=== PATIENT | female | born 1945 | race Caucasian/White ===

== ENCOUNTER 2024-02-23 14:01 | Outpatient (AMB) | payer MEDICARE, MEDICAID, SELFPAY ==
--- NOTE | 2024-02-23 14:15 | A.OFFVIS_ITS ---
Vital Signs 02/23/24 14:17 Height 5 ft 3 in Weight 150 lb BMI 26.6 BP 142/67 H Blood Pressure Location Lt brachial Position Sitting Respiration 16 Pulse 68 Pulse Source Pulse Oximeter Pulse Oximetry (%) 98 Oxygen Delivery Method Room Air Intake Visit Reasons: LBP with R radiculopathy Allergies Penicillins Adverse Reaction (Severe, Verified 02/23/24 14:19) Hives Medication List - Last Reconciled 02/23/24 by Melisa Kyle, SERG atorvastatin 80 mg PO BEDTIME cyclobenzaprine 5 mg PO TID PRN gabapentin 1,200 mg PO .PM gabapentin 600 mg PO DAILY lisinopril 20 mg PO DAILY lorazepam 0.5 mg PO DAILY PRN metoprolol tartrate 25 mg PO DAILY tramadol 50 mg PO BID PRN HPI Comments Details: Florencia is very pleasant 78 years old female who presents in my office with her daughter today. She is complaining on pain in right lower back right leg and right knee pain. She reports sometimes feeling that right leg is going to give up under her. She reports that this pain started in August of 2023. She had the fall that summer and developed some small spinal fracture however on recent x- ray it is not documented. She reports that standing hurts her pain the most sitting and laying make pain better walking increases the pain. Flexing forward aggravates pain little bit and flexing backwards makes her pain more severe. The pain onset was gradual patient reports that she can not sleep normally, she can not do activities of daily living, she plus-minus can take care of herself, she can not function normally. She is retired individual on permanent disability. She needs walker or cane for ambulation. Her most severe pain is in the morning and after walking. Pain is less severe at rest. In terms of tissue damage he describes her pain as pulsing, throbbing, pounding, tingling, stinging, dull, hurting, heavy, tiring, exhausting, fearful, fried full, terrifying. She had x-ray of the lumbar spine results of which dictated as below. She had extensive course of physical therapy and tries to continue home exercise program however this takes her toll when she performs exercises while standing. She was given occupational therapy to help with the cane and walker. She reports that she received cortisone injection in her knee in the past which did not help her pain. Her past medical history significant for hypertension history of myocardial infarction for which she received cardiac stent history of arthritis and arrhythmia. She does not have pacemaker implanted no defibrillator. Her past surgical history significant for cardiac standing in 2011 lumpectomy for breast CA gallbladder surgery partial thyroidectomy and hernia repair. Social history she is retired individual she denies smoking she stopped it in 2010. She does not drink alcohol. She drinks coffee 1-2 glasses daily with large amount of sugar, she sometimes drinks soda. She denies recreational drugs. Review of Systems Const Reports no additional complaints Eyes Reports blurry vision and Reports change in vision ENT Reports Normal hearing present Card Reports as per HPI Resp Reports no additional complaints GI Reports no additional complaints Reports no additional complaints Musc Reports as per HPI Neuro Reports no additional complaints, Reports Normal hearing present, Denies Abnormal speech present, Denies confusion and Denies Sensory deficit (Neuro) Psych Reports no additional complaints and Denies confusion Physical Exam Vital Signs: Last Vital Signs Pulse 68 02/23/24 14:17 Resp 16 02/23/24 14:17 BP 142/67 H 02/23/24 14:17 Pulse Ox 98 02/23/24 14:17 Oxygen Delivery Method Room Air 02/23/24 14:17 BMI result Body Mass Index 26.6 Const General: no acute distress; No confusion Nutritional Appearance: obese morbidly obese Orientation/consciousness: patient oriented x3 and No confusion Eyes General: appearance normal, both eyes and all related structures Pupils: Equal, round and reactive pupils present EOM: EOMs intact bilaterally Neck Neck: Yes full ROM Chest Chest palpation & inspection: normal inspection of the chest Resp Effort & Inspection: normal respiratory effort, able to speak in complete sentences, normal respiratory pattern, no audible wheezes and no cough Cardio Jugular venous distension: no JVD GI Inspection: Yes normal to inspection Back/Spine/Pelvis Other: She is able to stand on bilateral tiptoes however she loses her balance attempting to stand on bilateral heels, therefore dorsiflexion of the foot function S1 nerve root is difficult to assess on physical exam. Flexing forward aggravates her pain as well as flexing backwards. Loading test is positive on the right. Negative on the left. SLR is negative bilaterally. Reagan test is negative bilaterally. There is tenderness on palpation in paraspinal spinal region most lower portion of the lumbar spine. Tenderness on palpation in proj ection of the trochanter. Tenderness on palpation in projection of the right knee. Neuro General: patient oriented x3, gait normal and No confusion Cranial nerves: Yes CN's II-XII intact bilaterally, Yes Equal, round and reactive pupils present, Yes Normal hearing present and Yes Ability to bilaterally elevate shoulders present Speech: No Abnormal speech present Gait exam (Neuro): Normal gait present Motor exam (neuro): 5/5 motor strength present throughout Sensory Exam: No Sensory deficit (Neuro) Extrem General: No pedal edema Psych Speech and movement: Normal speech and movement present Affect: normal affect Attitude: cooperative Thought process: Normal thought process present Thought content: Normal thought content present Insight: Good insight present (Psych) Judgement: Good judgement present (Psych) Results Reviewed Results Reviewed: X-ray lumbar spine 11/25/2023. Degenerative disc and endplate changes, most pronounced with the lower lumbar spine. Degenerative facet joint changes in multiple levels. No substantial lumbar vertebral body compression deformity seen. There is multiple likely Schmorl's nodes. The bones appear mildly under mineralized , minimal grade 1 anterolisthesis at L3-L4 Appears similar to prior CT, likely minimal grade 1 anterolisthesis at L2-L3 new compared to prior CT. Prominent atherosclerotic calcifications of the abdominal aorta. Surgical clips in the right upper quadrant. Impression degenerative changes within the lumbar spine. X-ray of the right knee 10/14/2023. Findings: Mild tricompartmental arthritis with small joint effusion. No acute fracture identified. No acute dislocation subluxation identified. 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 Next appointment will be scheduled immediately after this injection. (2) Iliotibial band syndrome affecting right lower leg: Code(s): M76.31 - Iliotibial band syndrome, right leg Category: Medical Plan: I recommend I aerobic exercises preferably swimming for her to help with iliotibial band syndrome. Physical therapy exercises she learned at the office of physical therapy must be continued. (3) Osteoarthritis of right knee: Code(s): M17.11 - Unilateral primary osteoarthritis, right knee Category: Medical Plan: I offered the patient to perform Durolane or Synvisc injection into the right knee. I do not believe 78 years old with history of osteopenia is a good candidate for knee steroid injections. (4) Chronic pain syndrome: Code(s): G89.4 - Chronic pain syndrome Category: Medical Plan She was asking multiple questions about medications. She is being prescribed tramadol and she takes Advil with that. I also recommended her to take Tylenol in between the doses of the tramadol. She can not take up to 3 pills of 500 mg of Tylenol. I also recommended her to continue to stay active. The question was whether or not Celebrex is a good medication for her. 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 I also explained to her if Advil or Celebrex irritate her stomach she can not take this medication with food or milk. Multiple questions this patient was asking about pain control and medications. All this questions were answered to patient's satisfaction. Patient Instructions: I here by testify that I spent 45 minutes in conversation with this patient as well as planning her care and organizing this note. Coding Level of Care Code New Pt Level 4 (99113) Diagnoses Spondylosis of lumbar region without myelopathy or radiculopathy M47.816 Iliotibial band syndrome affecting right lower leg M76.31 Osteoarthritis of right knee M17.11 Chronic pain syndrome G89.4
[2024-02-23 14:17] VITALS: BP 142/67; PULSE 68; RESP 16; O2SAT 98; BMI 26.6
--- OUTSIDE RECORDS SUMMARY | 2024-02-23 18:30 | XMS_ITS | Clinical Summary ---
Author Organization [facility] Address [address] [place] [address] Phone Care Team Providers Care Commercial Real Estate Lender Name Role Phone Monica HERRERA Karin Nesbitt [phone] Conditions or Problems Problem Name Problem Code Onset Date Status Entry Date Provider Comment Standard Description Annotate CONTACT DERMATITIS 96018981 (SNOMED CT) Active Karin HERRERA Contact dermatitis Medications Medication Instructions Start Date Stop Date Generic Name NDC Provider TRIAMCINOLONE ACETONIDE 0.1 % OINT Apply BID to affected area on forearms daily TRIAMCINOLONE ACETONIDE [id number] Karin HERRERA ATIVAN TABS LORAZEPAM TABS [id number] Karin HERRERA ADULT ASPIRIN EC LOW STRENGTH 81 MG ORAL TABLET DELAYED RELEASE ASPIRIN [id number] Karin HERRERA CALCIUM-MAGNESIU M TABS CALCIUM-MAGNESIU M TABS [id number] Karin HERRERA LETROZOLE TABS LETROZOLE TABS [id number] Karin HERRERA GABAPENTIN TABS GABAPENTIN TABS [id number] Karin HERRERA METOPROLOL TARTRATE SOLN METOPROLOL TARTRATE SOLN [id number] Karin HERRERA LISINOPRIL TABLET LISINOPRIL TABS [id number] Karin HERRERA Medications Administered No information available. Allergies, Adverse Reactions, Alerts Allergy Name Reaction Description Start Date Severity Statu s Provider SHARAD Mild Karin HERRERA PCN Mild Karin HERRERA Results No information available. Plan of Care Type Date Detail Patient education nystatin%2ftriamcinolone%20(topical)%20(cream%2c%20ointm ent) Patient education Medications Patient education anal%20itching Patient education nystatin%2ftriamcinolone%20(topical)%20(cream%2c%20ointm ent) Patient education Medications Patient education anal%20itching Patient education nystatin%2ftriamcinolone%20(topical)%20(cream%2c%20ointm ent) Patient education Medications Patient education anal%20itching Procedures Code Procedure Name Date Entry Date [id number] Patient encounter procedure Vital Signs No information available. Immunizations No information available. Advance Directives No information available.
--- OUTSIDE RECORDS SUMMARY | 2024-02-23 18:30 | XMS_ITS | Clinical Summary ---
Author Organization Unknown Care Team Providers Care Electronic Gluer Name Role Phone ANGELA JEFFERSON, LEONOR Unavailable Unavailable CLAUDIA RN, JENNIE Unavailable Unavailable CULLEN PT, ROSI Unavailable Unavaila diomedes CAMEJO OT, SENDY Unavailable Unavailable BALDINShorty PHOTOLITHOGRAPHER, ANGELO Unavailable Unavailable JOCELYNN FOSTER PARENT, VAHID Unavailable Unavailable CAROL ANN PT, STEPHANY Unavailable Unavailable Payers Payer Name Policy Type Policy Number Effective Date Expira tion Date MEDICARE - [place] - [place] [id number] MEDICAID [place] [facility] [id number] Problems Condition Name Condition Details Condition Category Status Onset Date Resolution Date Last Treatment Date Treating Clinician Comments WEDGE COMPRSN FX FOURTH LUM VERT, SUBS FOR FX W ROUTN HEAL Active 02-07 00:00: 00 ESSENTIAL (PRIMARY) HYPERTENSION Active 02-07 00:00: 00 POLYNEUROPAT HY, UNSPECIFIED Active 02-07 00:00: 00 ANXIETY DISORDER, UNSPECIFIED Active 02-07 00:00: 00 HYPERLIPIDEM IA, UNSPECIFIED Active 02-07 00:00: 00 UNSPECIFIED URINARY INCONTINENCE Active 02-07 00:00: 00 RADICULOPATH Y, LUMBAR REGION Active 02-07 00:00: 00 PERSONAL HISTORY OF MALIGNANT NEOPLASM OF BREAST Active 02-07 00:00: 00 HISTORY OF FALLING Active 02-07 00:00: 00 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 Ordering Clinician Indication Dosage Frequency Signature (SIG) Comments Components cyclobenzap rine 10 mg tablet 09-06 00:00: 00 09-20 23:59 :00 No [id number] Per instruc tions EVERY 8 HOURS NEEDED Per instructio ns EVERY 8 HOURS NEEDED (route: oral) Med Classific ation: Locomotor System fluvoxamine 100 mg tablet 09-01 00:00: 00 09-20 23:59 :00 No [id number] Per instruc tions ONCE DAILY AT BEDTIME Per instructio ns ONCE DAILY AT BEDTIME (route: oral) Med Classific ation: Central Nervous System Agents metoprolol succinate ER 25 mg tablet,exte nded release 24 hr 09-01 00:00: 00 Yes [id number] 1 tablet ONCE DAILY 1 tablet ONCE DAILY (route: oral) Med Classific ation: Cardiovas cular Therapy Agents alendronate 70 mg tablet 08-30 00:00: 00 Yes [id number] Per instruc tions WEEKLY Per instructio ns WEEKLY (route: oral) Med Classific ation: Endocrine metoprolol succinate ER 50 mg tablet,exte nded release 24 hr 08-21 00:00: 00 09-20 23:59 :00 No [id number] Per instruc tions EVERY DAY Per instructio ns EVERY DAY (route: oral) Med Classific ation: Cardiovas cular Therapy Agents lisinopril 20 mg tablet 08-17 00:00: 00 12-07 23:59 :00 No [id number] 30 mg EVERY DAY 30 mg EVERY DAY (route: oral) Med Classific ation: Cardiovas cular Therapy Agents gabapentin 300 mg capsule 09-20 00:00: 00 12-12 23:59 :00 No [id number] 2 capsule 2 TIMES DAILY 2 capsule 2 TIMES DAILY (route: oral) Med Classific ation: Central Nervous System Agents lorazepam 0.5 mg tablet 09-20 00:00: 00 Yes [id number] 1 tablet BEDTIME 1 tablet BEDTIME (route: oral) Med Classific ation: Central Nervous System Agents PreserVisio n AREDS 2 Plus Multivit 200 mcg-15 mcg-5 mg-1 mg capsule 09-20 00:00: 00 Yes [id number] 1 capsule DAILY 1 capsule DAILY (route: oral) Med Classific ation: Electroly te Balance-N utritiona l Products tramadol 50 mg tablet 09-20 00:00: 00 12-07 23:59 :00 No [id number] 1 tablet NEEDED 1 tablet NEEDED (route: oral) Med Classific ation: Analgesic , Anti-infl ammatory or Antipyret ic trazodone 50 mg tablet 09-20 00:00: 00 12-12 23:59 :00 No [id number] .5 tablet DAILY .5 tablet DAILY (route: oral) Med Classific ation: Central Nervous System Agents furosemide 20 mg tablet 09-28 00:00: 00 Yes [id number] 20 mg DAILY 20 mg DAILY (route: oral) Med Classific ation: Cardiovas cular Therapy Agents celecoxib 200 mg capsule 2023-02 00:00: 00 Yes [id number] 1 capsule 2 TIMES DAILY 1 capsule 2 TIMES DAILY (route: oral) Med Classific ation: Analgesic , Anti-infl ammatory or Antipyret ic lisinopril 20 mg tablet 2023-02 00:00: 00 Yes [id number] 1 tablet EVERY AM 1 tablet EVERY AM (route: oral) Med Classific ation: Cardiovas cular Therapy Agents atorvastati n 80 mg tablet 2023-02 00:00: 00 Yes [id number] 80 mg DAILY 80 mg DAILY (route: oral) Med Classific ation: Cardiovas cular Therapy Agents fluvoxamine 100 mg tablet 2023-02 00:00: 00 Yes [id number] 100 mg BEDTIME 100 mg BEDTIME (route: oral) Med Classific ation: Central Nervous System Agents gabapentin 300 mg capsule 2023-02 00:00: 00 Yes [id number] Per instruc tions 2 TIMES DAILY Per instructio ns 2 TIMES DAILY (route: oral) Med Classific ation: Central Nervous System Agents oxybutynin chloride 5 mg tablet 2023-02 00:00: 00 Yes [id number] 5 mg 2 TIMES DAILY 5 mg 2 TIMES DAILY (route: oral) Med Classific ation: Genitouri nary Therapy Vital Signs Vital Name Observation Time Observation Value Commen ts Temperature 2024-01-17 16:07:00.000 98 [degF] Temperature 2023-12-08 15:39:00.000 98 [degF] Temperature 2023-11-29 13:37:00.000 98.5 [degF] Temperature 2023-11-28 09:09:00.000 97.9 [degF] Temperature 2023-11-24 09:31:00.000 98.3 [degF] Pulse 2024-01-17 16:07:00.000 82 /min Pulse 2023-12-08 15:39:00.000 88 /min Pulse 2023-11-29 13:37:00.000 71 /min Pulse 2023-11-28 09:09:00.000 76 /min Pulse 2023-11-24 09:31:00.000 89 /min O2 Saturation (%) 2024-01-17 16:07:00.000 98 % O2 Saturation (%) 2023-12-08 15:39:00.000 98 % O2 Saturation (%) 2023-11-29 13:37:00.000 96 % O2 Saturation (%) 2023-11-28 09:09:00.000 93 % O2 Saturation (%) 2023-11-24 09:31:00.000 93 % Respirations 2024-01-17 16:07:00.000 16 /min Respirations 2023-12-08 15:39:00.000 16 /min Respirations 2023-11-29 13:37:00.000 16 /min Respirations 2023-11-28 09:09:00.000 16 /min Respirations 2023-11-24 09:31:00.000 16 /min Systolic Blood Pressure 2024-01-17 16:07:00.000 112 mm [Hg] Systolic Blood Pressure 2023-12-08 15:39:00.000 104 mm [Hg] Systolic Blood Pressure 2023-11-29 13:37:00.000 106 mm [Hg] Systolic Blood Pressure 2023-11-28 09:09:00.000 132 mm [Hg] Systolic Blood Pressure 2023-11-24 09:31:00.000 128 mm [Hg] Diastolic Blood Pressure 2024-01-17 16:07:00.000 74 mm [Hg] Diastolic Blood Pressure 2023-12-08 15:39:00.000 58 mm [Hg] Diastolic Blood Pressure 2023-11-29 13:37:00.000 68 mm [Hg] Diastolic Blood Pressure 2023-11-28 09:09:00.000 78 mm [Hg] Diastolic Blood Pressure 2023-11-24 09:31:00.000 74 mm [Hg] Plan of Treatment Planned Activity Planned Date Details Comments Future Scheduled Test SKILLED NU RSE TO EVALUATE PATIENT, IDENTIFY PRIMARY AND CO-MORBID CONDITIONS CODED PER CODING GUIDELINES, AND DEVELOP PATIENT SPECIFIC PLAN OF CARE THAT INCLUDES PATIENT GOAL FOR HOME HEALTH. [code = SKILLED NURSE TO EVALUATE PATIENT, IDENTIFY PRIMARY AND CO-MORBID CONDITIONS CODED PER CODING GUIDELINES, AND DEVELOP PATIENT SPECIFIC PLAN OF CARE THAT INCLUDES PATIENT GOAL FOR HOME HEALTH.] Future Scheduled Test PATIENT MCLEOD S A RISK OF HOSPITALIZATION AND ED USE. SKILLED NURSE TO ESTABLISH SUPPORT MEASURES TO MINIMIZE RISK OF HOSPITALIZATION AND ED USE, AND INSTRUCT PATIENT/CAREGIVER ON METHODS TO REDUCE AVOIDABLE HOSPITALIZATION AND ED USE. [code = PATIENT HAS A RISK OF HOSPITALIZATION AND ED USE. SKILLED NURSE TO ESTABLISH SUPPORT MEASURES TO MINIMIZE RISK OF HOSPITALIZATION AND ED USE, AND INSTRUCT PATIENT/CAREGIVER ON METHODS TO REDUCE AVOIDABLE HOSPITALIZATION AND ED USE.] Future Scheduled Test SKILLED NU RSE TO PERFORM HOME SAFETY AND FALL ASSESSMENT AND PROVIDE INSTRUCTION TO IMPLEMENT HOME SAFETY AND FALL PREVENTION STRATEGIES. [code = SKILLED NURSE TO PERFORM HOME SAFETY AND FALL ASSESSMENT AND PROVIDE INSTRUCTION TO IMPLEMENT HOME SAFETY AND FALL PREVENTION STRATEGIES.] Future Scheduled Test SKILLED NU RSE FOR OBSERVATION AND ASSESSMENT OF PATIENTS PAIN LEVEL AND EFFECTIVENESS OF PAIN MANAGEMENT REGIMEN. SKILLED NURSE TO INSTRUCT PATIENT/CAREGIVER REGARDING PHARMACOLOGIC AND NON-PHARMACOLOGIC PAIN CONTROL MEASURES. SKILLED NURSE TO REPORT TO PHYSICIAN IF PAIN IS UNCONTROLLED WITH CURRENT PAIN MANAGEMENT REGIMEN. [code = SKILLED NURSE FOR OBSERVATION AND ASSESSMENT OF PATIENTS PAIN LEVEL AND EFFECTIVENESS OF PAIN MANAGEMENT REGIMEN. SKILLED NURSE TO INSTRUCT PATIENT/CAREGIVER REGARDING PHARMACOLOGIC AND NON-PHARMACOLOGIC PAIN CONTROL MEASURES. SKILLED NURSE TO REPORT TO PHYSICIAN IF PAIN IS UNCONTROLLED WITH CURRENT PAIN MANAGEMENT REGIMEN.] Future Scheduled Test SKILLED NU RSE FOR O/A OF SELF-CARE DEFICITS AND TO PROVIDE TEACHING RELATED TO SAFE PROVISION OF ADLS. [code = SKILLED NURSE FOR O/A OF SELF-CARE DEFICITS AND TO PROVIDE TEACHING RELATED TO SAFE PROVISION OF ADLS.] Future Scheduled Test SKILLED NU RSE TO REVIEW PATIENT MEDICATIONS. INSTRUCT PATIENT/CAREGIVER ON MONITORING OF EFFECTIVENESS, ADVERSE DRUG REACTIONS, SIDE EFFECTS OF ALL MEDICATIONS (PRESCRIPTION/-OTC), AND HOW AND WHEN TO REPORT PROBLEMS. [code = SKILLED NURSE TO REVIEW PATIENT MEDICATIONS. INSTRUCT PATIENT/CAREGIVER ON MONITORING OF EFFECTIVENESS, ADVERSE DRUG REACTIONS, SIDE EFFECTS OF ALL MEDICATIONS (PRESCRIPTION/-OTC), AND HOW AND WHEN TO REPORT PROBLEMS.] Future Scheduled Test PHYSICAL T HERAPIST TO EVALUATE PATIENT SECONDARY TO FUNCTIONAL DEFICITS/SAFETY CONCERNS. PHYSICAL THERAPY TO ESTABLISH /UPGRADE/DOWNGRADE THERAPEUTIC EXERCISE PROGRAM AND INSTRUCT PATIENT/CAREGIVER ON EXERCISE PRECAUTIONS WITH WRITTEN HOME PROGRAM. MAY INCLUDE AROM, RROM APPROPRIATE TO IMPROVE FUNCTIONAL STRENGTH AND RANGE OF MOTION. PHYSICAL THERAPY TO INSTRUCT PATIENT/CAREGIVER ON GAIT TRAINING TECHNIQUES USING APPROPRIATE ASSISTIVE DEVICE, PROPER BODY MECHANICS TO IMPROVE MOBILITY, AND PREVENT INJURY OF PATIENT AND/OR CAREGIVER. PHYSICAL THERAPY FOR OBSERVATION AND ASSESSMENT OF PAIN, EFFECTIVENESS OF PAIN MANAGEMENT REGIMEN AND SKILLED TEACHING RELATED TO PAIN MANAGEMENT. THERAPIST TO REPORT INCREASED PAIN LEVEL TO PHYSICIAN FOR PROMPT INTERVENTION. PHYSICAL THERAPY TO INSTRUCT PATIENT/CAREGIVER ON BALANCE AND BALANCE STRATEGIES TO IMPROVE SAFE MOBILITY AND REDUCE RISK FOR FALL AND INJURY INCLUDING PARTICIPATION IN [facility] BALANCE SPECIALTY PROGRAM SUMMARY OF THERAPY EVAL/ASSESSMENT FINDINGS AND REASON(S) SKILLS OF A THERAPIST ARE INDICATED: PT RECERTIFICATION- PATIENT IS A 78 YEAR OLD FEMALE WHO HAS BEEN RECEIVING SKILLED HOME PHYSICAL S/P TWO FALLS, RESULTING IN L4 ENDPLATE FRACTURE. PATIENT IS MAKING GAINS WITH SKILLED PT SERVICES THOUGH PROGRESS IS LIMITED DUE TO SIGNIFICANT MEMORY/RECALL DEFICITS AND IMPULSIVITY LIMITING SAFETY AWARENESS. PATIENT CURRENT STATUS FOLLOWS: ALERT AND ORIENTED X 3 THOUGH VERY FORGETFUL AND REQUIRES FREQUENT REDIRECTION. PT WITH DECREASING COMPLAINTS PAIN NOW 2-5/10 R ANTERIOR THIGH TO KNEE (WAS 5-8/10 R LATERAL THIGH TO KNEE) SENSATION - COMPLIANTS NUMBNESSS R ANTERIOR THIGH TO KNEE THOUGH SENSATION INTACT CONTINUED LIMITED LIGHT TOUCH SENSATION B LE PEDAL TO PROXIMAL BERG MMT NOW: 4+/5 L LE, R HIP FLEX/ABD/EXT 4-, R QUAD/HS/ANKLE 4/5 BED MOBILITY- INDEP THOUGH NONCOMPLIANT WITH LOGROLLING TECH. XFERS- PATIENT REQURIES CONTINUED SUPERVISION WITH VC FOR 4WW. GAIT- PATIENT ABLE TO DEMONSTRATE DISTANT SUPERVISIOON INDOOR AMBULATION WITH 4WW THOUGH L BOLT MISSING FROM 4WW RESULTING IN INABILITY TO KEEP L SUPPORT IN PROPER POSITION, TC TO DTR WHO IS AWARE AND STATES SHE HAS REPLACEMENT BOLT WHICH SHE WILL DELIVER TOMORROW. PATIENT ABLE TO DEMONSTRATE IMPROVED STEP LENGTH AND GAIT SPEED BUT DEMONSTRATES INCONSISTENT COMPLIANCE WITH 4WW LIMITING SAFETY. (IMPROVED FROM PATIENT REQUIRES INTERMITTENT CGA FOR INDOOR AMBULATION WITH MOD VC/TC FOR UPRIGHT POSTURE AND NOT TO WB ON FOREARMS ON 4WW) PT IS A REMAINS A HIGH FALL RISK THOUGH LESSENED EVIDENCED BY TINETTI OF (WAS .) PT TO BENEFIT CONTINUED SKILLED PT RX 1X WK X 5 WKS TO ADDRESS BALANCE, SAFETY, LE STRENGTH DEFICITS TO MAXIMIZE SAFETY IN HOME AND BALANCE REACTIONS PATIENT PERSISTS WITH VERY LIMITED INSIGHT INTO DEFICITS. CONTINUE EDUCATION IN NOT DRIVING, USE OF 4WW AT ALL TIMES, HEP UPDATED TO INCLUDE SLR AND BRIDGING TO ADDRESS CORE STRENGTH DEFICITS. CC WITH PHOTOLITHOGRAPHER MARTA AND DTR REGARDING PT POC. [code = PHYSICAL THERAPIST TO EVALUATE PATIENT SECONDARY TO FUNCTIONAL DEFICITS/SAFETY CONCERNS. PHYSICAL THERAPY TO ESTABLISH /UPGRADE/DOWNGRADE THERAPEUTIC EXERCISE PROGRAM AND INSTRUCT PATIENT/CAREGIVER ON EXERCISE PRECAUTIONS WITH WRITTEN HOME PROGRAM. MAY INCLUDE AROM, RROM APPROPRIATE TO IMPROVE FUNCTIONAL STRENGTH AND RANGE OF MOTION. PHYSICAL THERAPY TO INSTRUCT PATIENT/CAREGIVER ON GAIT TRAINING TECHNIQUES USING APPROPRIATE ASSISTIVE DEVICE, PROPER BODY MECHANICS TO IMPROVE MOBILITY, AND PREVENT INJURY OF PATIENT AND/OR CAREGIVER. PHYSICAL THERAPY FOR OBSERVATION AND ASSESSMENT OF PAIN, EFFECTIVENESS OF PAIN MANAGEMENT REGIMEN AND SKILLED TEACHING RELATED TO PAIN MANAGEMENT. THERAPIST TO REPORT INCREASED PAIN LEVEL TO PHYSICIAN FOR PROMPT INTERVENTION. PHYSICAL THERAPY TO INSTRUCT PATIENT/CAREGIVER ON BALANCE AND BALANCE STRATEGIES TO IMPROVE SAFE MOBILITY AND REDUCE RISK FOR FALL AND INJURY INCLUDING PARTICIPATION IN [facility] BALANCE SPECIALTY PROGRAM SUMMARY OF THERAPY EVAL/ASSESSMENT FINDINGS AND REASON(S) SKILLS OF A THERAPIST ARE INDICATED: PT RECERTIFICATION- PATIENT IS A 78 YEAR OLD FEMALE WHO HAS BEEN RECEIVING SKILLED HOME PHYSICAL S/P TWO FALLS, RESULTING IN L4 ENDPLATE FRACTURE. PATIENT IS MAKING GAINS WITH SKILLED PT SERVICES THOUGH PROGRESS IS LIMITED DUE TO SIGNIFICANT MEMORY/RECALL DEFICITS AND IMPULSIVITY LIMITING SAFETY AWARENESS. PATIENT CURRENT STATUS FOLLOWS: ALERT AND ORIENTED X 3 THOUGH VERY FORGETFUL AND REQUIRES FREQUENT REDIRECTION. PT WITH DECREASING COMPLAINTS PAIN NOW 2-5/10 R ANTERIOR THIGH TO KNEE (WAS 5-8/10 R LATERAL THIGH TO KNEE) SENSATION - COMPLIANTS NUMBNESSS R ANTERIOR THIGH TO KNEE THOUGH SENSATION INTACT CONTINUED LIMITED LIGHT TOUCH SENSATION B LE PEDAL TO PROXIMAL BERG MMT NOW: 4+/5 L LE, R HIP FLEX/ABD/EXT 4-, R QUAD/HS/ANKLE 4/5 BED MOBILITY- INDEP THOUGH NONCOMPLIANT WITH LOGROLLING TECH. XFERS- PATIENT REQURIES CONTINUED SUPERVISION WITH VC FOR 4WW. GAIT- PATIENT ABLE TO DEMONSTRATE DISTANT SUPERVISIOON INDOOR AMBULATION WITH 4WW THOUGH L BOLT MISSING FROM 4WW RESULTING IN INABILITY TO KEEP L SUPPORT IN PROPER POSITION, TC TO DTR WHO IS AWARE AND STATES SHE HAS REPLACEMENT BOLT WHICH SHE WILL DELIVER TOMORROW. PATIENT ABLE TO DEMONSTRATE IMPROVED STEP LENGTH AND GAIT SPEED BUT DEMONSTRATES INCONSISTENT COMPLIANCE WITH 4WW LIMITING SAFETY. (IMPROVED FROM PATIENT REQUIRES INTERMITTENT CGA FOR INDOOR AMBULATION WITH MOD VC/TC FOR UPRIGHT POSTURE AND NOT TO WB ON FOREARMS ON 4WW) PT IS A REMAINS A HIGH FALL RISK THOUGH LESSENED EVIDENCED BY TINETTI OF (WAS .) PT TO BENEFIT CONTINUED SKILLED PT RX 1X WK X 5 WKS TO ADDRESS BALANCE, SAFETY, LE STRENGTH DEFICITS TO MAXIMIZE SAFETY IN HOME AND BALANCE REACTIONS PATIENT PERSISTS WITH VERY LIMITED INSIGHT INTO DEFICITS. CONTINUE EDUCATION IN NOT DRIVING, USE OF 4WW AT ALL TIMES, HEP UPDATED TO INCLUDE SLR AND BRIDGING TO ADDRESS CORE STRENGTH DEFICITS. CC WITH PHOTOLITHOGRAPHER MARTA AND DTR REGARDING PT POC.] Goal 2024-01-18 Patient Goal - F EEL BETTER I WANT TO WALK INDEPENDENTLY Goal 2023-11-15 Patient Goal - FEEL BETTER Goal 2024-01-17 Patient Goal - F EEL BETTER I WANT TO WALK INDEPENDENTLY Goal Provider Goal - A PLAN OF CARE WILL BE ESTABLISHED THAT MEETS PATIENT'S NURSING HOME NEEDS AND INCLUDES PATIENT GOAL FOR HOME HEALTH. Goal Provider Goal - PATIENT WILL HAVE SUPPORT MEASURES ESTABLISHED TO PREVENT HOSPITALIZATION AND ED USE AND PATIENT/CAREGIVER WILL VERBALIZE/DEMONSTRATE METHODS TO REDUCE AVOIDABLE HOSPITALIZATION AND ED USE BY END OF EPISODE. Goal Provider Goal - PATIENT/CAREGIVER WILL VERBALIZE/DEMONSTRATE EFFECTIVE HOME SAFETY AND FALL PREVENTION STRATEGIES THROUGHOUT CERTIFICATION PERIOD. Goal Provider Goal - PATIENT/CAREGIVER WILL DEMONSTRATE UNDERSTANDING OF PHARMACOLOGIC AND NONPHARMACOLOGIC PAIN CONTROL MEASURES AND PATIENT WILL HAVE IMPROVEMENT IN PAIN INTERFERING WITH ACTIVITY EVIDENCED BY PAIN CONTROLLED AT LEVEL OF 4 OR LESS BY END OF CERTIFICATION PERIOD. Goal Provider Goal - PATIENT/CAREGIVER WILL VERBALIZE/DEMONSTRATE UNDERSTANDING OF SAFE PROVISION OF ADLS BY THE END OF THE CERTIFICATION PERIOD. Goal Provider Goal - PATIENT/CAREGIVER WILL VERBALIZE UNDERSTANDING OF EDUCATION PROVIDED ON MEDICATIONS BY THE END OF THE CERTIFICATION PERIOD. Goal Provider Goal - PHYSICAL THERAPY EVALUATION TO BE COMPLETED WITH RECOMMENDATIONS AND/OR WRITTEN TREATMENT PLAN OF CARE ESTABLISHED FOR THE PHYSICIANS SIGNATURE PATIENT/CAREGIVER WILL PERFORM THERAPEUTIC EXERCISE/S AND DEMONSTRATE PARTICIPATION IN A HOME PROGRAM. PATIENT/CAREGIVER WILL DEMONSTRATE IMPROVED GAIT TECHNIQUES TO MINIMIZE RISK OF INJURY. INCREASED PAIN OR INEFFECTIVE PAIN CONTROL MEASURES WILL BE IDENTIFIED AND PROMPTLY REPORTED TO THE PHYSICIAN. PATIENT/CAREGIVER WILL DEMONSTRATE EFFECTIVE PAIN MANAGEMENT. PATIENT/CAREGIVER WILL DEMONSTRATE IMPROVED BALANCE AND REDUCE THE RISK OF FALLS AND INJURY. Reason for Visit INDEPENDENT IN THE HOME Encounters Start Date/Time End Date/Time Encounter Type Admission Type [facility]ending [facility] Department Encounter ID Discharge Date Discharge Status Discharge Condition Discharge Reason Percent Goals Met 2023-09-21 00:00:00 2024-01-18 00:00:00 Outpatient RECERTIFIC JENNIE DEWITT [facility] [id number] 2024-01-18 00:00:00 DISCHARGE TO HOME OR SELF CARE INDEPENDEN T IN THE HOME PER CLIENT REQUEST 52.38
== END 2024-02-23 14:56 | disposition home or self-care (01) ==
PROVIDERS: Visit Provider Anesthesiology
DX: M47.816 Spondylosis without myelopathy or radiculopathy, lumbar region (principal); M76.31 Iliotibial band syndrome, right leg; M17.11 Unilateral primary osteoarthritis, right knee; G89.4 Chronic pain syndrome
CPT/HCPCS: 99204

== ENCOUNTER → 2024-02-23 14:01 | Outpatient (BNVA) | payer MEDICARE, MEDICAID, SELFPAY | PROVIDERS: Visit Provider Anesthesiology | DX: M47.816 Spondylosis without myelopathy or radiculopathy, lumbar region (principal); M76.31 Iliotibial band syndrome, right leg; M17.11 Unilateral primary osteoarthritis, right knee; G89.4 Chronic pain syndrome | CPT/HCPCS: 99202 ==

== ENCOUNTER 2024-05-04 10:24 | Day surgery (SDC) | payer MEDICARE, SELFPAY ==
--- NOTE | ~2024-05-04 | FL_ITS ---
EXAMINATION: FL GUIDANCE ONLY HISTORY: right l3, l4 dorsal ramus l5 medial branch block COMPARISON: None available. TECHNIQUE: Fluoroscopy time: 57.4 seconds. Cumulative Dose: 6.1304 mGy. DAP: 2.5411 mGym2 Images: 8. FINDINGS: Images demonstrate needles and contrast material in the regions of the right L2-3, L3-4, L4-5, and L5-S1 facet joints. FL/FL guidance in OR IMPRESSION: Fluoroscopy during procedure. Please see procedure report for additional information. Electronically signed by: Ian Cox MD 05/04/2024 02:39 PM EDT
[2024-05-04 11:14] VITALS: BMI 24.8
[2024-05-04 11:21] VITALS: BP 152/60; PULSE 62; RESP 16; TEMP 36.8; O2SAT 97
[2024-05-04] MEDS: Lactated Ringers 1,000 ML 100 ML IVCONT (11:39)
--- NOTE | 2024-05-04 12:56 | MHC.SHP ---
Pre-Procedural Eval Section A - 24 Hr Update-Section A only Date of Service: 05/04/24 The patient is an INPATIENT: No Changes since office visit: Yes Patient answered all questions The patient has been examined within 24 hours of the surgical procedure. The History & Physical has been completed within 30 days and I have reviewed it.: No Section B - Complete if H&P > 30 days Chief Complaint: Spondylosis without myelopathy or radiculopathy Details of Present Illness: As above Relevant Family History (Specify if Yes): No Relevant Social History: None Present Medications: see Short Stay Collaborative assessment Medical History: No relevant PMH History of Previous Operations: Relevant previous surgery/procedure and date(s) Allergies: Allergies Allergy/AdvReac Type Severity Reaction Status Date / Time Penicillins AdvReac Severe Hives Verified 02/23/24 14:19 Review of Systems Sugical H&P ROS: Negative: Constitution, Respiratory, Neurological, Psychiatric, Hem-Onc, Allergic/Immunologic, Gastrointestinal, Genitourinary, Integumentary, Endocrine and Eyes/Ears/Nose/Throat and Yes, Specify: Cardiovascular (Hypertension) and Musculoskeletal (As above) Exam Surgical H&P Exam: Normal: HEENT, Normal: Heart, Normal: Lungs, Normal: Extremities, Normal: Abdomen, Normal: Skin and Normal: Neurological Plan Diagnosis/Plan: Unchanged I have reviewed the history and physical and performed a pertinent physical examination on my patient. No changes have occurred unless specified. Time Spent With Patient Time: Total time managing care of this patient today _5___ minutes.
--- NOTE | 2024-05-04 13:21 | P.CONAN_ITS ---
Documented by User: Richa Goetz NP 05/03/24 10:31 HPI - Anesthesia Eval Consult details Narrative: 78yo F for Right Diagnostic L3 - L4 - Dorsal Ramus L5 Medial Branch Block Hx CT/Stent in 2010. Rare f/u with cardiology now. Denies CP/SOB. Activity limited by pain PMFSH Active Problems Active Problems: All Active Problems Chronic pain syndrome (Acute) Osteoarthritis of right knee (Acute) Iliotibial band syndrome affecting right lower leg (Acute) Spondylosis of lumbar region without myelopathy or radiculopathy (Acute) Past Medical History Medical History (Updated 05/04/24 @ 11:13 by Shayy Garvey RN) Neuropathy Macular degeneration of right eye Hernia Breast cancer, right Heart attack Anxiety High cholesterol HTN (hypertension) Surgical History Surgical History (Updated 05/04/24 @ 11:11 by Shayy Garvey RN) Hx of cholecystectomy Social History Social History Patient Tobacco Use Status: Never used Tobacco Use of substances other than those prescribed or required for medical reasons: No Are you DNR?: No Advance Directives: No Advance Directives Information Provided: Yes Nutrition Risks: No Nutritional Risk Meds Allergies Allergy/AdvReac Type Severity Reaction Status Date / Time Penicillins AdvReac Severe Hives Verified 02/23/24 14:19 Home Medications ?Medication ?Instructions ?Recorded ?Confirmed ?Last Taken ?Type atorvastatin 80 mg tablet 80 mg PO BEDTIME 02/23/24 02/23/24 Unknown History cyclobenzaprine 5 mg tablet 5 mg PO TID PRN 02/23/24 02/23/24 Unknown History gabapentin 300 mg capsule 1,200 mg PO .PM 02/23/24 02/23/24 Unknown History gabapentin 300 mg capsule 600 mg PO DAILY 02/23/24 02/23/24 Unknown History lisinopril 20 mg tablet 20 mg PO DAILY 02/23/24 02/23/24 Unknown History lorazepam 0.5 mg tablet 0.5 mg PO DAILY PRN 02/23/24 02/23/24 Unknown History metoprolol tartrate 25 mg tablet 25 mg PO DAILY 02/23/24 02/23/24 05/04/24 History tramadol 50 mg tablet 50 mg PO BID PRN 02/23/24 02/23/24 Unknown History Assessment and Plan Assessment Anesthesia Assessment: Chart Reviewed Documented by User: Chelle Marshall DO 05/04/24 13:22 [facility] Past Medical History Medical History (Updated 05/04/24 @ 11:13 by Shayy Garvey RN) Neuropathy Macular degeneration of right eye Hernia Breast cancer, right Heart attack Anxiety High cholesterol HTN (hypertension) Family History Family history of problems with anesthesia: No Surgical History Surgical History (Updated 05/04/24 @ 11:11 by Shayy Garvey RN) Hx of cholecystectomy History of Problems with Anesthesia: No Social History Social History Patient Tobacco Use Status: Never used Tobacco Use of substances other than those prescribed or required for medical reasons: No Are you DNR?: No Advance Directives: No Advance Directives Information Provided: Yes Nutrition Risks: No Nutritional Risk Meds Allergies Allergy/AdvReac Type Severity Reaction Status Date / Time Penicillins AdvReac Severe Hives Verified 02/23/24 14:19 Home Medications ?Medication ?Instructions ?Recorded ?Confirmed ?Last Taken ?Type atorvastatin 80 mg tablet 80 mg PO BEDTIME 02/23/24 02/23/24 Unknown History cyclobenzaprine 5 mg tablet 5 mg PO TID PRN 02/23/24 02/23/24 Unknown History gabapentin 300 mg capsule 1,200 mg PO .PM 02/23/24 02/23/24 Unknown History gabapentin 300 mg capsule 600 mg PO DAILY 02/23/24 02/23/24 Unknown History lisinopril 20 mg tablet 20 mg PO DAILY 02/23/24 02/23/24 Unknown History lorazepam 0.5 mg tablet 0.5 mg PO DAILY PRN 02/23/24 02/23/24 Unknown History metoprolol tartrate 25 mg tablet 25 mg PO DAILY 02/23/24 02/23/24 05/04/24 History tramadol 50 mg tablet 50 mg PO BID PRN 02/23/24 02/23/24 Unknown History Exam Exam Date and Time: 05/04/24 1320 Height,Weight and Vital Signs: Vital Signs Temperature 98.2 F 05/04/24 11:21 Pulse Rate 62 05/04/24 11:21 Respiratory Rate 16 05/04/24 11:21 Blood Pressure 152/60 H 05/04/24 11:21 Pulse Oximetry 97 05/04/24 11:21 Oxygen Delivery Method Room Air 05/04/24 11:21 Temperature 98.2 F 05/04/24 11:21 Pulse Rate 62 05/04/24 11:21 Respiratory Rate 16 05/04/24 11:21 Blood Pressure 152/60 H 05/04/24 11:21 Pulse Oximetry 97 05/04/24 11:21 Oxygen Delivery Method Room Air 05/04/24 11:21 Airway Mallampati Class: I TM Dist: >3cm Neck ROM: Limited Denture: Upper Heart: S1S2 Lungs: CTAB Assessment and Plan Assessment Anesthesia Assessment: Anesthesia Plan Discussed and Chart Reviewed Final Anesthetic Review Family History of Problems with Anesthesia: No History of Problems with Anesthesia: No NPO: Yes ASA Class: III Final Preanesthetic Review: No Changes in Pt Med Stat, Meds/Allgs Chart Reviewed, Consent Obtained/Reviewed and Anes Risks/Benef Reviewed Patient Risk: Intermediate Procedure Risk: Low Anesthetic Plan Anesthetic Plan: MAC: and Agree w/ Assess. and Plan Disposition: Standard PACU
[2024-05-04 14:04] VITALS: BP 127/58; PULSE 57; RESP 18; TEMP 36.6; O2SAT 98
[2024-05-04 14:09] VITALS: BP 139/63; PULSE 57; RESP 19; O2SAT 100
[2024-05-04 14:14] VITALS: BP 128/65; PULSE 58; RESP 19; O2SAT 100
[2024-05-04 14:19] VITALS: BP 143/58; PULSE 55; RESP 18; O2SAT 96
--- NOTE | 2024-05-04 14:28 | P.BOP_ITS ---
Brief Operative Note Date of Service: 05/04/24 Pre-op diagnosis: Spondylosis lumbar without myelopathy or radiculopathy Post-op diagnosis: same Procedure: Right diagnostic medial branch block L2, L3, L4, dorsal ramus L5. Surgeon: Aneudy Vernon MD Anesthesia: MAC Was an Director Of Outpatient Services used for this Procedure?: No Estimated blood loss (mL): 0 Condition: stable Disposition: PACU
--- NOTE | 2024-05-04 14:29 | P.OP_ITS ---
Operative Note Operative Note Date of Service: 05/04/24 Narrative: Right diagnostic medial branch block L2, L3, L4, dorsal ramus L5. Informed consent was carefully explained to the patient risks and benefits were explained. The patient was taken to the operating room where she was positioned prone on the operating table. [place] [employer] monitors were applied and patient was moderately sedated. Time-out was performed delineating name and date of of the patient side and site of the procedure in nature of the procedure. Patient's lower back was prepped with ChloraPrep and draped with sterile self adhesive utility towels. C-arm was brought over the operating field and picture of the lower lumbar vertebra were demonstrated on the screen. The point of interest were delineated as the projection to the skin of the confluence of the superior articular processes of L3, L4, L5 vertebras on the right with corresponding right transverse process, as well as confluence of superior articular process of S1 on the right with sacral allow on the right. The projection of the point of interest to the skin was injected with small amount of mixture of lidocaine 2% and ropivacaine 0.5% one-to-one. After that 22 gauge 3-1/2 inch needle was sequentially inserted through the skin wheals and advanced to were the point of interest in tunnel vision fashion. When tip of the needle gently contacted the bone injection of the contrast was performed demonstrating no intrathecal and no intravascular spread of the contrast. Upon completion of the injection the needle was removed sterile Band-Aid was applied. The patient tolerated the procedure well. She was taken outside of the operating room to recovery room where she recovered uneventfully. She was given pain diary to complete after the procedure.
[2024-05-04 14:34] VITALS: BP 130/55; PULSE 55; RESP 18; TEMP 36.8; O2SAT 98
== END 2024-05-04 14:59 | disposition home or self-care (01) ==
PROVIDERS: Visit Provider Anesthesiology
PROC: (CPT 64493; principal; 2024-05-04 14:10)
DX: M47.816 Spondylosis without myelopathy or radiculopathy, lumbar region (principal); G89.4 Chronic pain syndrome; M54.50 Low back pain, unspecified; M76.31 Iliotibial band syndrome, right leg; M17.11 Unilateral primary osteoarthritis, right knee; Z79.1 Long term (current) use of non-steroidal anti-inflammatories (NSAID); Z79.899 Other long term (current) drug therapy; Z88.0 Allergy status to penicillin; Z91.81 History of falling
CPT/HCPCS: 64493; 64494; J2003; J2250; J2704; J2795; J3010; Q9967

== ENCOUNTER → 2024-05-04 10:24 | Outpatient (BNV) | payer MEDICARE, SELFPAY | PROVIDERS: Visit Provider Anesthesiology | DX: M47.816 Spondylosis without myelopathy or radiculopathy, lumbar region (principal) | CPT/HCPCS: 64493; 64494 ==

== ENCOUNTER 2024-05-07 10:38 | Outpatient (AMB) | payer MEDICARE, SELFPAY ==
--- NOTE | 2024-05-07 10:42 | A.OFFVIS_ITS ---
Vital Signs 05/07/24 10:44 Height 5 ft 3 in Weight 140 lb BMI 24.8 BP 139/64 Blood Pressure Location Lt brachial Position Sitting Respiration 16 Pulse 67 Pulse Source Pulse Oximeter Pulse Oximetry (%) 94 Oxygen Delivery Method Room Air Intake Visit Reasons: S/p (R) Dx L3-L4-DR L5 MBB 05/04/24 Coal Dumping Equipment Operator Required: No Allergies Penicillins Adverse Reaction (Severe, Verified 05/07/24 10:45) Hives Medication List - Last Reconciled 05/07/24 by Melisa Kyle LPN alendronate 70 mg PO QWEEK atorvastatin 80 mg PO BEDTIME celecoxib 100 mg PO BID cyclobenzaprine 5 mg PO TID PRN gabapentin 1,200 mg PO .PM gabapentin 600 mg PO DAILY lisinopril 20 mg PO DAILY lorazepam 0.5 mg PO DAILY PRN metoprolol tartrate 25 mg PO DAILY oxybutynin chloride 5 mg PO BID HPI Comments Details: Florencia is back in my office after diagnostic medial branch block L2-L3 -L4 - dorsal ramus L5 on the right. She reports no pain improvement after the procedure. She reports only pain aggravation. Today she stated that most of her pain is in the right knee and right groin. She sometimes experiences discomfort in the back when she lies down. She states that pain in the knee in fact radiates to the back. I was about to offer her the intra-articular knee steroid injection however the patient is under observation with program director scouting Dr. Ramos for macular degeneration and therefore steroid injections could be dangerous for the eyesite of this patient. We will try to obtain clearance from this doctor and then we will schedule the appointment in 2 weeks to perform the injection on the right. Lateral rotation of the hip also results in pain increase in the groin. She might be suffering from arthritis of the knee as well as arthritis of the hip. In fact those could be her actual pain gen erators. Prior She is complaining on pain in right lower back right leg and right knee pain. She reports sometimes feeling that right leg is going to give up under her. She reports that this pain started in August of 2023. She had the fall that summer and developed some small spinal fracture however on recent x-ray it is not documented. She reports that standing hurts her pain the most sitting and laying make pain better walking increases the pain. Flexing forward aggravates pain little bit and flexing backwards makes her pain more severe. Her most severe pain is in the morning and after walking. Pain is less severe at rest. She had extensive course of physical therapy and tries to continue home exercise program however this takes her toll when she performs exercises while standing. She was given occupational therapy to help with the cane and walker. She reports that she received cortisone injection in her knee in the past which did not help her pain. [facility] Medical History (Updated 05/07/24 @ 11:15 by Aneudy Vernon MD) Neuropathy Macular degeneration of right eye Hernia Breast cancer, right Heart attack Anxiety High cholesterol HTN (hypertension) Surgical History (Updated 05/04/24 @ 11:11 by Shayy Garvey RN) Hx of cholecystectomy Social History Patient Tobacco Use Status: Never used Tobacco Review of Systems Const All systems reviewed & are unremarkable except as noted in HPI and below ENT Reports Normal hearing present Neuro Reports Normal hearing present, Denies Abnormal speech present, Denies confusion and Denies Sensory deficit (Neuro) Psych Denies confusion Physical Exam Vital Signs: Last Vital Signs Pulse 67 05/07/24 10:44 Resp 16 05/07/24 10:44 BP 139/64 05/07/24 10:44 Pulse Ox 94 05/07/24 10:44 Oxygen Delivery Method Room Air 05/07/24 10:44 BMI result Body Mass Index 24.8 Const General: no acute distress; No confusion Nutritional Appearance: obese morbidly obese Orientation/consciousness: patient oriented x3 and No confusion Eyes General: appearance normal, both eyes and all related structures Pupils: Equal, round and reactive pupils present EOM: EOMs intact bilaterally Neck Neck: Yes full ROM Chest Chest palpation & inspection: normal inspection of the chest Resp Effort & Inspection: normal respiratory effort, able to speak in complete sentences, normal respiratory pattern, no audible wheezes and no cough Cardio Jugular venous distension: no JVD GI Inspection: Yes normal to inspection Back/Spine/Pelvis Other: She is able to stand on bilateral tiptoes however she loses her balance atte mpting to stand on bilateral heels, therefore dorsiflexion of the foot function S1 nerve root is difficult to assess on physical exam. Flexing forward aggravates her pain as well as flexing backwards. Loading test is positive on the right. Negative on the left. SLR is negative bilaterally. Reagan test is negative bilaterally. There is tenderness on palpation in paraspinal spinal region most lower portion of the lumbar spine. Tenderness on palpation in projection of the trochanter. Tenderness on palpation in projection of the right knee. Neuro General: patient oriented x3, gait normal and No confusion Cranial nerves: Yes CN's II-XII intact bilaterally, Yes Equal, round and reactive pupils present, Yes Normal hearing present and Yes Ability to bilaterally elevate shoulders present Speech: No Abnormal speech present Gait exam (Neuro): Normal gait present Motor exam (neuro): 5/5 motor strength present throughout Sensory Exam: No Sensory deficit (Neuro) Extrem Other: tenderness on palpation in projection of the right knee on lateral as well as on medial surfaces. Crepitus in the right knee with range of motion exercises. Lateral and medial rotation of the thigh results in pain aggravation in the patient's groin lateral rotation aggravates pain More strongly than medial rotation. General: No pedal edema Psych Speech and movement: Normal speech and movement present Affect: normal affect Attitude: cooperative Thought process: Normal thought process present Thought content: Normal thought content present Insight: Good insight present (Psych) Judgement: Good judgement present (Psych) Assessment & Plan Assessment & Plan (1) Chronic pain syndrome: Code(s): G89.4 - Chronic pain syndrome Category: Medical (2) Osteoarthritis of right knee: Code(s): M17.11 - Unilateral primary osteoarthritis, right knee Category: Medical (3) Iliotibial band syndrome affecting right lower leg: Code(s): M76.31 - Iliotibial band syndrome, right leg Category: Medical (4) Arthritis of right hip: Code(s): M16.11 - Unilateral primary osteoarthritis, right hip Category: Medical (5) Right hip pain: Code(s): M25.551 - Pain in right hip Category: Medical Plan unfortunately there is aggravation of the pain after diagnostic medial branch block. Therefore I should consider spondylosis not a pain generators of this patient. Discussion of the knee pain and hip pain see as above. I could possibly inject her knee with small dose of steroid provided her program director scouting will give us a clearance. It would be diagnostic as well as therapeutic procedure. I would need to consider Synvisc or duralane injections as a continuation of her treatment in the future. At the same time she has problems in her righ thip joint in my opinion. That site might require injections with steroids as well. I will see her in 2 weeks and with appropriate clearance I will perform right knee injection was minimal amount of Triamcinolone. Patient Instructions: I here by testify that I spent 32 minutes in conversation with this patient as well as planning her care and organizing this note. Coding Level of Care Code Est Pt Level 4 (26127) Diagnoses Chronic pain syndrome G89.4 Osteoarthritis of right knee M17.11 Iliotibial band syndrome affecting right lower leg M76.31 Arthritis of right hip M16.11 Right hip pain M25.551
[2024-05-07 10:44] VITALS: BP 139/64; PULSE 67; RESP 16; O2SAT 94; BMI 24.8
--- OUTSIDE RECORDS SUMMARY | 2024-05-07 11:59 | XMS_ITS | Clinical Summary ---
Author Organization [facility] Address [address] [place] [address] Phone Care Team Providers Care Blueprint Duplicator Name Role Phone Monica HERRERA Karin Nesbitt [phone] Conditions or Problems Problem Name Problem Code Onset Date Status Entry Date Provider Comment Standard Description Annotate CONTACT DERMATITIS 22604225 (SNOMED CT) Active Karin HERRERA Contact dermatitis Medications Medication Instructions Start Date Stop Date Generic Name NDC Provider TRIAMCINOLONE ACETONIDE 0.1 % OINT Apply BID to affected area on forearms daily TRIAMCINOLONE ACETONIDE 63542358527 Karin HERRERA ATIVAN TABS LORAZEPAM TABS [id number] Karin HERRERA ADULT ASPIRIN EC LOW STRENGTH 81 MG ORAL TABLET DELAYED RELEASE ASPIRIN [id number] Karin HERRERA CALCIUM-MAGNESIU M TABS CALCIUM-MAGNESIU M TABS 34751303576 Karin HERRERA LETROZOLE TABS LETROZOLE TABS [id number] Karin HERRERA GABAPENTIN TABS GABAPENTIN TABS 79366613647 Karin HERRERA METOPROLOL TARTRATE SOLN METOPROLOL TARTRATE SOLN [id number] Karin HERRERA LISINOPRIL TABLET LISINOPRIL TABS [id number] Karin HERRERA Medications Administered No information available. [...] Procedures Code Procedure Name Date Entry Date [id number] Patient encounter procedure Vital Signs No information available. Immunizations No information available. Advance Directives No information available.
--- OUTSIDE RECORDS SUMMARY | 2024-05-07 11:59 | XMS_ITS | Clinical Summary ---
Author Organization [facility] Address [address] [place] [address] Care Team Providers Care Ell Teacher Name Role Phone Chandana Esquivel Lalito Primary Care Provider [phone] Anuja Yeh Unavailable Sarah Giles Unavailable [phone] Ambrose Pérez MD Unavailable [phone] Allergies Active Allergy Reactions Criticality Noted Date Comments Nickel Maculopapular Rash,P ruritus (itching) 12/24/2019 Penicillins 07/18/2017 Shellfish Allergy Urticarial Rash 12/24/2019 Medications Lisinopril 20 MG Tab 1 TABLET DAILY Active Metoprolol Succinate (TOPROL-XL) 50 MG 24 hr tablet Take 50 mg by mouth 1 (one) time each day Active Cholecalciferol (VITAMIN D-3) 1000 UNITS Cap Take 1,000 Units by mouth 1 (one) time each day Active Gabapentin 300 MG Cap Take by mouth Take 2 capsules in the morning (600 mg total) and 3 capsules in the evening (900 mg total) 07/30/2016 Active Atorvastatin Calcium 40 MG Tab 1 tab qd 06/07/2018 Active Ibuprofen (ADVIL,MOTRIN) 200 MG tablet Take 200 mg by mouth every 6 (six) hours if needed Active Acetaminophen (TYLENOL) 325 MG tablet Take 325 mg by mouth every 6 (six) hours if needed Active Naproxen Sodium 220 MG Cap Take by mouth Activ e LORazepam (ATIVAN) 0.5 MG tablet Take 0.5 mg by mouth every 6 (six) hours if needed 12/06/2019 Active Triamcinolone Acetonide (KENALOG) 0.1 % cream APPLY TO AFFECTED AREAS ON ARMS AND HANDS TWICE DAILY 11/27/2019 Active Zinc 100 MG Tab 1 tablet 1 (one) time each day Active Ascorbic Acid (Vitamin C) 100 MG tablet 100 mg in the morning and at bedtime Active Vitamin B-12 (VITAMIN B-12) 1000 MCG tablet 1,000 mcg 1 (one) time each day Active Magnesium 400 MG Tab 400 mg 1 (one) time each day Active Diclofenac Sodium 1 % Gel APPLY 2 GRAM TO THE AFFECTED AREA(S) BY TOPICAL ROUTE 4 TIMES PER DAY 01/28/2020 Active Active Problems No known active problems Social History Tobacco Use Types Packs/Day Years Used Date Smoking Tobacco: Former Smokeless Tobacco: Former Intimate Partner Violence Answer Date R ecorded Fear of Current or Ex-Partner Not on file Emotionally Abused Not on file 09/27/2022 Physically Abused Not on file 09/27/2022 Sexually Abused Not on file 09/27/2022 Feel Safe at Home Not on file 09/27/2022 Comments No Sex and Gender Information Value Date Recorded Sex Assigned at Not on file Legal Sex Female 5:38 AM EDT Gender Identity Not on file Sexual Orientation Not on file Last Filed Vital Signs Vital Sign Reading Time Taken Comments Blood Pressure 143/77 08/20/2021 2:01 PM EDT Pulse 59 08/20/2021 2:01 PM EDT Temperature 36.5 ??C (97.7 ??F) 08/09/2017 1:49 PM ED T Respiratory Rate 14 08/09/2017 1:49 PM EDT Oxygen Saturation - - Inhaled Oxygen Concentration - - Weight 93.4 kg (206 lb) 10/25/2018 1:25 PM EDT Height 160 cm (5' 3 ) 08/09/2017 1:49 PM EDT Body Mass Index 36.49 08/09/2017 1:49 PM EDT Plan of Treatment Health Maintenance Due Date Last Done Comments Hepatitis C Screening 1945 DTaP/Tdap/Td (1 - Tdap) 05/30/1963 Colon Cancer Screening 1990 Pneumococcal 50+ years (1 of 1 - PCV) 05/30/1995 Zoster (Shingrix) (1 of 2) 05/30/1995 Bone Density 2010 RSV (1 - 1-dose 75+ series) 2020 COVID-19 Vaccine ( season) 2023 Influenza (#1) 2023 11/08/2011 LDL Cholesterol Discontinued 11/16/2017, 03/22/2010 EKG Discontinued 10/30/2018, 08/07, 08/09/2017, Additional history exists HPV Vaccine Aged Out No longer eligi ble based on patient's age to complete this topic Hep A Aged Out No longer eligi ble based on patient's age to complete this topic Hep B Aged Out No longer eligi ble based on patient's age to complete this topic Hib Aged Out No longer eligi ble based on patient's age to complete this topic Mammogram/Breast Imaging Discontinued Meningococcal ACWY Aged Out No longer eligible based on patient's age to complete this topic Pap Smear Discontinued Zoster (Zostavax) Discontinued Procedures * Due to [place] [employer] law, this organization might not be sharing negative HIV tests. Procedure Name Priority Date/Time Associated Diagnosis Comments LIPID PANEL WITH REFLEX TO DIRECT LDL Routine 11/16/2017 EKG-TO BE READ & BILLED BY ADULT OR PEDIATRIC CARDIOLOGY Routine 08/09/2017 2:42 PM EDT Tear of right rotator cuff, unspecified tear extent Pre-operative examination Atherosclerosis of coronary artery, angina presence unspecified, unspecified vessel or lesion type, unspecified whether [place] or transplanted heart from Last 3 Months or Most Recently Relevant to Health Maintenance Results * Due to [place] [employer] law, this organization might not be sharing negative HIV tests. * LIPID PANEL WITH REFLEX TO DIRECT LDL (11/16/2017) Cholesterol 156 HDL Cholesterol 58.2 Triglyceride LDL Cholesterol 81.6 CHOL/HDL Ratio 11/16/2017 us Unknown Provider LABORATORY Final Result * EKG-TO BE READ AND BILLED BY CARDIOLOGY (08/09/2017 2:42 PM EDT) VENTRICULAR RATE 71 BPM MUS E EKG SYSTEM ATRIAL RATE 71 BPM MUSE EKG SYSTEM P-R INTERVAL 164 ms MUSE EK G SYSTEM QRS DURATION 88 ms MUSE EK G SYSTEM QT 386 ms MUSE EKG SYSTEM QTC 419 ms MUSE EKG SYSTEM P AXIS 57 degrees MUSE EKG SYSTEM R AXIS 11 degrees MUSE EKG SYSTEM T AXIS 40 degrees MUSE EKG SYSTEM EKG INTERPRETATION Normal sinus rhythm Q waves leads III and aVF, possible prior IMI or lead placement No previous ECGs available Confirmed by Lissy Rich ([id number]) on 08/09/2017 7:02:09 PM MUSE EKG SYSTEM 08/09/2017 2:42 PM EDT 08/09/2017 7:02 PM EDT us Angela Sykes ASSISTANT PROFESSOR OF BUSINESS CARDIOVASCULAR-WITH INBSKT R TG Final Result MUSE EKG SYSTEM from Last 3 Months or Most Recently Relevant to Health Maintenance Insurance MEDICARE PART B MEDICAID Care Teams Ell Teacher Relationship Specialty Start Date End Date Chandana Esquivel [facility] [address] [place] [address] PCP - General Family Medicine 06/16/17 Anuja Yeh [address] [address] Rheumatology 06/23/18 Sarah Giles [facility] DEPT OF ONCOLOGY [address] [place] [id number] Oncology 06/23/18 Ambrose Pérez MD [facility] [address] [place] [id number] Anesthesiology 06/23/18
--- OUTSIDE RECORDS SUMMARY | 2024-05-07 11:59 | XMS_ITS | Encounter Summary ---
Author Organization [facility] Address [address] [place] [address] Care Team Providers Care Guest Relations Receptionist Name Role Phone Chandana Esquivel Primary Care Provider [phone] Anuja Yeh Unavailable Sarah Giles Unavailable [phone] Ambrose Pérez MD Unavailable [phone] Encounter Details Date Type Department Care Team (Late st Contact Info) Description 08/25/2020 Orders Only [facility] [address] [place] [id number] Jasson Zhang MD [address] [id number] Social History Tobacco Use Types Packs/Day Years Used Date Smoking Tobacco: Former Smokeless Tobacco: Former Comments No Sex and Gender Information Value Date Recorded Sex Assigned at Not on file Legal Sex Female 5:38 AM EDT Gender Identity Not on file Sexual Orientation Not on file documented as of this encounter Plan of Treatment Not on file documented as of this encounter Results * Due to [place] state law, this organization might not be sharing negative HIV tests. * XRAY SHOULDER COMPLETE MIN 2 VWS- RIGHT (DX: SHOULDER PAIN *NO INJURY* M25.511/ 719.41) FC (07/27/2021 2:07 PM EDT) Anatomical Region Laterality Modality UPPER EXTREMITY Radiographic Joy ging 07/28/2021 11:3 6 AM EDT Narrative 07/28/2021 11:36 AM EDT CONTRAST: EXAM: X-ray right shoulder Comparison: [place] ??- XRAY SHOULDER COMPLETE MIN 2 VWS - RIGHT FC ??- 08/25/2020 12:59 PM EDT FINDINGS: 3 views of the right shoulder demonstrate mild to moderate medial joint space narrowing with subchondral sclerosis and cystic changes within the greater tuberosity. ??There are hypertrophic changes of the acromioclavicular joint. ?? Visualized right lung is clear. ??There is no fracture or dislocation. IMPRESSION: ? Degenerative changes of the glenohumeral and acromioclavicular joints without acute traumatic injury. Procedure Note Susan Marie MD - 07/28/2021 CONTRAST: EXAM: X-ray right shoulder Comparison: [facility] [place] - XRAY SHOULDER COMPLETE MIN 2 VWS - RIGHT FC - 08/25/2020 12:59PM EDT FINDINGS: 3 views of the right shoulder demonstrate mild to moderate medial jointspace narrowing with subchondral sclerosis and cystic changes within the greater tuberosity. There are hypertrophic changes of the acromioclavicularjoint. Visualized right lung is clear. There is no fracture or dislocation. IMPRESSION: Degenerative changes of the glenohumeral and acromioclavicular jointswithout acute traumatic injury. Jasson Zhang MD IMG XRAY NO CONTRAST ORDERAB LES Final Result documented in this encounter Visit Diagnoses Not on filedocumented in this encounter Care Teams Guest Relations Receptionist Relationship Specialty Start Date End Date Chandana Esquivel [facility] [address] [place] [address] [address] [place] [address] PCP - General Family Medicine 06/16/17 Anuja Yeh [address] [address] Rheumatology 06/23/18 Sarah Giles [facility] ONCOL[facility] [address] [place] [address] Oncology 06/23/18 Ambrose Pérez MD [facility] [address] [place] [address] Anesthesiology 06/23/18 documented as of this encounter
--- OUTSIDE RECORDS SUMMARY | 2024-05-07 12:00 | XMS_ITS | Encounter Summary ---
Author Organization [facility] Address [address] [place] [address] Care Team Providers Care Field Assessor Name Role Phone Chandana Esquivel Primary Care Provider [phone] Anuja Yeh Unavailable Sarah Giles Unavailable [phone] Ambrose Pérez MD Unavailable [phone] Encounter Details Date Type Department Care Team (Late st Contact Info) Description 07/15/2017 Orders Only [facility] [address] [place] [address] Jasson Zhang MD [address] [id number] Social History Tobacco Use Types Packs/Day Years Used Date Smoking Tobacco: Never Assessed Comments Unknown Sex and Gender Information Value Date Recorded Sex Assigned at Not on file Legal Sex Female 5:38 AM EDT Gender Identity Not on file Sexual Orientation Not on file documented as of this encounter Plan of Treatment Not on file documented as of this encounter Results * Due to [place] state law, this organization might not be sharing negative HIV tests. * XRAY SHOULDER COMPLETE MIN 2 VWS- RIGHT (DX: SHOULDER PAIN *NO INJURY* M25.511/ 719.41) (TODAY) FC (07/18/2017 12:31 PM EDT) Anatomical Region Laterality Modality UPPER EXTREMITY Radiographic Joy ging 07/19/2017 4:07 PM EDT Narrative 07/19/2017 4:07 PM EDT 3 view right shoulder Comparison: None Findings: Osteopenia. No acute fracture or dislocation. No significant degenerative change. Soft tissues are unremarkable. No radiopaque foreign bodies Impression: 1. Unremarkable osteopenic right shoulder Procedure Note Jamie Rice MD - 07/19/2017 3 view right shoulder Comparison: None Findings: Osteopenia. No acute fracture or dislocation. No significant degenerative change. Soft tissues are unremarkable. No radiopaque foreign bodies Impression: 1. Unremarkable osteopenic right shoulder 16:07:04 Jasson Zhang MD IMG XRAY NO CONTRAST ORDERAB LES Final Result documented in this encounter Visit Diagnoses Diagnosis Right shoulder pain, unspecified chronicity Right shoulder pain, unspecified chronicity documented in this encounter Care Teams Field Assessor Relationship Specialty Start Date End Date Chandana Esquivel [facility] [address] [place] [phone] PCP - General Family Medicine 06/16/17 Anuja Yeh [address] [address] Rheumatology 06/23/18 Sarah Giles [facility] DE[facility] OF ONCOL[facility]Y [address] [place] [address] Oncology 06/23/18 Ambrose Pérez MD [facility] [address] [place] [id number] Anesthesiology 06/23/18 documented as of this encounter
--- OUTSIDE RECORDS SUMMARY | 2024-05-07 12:00 | XMS_ITS | Data Portability ---
Author Organization [place] - [facility] Address [address] [place] [address] Care Team Providers Care System Architect Name Role Phone LEONOR ESQUIVEL Primary Care Provider [phone] LEONOR ESQUIVEL Referring Provider MATT PLUMMER Orthopedic Surgeon [phone] LEONOR ESQUIVEL Primary Care Provider [phone] SYLVESTER FUNEZ Security Rep DORITA RAHMAN Security Rep [phone] MARQUITA PÉREZ Pain Management Assessment Encounter Date Assessment Date Assessment LastModified by Organization Details LastModified Time 07/29/2022 07/29/2022 Florencia has a history of CAD, s/p IMI in 2010 with stent to her RCA, remaining nonobstructive LAD lesion, hypertension, hyperlipidemia, and breast CA in remission. She comes today to reestablish care. Overall she is doing well. Her blood pressure is under good control. We do not have any recent lipid levels so I did advise her to get them done after the visit today. She has no signs of ischemia. Her trace foot and ankle edema is not likely cardiac in nature. She is been on Lasix and reports she is going to the bathroom like crazy but it has not changed her foot edema. I explained her this is most likely secondary to some venous insufficiency and recommended that she use [id number] compression socks to help. -Continue current medications -Lipids -Follow-up in 1 year [email or web address] Not available 07/29/2022 12:21:08 Plan of Treatment Reminders Order Date Submit Date Provider Last Modified By Organization Details Last Modified Time Details Appointments None recorded. Lab rf (rheumatoid factor), serum 2023 024 [facility], [address] [place], [address], 4 17:08:37 ccp (cyclic citrullinat ed peptide) iga+igg, serum 2023 024 [facility], [address] [place], [address], 4 22:06:56 erythrocyte sedimentati on rate, QN, blood 2023 024 [facility], [address] [place], [address], 4 16:28:25 C-reactive protein, quantitativ e, serum or plasma 2023 024 [facility], [address] [place], [address], 4 17:09:39 uric acid, serum or plasma 2023 024 [facility], [address] , [place], [address], 4 17:09:38 lipid panel, serum 2022 023 [facility], [address] [place], [address], 3 14:16:31 rapid flu (A+B) 2021 022 HONDO In-Office Order, Internal Use Only DO Not Attach Compendium DO Not Attach Compendium, Do Not Delete/merge, [id number] 2 12:17:03 Referral physical therapist referral - Ms. Ahmadi reports being unstable on her feet due to lower extremity weakness. Please evaluate 2023 024 [facility](Phys ical Therapy Dept), [address] [facility] [place] [place], [address], 4 12:22:49 Procedures None recorded. Surgeries None recorded. Imaging electrocard iogram 2022 023 [facility], [address], [facility], [place], [address], 3 11:56:45 Medication Orders None recorded. Patient TargetsNo targets recorded. Patient Instructions Encounter Date Encounter Id Patient Instructions Last Modified By Organization Details Last Modified Time 07/29/2022 [id number] In addition to listed labs, xrays and documents, EKG personally reviewed [email or web address] Not available 07/29/2022 12:21:24 11/03/2023 [id number] 1. PHYSICAL THERAPY: pt encouraged to stay active. continue home exercises and PT 2. BEHAVIORAL THERAPY: stable depression/psych issues 3. MEDICATIONS: none 4. INTERVENTIONS: right L5S1 SHAVON 5. FUNCTION: pain moderately affects her function 6. PAIN ASSESSMENT: moderate to severe 7. COMPLIANCE: n/a -first visit 8. WEIGHT LOSS/DIET/SMOKING CESSATION: counseled 9. LABS/RADIOLOGY: 10/2023 CT of the L spine reviewed. 11. REFERRALS : none 10. FOLLOW UP: 1.5 month pt w 6 week h/o lower back pain radiating to right leg [email or web address] Not available 11/03/2023 12:56:39 Reason for Referral Physical Therapist Referral for Muscle weakness of limb Ms. Ahmadi reports being unstable on her feet due to lower extremity weakness. Please evaluate Referring Physician: Reagan Montgomery, Rheumatology, Encounter Date: 05/17/2023 Results Created Date Observation Date Name Description Value Unit Range Abnormal Flag Note LastModifiedBy Organization Detail LastModifiedTime 01/08/2001/07/2022 rapid flu (A+B) Flu Type A negati ve Not Available In-Office Order Internal Use Only DO Not Attach Compendium DO Not Attach Compendium, Do Not Delete/merge, [id number] 01/07/2022 11:18:03 01/08/20 22 01/07/2022 rapid flu (A+B) Flu Type B negati ve Not Available In-Office Order Internal Use Only DO Not Attach Compendium DO Not Attach Compendium, Do Not Delete/merge, [id number] 01/07/2022 11:18:03 01/08/20 22 01/07/2022 rapid flu (A+B) Internal Control Valid Not Available In-Off ice Order Internal Use Only DO Not Attach Compendium DO Not Attach Compendium, Do Not Delete/merge, [id number] 01/07/2022 11:18:03 01/08/20 22 01/07/2022 rapid flu (A+B) Lot #: [id number] Not Available In-Office Order Internal Use Only DO Not Attach Compendium DO Not Attach Compendium, Do Not Delete/merge, [id number] 01/07/2022 11:18:03 01/08/20 22 01/07/2022 rapid flu (A+B) Exp Date: Not Available In-Office Order Internal Use Only DO Not Attach Compendium DO Not Attach Compendium, Do Not Delete/merge, [id number] 01/07/2022 11:18:03 07/30/19 23 07/29/2022 LIPID PANEL WITH REFLE X triglyceride s w/ reflex LDL 81 mg/dL 30-150 normal Refer ence Range s: <150 mg/dl Janice l 150-1 99 mg/dl Borde rline High 200-4 99 mg/dl High >500 mg/dl Very High Not Available [facility] [address] [place] [address], [id number] 07/29/2022 14:16:31 07/30/19 23 07/29/2022 LIPID PANEL WITH REFLE X cholesterol 164 mg/dL 100-20 0 normal Not Available [facility] [address] [place] [address], [id number] 07/29/2022 14:16:31 07/30/19 23 07/29/2022 LIPID PANEL WITH REFLE X LDL cholesterol calculated 88.8 mg/dL 0-100 normal Natio nal Tracee stero l Educa tion Progr am sugge sts the follo wing refer ence range : Optim al <100 mg/dL Near optim al/ab ove optim al 100-1 29 mg/dL Borde rline high 130-1 59 mg/dL High 160-1 89 mg/dL Very high >190 mg/dL Not Available [facility] [address] [place], [address] 07/29/2022 14:16:31 07/30/19 23 07/29/2022 LIPID PANEL WITH REFLE X HDL cholesterol 59.0 mg/dL 40-60 normal Major risk facto r for CHD: <40 mg/dL Negat nancy risk facto r for CHD: >=60 mg/dL Not Available [facility] [address] [place], [address] 07/29/2022 14:16:31 07/30/19 23 07/29/2022 LIPID PANEL WITH REFLE X chol HDL ratio 2.78 Risk CHOL/ HDL CHOL/ HDL Ratio Male Femal e 1/2 AVERA GE 3.43 3.27 AVERA GE 4.97 4.44 2 X AVERA GE 9.55 7.05 3 X AVERA GE 23.39 11.04 Not Available [facility] [address] [place], [address] 07/29/2022 14:16:31 05/17/19 24 05/17/2023 ERYTH ROCYT E SEDIM ENTAT ION RATE erythrocyte sedimentatio n rate 45 mm/HR 0-29 high Not Available [facility] [address] [place], [address] 05/17/2023 16:28:25 05/17/19 24 05/17/2023 RHEUM ATOID FACTO R rheumatoid factor 11 IU/mL 0-14 normal Not Available [facility] [address] [place] [address], [address] 05/17/2023 17:08:37 05/17/19 24 05/17/2023 URIC ACID uric acid 4.5 mg/dL 2.4-5. 7 normal Not Available [facility] [address] [place], [address] 05/17/2023 17:09:38 05/17/19 24 05/17/2023 C REACT NANCY PROTE IN C reactive protein < 3.00 mg/L 0-5 normal Not Available [facility] [address] [place], [address] 05/17/2023 17:09:39 05/17/19 24 05/19/2023 CCP ANTIB ODIES IGG/I GA ccp antibodies IgG/IgA 11 units 0-19 Negat nancy <20 Weak posit nancy 20 - 39 Moder ate posit nancy 40 - 59 Stron g posit nancy >59 Perfo rmed at: 01 - [facility] [address] [place] [address] Lab Direc tor: Maria Luisa Georges MD, Phone : [phone] Not Available [facility] [address] [place], [address] 05/19/2023 22:06:56 07/31/19 23 07/29/2022 elect rocar diogr am No observ ation record ed. [email or web address] Not Available 2022 11:09:20 07/31/19 23 07/29/2022 elect rocar diogr am No observ ation record ed. [email or web address] Not Available 2022 11:09:21 07/31/19 23 07/29/2020 elect rocar diogr am No observ ation record ed. Not Available 08/02 06:44:40 07/31/19 23 07/29/2022 elect rocar diogr am No observ ation record ed. [email or web address] [facility] [address], [address], 07/30/2022 11:56:45 05/19/19 24 01/11/2019 elect romyo gram + nerve condu ction study No observ ation record ed. [email or web address] [facility] [address], [place], [address], 08/19/2023 10:09:09 11/04/19 24 11/04/2023 ir fluor oscop y <1HR [facility] [address] [facility] [place] [address] Interv ention al Radiol ogy Rpt Signed Patien t: Fani Anu mcneil MR#: [id number] : 1945 Acct:H [id number] Age/Se x: 78 / F ADM Date: Loc: HE.OR Attend ing Dr: Marquita Pérez MD Orderi ng Physic roseline: Marquita Pérez MD Date of Servic e: Proced ure(s) : IR fluoro scopy <1hr Access ion Number (s): [id number] H cc: Marquis Esquivel MD EXAM: IR fluoro scopy <1hr CLINIC AL INDICA TION: LOW BACK PAIN INJ FINDIN GS: C-arm fluoro scopy was provid ed. Cumula tive dose 1.31 mGy. 2 spot fluoro scopic images were submit ford. Inject ion was perfor med by Dr. Erika Pérez . Please see Dr. Pérez 's proced ure note. Electr onical ly Signed in Glass cribe By Sandy Pham MD, MD 004 IR/IR fluoro scopy <1hr IMPRES MELY: Fluoro scopic guidan ce was provid ed for Dr. Pérez for inject ion. Dictat ed By: Sandy Pham MD Signed By: 1712 DD/DT: 1111 TD/TT: 1111 Transc riptio nist: [email or web address] [address] [place] [address], [address], 11/07/2023 08:10:28 Result Notes None recorded. Problems Name Problem SNOMED Code Status Onset Date Resolution Date Notes Provider Name and Address Organization Details Recorded Time Benign essential hypertension 9227208 Active Not Available [facility] 3 03:05:38 Neuralgia 30524038 Active Not Available [facility] 3 03:05:38 Anxiety state 142185254 Active Not Available [facility] 3 03:05:38 Screening for osteoporosis Active Not Available [facility] 3 03:05:38 Vitamin D deficiency 14376639 Active Not Available [facility] 3 03:05:38 Depressive disorder 89005885 Active Not Available [facility] 3 03:05:38 Pure hypercholeste rolemia 813942346 Active Not Available [facility] 3 03:05:38 Meralgia paresthetica 81922521 Active Marquita Pérez MD [address] [place] [address], [phone] , [facility] 4 12:05:23 Myofascial pain 463099563 Active Marquita Pérez MD [address] [place] [address] [place], [address] , [facility] 4 12:05:23 Arthropathy of lumbar facet joint 317101820 Active Marquita Pérez MD [address] [place], [place] [address] [place], [address] , [facility] 4 12:05:23 Peripheral neuropathic pain 702750698 Active Marquita Pérez MD [address] [place], [place] [address] [place], [address] , [facility] 5 11:35:07 Coronary arteriosclero sis 18473575 Active 2021 Radha Dooley [facility] 2 20:18:23 Notes:palpations [place] Problem Notes None recorded. Procedures Surgical History Date Name Laterality Status Provider Name and Address Organization Details Recorded Time 01/26/20 24 Corticosteroid Injection - KNEE completed YUNI STAFFORD [address] [place] [address] [place], [address], [facility] 01/30/2024 10:37:48 11/04/19 24 lumbar epidural steroid injection completed Naz Brantley CNA [facility] 11/04/2023 13:30:17 11/05/19 20 Corticosteroid Injection - SHOULDER completed Liam Rucker [facility] 11/05/2019 10:23:20 Imaging Results Imaging Date Name Status LastModified by Organization Details LastModified Time 07/29/2022 electrocardiogram completed Informa tion not available 08/24/2022 11:09:20 07/29/2022 electrocardiogram completed Informa tion not available 08/24/2022 11:09:21 07/29/2020 electrocardiogram completed Informa tion not available 08/02/2022 06:44:40 07/29/2022 electrocardiogram completed [email or web address] [facility] [address] [place] [address] [place], [address], 07/30/2022 11:56:45 01/11/2019 electromyogram + nerve conduction study completed [address], [place], [address], 08/19/2023 10:09:09 11/04/2023 ir fluoroscopy <1HR completed [facility] [address], [place], [address], 11/07/2023 08:10:28 Procedure Notes None recorded. Medical Equipment None Reported. Allergies Allergen ID Allergen Name Allergen Category Reaction Reaction Severity Criticality Documentation Date Start Date Code Code System Note Provider Name and Address Organization Details Recorded Time 239621 nickel environme nt Not available Not available Not available 12/07/2019 05553 29 RxNorm Paigejose lamas [facility] 0 11:25:28 69584 Product containin g penicilli n (product) medicatio n hives Not available Not available 03/29/2012 41430 8001 SNOMED Radha Soumya lamas [facility] 3 10:57:18 Medications Name Sig Start Date Stop Date Status Note LastModified by Organization Details LastModified Time celecoxib 200 mg capsule TAKE 1 CAPSULE BY MOUTH DAILY NEEDED 07/29 completed Not Available Not Available Not Available cyclobenza jayme 10 mg tablet TAKE 1 TABLET BY MOUTH 3 TIMES A DAY NEEDED FOR SPASM active Not Available Not Available No t Available atorvastat in 40 mg tablet TAKE 1 TABLET BY MOUTH EVERYDAY AT BEDTIME 09/08 completed Not Available Not Available Not Available promethazi ne-DM 6.25 mg-15 mg/5 mL oral syrup TAKE 5 ML BY MOUTH THREE TIMES A DAY NEEDED FOR COUGH 05/16 completed Not Available Not Available Not Available atorvastat in 80 mg tablet TAKE 1 TABLET BY MOUTH EVERY DAY active Not Available Not Available No t Available prednisone 10 mg tablet TAKE 6 TABS ONCE DAILY FOR 3 DAYS, THEN 4,2,AND 1 TABS DAILY FOR 3 DAYS EACH 05/16 completed Not Available Not Available Not Available cyclophosp hamide 50 mg tablet active Not Available Not Available No t Available doxycyclin e hyclate 100 mg capsule 11/28 completed Not Available Not Available Not Available trazodone 50 mg tablet TAKE 1/2 TABLET BY MOUTH AT BEDTIME active Not Available Not Available No t Available azithromyc in 250 mg tablet TAKE 2 TABLETS ON DAY 1 THEN 4 TABLETS BY MOUTH DAILY 05/16 completed Not Available Not Available Not Available fluconazol e 150 mg tablet TAKE 1 TABLET BY MOUTH FOR 1 DOSE 07/29 completed Not Available Not Available Not Available metoprolol succinate ER 50 mg tablet,ext ended release 24 hr TAKE 1 TABLET BY MOUTH EVERY DAY active pt states no longer taking 4 CE Not Available Not Available Not Available cephalexin 250 mg capsule active Not Available Not Available Not Available hydrocodon e 5 mg-acetami nophen 325 mg tablet 09/03 completed Not Available Not Available Not Available Nystop 100,000 unit/gram topical powder active Not Available Not Available Not Available lisinopril 20 mg tablet TAKE 1 TABLET BY MOUTH EVERY DAY active Not Available Not Available No t Available prednisone 20 mg tablet PLEASE SEE ATTACHED FOR DETAILED DIRECTIO NS active pt states no longer taking 4 CE Not Available Not Available Not Available alendronat e 70 mg tablet TAKE 1 TABLET BY MOUTH WEEKLY active Not Available Not Available No t Available gabapentin 400 mg capsule TAKE 1 CAPSULE 3 TIMES A DAY DIRECTED 09/03 completed Not Available Not Available Not Available prednisone 5 mg tablet TAKE 6 TABLETS BY MOUTH ONCE EVERY DAY FOR 2 DAYS THEN 5,4,3,2, AND 1 TABS DAILY FOR 2 DAYS EACH active pt states no longer taking 4 CE Not Available Not Available Not Available promethazi ne 6.25 mg-codeine 10 mg/5 mL syrup 08/25 completed Not Available Not Available Not Available topiramate 25 mg tablet active Not Available Not Available Not Available metronidaz ole 500 mg tablet active Not Available Not Available Not Available prochlorpe razine maleate 10 mg tablet active Not Available Not Available No t Available ciprofloxa chong 500 mg tablet 09/13 completed Not Available Not Available Not Available Tamiflu 75 mg capsule 09/03 completed Not Available Not Available Not Available sulfametho xazole 800 mg-trimeth oprim 160 mg tablet 10/30 completed Not Available Not Available Not Available aspirin 81 mg tablet,del ayed release Take 1 tablet every day by oral route. 12/06 completed Not Available Not Available Not Available tramadol 50 mg tablet TAKE 1 TABLET BY MOUTH TWICE A DAY active Not Available Not Available No t Available triamcinol one acetonide 0.1 % topical cream APPLY A THIN LAYER TO THE AFFECTED AREA(S) BY TOPICAL ROUTE 2 TIMES PER DAY PRN 05/16 completed Not Available Not Available Not Available simvastati n 40 mg tablet Take 1 tablet every day by oral route for 30 days. 09/03 completed Not Available Not Available Not Available methylpred nisolone acetate 80 mg/mL suspension for injection active Not Available Not Available No t Available oxycodone- acetaminop hen 5 mg-325 mg tablet 09/13 completed Not Available Not Available Not Available citalopram 20 mg tablet TAKE 1 TABLET BY MOUTH EVERY DAY 07/29 completed Not Available Not Available Not Available lorazepam 0.5 mg tablet TAKE 1 TABLET BY MOUTH EVERY 6 HOURS NEEDED active Not Available Not Available No t Available benzonatat e 100 mg capsule TAKE 1 CAPSULE BY MOUTH TWICE A DAY TO 3 TIMES A DAY NEEDED FOR COUGH 09/30 completed Not Available Not Available Not Available fluvoxamin e 100 mg tablet TAKE 1 TABLET BY MOUTH AT BEDTIME active Not Available Not Available No t Available doxycyclin e monohydrat e 100 mg capsule TAKE 1 CAPSULE TWICE A DAY FOR 7 DAYS 09/30 completed Not Available Not Available Not Available pantoprazo le 40 mg tablet,del ayed release TAKE 1 TABLET BY MOUTH DAILY active Not Available Not Available No t Available triamcinol one acetonide 0.1 % topical ointment 06/07 completed Not Available Not Available Not Available lidocaine 5 % topical patch NEEDED 07/29 completed Not Available Not Available Not Available gabapentin 300 mg capsule TAKE 2 CAPSULES BY MOUTH TWICE A DAY active Not Available Not Available No t Available hydroxyzin e HCl 25 mg tablet 09/03 completed Not Available Not Available Not Available hydrochlor othiazide 25 mg tablet 09/03 completed Not Available Not Available Not Available Baby Aspirin 81 mg chewable tablet Chew 1 tablet every day by oral route. 06/07 completed Not Available Not Available Not Available furosemide 20 mg tablet TAKE 1 TABLET BY MOUTH EVERY MORNING 05/16 completed Not Available Not Available Not Available gabapentin 100 mg capsule Take 2 capsules every day by oral route at bedtime for 30 days. 09/03 completed Not Available Not Available Not Available metoprolol succinate ER 25 mg tablet,ext ended release 24 hr TAKE 1 TABLET BY MOUTH ONCE DAILY active Not Available Not Available No t Available clobetasol 0.05 % topical ointment 09/03 completed Not Available Not Available Not Available lorazepam 1 mg tablet TAKE 1 TABLET BY MOUTH EVERY 6 HOURS NEEDED active Not Available Not Available No t Available ibuprofen 600 mg tablet active Not Available Not Available Not Available levofloxac in 500 mg tablet active Not Available Not Available Not Available chlorproma zine 200 mg tablet 12/06 completed Not Available Not Available Not Available letrozole 2.5 mg tablet Take 1 tablet every day by oral route for 90 days. 10/11 completed Not Available Not Available Not Available albuterol sulfate HFA 90 mcg/actuat ion aerosol inhaler 07/29 completed Not Available Not Available Not Available celecoxib 100 mg capsule TAKE 1 CAPSULE BY MOUTH TWICE A DAY NEEDED FOR PAIN active Not Available Not Available No t Available oxybutynin chloride 5 mg tablet TAKE 1 TABLET BY MOUTH TWICE A DAY active Not Available Not Available No t Available naproxen 500 mg tablet TAKE 1 TABLET BY MOUTH TWICE A DAY PRN 07/29 completed Not Available Not Available Not Available mometasone 0.1 % topical cream 09/03 completed Not Available Not Available Not Available diazepam 5 mg tablet Take 1-2 tablet(s ) by oral route an hour before the MRI 09/13 completed Not Available Not Available Not Available oxycodone 5 mg tablet TAKE 1 TABLET BY MOUTH EVERY 6 HOURS NEEDED FOR SEVERE PAIN active Not Available Not Available No t Available escitalopr am 10 mg tablet TAKE 1 TABLET BY MOUTH ONCE DAILY 09/30 completed Not Available Not Available Not Available metoprolol tartrate 25 mg tablet Take 1 tablet twice a day by oral route for 30 days. 10/30 completed Not Available Not Available Not Available nitrofuran toin monohydrat e/macrocry stals 100 mg capsule TAKE 1 CAPSULE BY MOUTH TWICE A DAY FOR 7 DAYS 05/16 completed Not Available Not Available Not Available Flovent HFA 220 mcg/actuat ion aerosol inhaler INHALE 2 PUFFS BY MOUTH TWICE A DAY 05/16 completed Not Available Not Available Not Available Lyrica 50 mg capsule Take 1 capsule twice a day by oral route. 08/25 completed Not Available Not Available Not Available cranberry 1 daily 06/07 completed Not Available Not Available Not Available vitamin B complex 06/07 completed Not Available Not Available Not Available Fish Oil 08/25 completed Not Available Not Available Not Available Advil prn 06/07 completed Not Available Not Available Not Available Tylenol prn 09/30 completed Not Available Not Available Not Available Calcium 500 + D 1 daily 06/07 completed Not Available Not Available Not Available glucosamin e-chondroi tn sulf.Na 1 tab once daily active Not Available Not Available No t Available diclofenac 1 % topical gel APPLY 2 GRAM TO THE AFFECTED AREA(S) BY TOPICAL ROUTE 4 TIMES PER DAY 09/30 completed Not Available Not Available Not Available Vitamin D3 50 mcg (2,000 unit) tablet Take 1 tablet every day by oral route. active Not Available Not Available No t Available Metanx (algal oil) 3 mg-35 mg-2 mg-90.314 mg capsule 09/03 completed Not Available Not Available Not Available Fluzone Quad 6664-4090 (PF) 60 mcg (15 mcg x 4)/0.5 mL IM syringe 09/03 completed Not Available Not Available Not Available naloxone 4 mg/actuati on nasal spray ADMINIST ER A SINGLE SPRAY IN ONE NOSTRIL UPON SIGNS OF OPIOID OVERDOSE . CALL 911. REPEAT AFTER 3 MINUTES IF NO RESPONSE . 07/29 completed Not Available Not Available Not Available Vitals Date Recorded Body height Body mass index (BMI) Body weight Heart rate Systolic blood pressure Diastolic blood pressure Provider Name and Address Organization Details Last Updated DateTime 3 160.02 cm 36 kg/m2 37347.2 5 g 65 /min 130 mm[Hg] 78 mm[Hg] Danya Box [facility] 3 10:16:20 Date Recorded Body height Heart rate Body mass index (BMI) Body weight Systolic blood pressure Diastolic blood pressure Provider Name and Address Organization Details Last Updated DateTime 4 160.02 cm 61 /min 34 kg/m2 64609.7 4 g 142 mm[Hg] 83 mm[Hg] Gerardo Emerson [facility] 4 14:42:04 Date Recorded Body height Heart rate Systolic blood pressure Diastolic blood pressure Provider Name and Address Organization Details Last Updated DateTime 11/03/2023 160.02 cm 80 /min 151 mm[Hg] 79 mm[Hg] Naz Brantley CNA [facility] 11/03/2023 12:20:00 Date Recorded Body height Heart rate Oxygen saturation Oxygen saturation in Arterial blood by Pulse oximetry Body temperature Systolic blood pressure Diastolic blood pressure Provider Name and Address Organization Details Last Updated DateTime 2 160.02 cm 74 /min 97 % 97 % 97.2 [degF] 115 mm[Hg] 70 mm[Hg] Edith Isabel MA [facility] 2 11:07:21 Social History Question Answer Notes LastModified by Organizat ion Details LastModified Time Tobacco Smoking Status Former Smoker Radha lamas [facility] 03/29/2012 10:57:18 What Is Your Level Of Alcohol Consumption? None Information not available 03/29/2012 What Is Your Level Of Caffeine Consumption? Occasional Information not available 03/29/2012 How Much Tobacco Do You Chew? None Information not available 03/29/2012 What Type Of Diet Are You Following? REGULAR Information not available 03/29/2012 Which Illicit Or Recreational Drugs Have You Used? None Reported Information not available 03/29/2012 Education 12 Information no t available 09/26/2013 Work Status Retired Information n ot available 09/26/2013 Living Situation With Spouse Informa tion not available 09/26/2013 Disabled? If Yes, How Long? No Information not available 09/26/2013 An Argon Tester Involved? 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 No Information not available 09/26/2013 Alcohol Use No Information n ot available 09/26/2013 Do You Currently Or Have You Ever Used Recreational Drugs? If Yes, Specify No Information not available 09/26/2013 Any Addiction Or Substance/drug/a lcohol Abuse Issues? If Yes, Specify No Information not available 09/26/2013 [employer] Information no t available 03/29/2012 Pap Smear 12/24/2010 Negative Information no t available 07/05/2012 Cholesterol/HDL Screen 06/26/2011 Chol 204 Trig 57 Hdl 70.0 Ldl 123 Information not available 07/05/2012 Tetanus/Adacel Vaccine 10/04/2008 Tdap Information not available 07/05/2012 Mammography Screen 05/02/2012 Biopsy Needed HH Information not available 07/05/2012 Marital Status Informatio n not available 09/26/2013 What Was The Date Of Your Most Recent Tobacco Screening? 06/07/2018 Information not available 08/31/2018 How Many Children Do You Have? 2 Information not available 03/29/2012 What Is Your Relationship Status? celiscar Information not available 11/03/2023 How Much Tobacco Do You Smoke? No Information not available 03/29/2012 Sex: Unknown Functional Status Question Answer Note LastModified by Organization D etails LastModified Time What is your exercise level? None Information not available 03/29/2012 Mental Status None recorded. Family History Relationship Description Onset Age of this Age Resolved Age Notes LastModified by Organization Details LastModified Time Father Cerebrovascu lar accident previo usly record ed as stroke Not available 09/26/2013 10:27:43 Father Hypertensive disorder previo usly record ed as hypert ension Not available 09/26/2013 10:27:43 Mother Problem 59 passed from either MA or kidney diseas e Not available 09/26/2013 10:27:43 Paternal Grandmother Malignant tumor of breast previo usly record ed as cancer -breas t Not available 09/26/2013 10:27:43 Medical History Condition Response cancer Y HIV or AIDS N arthritis Y asthma N ulcers N taking blood thinners N high blood pressure Y kidney disease N other GI illness N GERD / reflux N liver disease N psychiatric illness N arrhythmia N diabetes N emphysema / COPD N heart attack Y seizures N skin condition N other N thyroid disease or other endocrine probl ems N headaches or migraines N bleeding disorders N stroke N Gynecological History Statement/Question Response 2 Age at Menarche 12 Para 2 Obstetrics History GPAL:G 0 P 0 0 0 0 Immunizations Vaccine Type Date Status Note Provider Nam e and Address Organization Details Recorded Time Tdap 10/04/2008 completed Radha lamas [place] - [facility] 07/05/2012 13:10:49 Past Encounters Encounter ID Performer Location Encounter Start Date Encounter Closed Date Diagnosis/Indication Diagnosis SNOMED-CT Code Diagnosis ICD10 Code Diagnosis Note [id number] Sonny Alvin [facility] [address] [place] [address] [place] [address] 09/26/2013 10:17:35 09/26/2013 12:03:03 Meralgia paresthetica 62346675 Myofascial pain 275457057 Arthropath y of lumbar facet joint 590592732 Peripheral neuropathic pain 871654916 [id number] Lesly Sears MD [facility] [address] [place], [place] [address] [address] 09/04/2015 10:49:22 09/04/2015 11:51:15 Abdominal pain 85865049 R10.9 [id number] Sylvester Funez MD [facility] [address] [place] [address] 05/03/2016 09:23:37 05/03/2016 10:09:35 Coronary arteriosclerosis in robinson artery 3951689341 107 I25.10 [id number] Evangelist Zamarripa MD [facility] [address] [place] [address], [address] [address] 04/22/2017 09:30:54 04/22/2017 10:03:57 Full thickness rotator cuff tear 622724854 M75.413 [id number] Caleb Jose MD [facility] [address] [place] [address], [address] [place] [address] 05/16/2017 09:35:18 05/16/2017 10:28:13 Partial thickness rotator cuff tear 518611296 M75.102 Patient has either full or partial-th ickness rotator cuff tear. She has fairly good preservati on of motion with some pain and weakness being her most notable exam features. This was debrided addressed in the future however like to try some physical therapy prior to surgical considerat ion. Patient are amenable to this. Signs and symptoms of concern reviewed also going to try low-grade anti-infla mmatory for symptomati maria isabel. Follow-up with me in 4-8 weeks or as symptoms dictate. [id number] [facility] [address] [place] [address] 08/25/2017 10:42:53 08/25/2017 12:07:25 Benign essential hypertension 7800958 I10 Her blood pressure is reasonably controlled . We will help to monitor her trends. Coronary arteriosclerosis in robinson artery 1630480996 107 I25.10 Given her symptoms of heartburn, similar symptoms prior to her 2011 IMI, I will have her undergo a Lexiscan SPECT prior to her upcoming shoulder surgery to further quantify her cardiac risk. I otherwise reinforced the importance of continued risk factor modificati on to help reduce risk of future cardiac events. She should continue on aspirin and beta-block er therapy and should be on statin therapy given her history of CAD and hyperlipid emia- recent HDL 58 with an LDL of 154. I will start her back on atorvastat in 40mg daily and will repeat a lipid panel in 3 months. If her SPECT is normal, she can proceed with her upcoming shoulder surgery as planned. Additional ly, we should continue to follow her on an annual basis. [id number] Marquita Pérez MD [facility] [address] [place] [address] [place] [address] 06/07/2018 13:29:16 06/07/2018 14:43:25 Spinal stenosis of lumbar region 83950873 M48.061 Lumbar radiculopathy 128 466012 M54.16 Lumbar spondylosis 81022 0009 M47.816 Anxiety disorder 1031274 06 F41.9 [id number] MD [facility] [address] [place] [address] 08/09/2018 12:51:54 08/09/2018 13:31:01 Lumbar radiculopathy 713195962 M54.16 left Lumbar spondylosis 21228 0009 M47.402 [id number] Marquita Pérez MD [facility] [address] [place] [address] [place] [address] 09/13/2018 13:46:03 09/13/2018 14:51:58 Lumbar spondylosis 722251319 M47.816 Pain in left foot 233812 3815 98615 M79.672 Neuralgia 27989011 M79.2 left posterior tibial [id number] Marquita Pérez MD [facility] [address] [place] [address] [place] [address] 10/11/2018 09:40:27 10/11/2018 10:59:08 Pain in left foot 7876912067 35940 M79.672 Neuralgia 66563747 M79.2 left posterior tibial Lumbar spondylosis 04411 0009 M47.723 [id number] Sylvester Funez MD [facility] [address] [place] [address] 10/30/2018 14:59:22 10/30/2018 16:05:39 Coronary arteriosclerosis in robinson artery 3036981905 107 I25.10 She has no anginal symptoms and continues to take her medication s as prescribed . I reinforced the importance of continued risk factor modificati on to help reduce risk of future cardiac events. She should restart aspirin and continue on atorvastat in 40mg daily. She is also on metoprolol and lisinopril . I will make no changes to her regimen at this time. We will see her back in 1 year or sooner as needed. Benign ess ential hypertension 2327144 I10 Her blood pressure is reasonably controlled . We will continue to monitor her trends. [id number] Marquita Pérez MD [facility] [address] [place] [address] [place] [address] 01/16/2019 13:48:03 01/16/2019 14:28:58 Pain in left foot 1636543689 91298 M79.672 Neuralgia 49283384 M79.2 left posterior tibial [id number] Cee Graf MD [facility] [address] [facility] [address] [place] [address] 08/26/2019 13:51:23 08/26/2019 13:52:16 Viral screening 807961581 Z11.59 [id number] Caleb Jose MD [facility] [address] [facility], [address] [place] [address] 09/13/2019 13:14:55 09/13/2019 14:02:31 Closed fracture scapula, glenoid 278897270 S42.141A 74yo pleasant retired female, previously evaluated for a right rotator cuff tear by Dr. Jose in 05/2017 which improved non-operat ively, presents today with R shoulder pain after falling on an outstretch ed R arm roughly 4 weeks ago. Date of injury was 08/10/19. Pt was evaluated in the ER. Pt continues to experience pain only with FF and abduction past 90 degrees. Pt denies numbness and tingling. XR demonstrat es a minimally displaced glenoid fracture. XR was reviewed with Dr. Jose today. On exam, pt is able to achieve roughly 90 degrees of FF and abduction secondary to pain. Pt's rotator cuff appears to be intact. I discussed case with Dr. Jose who recommende d a MRI which pt agreed to. Pt will f/u with Dr. Jose for a MRI review to discuss potential treatment options. Pt agreed with plan. [id number] Caleb Jose MD Orthoped[facility] [address] [place] [address] 11/05/2019 09:05:10 11/05/2019 10:31:48 Full thickness rotator cuff tear 773028654 M75.121 despite the MRI findings, her range of motion and strength are actually quite good. We had previously seen her after a fall about 2 years ago and conservati ve treatment gave her an acceptable return of function. Given the likely chronicity of the tear as well as her fairly impressive active range of motion despite the tears, we discussed trying to treat the pain component with corticoste roid injection. She has a modestly high level of anxiety, and we tried to review the details in terms of functional goals rather than the presence or absence of specific tear proofiles. I would however like the chance to personally review the MRI from the outside facility in order to make the best judgment if the injection is not successful . Closed fra cture scapula, glenoid 468396275 S42.141A 74yo pleasant retired female, previously evaluated for a right rotator cuff tear by Dr. Jose in 05/2017 which improved non-operat ively, presents today with R shoulder pain after falling on an outstretch ed R arm roughly 4 weeks ago. Date of injury was 08/10/19. Pt was evaluated in the ER. Pt continues to experience pain only with FF and abduction past 90 degrees. Pt denies numbness and tingling. XR demonstrat es a minimally displaced glenoid fracture. XR was reviewed with Dr. Jose today. On exam, pt is able to achieve roughly 90 degrees of FF and abduction secondary to pain. Pt's rotator cuff appears to be intact. I discussed case with Dr. Jose who recommende d a MRI which pt agreed to. Pt will f/u with Dr. Jose for a MRI review to discuss potential treatment options. Pt agreed with plan. Contusion of chest 70946 004 S20.211D patient aalso reports discomfort over her sternal manubrial junction. There is no sign of trauma, but she has pain to palpation and reports of bruising after the fall. Again she fell forward onto a plantar, may have some costochond ritis based on the images, but at the present time I see no evidence of fracture, no asymmetric motion with inhalation , and no evidence of instabilit y. Conservati ve management recommende d with signs and symptoms of concern were reviewed in detail. [id number] Marqiuta Pérez MD [facility] [address] [place] [address] [place] [address] 12/07/2019 11:13:22 12/07/2019 12:01:02 Pain in left foot 3125587812 94473 M79.672 Neuralgia 98089824 M79.2 left posterior tibial [id number] Cee Graf MD [facility] [address] [address] 03/01/2020 16:09:26 03/01/2020 16:09:52 Viral screening 205203043 Z11.59 [id number] Juaquin Talavera NP, [facility] [address] [address] 01/19/2021 09:31:09 01/19/2021 10:15:20 Exposure to SARS-CoV-2 904356116 Z20.822 Patient requests Covid testing only, declines evaluation at this time by provider. [id number] Melly Kyle MD [facility] [address] [place] [address] 06/24/2021 10:48:19 06/24/2021 11:36:14 Fatigue 38407720 R53.83 Pt presents with fatigue, dry cough, ear pain, scratchy throatDif Dx: covid vs viral uri vs allergies vs less likely PNAScreen for COVIDvital s stable, lungs CTA b/l, in nad, no focal findings on exam other than rash along chestAdvis ed rest, hydration, ibuprofen/ tylenol prn along with warm salt water gargles, cough medicaton prnto follow up with pcp should sx persistwar sahara signs of when to RTC discussed. Pruritic rash 78747681 L 28.2 -unclear etiology of rashcontac t dermatitis vs allergic reaction vs eczema vs nickel reactionad vised cool compresses , avoidance of itchng, benadryl cream or anthistami ne, will put in triamcinol one for itch relief. Advised to follow up with pcp should sx persist [id number] Reagan Montgomery MD [facility] [address] [place] [address] 09/30/2021 15:12:20 09/30/2021 16:27:38 Paresthesia 50649022 R20.2 - Ms. Ahmadi reports a long-stand ing history of bilateral upper and lower extremity numbness and tingling- She reports that her lower extremity numbness and tingling is becoming more severe and more extensive- I will obtain EMG studies at this time for further assessment regarding a bilateral upper and lower extremity neuropathi c process Muscle wea kness of limb 221999592 M62.81 - Ms. Ahmadi reports being unstable on her feet due to lower extremity weakness- I will place a referral to physical therapy for further evaluation and treatment of lower extremity weakness Multiple joint pain 5817 8005 M25.50 - There is no obvious joint synovitis on today's musculoske letal phsyical examinatio n- Ms. Ahmadi's history, review of systems and physical examinatio n findings are seemingly inconsiste nt with an underlying rheumatic autoimmune or inflammato ry arthritic condition at this time- Ms. Ahmadi reports a significan t, but temporary improvemen t in her joint symptoms with the use of an as-needed Prednisone taper- I have provided Ms. Ahmadi with a prescripti on refill for a Prednisone taper during today's visit Pes anseri nus bursitis 69807889 M70.51 M70.52 - Findings consistent with bilateral anserine bursitis noted on today's musculoske letal physical examinatio n- I have recommende d stretching , range of motion exercises, lower extremity strengthen ing and weight loss Bilateral trochanteric bursitis 9776732403 7747424 M70.61 M70.62 - Findings consistent with bilateral trochanter ic bursitis noted on today's musculoske letal physical examinatio n- I have recommende d stretching , range of motion exercises, lower extremity strengthen ing and weight loss Osteoarthritis 456975132 M19.90 - Findings consistent with osteoarthr itis noted on musculoske letal physical examinatio n as well as imaging studies- I have recommende d the use of Tylenol, heat and topical therapies for treatment of pain associated with osteoarthr itis [id number] Melly Kyle MD [facility] [address] [place] [address] 01/07/2022 09:46:12 01/07/2022 11:25:32 Fever 816108887 R50.9 Pt presents with two days of fever, body aches, fatiguedif Dx: infusion reaction vs covid vs viral uri vs influenzaV itals stable, afebrile on exam, lungs CTA b/l, in nad, no focal findings on exam. pt notes feeling better overall todayFlu: negativeco vid negative at homeAdvise d rest, hydration, ibuprofen/ tylenol prn along with warm salt water gargles, warm tea with honey,Warn ing signs of when to RTC discussed. pt in agreement with plan [id number] MD [facility] [address] [place] [address] 07/29/2022 09:51:51 07/29/2022 10:54:48 Coronary arteriosclerosis 53370852 I25.10 Benign ess ential hypertension 2150105 I10 Hyperlipidemia 47283124 E78.5 [id number] MD [facility] [address] [place] [address] 05/17/2023 14:32:32 05/17/2023 15:37:23 Paresthesia 32279515 R20.2 - Ms. Ahmadi continues to experience bilateral upper and lower extremity numbness and tingling- Bilateral upper and lower extremity EMG studies were ordered during her last visit- Lydia white, I do not have the results of her previous EMG studies at this time- I have recommende d continuing to take Gabapentin for treatment of neuropathy as she is doing- She will also continue to follow-up with [facility]. [facility] ([facility] [place] and his associates for further evaluation and management of neuropathy Muscle bibiana veronica of limb 876882186 M62.81 - Ms. Ahmadi reports being unstable on her feet due to lower extremity weakness- I will place a referral to physical therapy for further evaluation and treatment of lower extremity weakness Multiple joint pain 3567 8005 M25.50 - There is possible joint synovitis involving the left foot on today's musculoske letal physical examinatio n- I will obtain bloodwork at this time to assess for a possible underlying inflammato ry arthritic condition- Ms. Ahmadi continues to experience a significan t, but temporary improvemen t in her joint symptoms with the use of an as-needed Prednisone taper- I have recommende d continuing to use an as-needed Prednisone taper for treatment of joint flares Osteoarthritis 591275402 M19.90 - There are findings consistent with osteoarthr itis noted on musculoske letal physical examinatio n as well as imaging studies- I have recommende d the use of Tylenol, heat and topical therapies for treatment of pain associated with osteoarthr itis Pes anseri nus bursitis 61741989 M70.51 M70.52 - There are findings consistent with bilateral anserine bursitis noted on today's musculoske letal physical examinatio n- I have recommende d stretching , range of motion exercises, lower extremity strengthen ing and weight loss Bilateral trochanteric bursitis 4819523764 2801046 M70.61 M70.62 - There are findings consistent with bilateral trochanter ic bursitis noted on today's musculoske letal physical examinatio n- I have recommende d stretching , range of motion exercises, lower extremity strengthen ing and weight loss [id number] Marquita Pérez MD [facility] [address] [place] [address] 11/03/2023 12:00:52 11/03/2023 13:01:17 Lumbar spondylosis 671281511 M47.816 Lumbar radiculopathy 128 782933 M54.16 left 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 She denies trauma. X-rays were previously done back in October 2023. Which do show mild osteoarthr itis in all compartmen ts. On physical exam she has negative Raul's sign no ligament laxity noted. She demonstrat es good range of motion. Some tenderness over the medial joint space. Most likely patient being bothered by osteoarthr itis pain. We discussed a cortisone injection. Patient acknowledg ed consent for cortisone injection to the right knee. Patient tolerated injection well. Patient to follow-up on as-needed basis. Patient agrees with plan. Health Concerns Section Related Observation LastModified by Organization Detai ls LastModified Time None Recorded Concern Status LastModified by Organization Details LastModified Time None Recorded Advance Directives Directive None Recorded Payers Encounter Date Sequence Insurance Name Policy Number Policy Read Covered Member ID Read Member ID Guarantor Name 01/07/2022 1 [place] [employer] Florencia Ahmadi [id number] Florencia Ahmadi 01/07/2022 2 [place] [facility] Florencia Ahmadi [id number] Florencia Ahmadi 07/29/2022 1 [place] [employer] Florencia Ahmadi [id number] Florencia Ahmadi 07/29/2022 2 [place] [facility] Florencia Katzusky [id number] Florencia Hooks [place] 05/17/2023 1 [place] [employer] Florencia oMhry [id number] Florencia Katz[place]ky 05/17/2023 2 [place] [facility] Florencia Hooks [place] [id number] Florencia Hooks [place] 11/03/2023 1 MEDICARE B[place] [facility] Florencia Mohry [id number] Florencia A [place] 11/03/2023 2 [place] [facility] Florencia Hooks [place] [id number] Florencia Hooks [place] 01/26/2024 1 [place] [facility] Florencia Mohry [id number] Florencia Hooks [place] 01/26/2024 2 [place] [facility] Florencia Katzusky [id number] Florencia Ahmadi Notes Date Note Type Note Provider Name and Address Organization Details Recorded Time 2 text/html 76 year old female presents at [facility] for a fever that was going on for about two days. Pt had an infusion done for osteoporosis on Tuesday and was told that she could have flu like symptoms afterwards. Pt states feeling a bit achy but not sure if it's due to the infusion or her other medical conditions--AMP Pt presents with fever for the past two daysshe had an infusion for osteoporosis on tuesdayt woke up not feeling well, temp was 101.6-they told her she could have flu like sx-pcp advised she be evaluated in clinic for covid/flu-home covid was negativebody aches and sore not unusual for her at baseline-fatigue, no cough, mild congestion-sneezing in the last few days,-using tylenol and advil Melly Kyle MD [address] [place] [address], [phone], [facility] 01/08/2022 12:45:22 3 text/html Florencia has a history of CAD, s/p IMI in 2010 with stent to her RCA, remaining nonobstructive LAD lesion, hypertension, hyperlipidemia, and breast CA in remission. She comes today to reestablish care as has been several years since has been here. Her original reason for coming was a preoperative clearance for a colonoscopy which she reports has been canceled and being transition to a Cologuard instead. She would still like to reestablish care for general cardiology matters. Overall she reports that she feels well and has no complaints of chest pain or shortness of breath. She has some mild foot and ankle swelling. Her PCP put her on Lasix a few weeks ago and she reports it has not really helped much. She denies any orthopnea and otherwise reports her energy level is good. Sylvester Funez MD [address] [place] [address], [phone], [facility] 07/29/2022 12:21:40 4 text/html Ms. Ahmadi was last seen on 09/30/2021 and bilateral lower and upper extremity EMG studies were ordered during that visit. She was also referred to physical therapy during that visit for further evaluation and bilateral lower extremity strengthening exercises. She reports having the bilateral upper and lower extremity EMG performed but unfortunately, I do not have the results of her EMG studies at this time. She reports that she continues to follow-up with Dr. Kim and his associates for evaluation and treatment of neuropathy. She continues to experience bilateral lower extremity numbness and tingling from the knees down. She reports that lower extremity pain, swelling, numbness and tingling remain her most bothersome issue on a regular basis. She also continues to experience low back, bilateral knee, foot and ankle pain. She also reports bilateral hand numbness and tingling. She continues to deny red, hot, swollen joints. She continues to take Gabapentin 600 mg in the morning and 900 mg at night for treatment of neuropathy. She is unsure if the use of Gabapentin has led to an improvement in her neuropathy symptoms. She also continues to use as-needed Prednisone for treatment of joint/musculoskeletal pain flares. She also reports being unsteady on her feet due to lower extremity weakness. She reports mild bilateral lower extremity pain during today's visit. Her bilateral lower extremity pain is a 2-3 out of 10 during today's visit. She has no other complaints at this time. She currently denies fever, chills, nausea, vomiting, chest pain or shortness of breath. Reagan Montgomery MD [address] [place], [address], [facility] 05/17/2023 17:18:07 4 text/html Pain Management: New PatientReported bypatient.Location:Rt lower back radiates down into leg/knee How long have you had this pain?1-1.5 month How often does your pain occur?continuous How long does your pain last?hours Described your pain:throbbing; burning; cramping; twisting; aching Your HIGHEST pain intensity over the Past Week:10 worst pain Your LOWEST pain intensity over the Past Week:3 Your USUAL pain intensity over the Past Week:7 Your PAIN scale Today:9 Makes pain better?lying down Makes pain worse?standing; walking; bending Interferes with activities:general activity: (9-10); mood: (8-9); walking ability: 8; work: 9; relationships with other people: (6-7); sleep: 5; enjoyment of life: 10 Prior tests?x-rays ([facility] - within the past 2 months) Conditions associated with your pain?muscle weakness; difficulty walking; numbness / tingling / pins/ needles Prior treatments?physical therapy (home - current) Prior medications you've tried?Tramadol/Flexeril - at times Advil/Tylenol - minimal relief Marquita Pérez MD [address] [place], [address], [facility] 11/03/2023 12:57:25 4 text/html OrthopedicsReported bypatient.Location:Right ; Knee Quality:Intermittent;Ach ing;Throbbing Severity:Mild-Moderate Onset/Timing:Gradual Duration:months Context:No change ImagingX-ray (10/14/23) R knee pain YUNI STAFFORD [address] [facility] [place], [address], [facility] 01/30/2024 10:38:21 OBGyn Episode No OBEpisode recorded.
--- OUTSIDE RECORDS SUMMARY | 2024-05-07 12:00 | XMS_ITS | Encounter Summary ---
Author Organization [facility] Address [address] [place] [address] Care Team Providers Care Transport Operations Inspector Name Role Phone Chandana Esquivel Primary Care Provider [phone] Anuja Yeh Unavailable Sarah Giles Unavailable [phone] Ambrose Pérez MD Unavailable [phone] Encounter Details Date Type Department Care Team (Late st Contact Info) Description 08/09/2017 Orders Only [facility] Pre-Admission Testing [address] [facility] [address] [place] [address] Angela Sykes NP Social History Tobacco Use Types Packs/Day Years Used Date Smoking Tobacco: Former Smokeless Tobacco: Former Comments No Sex and Gender Information Value Date Recorded Sex Assigned at Not on file Legal Sex Female 5:38 AM EDT Gender Identity Not on file Sexual Orientation Not on file documented as of this encounter Plan of Treatment Not on file documented as of this encounter Procedures * Due to [place] state law, this organization might not be sharing negative HIV tests. Procedure Name Priority Date/Time Associated Diagnosis Comments EKG-TO BE READ & BILLED BY ADULT OR PEDIATRIC CARDIOLOGY Routine 08/09/2017 2:42 PM EDT Tear of right rotator cuff, unspecified tear extent Pre-operative examination Atherosclerosis of coronary artery, angina presence unspecified, unspecified vessel or lesion type, unspecified whether [place] or transplanted heart LATEX (K82) IGE Routine 08/09/2017 2:27 PM EDT Latex sensitivity BASIC METABOLIC PANEL WITH (GFR) Routine 08/09/2017 2:27 PM EDT Tear of right rotator cuff, unspecified tear extent Pre-operative examination Atherosclerosis of coronary artery, angina presence unspecified, unspecified vessel or lesion type, unspecified whether [place] or transplanted heart documented in this encounter Results * Due to [place] state law, this organization might not be sharing negative HIV tests. * EKG-TO BE READ AND BILLED BY [...] previous ECGs available Confirmed by Lissy Rich ([id number]) on 08/09/2017 7:02:09 PM MUSE EKG SYSTEM 08/09/2017 2:42 PM EDT 08/09/2017 7:02 PM EDT us Angela Sykes NP CARDIOVASCULAR-WITH INBSKT R TG Final Result Performing Organization Address City/[facility]/ZIP Co de Phone Number MUSE EKG SYSTEM * LATEX (K82) IGE (08/09/2017 2:27 PM EDT) Pathologist [facility] Latex (K82) IgE <0.10 kU/L [facility] Latex (K82) Class 0 [facility] Comment: Negative findings for latex specific IgE antibodies does not preclude latex allergy. Positive findings for latex specific IgE antibodies is highly suggestive of latex allergy and should be considered in context of clinical findings. 08/09/2017 2:27 PM EDT 08/09/2017 10:53 PM EDT Narrative Resulting Agency Comment [id number] us Angela Sykes NP LABORATORY Final Result [facility] [address] [place] [address] * (ABNORMAL) BASIC METABOLIC PANEL WITH (GFR) (08/09/2017 2:27 PM EDT) Glucose 124(H) 65 - 99 mg/dL [facility] Comment: ? Fasting reference interval For someone without known diabetes, a glucose value between 100 and 125 mg/dL is consistent with prediabetes and should be confirmed with a follow-up test. Urea Nitrogen Blood (BUN) 18 7 - 25 mg/dL [facility] Creatinine 0.73 0.60 - 0.93 mg/dL [facility] Comment: For patients >49 years of age, the reference limit for Creatinine is approximately 13% higher for people identified as -Thai. GFR 82 > OR = 60 mL/min/1 .73m2 [facility] GFR () 95 > OR = 60 mL/min/1 .73m2 [facility] BUN/Creatinine Ratio NOT APPLICABLE 6 - 22 (calc) [facility] Sodium 141 135 - 146 mmol/L [facility] Potassium 3.9 3.5 - 5.3 mmol/L [facility] Chloride 107 98 - 110 mmol/L [facility] Carbon dioxide 24 20 - 31 mmol/L [facility] Calcium 9.2 8.6 - 10.4 mg/dL [facility] 08/09/2017 2:27 PM EDT 08/09/2017 10:53 PM EDT Narrative [facility] - 08/10/2017 2:42 AM EDT Please note that this estimated GFR does not include an adjustment for the patient's height or weight, and can therefore, be viewed as reliable only for patients with heights between 60 and 72 . More precise quantification using a 24-hour urine sample or height-based algorithm is recommended for patients outside of this range of height and for those individuals with more precise needs for GFR calculation. Resulting Agency Comment [id number] Angela Sykes NP LABORATORY Final Result [facility] [address] [place] [address] documented in this encounter Visit Diagnoses Diagnosis Tear of right rotator cuff, unspecified tear extent Pre-operative examination Preoperative examination, unspecified Atherosclerosis of coronary artery, angina presence unspecified, unspecified vessel or lesion type, unspecified whether [place] or transplanted heart Latex sensitivity Allergy to latex documented in this encounter Care Teams Transport Operations Inspector Relationship Specialty Start Date End Date Chandana Esquivel [facility] [address] [address] PCP - General Family Medicine 06/16/17 Anuja Yeh [address] [address] Rheumatology 06/23/18 Sarah Giles [facility] DEPT OF ONCOLOGY [address] [place] [address] Oncology 06/23/18 Ambrose P[facility]rez MD [facility] [address] [place] [address] Anesthesiology 06/23/18 documented as of this encounter
--- OUTSIDE RECORDS SUMMARY | 2024-05-07 12:00 | XMS_ITS | Encounter Summary ---
Author Organization [facility] Address [address] [place] [address] Care Team Providers Care Tool/Die Maker Name Role Phone Chandana Esquivel Primary Care Provider [phone] Anuja Yeh Unavailable Sarah Giles Unavailable [phone] Ambrose Pérez MD Unavailable [phone] Reason for Referral * CONSULT AND TREATMENT (Routine) - Incomplete Specialty Diagnoses / Procedures Referred By Bartolo pulido Referred To Contact Physical Therapy Diagnoses Right shoulder pain, unspecified chronicity Jasson Zhang MD Phone: tel: fax: Referral ID Status Reason Start Date Expiration Date Visits Requested Visits Authorized [id number] Incomplete Specialty Services Required 07/27/2017 1 1 Encounter Details Date Type Department Care Team ([facility] st Contact Info) Description 07/27/2017 Orders Only [facility] [address] [place] [id number] Jasson Zhang MD [address] [address] Social History Tobacco Use Types Packs/Day Years Used Date Smoking Tobacco: Never Assessed Comments Unknown Sex and Gender Information Value Date Recorded Sex Assigned at Not on file Legal Sex Female 5:38 AM EDT Gender Identity Not on file Sexual Orientation Not on file documented as of this encounter Plan of Treatment Scheduled Referrals Name Type Priority Associated Diagnoses Orde r Schedule CONSULT PHY MED REHAB NON-FC Referral Routine Right shoulder pain, unspecified chronicity Ordered: 07/27/2017 documented as of this encounter Visit Diagnoses Diagnosis Right shoulder pain, unspecified chronicity documented in this encounter Care Teams Tool/Die Maker Relationship Specialty Start Date End Date Chandana Esquivel [facility] [address] [address] PCP - General Family Medicine 06/16/17 Anuja Yeh [address] [address] Rheumatology 06/23/18 Sarah Giles [facility] DEPT OF ONCOLOGY [address] [place] [address] Oncology 06/23/18 Ambrose P[facility]rez MD [facility] [address] [place] [address] Anesthesiology 06/23/18 documented as of this encounter
--- OUTSIDE RECORDS SUMMARY | 2024-05-07 12:00 | XMS_ITS | Encounter Summary ---
Author Organization [facility] Address [address] [place] [address] Care Team Providers Care Tile Grinder Name Role Phone Chandana Esquivel Primary Care Provider [phone] Anuja Yeh Unavailable Sarah Giles Unavailable [phone] Ambrose Pérez MD Unavailable [phone] Reason for Visit * Reason Comments Follow Up Encounter Details Date Type Department Care Team ([facility] st Contact Info) Description 06/21/2018 Telephone [facility] Neurology [address] [address] Wilder Kim MD [address] [id number] Follow Up Social History Tobacco Use Types Packs/Day Years Used Date Smoking Tobacco: Former Smokeless Tobacco: Former Comments No Sex and Gender Information Value Date Recorded Sex Assigned at Not on file Legal Sex Female 5:38 AM EDT Gender Identity Not on file Sexual Orientation Not on file documented as of this encounter Miscellaneous Notes * Telephone Encounter - Aftab Shook - 06/23/2018 8:04 AM EDT Application for disabled parking placard mailed to patient home address * Telephone Encounter - Wilder Kim MD - 06/22/2018 6:01 PM EDT Augustin Shook: Florencia would like the application for the placard to be sent to her home. Thank you, Wilder Kim I spoke with Florencia this evening. After further discussion and reflection I am inclined to hold off on a new agent for the pain and rather increase the already well tolerated gabapentin; we will increase by one (1) 300 mg cap so that Florencia will be taking AM 600, noon 300, bedtime 900 mg. She is comfortable with this plan. We have also completed the application for a handicapped placard and she would like it to be sent to her home. Wilder Kim M.D. * Telephone Encounter - Abbi Hoffman RN - 06/22/2018 4:08 PM EDT Patient calling back. She stated that Dr. Kim had discussed starting her on a medication yesterdaybut she is unsure what it was and has yet to hear from the pharmacy. Please advise. Florencia is looking for a call back with confirmation once we have sent the script. * Telephone Encounter - Abbi Hoffman RN - 06/22/2018 9:35 AM EDT [facility] in [place] is the preferred pharmacy. I do see that 2 historical meds were entered yesterday during her consult. Forwarding to Dr. Kim in case they discussed her needing to refill them. * Telephone Encounter - Ирина Adams - 06/21/2018 4:29 PM EDT Florencia called to let the nurse know that she will be using [facility]. This pharmacy is notin the system. Please put that in as the pharmacy she will be using. documented in this encounter Plan of Treatment Not on file documented as of this encounter Visit Diagnoses Not on filedocumented in this encounter Care Teams Tile Grinder Relationship Specialty Start Date End Date Chandana Esquivel [facility] [address] [address] PCP - General Family Medicine 06/16/17 Anuja Yeh [facility] [address] [place] [address] Rheumatology 06/23/18 Sarah Giles [facility] DEPT OF ONCOLOGY [address] [place] [address] Oncology 06/23/18 Ambrose Pérez MD [facility] [address] [place] [address] Anesthesiology 06/23/18 documented as of this encounter
--- OUTSIDE RECORDS SUMMARY | 2024-05-07 12:00 | XMS_ITS | Clinical Summary ---
Author Organization [facility] Address [address] [place] [address] Care Team Providers Care Body Worker Name Role Phone Chandana Esquivel Primary Care Provider [phone] Allergies Active Allergy Reactions Criticality Noted Date Comments Shellfish Containing Products Hives 2019 Nickel Dermatitis 03/14/2019 Penicillins Hives Medium 12/26/2013 Medications lisinopril (PRINIVIL,ZESTR IL) 20 mg tablet Take 20 mg by mouth daily. 3 7 Active metoprolol succinate XL (TOPROL XL) 25 mg tablet Take 50 mg by mouth once a day. 11 7 Active gabapentin (NEURONTIN) 100 mg capsule Take 1,500 mg by mouth daily. 1 Active LORazepam (ATIVAN) 0.5 mg tablet Take 0.5 tablets by mouth as needed. 4 Active atorvastatin (LIPITOR) 40 mg tablet Take 80 mg by mouth once a day. Active triamcinolone acetonide (KENALOG) 0.1% cream 9 Active acetaminophen (TYLENOL) 325 mg tablet Take 325 mg by mouth every 6 hours as needed for pain. Active naproxen sodium (ALEVE) 220 mg capsule Take by mouth. Activ e ibuprofen (MOTRIN) 200 mg tablet Take 200 mg by mouth every 6 hours as needed for pain. Active diclofenac (VOLTAREN) 1% gel Apply 2 g topically to the affected area 4 times a day. 100 g 3 0 Active cholecalciferol (VITAMIN D3) 1,000 unit tablet Active ascorbic acid, vitamin C, (VITAMIN C) 100 mg tablet Take 500 mg by mouth once a day. Active Active Problems Problem Noted Date Diagnosed Date Primary osteoarthritis of hand 02/16/2017 Chronic pain of both knees 02/16/2017 Foot pain, bilateral 02/16/2017 Coronary artery disease invo lving [place] coronary artery of [place] heart with angina pectoris 02/16/2017 Breast cancer 12/31/2013 Overview (02/16/2017): Overview: Malignant tumor of breast Polyneuropathy 12/26/2013 Overview (02/16/2017): Overview: Polyneuropathy; Possibly related to chemotherapy Limb Pain 04/02/2010 Backache 04/02/2010 Numbness (Hypesthesia) 04/02/2010 Peripheral Neuropathy 04/02/2010 Chest Pain 02/19/2010 Headache 02/19/2010 Thoracic Neuritis T11 - T12 02/19/2010 Asthma 02/19/2010 Voice Disturbance 02/19/2010 Family History Medical History Relation Name Comments Stroke Father Kidney failure Mother Relation Name Status Comments Father Mother Social History Tobacco Use Types Packs/Day Years Used Date Smoking Tobacco: Former Smokeless Tobacco: Never Alcohol Use Standard Drinks/Week Comments Not Currently 0 (1 standard drink = 0.6 oz pur e alcohol) Comments Unknown Sex and Gender Information Value Date Recorded Sex Assigned at Not on file Legal Sex Female 7:10 AM EDT Gender Identity Not on file Sexual Orientation Not on file Last Filed Vital Signs Vital Sign Reading Time Taken Comments Blood Pressure 117/72 09/21/2022 11:04 AM EDT Pulse 77 09/21/2022 11:04 AM EDT Temperature 36.7 ??C (98 ??F) 09/21/2022 11:04 AM EDT Respiratory Rate - - Oxygen Saturation - - Inhaled Oxygen Concentration - - Weight 89.8 kg (198 lb) 09/21/2022 11:04 AM EDT Height 160 cm (5' 3 ) 09/21/2022 11:04 AM EDT Body Mass Index 35.07 09/21/2022 11:04 AM EDT Plan of Treatment Health Maintenance Due Date Last Done Comments Medicare AWV 1946 Zoster Vaccines (1 of 2) 1964 CT Lung Cancer Screening (Baseline) 05/30/1995 Osteoporosis Screening 05/30/1995 RSV Vaccine (60+ years old and patients) (1 - 1-dose 75+ series) 2020 COVID-19 Vaccine (4 - 2023-2 5 season) 2023 03/05/2021, 04/16/2020, 03/26/2020 Influenza Vaccine (#1) 2023 0, 11/21/2018, 11/08/2011 Alcohol/Substance Use Screening 02/08/2024 Depression Screening and Follow-Up 02/08/2024 Fall Risk Screening 02/08/2024 Health Care Proxy Review 02/08/2024 Social Drivers of Health Annual Screening 02/08/2024 DTaP,Tdap,and Td Vaccines (3 - Td or Tdap) 11/12/2029 11/13/2019, 10/04/2008 Pneumococcal Vaccine: 50+ Years Completed 09/28/2016, 10/06/2012 Hepatitis C Screening Completed 02/16/2017 Statin Therapy Completed 05/03/2018 Cologuard Discontinued 09/09/2022, 09/09/2022 Colon Cancer Screening Discontinued Colonoscopy Discontinued FOBT / Fit Test Discontinued Hepatitis B Vaccines Aged Out No long er eligible based on patient's age to complete this topic Sigmoidoscopy Discontinued Procedures * Due to [place] law, this organization might not be sharing negative HIV tests. Procedure Name Priority Date/Time Associated Diagnosis Comments HEPATITIS C ANTIBODY W/REFLEX TO HCV RNA, QUANTITATIVE PCR Routine 02/16/2017 4:48 PM EST Primary osteoarthritis of both hands from Last 3 Months or Most Recently Relevant to Health Maintenance Results * Due to [place] law, this organization might not be sharing negative HIV tests. * Hepatitis C Antibody w/Reflex to HCV RNA, Quantitative PCR (02/16/2017 4:48 PM EST) Hepatitis C Antibody NON-REACT NANCY NON-REACT NANCY 02/17/2017 4:55 AM EST [facility] Signal To Cut-Off 0.04 <1.00 02/17/2017 4:55 AM EST [employer] Blood specimen (specimen) Structure of peripheral vein / Unknown Venipuncture / Unknown 02/16/2017 4:48 PM EST 02/16/2017 5:13 PM EST Narrative [facility] - 02/17/2017 4:55 AM EST [facility] Received Date: us Anuja Yeh MD LAB BLOOD ORDERABLES Final Resul t [facility] [address] [facility] 3rd Floor, [place] [address], [place] [phone] [facility] [address], [place] [address], [place] [phone] from Last 3 Months or Most Recently Relevant to Health Maintenance Insurance MEDICARE [facility] Care Teams Body Worker Relationship Specialty Start Date End Date Chandana Esquivel [address] [place] [address] [place] [address] PCP - General 08/26/16
--- OUTSIDE RECORDS SUMMARY | 2024-05-07 12:00 | XMS_ITS | Referral Summary ---
Author Organization [facility] Address [address] [place] [address] Care Team Providers Care Web Development Consultant Name Role Phone Chandana Esquivel Primary Care Provider [phone] Allergies Active Allergy Reactions Criticality Noted Date [...] bilateral 02/16/2017 Coronary artery disease invo lving [place] coronary artery of [place] heart with angina pectoris 02/16/2017 Breast cancer 12/31/2013 Overview (02/16/2017): Overview: Malignant tumor of breast Polyneuropathy 12/26/2013 Overview (02/16/2017): Overview: Polyneuropathy; Possibly related to chemotherapy Limb Pain 04/02/2010 Backache 04/02/2010 Numbness (Hypesthesia) 04/02/2010 Peripheral Neuropathy 04/02/2010 Chest Pain 02/19/2010 Headache 02/19/2010 Thoracic Neuritis T11 - T12 02/19/2010 Asthma 02/19/2010 Voice Disturbance 02/19/2010 Social History Tobacco Use Types Packs/Day Years [...] 09/21/2022 11:04 AM EDT Plan of Treatment Not on file Procedures * Due to [place] state law, this organization might not be sharing negative HIV tests. Procedure Name Priority Date/Time Associated Diagnosis Comments HEPATITIS C ANTIBODY W/REFLEX TO HCV RNA, QUANTITATIVE PCR Routine 02/16/2017 4:48 PM EST Primary osteoarthritis of both hands from Last 3 Months or Most Recently Relevant to Health Maintenance Results * Due to [place] state law, this organization might not be sharing negative HIV tests. * Hepatitis C Antibody w/Reflex to HCV RNA, Quantitative PCR (02/16/2017 4:48 PM EST) Hepatitis C Antibody NON-REACT NANCY NON-REACT NANCY 02/17/2017 4:55 AM EST [facility] Signal To Cut-Off 0.04 <1.00 02/17/2017 4:55 AM EST [employer] Blood specimen (specimen) Structure of peripheral vein / Unknown Venipuncture / Unknown 02/16/2017 4:48 PM EST 02/16/2017 5:13 PM EST Narrative [facility] - 02/17/2017 4:55 AM EST [facility] Received Date: us Anuja Yeh MD LAB BLOOD ORDERABLES Final Resul t [facility] [address] [facility] 3rd Floor, [place] [address], [employer] [facility] [address] [facility] 3rd Floor, [place] [address], from Last 3 Months or Most Recently Relevant to Health Maintenance Insurance MEDICARE [facility] Care Teams Web Development Consultant Relationship Specialty Start Date End Date Chandana Esquivel [address] [place] [address] PCP - General 08/26/16
== END 2024-05-07 11:06 | disposition home or self-care (01) ==
LOC: HO.PMC 10:38
PROVIDERS: Visit Provider Anesthesiology
DX: G89.4 Chronic pain syndrome (principal); M17.11 Unilateral primary osteoarthritis, right knee; M76.31 Iliotibial band syndrome, right leg; M16.11 Unilateral primary osteoarthritis, right hip; M25.551 Pain in right hip
CPT/HCPCS: 99214

== ENCOUNTER → 2024-05-07 10:38 | Outpatient (BNVA) | payer MEDICARE, SELFPAY | PROVIDERS: Visit Provider Anesthesiology | DX: G89.4 Chronic pain syndrome (principal); M17.11 Unilateral primary osteoarthritis, right knee; M76.31 Iliotibial band syndrome, right leg; M16.11 Unilateral primary osteoarthritis, right hip | CPT/HCPCS: 99212 ==

== ENCOUNTER 2024-05-24 12:54 | Outpatient (AMB) | payer MEDICARE, SELFPAY ==
--- NOTE | 2024-05-24 13:04 | MHC.OFFVIS ---
Vital Signs 05/24/24 13:09 Height 5 ft 3 in Weight 140 lb BMI 24.8 BP 155/64 H Blood Pressure Location Lt brachial Position Sitting Pulse 61 Pulse Source Pulse Oximeter Pulse Oximetry (%) 98 Oxygen Delivery Method Room Air Intake Visit Reasons: FU for injections in office/liam from 05/17 Intake Note: Pain today 10/17 Electrical Technician Required: No Accompanied by: Daughter Allergies Penicillins Adverse Reaction (Severe, Verified 05/24/24 13:10) Hives HPI Comments Details: Florencia is back in my office to receive intra-articular knee steroid injection. See description of the procedure as below. We received the information from her marine drafter who stated that there is no contraindications for the injections. Informed consent was obtained and thoroughly explained including risks and benefits of the procedure. The patient has signed a consent. The patient also asking questions whether her other pain on the right could be related to her joint pain I told her that it is only up to her to decide after the injection. Negative results for diagnostic medial branch block L2-L3 -L4 -dorsal ramus L5 on the right. Prior She is complaining on pain in right lower back right leg and right knee pain. She reports sometimes feeling that right leg is going to give up under her. She reports that this pain started in August of 2023. She had the fall that summer and developed some small spinal fracture however on recent x-ray it is not documented. She reports that standing hurts her pain the most sitting and laying make pain better walking increases the pain. Flexing forward aggravates pain little bit and flexing backwards makes her pain more severe. Her most severe pain is in the morning and after walking. Pain is less severe at rest. She had extensive course of physical therapy and tries to continue home exercise program however this takes her toll when she performs exercises while standing. She was given occupational therapy to help with the cane and walker. She reports that she received cortisone injection in her knee in the past which did not help her pain. [facility] Medical History (Updated 05/07/24 @ 11:15 by Aneudy Vernon MD) Neuropathy Macular degeneration of right eye Hernia Breast cancer, right Heart attack Anxiety High cholesterol HTN (hypertension) Surgical History (Updated 05/04/24 @ 11:11 by Shayy Garvey RN) Hx of cholecystectomy Social History Patient Tobacco Use Status: Never used Tobacco Review of Systems Const All systems reviewed & are unremarkable except as noted in HPI and below ENT Reports Normal hearing present Neuro Reports Normal hearing present, Denies Abnormal speech present, Denies confusion and Denies Sensory deficit (Neuro) Psych Denies confusion Physical Exam Vital Signs: Last Vital Signs Pulse 61 05/24/24 13:09 BP 155/64 H 05/24/24 13:09 Pulse Ox 98 05/24/24 13:09 Oxygen Delivery Method Room Air 05/24/24 13:09 BMI result Body Mass Index 24.8 Const General: no acute distress; No confusion Nutritional Appearance: obese morbidly obese Orientation/consciousness: patient oriented x3 and No confusion Eyes General: appearance normal, both eyes and all related structures Pupils: Equal, round and reactive pupils present EOM: EOMs intact bilaterally Neck Neck: Yes full ROM Chest Chest palpation & inspection: normal inspection of the chest Resp Effort & Inspection: normal respiratory effort, able to speak in complete sentences, normal respiratory pattern, no audible wheezes and no cough Cardio Jugular venous distension: no JVD GI Inspection: Yes normal to inspection Back/Spine/Pelvis Other: She is able to stand on bilateral tiptoes however she loses her balance attempting to stand on bilateral heels, therefore dorsiflexion of the foot function S1 nerve root is difficult to assess on physical exam. Flexing forward aggravates her pain as well as flexing backwards. Loading test is positive on the right. Negative on the left. SLR is negative bilaterally. Reagan test is negative bilaterally. There is tenderness on palpation in paraspinal spinal region most lower portion of the lumbar spine. Tenderness on palpation in projection of the trochanter. Tenderness on palpation in projection of the right knee. Neuro General: patient oriented x3, gait normal and No confusion Cranial nerves: Yes CN's II-XII intact bilaterally, Yes Equal, round and reactive pupils present, Yes Normal hearing present and Yes Ability to bilaterally elevate shoulders present Speech: No Abnormal speech present Gait exam (Neuro): Normal gait present Motor exam (neuro): 5/5 motor strength present throughout Sensory Exam: No Sensory deficit (Neuro) Extrem Other: tenderness on palpation in projection of the right knee on lateral as well as on medial surfaces. Crepitus in the right knee with range of motion exercises. Lateral and medial rotation of the thigh results in pain aggravation in the patient's groin lateral rotation aggravates pain More strongly than medial rotation. General: No pedal edema Psych Speech and movement: Normal speech and movement present Affect: normal affect Attitude: cooperative Thought process: Normal thought process present Thought content: Normal thought content present Insight: Good insight present (Psych) Judgement: Good judgement present (Psych) Office Procedures AMB Joint Injection/Aspiration Joint Injection/Aspiration Primary Site: right knee Injected: 40 mg of Approach Used: anterolateral Coding 89201 - Large joint Procedure code (CPT) selection complete Office Meds Kenalog 40 mg/mL suspension for injection Performing Provider: Aneudy Vernon MD Performing Location[place] [facility] Documented (not given) by: Aneudy Vernon MD on 05/24/24 13:51 Dose Route Admin Location Dispensed Lot Number Expiration Date NDC Java [id number] Software Engineer 40 mg intra-articular mL Assessment & Plan Assessment & Plan (1) Osteoarthritis of right knee: Code(s): M17.11 - Unilateral primary osteoarthritis, right knee Category: Medical (2) Chronic pain syndrome: Code(s): G89.4 - Chronic pain syndrome Category: Medical (3) Iliotibial band syndrome affecting right lower leg: Code(s): M76.31 - Iliotibial band syndrome, right leg Category: Medical (4) Arthritis of right hip: Code(s): M16.11 - Unilateral primary osteoarthritis, right hip Category: Medical Plan: Right knee steroid injection. After obtaining informed consent the patient was positioned sitting on the examination table. The right knee was prepped with ChloraPrep. Sterilely obtained Kenalog 40 mg mixed with bupivacaine 0.5% was injected into anterior lateral retropatellar space. The retropatellar space was very narrow. The patient tolerated the procedure well. The needle was withdrawn sterile Band-Aid was applied. (5) Right hip pain: Code(s): M25.551 - Pain in right hip Category: Medical Plan unfortunately there is aggravation of the pain after diagnostic medial branch block. Therefore I should consider spondylosis not a pain generators of this patient. Knee injection was performed today after we received clearance from Dr. Ramos the marine drafter for this patient. She will schedule appointment in 1 month to report the results of the injection. Orders: Orders AMB Joint Injection/Aspiration Today M17.11 - Unilateral primary osteoarthritis, right knee Medications: New Kenalog (triamcinolone acetonide) 40 mg intra-articular ONCE 1 mL 0RF NS M17.11 - Unilateral primary osteoarthritis, right knee Coding Level of Care Code Est Pt Level 3 (04589) Procedure Only Diagnoses Osteoarthritis of right knee M17.11 Chronic pain syndrome G89.4 Iliotibial band syndrome affecting right lower leg M76.31 Arthritis of right hip M16.11 Right hip pain M25.551 CPT Codes Coding - 61334 Large joint: 57467 - Large joint ([id number])
[2024-05-24 13:09] VITALS: BP 155/64; PULSE 61; O2SAT 98; BMI 24.8
--- OUTSIDE RECORDS SUMMARY | 2024-05-24 15:47 | XMS_ITS | Clinical Summary ---
Author Organization [facility] Address [address] [place] [address] Care Team Providers Care Way Inspector Name Role Phone Chandana Esquivel Lalito Primary Care Provider [phone] Anuja Yeh Unavailable Sarah Giles Unavailable [phone] Ambrose Pérez MD Unavailable [phone] Allergies Active Allergy Reactions Criticality Noted [...] Zoster (Zostavax) Discontinued Procedures * Due to [place] [employer] law, this organization might not be sharing [...] unspecified vessel or lesion type, unspecified whether council or transplanted heart from Last 3 Months or Most Recently Relevant to Health Maintenance Results * Due to [place] [employer] law, this organization might not be sharing [...] 08/09/2017 7:02 PM EDT us Angela Sykes EMBALMER APPRENTICE CARDIOVASCULAR-WITH INBSKT R TG Final Result MUSE EKG SYSTEM from Last 3 Months or Most Recently Relevant to Health Maintenance Insurance MEDICARE PART B MEDICAID Care Teams Way Inspector Relationship Specialty Start Date End Date Chandana Esquivel [facility] [address] [place] [address] PCP - General Family Medicine 06/16/17 Anuja Yeh [address] [address] Rheumatology 06/23/18 Sarah Giles [facility] DEPT OF ONCOLOGY [address] [place] [address] Oncology 06/23/18 Ambrose Pérez MD [facility] [address] [place] [address] Anesthesiology 06/23/18
--- OUTSIDE RECORDS SUMMARY | 2024-05-24 15:47 | XMS_ITS | Clinical Summary ---
Author Organization [facility] Address [address] [place] [address] Phone Care Team Providers Care Distribution Lineman Name Role Phone Monica HERRERA Karin Nesbitt [phone] Conditions or Problems Problem Name Problem Code Onset Date Status Entry Date Provider Comment Standard Description Annotate CONTACT DERMATITIS 67637874 (SNOMED CT) Active Karin HERRERA Contact dermatitis Medications Medication Instructions Start Date Stop Date Generic Name NDC Provider TRIAMCINOLONE ACETONIDE 0.1 % OINT Apply BID to affected area on forearms daily TRIAMCINOLONE ACETONIDE 51013847604 Karin HERRERA ATIVAN TABS LORAZEPAM TABS 20124162866 Karin HERRERA ADULT ASPIRIN EC LOW STRENGTH 81 MG ORAL TABLET DELAYED RELEASE ASPIRIN 44494098378 Karin HERRERA CALCIUM-MAGNESIU M TABS CALCIUM-MAGNESIU M TABS 63284989350 Karin HERRERA LETROZOLE TABS LETROZOLE TABS 49231753187 Karin HERRERA GABAPENTIN TABS GABAPENTIN TABS 04805686297 Karin HERRERA METOPROLOL TARTRATE SOLN METOPROLOL TARTRATE SOLN 02645270595 Karin HERRERA LISINOPRIL TABLET LISINOPRIL TABS 39129713334 Karin HERRERA Medications Administered No information available. [...] Procedures Code Procedure Name Date Entry Date [id number] Patient encounter procedure Vital Signs No information available. Immunizations No information available. Advance Directives No information available.
--- OUTSIDE RECORDS SUMMARY | 2024-05-24 15:47 | XMS_ITS | Encounter Summary ---
Author Organization [facility] Address [address] [place] [address] Care Team Providers Care Public Health Clinical Nurse Specialist Name Role Phone Chandana Esquivel Primary Care Provider [phone] Anuja Yeh Unavailable Sarah Giles Unavailable [phone] Ambrose Pérez MD Unavailable [phone] Encounter Details Date Type Department Care Team (Late st Contact Info) Description 08/25/2020 Orders Only [facility] [address] [place] [id number] Jasson Zhang MD [address] [id number] Social History Tobacco Use Types Packs/Day Years [...] CONTRAST: EXAM: X-ray right shoulder Comparison: CR PA ??- XRAY SHOULDER COMPLETE MIN 2 VWS [...] CONTRAST: EXAM: X-ray right shoulder Comparison: CR PA - XRAY SHOULDER COMPLETE MIN 2 VWS [...] on filedocumented in this encounter Care Teams Public Health Clinical Nurse Specialist Relationship Specialty Start Date End Date Chandana Esquivel [facility] [address] [place] [address] [address] [place] [address] PCP - General Family Medicine 06/16/17 Anuja Yeh [address] [address] Rheumatology 06/23/18 Sarah Giles [facility] DEPT OF ONCOLOGY [address] [place] [address] Oncology 06/23/18 Ambrose Pérez MD [facility] [address] [place] [address] Anesthesiology 06/23/18 documented as of this encounter
--- OUTSIDE RECORDS SUMMARY | 2024-05-24 15:47 | XMS_ITS | Encounter Summary ---
Author Organization [facility] Address [address] [place] [address] Phone Care Team Providers Care Terra Cotta Roofer Name Role Phone Chandana Esquivel MD Primary Care Provider Encounter Details Date Type Department Care Team (Late st Contact Info) Description 07/30/2016 Procedure [facility] [address] [place] [address] Social History Tobacco Use Types Packs/Day Years Used Date Smoking Tobacco: Former Comments:Smoking History Pac ks/day: <=0.5 Sex and Gender Information Value Date Recorded Sex Assigned at Not on file Gender Identity Not on file Sexual Orientation Not on file documented as of this encounter Plan of Treatment Not on file documented as of this encounter Visit Diagnoses Not on filedocumented in this encounter Care Teams Terra Cotta Roofer Relationship Specialty Start Date End Date Chandana Esquivel MD [address] [place] [address] [address] [place] [address] PCP - General Family Medicine 09/05/13 documented as of this encounter Additional Source Comments The information contained in this document represents components of the legal health record. It is not the complete legal health record.[facility]
--- OUTSIDE RECORDS SUMMARY | 2024-05-24 15:48 | XMS_ITS | Encounter Summary ---
Author Organization [facility] Address [address] [place] [address] Care Team Providers Care Alley Cleaner Name Role Phone Chandana Esquivel Primary Care Provider [phone] Anuja Yeh Unavailable Sarah Giles Unavailable [phone] Ambrose Pérez MD Unavailable [phone] Encounter Details Date Type Department Care Team (Late st Contact Info) Description 08/09/2017 Orders Only [facility] Pre-Admission Testing [address] [facility] [address] [place] [address] Angela Sykes NP Social History Tobacco Use [...] of this encounter Procedures * Due to [place] state law, this organization might not be sharing negative HIV tests. Procedure Name Priority Date/Time Associated Diagnosis Comments EKG-TO BE READ & BILLED BY ADULT OR PEDIATRIC CARDIOLOGY Routine 08/09/2017 2:42 PM EDT Tear of right rotator cuff, unspecified tear extent Pre-operative examination Atherosclerosis of coronary artery, angina presence unspecified, unspecified vessel or lesion type, unspecified whether [place] or transplanted heart LATEX (K82) IGE Routine 08/09/2017 2:27 PM EDT Latex sensitivity BASIC METABOLIC PANEL WITH (GFR) Routine 08/09/2017 2:27 PM EDT Tear of right rotator cuff, unspecified tear extent Pre-operative examination Atherosclerosis of coronary artery, angina presence unspecified, unspecified vessel or lesion type, unspecified whether [place] or transplanted heart documented in this encounter Results * Due to [place] state law, this organization might not be [...] previous ECGs available Confirmed by Lissy Rich ([id number]) on 08/09/2017 7:02:09 PM MUSE EKG SYSTEM 08/09/2017 2:42 PM EDT 08/09/2017 7:02 PM EDT us Angela Sykes NP CARDIOVASCULAR-WITH INBSKT R TG Final Result Performing Organization Address City/[facility]/ZIP Co de Phone Number MUSE EKG SYSTEM * LATEX (K82) IGE (08/09/2017 2:27 PM EDT) Pathologist [facility] Latex (K82) IgE <0.10 kU/L [facility] Latex (K82) Class 0 [facility] Comment: Negative findings for latex specific IgE antibodies does not preclude latex allergy. Positive findings for latex specific IgE antibodies is highly suggestive of latex allergy and should be considered in context of clinical findings. 08/09/2017 2:27 PM EDT 08/09/2017 10:53 PM EDT Narrative Resulting Agency Comment [id number] us Angela Sykes NP LABORATORY Final Result [facility] [address] [place] [address] * (ABNORMAL) BASIC METABOLIC PANEL WITH (GFR) [...] approximately 13% higher for people identified as -Belarusian. GFR 82 > OR = 60 mL/min/1 [...] needs for GFR calculation. Resulting Agency Comment [id number] Angela Sykes NP LABORATORY Final Result [facility] [address] [place] [address] documented in this encounter Visit Diagnoses Diagnosis Tear of right rotator cuff, unspecified tear extent Pre-operative examination Preoperative examination, unspecified Atherosclerosis of coronary artery, angina presence unspecified, unspecified vessel or lesion type, unspecified whether [place] or transplanted heart Latex sensitivity Allergy to latex documented in this encounter Care Teams Alley Cleaner Relationship Specialty Start Date End Date Chandana Esquivel [facility] [address] [address] PCP - General Family Medicine 06/16/17 Anuja Yeh [address] [address] Rheumatology 06/23/18 Sarah Giles [facility] DEPT OF ONCOLOGY [address] [place] [address] Oncology 06/23/18 Ambrose Pérez MD [facility] [address] [place] [address] Anesthesiology 06/23/18 documented as of this encounter
--- OUTSIDE RECORDS SUMMARY | 2024-05-24 15:48 | XMS_ITS | Referral Summary ---
Author Organization [facility] Address [address] [place] [address] Care Team Providers Care Motorcycle Subassembler Name Role Phone Chandana Esquivel Primary Care Provider [phone] Allergies Active Allergy Reactions Criticality Noted Date [...] bilateral 02/16/2017 Coronary artery disease invo lving [place] coronary artery of [place] heart with angina pectoris 02/16/2017 Breast cancer [...] Not on file Procedures * Due to [place] state law, this organization might not be sharing negative HIV tests. Procedure Name Priority Date/Time Associated Diagnosis Comments HEPATITIS C ANTIBODY W/REFLEX TO HCV RNA, QUANTITATIVE PCR Routine 02/16/2017 4:48 PM EST Primary osteoarthritis of both hands from Last 3 Months or Most Recently Relevant to Health Maintenance Results * Due to [place] state law, this organization might not be sharing negative HIV tests. * Hepatitis C Antibody w/Reflex to HCV RNA, Quantitative PCR (02/16/2017 4:48 PM EST) Hepatitis C Antibody NON-REACT NANCY NON-REACT NANCY 02/17/2017 4:55 AM EST [employer] [facility] Signal To Cut-Off 0.04 <1.00 02/17/2017 4:55 AM EST [employer] Blood specimen (specimen) Structure of peripheral vein / Unknown Venipuncture / Unknown 02/16/2017 4:48 PM EST 02/16/2017 5:13 PM EST Narrative [facility] - 02/17/2017 4:55 AM EST [facility] Received Date: us Anuja eYh MD LAB BLOOD ORDERABLES Final Resul t [facility] [address] [facility] [address], [place] [address], [employer] [facility] [address] [facility] [address], [place] [address], from Last 3 Months or Most Recently Relevant to Health Maintenance Insurance MEDICARE [facility] Care Teams Motorcycle Subassembler Relationship Specialty Start Date End Date Chandana Esquivel [address] [facility] [place] [place] [address] PCP - General 08/26/16
--- OUTSIDE RECORDS SUMMARY | 2024-05-24 15:48 | XMS_ITS | Clinical Summary ---
Author Organization [facility] Address [address] [place] [phone] Phone Care Team Providers Care Mottler Operator Name Role Phone Chandana Esquivel MD Primary Care Provider Allergies Active Allergy Reactions Criticality Noted Date Comments Penicillins Hives Medium 12/26/2013 Medications Medication Sig Dispensed Refills Start Date End Date Status aspirin 81 MG EC tablet Take 1 tablet by mouth daily. 12/26/2013 Active LORazepam (ATIVAN) 0.5 MG tablet Take 0.5 tablets by mouth daily. 12/26/2013 Active calcium carbonate-vitamin D3 1,250 mg (500 mg elemental)-200 units per tablet Take 1 tablet by mouth daily. 600mg once a day. 12/26/2013 Active ibuprofen (ADVIL,MOTRIN) 200 MG tablet Take 1 tablet by mouth every 8 (eight) hours. 12/26/2013 Active letrozole (FEMARA) 2.5 mg tablet Take 1 tablet by mouth daily. 12/26/2013 Active lisinopril (PRINIVIL,ZESTRIL) 20 MG tablet Dose: Variable: See CMLV for Details; Form: Take 1 TABLET; Route: PO; Frequency: Not available; Directions: Not available; Details: Dispense: Tablet(s); Date: 12/26/2013 12/26/2013 Active metoprolol succinate (TOPROL-XL) 25 MG 24 hr tablet Take 1 tablet by mouth 2 (two) times a day. 12/26/2013 Active simvastatin (ZOCOR) 40 MG tablet Dose: Not available; Form: Not available; Route: PO; Frequency: Not available; Directions: As directed; Details: Dispense: Tablet(s); Date: 12/26/2013 12/26/2013 Active acetaminophen (TYLENOL) 325 mg tablet Take 1 tablet by mouth as needed. 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 Start with 1/day x4 days, then 2/day x4 days, then 3/day 90 capsule 2 07/30/2016 Active Active Problems Problem Noted Date Diagnosed Date Breast cancer 12/31/2013 Overview (03/30/2014): Malignant tumor of breast Polyneuropathy 12/26/2013 Overview (03/30/2014): Polyneuropathy; Possibly related to chemotherapy Social History Tobacco Use Types Packs/Day Years Used Date Smoking Tobacco: Former Comments:Smoking History Pac ks/day: <=0.5 Education Answer Date Recorded Are you interested in more education? Not on kalen e 06/13/2022 Are you concerned about learning? Not on file 06/13/2022 No 06/13/2022 No 06/13/2022 Digital Access Answer Date Recorded No 07/04/2022 No 07/04/2022 No 07/04/2022 Reliable internet access at home? Not on file 07/04/2022 Device with a working camera? Not on file Sex and Gender Information Value Date Recorded Sex Assigned at Not on file Gender Identity Not on file Sexual Orientation Not on file Last Filed Vital Signs Vital Sign Reading Time Taken Comments Blood Pressure 123/74 04/10/2014 11:46 AM EST Pulse 73 04/10/2014 11:46 AM EST Temperature 36.4 ??C (97.6 ??F) 11/23/2016 3:41 PM ED T Respiratory Rate - - Oxygen Saturation - - Inhaled Oxygen Concentration - - Weight 88.9 kg (196 lb) 11/23/2016 3:41 PM EDT Height 160 cm (5' 3 ) 11/23/2016 3:41 PM EDT Body Mass Index 34.72 11/23/2016 3:41 PM EDT Plan of Treatment Health Maintenance Due Date Last Done Comments LIPID PANEL 1945 DEPRESSION SCREENING 1957 SMOKING Hx and SMOKELESS TOBACCO SCREENING 1958 HEPATITIS C SCREENING 05/30/1963 ZOSTER VACCINES (1 of 2) 1964 OSTEOPOROSIS SCREENING INITI AL (ONE-TIME) 2010 CREATININE LEVEL 04/11/2015 04/10/2014 POTASSIUM LEVEL 04/11/2015 04/10/2014 RSV VACCINE (1 - 1-dose 75+ series) 2020 COVID-19 VACCINE ( - 2023-2 5 season) 2023 04/16/2020, 03/26/2020 Adult Td,Tdap Booster 11/12/2029 11/13/2019 , 10/04/2008 PNEUMOCOCCAL VACCINES (50+ years) Completed 09/28/2016, 10/06/2012 HEPATITIS A VACCINES Aged Out No long er eligible based on patient's age to complete this topic HIB VACCINES Aged Out No longer eligi ble based on patient's age to complete this topic MENINGOCOCCAL VACCINES (ACWY) Aged Out No longer eligible based on patient's age to complete this topic Medical Devices Not on file Procedures Procedure Name Priority Date/Time Associated Diagnosis Comments BASIC METABOLIC PANEL Routine 04/10/2014 1:45 PM EST from Last 3 Months or Most Recently Relevant to Health Maintenance Results * (ABNORMAL) Basic metabolic panel (04/10/2014 1:45 PM EST) Plasma Sodium 146(Abnor therese H) 135 - 145 mmol/L [facility] Plasma Potassium 4.3 3.4 - 5.0 mmol/L [facility] Plasma Chloride 104 100 - 108 mmol/L [facility] Plasma Carbon Dioxide 24 23 - 32 mmol/L [facility] Plasma Urea Nitrogen 16 8 - 25 mg/dL [facility] Plasma Creatinine 0.90 0.60 - 1.50 mg/dL [facility] Plasma Glucose 79 70 - 110 mg/dL [facility] Calcium 9.7 8.5 - 10.5 mg/dL [facility] eGFR >60 mL/min/1. 73m2 [facility] Comment: Abnormal if <60 mL/min/1.73m2. If patient is -Malian, multiply the result by 1.21. Plasma Anion GAP 18(Abnorm ally H) 3 - 17 mmol/L [facility] 04/10/2014 1:45 PM EST 04/10/2014 6:10 PM EST Comment:BLOOD Wilder Kim MD LAB BLOOD ORDERABLES [facility] [address] [place] [address] from Last 3 Months or Most Recently Relevant to Health Maintenance Care Teams Mottler Operator Relationship Specialty Start Date End Date Chandana Esquivel MD [address] [place] [address] [address] [address] PCP - General Family Medicine 09/05/13 Additional Source Comments The information contained in this document represents components of the legal health record. It is not the complete legal health record.[facility]
--- OUTSIDE RECORDS SUMMARY | 2024-05-24 15:48 | XMS_ITS | Encounter Summary ---
Author Organization [facility] Address [address] [place] [address] Care Team Providers Care Slot Machine Department Floorperson Name Role Phone Chandana Esquivel Primary Care Provider [phone] Anuja Yeh Unavailable Sarah Giles Unavailable [phone] Ambrose Pérez MD Unavailable [phone] Encounter Details Date Type Department Care Team (Late st Contact Info) Description 07/15/2017 Orders Only [facility] [address] [place] [address] Jasson Zhang MD [address] [id number] Social History Tobacco Use Types Packs/Day Years [...] chronicity documented in this encounter Care Teams Slot Machine Department Floorperson Relationship Specialty Start Date End Date Chandana Esquivel [facility] [address] [place] [id number] PCP - General Family Medicine 06/16/17 Anuja Yeh [address] [address] Rheumatology 06/23/18 Sarah Giles [facility] DEPT OF ONCOLOGY [address] [place] [address] Oncology 06/23/18 Ambrose Pérez MD [facility] [address] [place] [address] Anesthesiology 06/23/18 documented as of this encounter
--- OUTSIDE RECORDS SUMMARY | 2024-05-24 15:48 | XMS_ITS | Clinical Summary ---
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 Procedure Name Priority Date/Time Associated Diagnosis Comments HEPATITIS C ANTIBODY W/REFLEX TO HCV RNA, QUANTITATIVE PCR Routine 02/16/2017 4:48 PM EST Primary osteoarthritis of both hands from Last 3 Months or Most Recently Relevant to Health Maintenance Results * Due to [place] [employer] law, this organization might not be sharing negative HIV tests. * Hepatitis C Antibody w/Reflex to HCV RNA, Quantitative PCR (02/16/2017 4:48 PM EST) Hepatitis C Antibody NON-REACT NANCY NON-REACT NANCY 02/17/2017 4:55 AM EST [facility] Signal To Cut-Off 0.04 <1.00 02/17/2017 4:55 AM EST [facility] Blood specimen (specimen) Structure of peripheral vein / Unknown Venipuncture / Unknown 02/16/2017 4:48 PM EST 02/16/2017 5:13 PM EST Narrative DUSTY QUINTEROS - 02/17/2017 4:55 AM EST [facility] Received Date: us Anuja Yeh MD LAB BLOOD ORDERABLES Final Resul t DUSTY QUINTEROS [address] [facility] [address]rd Floor, [place] [address], [place] [phone] [facility] [address], [place] [address], [place] [phone] from Last 3 Months or Most Recently Relevant to Health Maintenance Insurance MEDICARE [facility] Care Teams Tufter Relationship Specialty Start Date End Date Chandana Esquivel [address] [place] [address] [place] [address] PCP - General 08/26/16
--- OUTSIDE RECORDS SUMMARY | 2024-05-24 15:48 | XMS_ITS | Encounter Summary ---
Author Organization [facility] Address [address] [place] [address] Care Team Providers Care Tongue Stitcher Name Role Phone Chandana Esquivel Lalito Primary Care Provider [phone] Anuja Yeh Unavailable Sarah Giles Unavailable [phone] Ambrose Pérez MD Unavailable [phone] Reason for Referral * CONSULT AND TREATMENT (Routine) - Incomplete Specialty Diagnoses / Procedures Referred By Bartolo pulido Referred To Contact Physical Therapy Diagnoses Right shoulder pain, unspecified chronicity Jasson Zhang MD Phone: tel: fax: Referral ID Status Reason Start Date Expiration Date Visits Requested Visits Authorized [id number] Incomplete Specialty Services Required 07/27/2017 1 1 Question Answer What is the reason for this outside referral? EVALUATE AND TREAT Please provide pertinent patient history. right rotator cuff tear surg sched for 08/18/17 Patient is being referred outside of [facility] for the following reason, however final determination for [id number] requests are made by the Referral Management Department Patient Preference Track Order? No When do you want this visit to occur? PT CONVENIENCE - s/p 15 days 08/18/17 sched surgery Which provider/facility/agency would you like to refer to? Orthopedic Physical Therapy [facility] Encounter Details Date Type Department Care Team ([facility] st Contact Info) Description 07/27/2017 Orders Only [facility] [address] [place] [phone] Jasson Zhang MD [address] [address] Social History Tobacco Use Types Packs/Day Years [...] chronicity documented in this encounter Care Teams Tongue Stitcher Relationship Specialty Start Date End Date Chandana Esquivel [facility] [address] [place] [address] PCP - General Family Medicine 06/16/17 Anuja Yeh [address] [address] Rheumatology 06/23/18 Sarah Giles [facility] DEPT OF ONCOLOGY [address] [place] [address] Oncology 06/23/18 Ambrose Pérez MD [facility] [address] [place] [phone] Anesthesiology 06/23/18 documented as of this encounter
--- OUTSIDE RECORDS SUMMARY | 2024-05-24 15:49 | XMS_ITS | Encounter Summary ---
Author Organization [facility] Address [address] [place] [address] Care Team Providers Care Instrumentation Engineering Technician Name Role Phone Chandana Esquivel Primary Care Provider [phone] Anuja Yeh Unavailable Sarah Giles Unavailable [phone] Ambrose Pérez MD Unavailable [phone] Reason for Visit * Reason Comments Follow Up Encounter Details Date Type Department Care Team ([facility] st Contact Info) Description 06/21/2018 Telephone [facility] Neurology [address] [address] Wilder Kim MD [address] [address] Follow Up Social History Tobacco Use Types [...] Hoffman RN - 06/22/2018 9:35 AM EDT [facility] in [place] is the preferred pharmacy. I do see that 2 historical meds were entered yesterday during her consult. Forwarding to Dr. Kim in case they discussed her needing to refill them. * Telephone Encounter - Ирина Adams - 06/21/2018 4:29 PM EDT Florencia called to let the nurse know that she will be using [facility]. This pharmacy is notin the system. Please put that in as the pharmacy she will be using. documented in this encounter Plan of Treatment Not on file documented as of this encounter Visit Diagnoses Not on filedocumented in this encounter Care Teams Instrumentation Engineering Technician Relationship Specialty Start Date End Date Chandana Esquivel [facility] [address] [address] PCP - General Family Medicine 06/16/17 Anuja Yeh [facility] [address] [place] [address] Rheumatology 06/23/18 Sarah Giles [facility] DEPT OF ONCOLOGY [address] [place] [address] Oncology 06/23/18 Ambrose Pérez MD [facility] [address] [place] [address] Anesthesiology 06/23/18 documented as of this encounter
--- OUTSIDE RECORDS SUMMARY | 2024-05-24 15:49 | XMS_ITS | Data Portability ---
Author Organization [place] - [facility] Address [address] [place] [address] Care Team Providers Care Sap Payroll Consultant Name Role Phone LEONOR ESQUIVEL Primary Care Provider [phone] LEONOR ESQUIVEL Referring Provider MATT PLUMMER Orthopedic Surgeon LEONOR ESQUIVEL Primary Care Provider [phone] SYLVESTER FUNEZ Freight Manager DORITA RAHMAN Freight Manager MARQUITA PÉREZ Pain Management Assessment Encounter Date [...] venous insufficiency and recommended that she use slka-eyh-odwsbvx compression socks to help. -Continue current medications -Lipids -Follow-up in 1 year [email or web address] Not available 07/29/2022 12:21:08 Plan of Treatment Reminders Order Date Submit Date Provider Last Modified By Organization Details Last Modified Time Details Appointments None recorded. Lab rf (rheumatoid factor), serum 2023 024 [facility], [address] [place], [address], 4 17:08:37 ccp (cyclic citrullinat ed peptide) iga+igg, serum 2023 024 [facility], [address] [place], [address], 4 22:06:56 erythrocyte sedimentati on rate, QN, blood 2023 024 [facility], [address] [place], [address], 4 16:28:25 C-reactive protein, quantitativ e, serum or plasma 2023 024 [facility], [address] [place], [address], 4 17:09:39 uric acid, serum or plasma 2023 024 [facility], [address] , [place], [address], 4 17:09:38 lipid panel, serum 2022 023 [facility], [address] [place], [address], 3 14:16:31 rapid flu (A+B) 2021 022 [facility] In-Office Order, Internal Use Only DO Not Attach Compendium DO Not Attach Compendium, Do Not Delete/merge, [id number] 2 12:17:03 Referral physical therapist referral - Ms. Ahmadi reports being unstable on her feet due to lower extremity weakness. Please evaluate 2023 024 [facility](Phys ical Therapy Dept), [address] [place], [address], 4 12:22:49 Procedures None recorded. Surgeries None recorded. Imaging electrocard iogram 2022 023 [facility] [place], [address], [facility], [place], [address], 3 11:56:45 Medication Orders None recorded. Patient TargetsNo targets recorded. Patient Instructions Encounter Date Encounter Id Patient Instructions Last Modified By Organization Details Last Modified Time 07/29/2022 [id number] In addition to listed labs, xrays and documents, EKG personally reviewed [email or web address] Not available 07/29/2022 12:21:24 11/03/2023 [id number] 1. PHYSICAL THERAPY: pt encouraged to stay [...] DO Not Attach Compendium, Do Not Delete/merge, [id number] 01/07/2022 11:18:03 01/08/20 22 01/07/2022 rapid flu (A+B) Flu Type B negati ve Not Available In-Office Order Internal Use Only DO Not Attach Compendium DO Not Attach Compendium, Do Not Delete/merge, [id number] 01/07/2022 11:18:03 01/08/20 22 01/07/2022 rapid flu (A+B) Internal Control Valid Not Available In-Off ice Order Internal Use Only DO Not Attach Compendium DO Not Attach Compendium, Do Not Delete/merge, [id number] 01/07/2022 11:18:03 01/08/20 22 01/07/2022 rapid flu (A+B) Lot #: [id number] Not Available In-Office Order Internal Use Only DO Not Attach Compendium DO Not Attach Compendium, Do Not Delete/merge, [id number] 01/07/2022 11:18:03 01/08/20 22 01/07/2022 rapid flu (A+B) Exp Date: Not Available In-Office Order Internal Use Only DO Not Attach Compendium DO Not Attach Compendium, Do Not Delete/merge, [id number] 01/07/2022 11:18:03 07/30/19 23 07/29/2022 LIPID PANEL WITH REFLE X triglyceride s w/ reflex LDL 81 mg/dL 30-150 normal Refer ence Range s: <150 mg/dl Janice l 150-1 99 mg/dl Borde rline High 200-4 99 mg/dl High >500 mg/dl Very High Not Available [facility] Department [address] [place] [address], [id number] 07/29/2022 14:16:31 07/30/19 23 07/29/2022 LIPID PANEL WITH REFLE X cholesterol 164 mg/dL 100-20 0 normal Not Available [facility] [address] [place] [address], [address] 07/29/2022 14:16:31 07/30/19 23 07/29/2022 LIPID PANEL [...] mg/dL Very high >190 mg/dL Not Available [facility] Department [address] [place], [address] 07/29/2022 14:16:31 07/30/19 23 07/29/2022 LIPID PANEL WITH REFLE X HDL cholesterol 59.0 mg/dL 40-60 normal Major risk facto r for CHD: <40 mg/dL Negat nancy risk facto r for CHD: >=60 mg/dL Not Available [facility] Department [address] [place], [address] 07/29/2022 14:16:31 07/30/19 23 07/29/2022 LIPID PANEL WITH REFLE X chol HDL ratio 2.78 Risk CHOL/ HDL CHOL/ HDL Ratio Male Femal e 1/2 AVERA GE 3.43 3.27 AVERA GE 4.97 4.44 2 X AVERA GE 9.55 7.05 3 X AVERA GE 23.39 11.04 Not Available [facility] Department [address] [place], [address] 07/29/2022 14:16:31 05/17/19 24 05/17/2023 ERYTH ROCYT E SEDIM ENTAT ION RATE erythrocyte sedimentatio n rate 45 mm/HR 0-29 high Not Available [facility] Department [address] [place], [address] 05/17/2023 16:28:25 05/17/19 24 05/17/2023 RHEUM ATOID FACTO R rheumatoid factor 11 IU/mL 0-14 normal Not Available [facility] Department [address] [place] [address], [address] 05/17/2023 17:08:37 05/17/19 24 05/17/2023 URIC ACID uric acid 4.5 mg/dL 2.4-5. 7 normal Not Available [facility] Department [address] [place], [address] 05/17/2023 17:09:38 05/17/19 24 05/17/2023 C REACT NANCY PROTE IN C reactive protein < 3.00 mg/L 0-5 normal Not Available [facility] Department [address] [place], [address] 05/17/2023 17:09:39 05/17/19 24 05/19/2023 CCP ANTIB ODIES IGG/I GA ccp antibodies IgG/IgA 11 units 0-19 Negat nancy <20 Weak posit nancy 20 - 39 Moder ate posit nancy 40 - 59 Stron g posit nancy >59 Perfo rmed at: 01 - [facility] [address] [place] [address] Lab Direc tor: Maria Luisa Georges MD, Phone : [phone] Not Available [facility] Department [address] [place], [address] 05/19/2023 22:06:56 07/31/19 23 07/29/2022 elect rocar [...] diogr am No observ ation record ed. [email or web address] [facility] [address], [address], 07/30/2022 11:56:45 05/19/19 24 01/11/2019 elect romyo gram + nerve condu ction study No observ ation record ed. [email or web address] [facility] [address], [place], [address], 08/19/2023 10:09:09 11/04/19 24 11/04/2023 ir fluor oscop y <1HR [facility] [address] [facility] [place] [address] Interv ention al Radiol ogy Rpt Signed Patien t: Fani Anu mcneil MR#: [id number] : 1945 Acct:H [id number] Age/Se x: 78 / F ADM Date: Loc: HE.OR Attend ing Dr: Marquita Pérez MD Orderi ng Physic roseline: Marquita Pérez MD Date of Servic e: Proced ure(s) : IR fluoro scopy <1hr Access ion Number (s): [id number] H cc: Marquis Esquivel MD EXAM: IR [...] DD/DT: 1111 TD/TT: 1111 Transc riptio nist: [email or web address] [address] [place] [address], [address], 11/07/2023 08:10:28 Result Notes None recorded. Problems Name Problem SNOMED Code Status Onset Date Resolution Date Notes Provider Name and Address Organization Details Recorded Time Benign essential hypertension 5845058 Active Not Available [facility] 3 03:05:38 Neuralgia 79993318 Active Not Available [facility] 3 03:05:38 Anxiety state 082826170 Active Not Available [facility] 3 03:05:38 Screening for osteoporosis Active Not Available [facility] 3 03:05:38 Vitamin D deficiency 24245499 Active Not Available [facility] 3 03:05:38 Depressive disorder 67724183 Active Not Available [facility] 3 03:05:38 Pure hypercholeste rolemia 344177483 Active Not Available [facility] 3 03:05:38 Meralgia paresthetica 80662915 Active Marquita Pérez MD [address] [place] [address], [address] , [facility] 4 12:05:23 Myofascial pain 518676882 Active Marquita Pérez MD [address] [place] [address] [place], [address] , [facility] 4 12:05:23 Arthropathy of lumbar facet joint 770780713 Active Marquita Pérez MD [address] [place], [place] [address], [address] , [facility] 4 12:05:23 Peripheral neuropathic pain 617260714 Active Marquita Pérez MD [address] [place], [place] [address], [address] , [facility] 5 11:35:07 Coronary arteriosclero sis 80156953 Active 2021 [address]ha Do[address] [facility] 2 20:18:23 Notes:palpations [place] Problem Notes None recorded. Procedures Surgical History Date Name Laterality Status Provider Name and Address Organization Details Recorded Time 01/26/20 24 Corticosteroid Injection - KNEE completed YUNI STAFOFRD [address] [place] [address] [place], [address], [facility] 01/30/2024 10:37:48 11/04/19 24 lumbar epidural steroid injection completed Naz Brantley CNA [facility] 11/04/2023 13:30:17 11/05/19 20 Corticosteroid Injection - SHOULDER completed Liam Rucker [facility] 11/05/2019 10:23:20 Imaging Results Imaging Date Name Status LastModified by Organization Details LastModified Time 07/29/2022 electrocardiogram completed Informa tion not available 08/24/2022 11:09:20 07/29/2022 electrocardiogram completed Informa tion not available 08/24/2022 11:09:21 07/29/2020 electrocardiogram completed Informa tion not available 08/02/2022 06:44:40 07/29/2022 electrocardiogram completed [email or web address] [facility] [address] [place] [address] [place], [address], 07/30/2022 11:56:45 01/11/2019 electromyogram + nerve conduction study completed [address], [place], [address], 08/19/2023 10:09:09 11/04/2023 ir fluoroscopy <1HR completed [facility] [address], [place], [address], 11/07/2023 08:10:28 Procedure Notes None recorded. Medical Equipment None Reported. Allergies Allergen ID Allergen Name Allergen Category Reaction Reaction Severity Criticality Documentation Date Start Date Code Code System Note Provider Name and Address Organization Details Recorded Time 241876 nickel environme nt Not available Not available Not available 12/07/2019 84504 29 RxNorm Paigejose lamas [facility] 0 11:25:28 38967 Product containin g penicilli n (product) medicatio n hives Not available Not available 03/29/2012 53470 8001 SNOMED Radha Soumya lamas [facility] 3 10:57:18 Medications Name Sig Start Date [...] Available Not Available Not Available Fluzone Quad 8388-8502 (PF) 60 mcg (15 mcg x 4)/0.5 [...] Updated DateTime 3 160.02 cm 36 kg/m2 16926.2 5 g 65 /min 130 mm[Hg] 78 mm[Hg] Danya Box [facility] 3 10:16:20 Date Recorded Body height Heart rate Body mass index (BMI) Body weight Systolic blood pressure Diastolic blood pressure Provider Name and Address Organization Details Last Updated DateTime 4 160.02 cm 61 /min 34 kg/m2 10224.7 4 g 142 mm[Hg] 83 mm[Hg] Gerardo Emerson [facility] 4 14:42:04 Date Recorded Body height Heart rate Systolic blood pressure Diastolic blood pressure Provider Name and Address Organization Details Last Updated DateTime 11/03/2023 160.02 cm 80 /min 151 mm[Hg] 79 mm[Hg] Naz Brantley CNA [facility] 11/03/2023 12:20:00 Date Recorded Body height Heart rate Oxygen saturation Oxygen saturation in Arterial blood by Pulse oximetry Body temperature Systolic blood pressure Diastolic blood pressure Provider Name and Address Organization Details Last Updated DateTime 2 160.02 cm 74 /min 97 % 97 % 97.2 [degF] 115 mm[Hg] 70 mm[Hg] Edith Isabel MA [facility] 2 11:07:21 Social History Question Answer Notes LastModified by Organizat ion Details LastModified Time Tobacco Smoking Status Former Smoker Radha lamas [facility] 03/29/2012 10:57:18 What Is Your Level Of [...] Long? 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 No Information not available 09/26/2013 Alcohol Use No Information n ot available 09/26/2013 Do You Currently Or Have You Ever Used Recreational Drugs? If Yes, Specify No Information not available 09/26/2013 Any Addiction Or Substance/drug/a lcohol Abuse Issues? If Yes, Specify No Information not available 09/26/2013 Church [employer] Information no t available 03/29/2012 Pap Smear [...] 10:27:43 Mother Problem 59 passed from either [place] or kidney diseas e Not available 09/26/2013 [...] Tdap 10/04/2008 completed Radha lamas [place] - [facility] 07/05/2012 13:10:49 Past Encounters Encounter ID Performer Location Encounter Start Date Encounter Closed Date Diagnosis/Indication Diagnosis SNOMED-CT Code Diagnosis ICD10 Code Diagnosis Note [id number] Sonny Alvin [facility] [address] [place] [address] [place] [address] 09/26/2013 10:17:35 09/26/2013 12:03:03 Meralgia paresthetica 12243711 Myofascial pain 667419932 Arthropath y of lumbar facet joint 792983406 Peripheral neuropathic pain 783799758 [id number] Lesly Sears MD [facility] [address] [place], [place] [address] [address] 09/04/2015 10:49:22 09/04/2015 11:51:15 Abdominal pain 76516514 R10.9 [id number] Sylvester Funez MD [facility] [place] [facility] [address] [place] [address] 05/03/2016 09:23:37 05/03/2016 10:09:35 Coronary arteriosclerosis in [place] artery 1401803110 107 I25.10 [id number] Evangelist Zamarripa MD Orthopedi cs [address] [place] [address], [address] [address] 04/22/2017 09:30:54 04/22/2017 10:03:57 Full thickness rotator cuff tear 095231427 M75.483 [id number] Caleb Jose MD Orthopedi cs [address] [place] [address], [address] [place] [address] 05/16/2017 09:35:18 05/16/2017 10:28:13 Partial thickness rotator cuff tear 853609360 M75.102 Patient has either full or partial-th [...] in 4-8 weeks or as symptoms dictate. [id number] [facility] [address] [place] [address] 08/25/2017 10:42:53 08/25/2017 12:07:25 Benign essential hypertension 1636919 I10 Her blood pressure is reasonably controlled . We will help to monitor her trends. Coronary arteriosclerosis in [place] artery 6856719814 107 I25.10 Given her symptoms of heartburn, [...] to follow her on an annual basis. [id number] Marquita Pérez MD [facility] [address] [place] [address] [place] [address] 06/07/2018 13:29:16 06/07/2018 14:43:25 Spinal stenosis of lumbar region 43242110 M48.061 Lumbar radiculopathy 128 901875 M54.16 Lumbar spondylosis 38563 0009 M47.816 Anxiety disorder 1253792 06 F41.9 [id number] MD [facility] [address] [place] [address] 08/09/2018 12:51:54 08/09/2018 13:31:01 Lumbar radiculopathy 489418875 M54.16 left Lumbar spondylosis 31544 0009 M47.787 [id number] Marquita Pérez MD [facility] [address] [place] [address] [place] [address] 09/13/2018 13:46:03 09/13/2018 14:51:58 Lumbar spondylosis 865089477 M47.816 Pain in left foot 365779 3365 92720 M79.672 Neuralgia 14425528 M79.2 left posterior tibial [id number] Marquita Pérez MD [facility] [address] [place] [address] [place] [address] 10/11/2018 09:40:27 10/11/2018 10:59:08 Pain in left foot 3960491476 48945 M79.672 Neuralgia 99533011 M79.2 left posterior tibial Lumbar spondylosis 41937 0009 M47.176 [id number] Sylvester Funez MD [facility] [address] [place] [address] 10/30/2018 14:59:22 10/30/2018 16:05:39 Coronary arteriosclerosis in [place] artery 0729488664 107 I25.10 She has no anginal symptoms [...] sooner as needed. Benign ess ential hypertension 9861209 I10 Her blood pressure is reasonably controlled . We will continue to monitor her trends. [id number] Marquita Pérez MD [facility] [address] [place] [address] [place] [address] 01/16/2019 13:48:03 01/16/2019 14:28:58 Pain in left foot 9080212022 51919 M79.672 Neuralgia 55237663 M79.2 left posterior tibial [id number] Cee Graf MD [facility] [address] [facility] [address] [place] [address] 08/26/2019 13:51:23 08/26/2019 13:52:16 Viral screening 617038645 Z11.59 [id number] Caleb Jose MD Orthoped[facility] [address] [facility], [address] [place] [address] 09/13/2019 13:14:55 09/13/2019 14:02:31 Closed fracture scapula, glenoid 100926033 S42.141A 74yo pleasant retired female, previously evaluated [...] potential treatment options. Pt agreed with plan. [id number] Caleb Jose MD Orthopedi [address] [place] [address] 11/05/2019 09:05:10 11/05/2019 10:31:48 Full thickness rotator cuff tear 622074219 M75.121 despite the MRI findings, her range [...] successful . Closed fra cture scapula, glenoid 009410081 S42.141A 74yo pleasant retired female, previously evaluated [...] Pt agreed with plan. Contusion of chest 17291 004 S20.211D patient aalso reports discomfort over [...] symptoms of concern were reviewed in detail. [id number] Marquita Pérez MD [facility] [address] [place] [address] [place] [address] 12/07/2019 11:13:22 12/07/2019 12:01:02 Pain in left foot 4531201907 63855 M79.672 Neuralgia 78295869 M79.2 left posterior tibial [id number] Cee Graf MD [facility] [address] [address] 03/01/2020 16:09:26 03/01/2020 16:09:52 Viral screening 282302940 Z11.59 [id number] Juaquin Talavera NP, S [facility] [address] [address] 01/19/2021 09:31:09 01/19/2021 10:15:20 Exposure to SARS-CoV-2 281780007 Z20.822 Patient requests Covid testing only, declines evaluation at this time by provider. [id number] Melly Kyle MD [facility] [address] [place] [address] 06/24/2021 10:48:19 06/24/2021 11:36:14 Fatigue 63298773 R53.83 Pt presents with fatigue, dry cough, [...] of when to RTC discussed. Pruritic rash 38806732 L 28.2 -unclear etiology of rashcontac t dermatitis vs allergic reaction vs eczema vs nickel reactionad vised cool compresses , avoidance of itchng, benadryl cream or anthistami ne, will put in triamcinol one for itch relief. Advised to follow up with pcp should sx persist [id number] Reagan Montgomery MD [facility] [place] [facility] [address] [place] [address] 09/30/2021 15:12:20 09/30/2021 16:27:38 Paresthesia 33151222 R20.2 - Ms. Ahmadi reports a long-stand ing history of bilateral upper and lower extremity numbness and tingling- She reports that her lower extremity numbness and tingling is becoming more severe and more extensive- I will obtain EMG studies at this time for further assessment regarding a bilateral upper and lower extremity neuropathi c process Muscle wea kness of limb 993803778 M62.81 - Ms. Ahmadi reports being unstable on her feet due to lower extremity weakness- I will place a referral to physical therapy for further evaluation and treatment of lower extremity weakness Multiple joint pain 7727 8005 M25.50 - There is no obvious [...] during today's visit Pes anseri nus bursitis 75160074 M70.51 M70.52 - Findings consistent with bilateral anserine bursitis noted on today's musculoske letal physical examinatio n- I have recommende d stretching , range of motion exercises, lower extremity strengthen ing and weight loss Bilateral trochanteric bursitis 6204018001 2197695 M70.61 M70.62 - Findings consistent with bilateral trochanter ic bursitis noted on today's musculoske letal physical examinatio n- I have recommende d stretching , range of motion exercises, lower extremity strengthen ing and weight loss Osteoarthritis 180068753 M19.90 - Findings consistent with osteoarthr itis noted on musculoske letal physical examinatio n as well as imaging studies- I have recommende d the use of Tylenol, heat and topical therapies for treatment of pain associated with osteoarthr itis [id number] Melly Kyle MD [facility] [address] [place] [address] 01/07/2022 09:46:12 01/07/2022 11:25:32 Fever 100685520 R50.9 Pt presents with two days of [...] RTC discussed. pt in agreement with plan [id number] MD [facility] [place] [facility] [address] [place] [address] 07/29/2022 09:51:51 07/29/2022 10:54:48 Coronary arteriosclerosis 94827569 I25.10 Benign ess ential hypertension 2425035 I10 Hyperlipidemia 09860354 E78.5 [id number] MD [facility] [address] [place] [address] 05/17/2023 14:32:32 05/17/2023 15:37:23 Paresthesia 31962852 R20.2 - Ms. Ahmadi continues to experience [...] also continue to follow-[facility]. [facility] [place] and his [facility] for further evaluation and management of neuropathy Muscle bibiana veronica of limb 115670650 M62.81 - Ms. Ahmadi reports being unstable [...] taper for treatment of joint flares Osteoarthritis 716449986 M19.90 - There are findings consistent with osteoarthr itis noted on musculoske letal physical examinatio n as well as imaging studies- I have recommende d the use of Tylenol, heat and topical therapies for treatment of pain associated with osteoarthr itis Pes anseri nus bursitis 57181853 M70.51 M70.52 - There are findings consistent with bilateral anserine bursitis noted on today's musculoske letal physical examinatio n- I have recommende d stretching , range of motion exercises, lower extremity strengthen ing and weight loss Bilateral trochanteric bursitis 0737932648 4894282 M70.61 M70.62 - There are findings consistent with bilateral trochanter ic bursitis noted on today's musculoske letal physical examinatio n- I have recommende d stretching , range of motion exercises, lower extremity strengthen ing and weight loss [id number] Marquita Pérez MD [facility] [address] [place] [address] 11/03/2023 12:00:52 11/03/2023 13:01:17 Lumbar spondylosis 804239924 M47.816 Lumbar radiculopathy 128 988794 M54.16 left 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 5419330423 62591 M99.63 mod to severe b/l L5S1 [id number] YUNI STAFFORD [facility] [place] [facility] [address] [place] [address] 01/26/2024 14:33:49 01/26/2024 15:12:14 Osteoarthritis of right knee joint 1107120298 22819 M17.11 This a very pleasant 78-year-ol d [...] [place] [employer] Florencia Ahmadi [id number] Florencia Ahmadi 01/07/2022 2 [place] [facility] Florencia Ahmadi [id number] Florencia Ahmadi 07/29/2022 1 [place] [employer] Florencia Ahmadi [id number] [id number] Florencia Ahmadi 07/29/2022 2 [place] [facility] Florencia [place] [id number] Florencia Hooks [place] 05/17/2023 1 [place] [employer] Florencia Mohry [id number] [id number] Florencia [place] 05/17/2023 2 [place] [facility] Florencia Hooks [place] [id number] Florencia Hooks [place] 11/03/2023 1 [place] [facility] Florencia Mohry [id number] [id number] Florencia A [place] 11/03/2023 2 [place] [facility] Florencia Hooks [place] [id number] Florencia Hooks [place] 01/26/2024 1 [place] [facility] Florencia Mohry [id number] G79 Florencia Hooks [place] 01/26/2024 2 [place] [facility] Florencia [place] [id number] Florencia Ahmadi Notes Date Note Type Note Provider Name and Address Organization Details Recorded Time 2 text/html 76 year old female presents at [facility] for a fever that was going on [...] days,-using tylenol and advil Melly Kyle MD [address] [place] [address], [id number], [facility] - [facility] 01/08/2022 12:45:22 3 text/html Florencia has [...] energy level is good. Sylvester Funez MD [address] [place] [address], [address], [facility] 07/29/2022 12:21:40 4 text/html Ms. Ahmadi was [...] shortness of breath. Reagan Montgomery MD [address] [place], [address], [facility] 05/17/2023 17:18:07 4 text/html Pain Management: New [...] enjoyment of life: 10 Prior tests?x-rays ([facility] - within the past 2 months) Conditions associated with your pain?muscle weakness; difficulty walking; numbness / tingling / pins/ needles Prior treatments?physical therapy (home - current) Prior medications you've tried?Tramadol/Flexeril - at times Advil/Tylenol - minimal relief Marquita Pérez MD [address] [place], [address], [facility] 11/03/2023 12:57:25 4 text/html OrthopedicsReported bypatient.Location:Right ; Knee Quality:Intermittent;Ach ing;Throbbing Severity:Mild-Moderate Onset/Timing:Gradual Duration:months Context:No change ImagingX-ray (10/14/23) R knee pain YUNI STAFFORD [address] [facility] [place], [address], [facility] 01/30/2024 10:38:21 OBGyn Episode No OBEpisode recorded.
== END 2024-05-24 13:41 | disposition home or self-care (01) ==
LOC: HO.PMC 12:55
PROVIDERS: Visit Provider Anesthesiology
DX: M17.11 Unilateral primary osteoarthritis, right knee (principal); G89.4 Chronic pain syndrome; M76.31 Iliotibial band syndrome, right leg; M16.11 Unilateral primary osteoarthritis, right hip; M25.551 Pain in right hip
CPT/HCPCS: 20610

== ENCOUNTER → 2024-05-24 12:54 | Outpatient (BNVA) | payer MEDICARE, SELFPAY | PROVIDERS: Visit Provider Anesthesiology | DX: M17.11 Unilateral primary osteoarthritis, right knee (principal); M76.31 Iliotibial band syndrome, right leg; M16.11 Unilateral primary osteoarthritis, right hip; G89.4 Chronic pain syndrome | CPT/HCPCS: 20610 ==

== ENCOUNTER 2024-06-18 14:44 | Outpatient (AMB) | payer MEDICARE, SELFPAY ==
--- OUTSIDE RECORDS SUMMARY | 2024-06-18 14:47 | XMS_ITS | Clinical Summary ---
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 Procedure Name Priority Date/Time Associated Diagnosis Comments HEPATITIS C ANTIBODY W/REFLEX TO HCV RNA, QUANTITATIVE PCR Routine 02/16/2017 4:48 PM EST Primary osteoarthritis of both hands from Last 3 Months or Most Recently Relevant to Health Maintenance Results * Due to [place] [employer] law, this organization might not be sharing negative HIV tests. * Hepatitis C Antibody w/Reflex to HCV RNA, Quantitative PCR (02/16/2017 4:48 PM EST) Hepatitis C Antibody NON-REACT NANCY NON-REACT NANCY 02/17/2017 4:55 AM EST [facility] Signal To Cut-Off 0.04 <1.00 02/17/2017 4:55 AM EST [facility] Blood specimen (specimen) Structure of peripheral vein / Unknown Venipuncture / Unknown 02/16/2017 4:48 PM EST 02/16/2017 5:13 PM EST Narrative DUSTY QUINTEROS - 02/17/2017 4:55 AM EST [facility] Received Date: us Anuja Yeh MD LAB BLOOD ORDERABLES Final Resul t DUSTY QUINTEROS [address] [facility] 3rd Floor, [place] [address], [place] [phone] [facility] [address] 3rd Floor, [place] [address], [place] [phone] from Last 3 Months or Most Recently Relevant to Health Maintenance Insurance MEDICARE [facility] Care Teams Keno Dealer Relationship Specialty Start Date End Date Chandana Esquivel [address] [place] [address] [place] [address] PCP - General 08/26/16
--- OUTSIDE RECORDS SUMMARY | 2024-06-18 14:47 | XMS_ITS | Encounter Summary ---
Author Organization [facility] Address [address] [place] [address] Care Team Providers Care Corporate Staff Accountant Name Role Phone Chandana Esquivel Lalito Primary Care Provider [phone] Anuja Yeh Unavailable Sarah Giles Unavailable [phone] Ambrose Pérez MD Unavailable [phone] Reason for Referral * CONSULT AND TREATMENT (Routine) - Incomplete Specialty Diagnoses / Procedures Referred By Bartolo pulido Referred To Contact Physical Therapy Diagnoses Right shoulder pain, unspecified chronicity Jasson Zhang MD Phone: tel: fax: Referral ID Status Reason Start Date Expiration Date Visits Requested Visits Authorized [id number] Incomplete Specialty Services Required 07/27/2017 1 1 Question Answer What is the reason for this outside referral? EVALUATE AND TREAT Please provide pertinent patient history. right rotator cuff tear surg sched for 08/18/17 Patient is being referred outside of [facility] for the following reason, however final determination for [id number] requests are made by the Referral Management Department Patient Preference Track Order? No When do you want this visit to occur? PT CONVENIENCE - s/p 15 days 08/18/17 sched surgery Which provider/facility/agency would you like to refer to? Orthopedic Physical Therapy [facility] Encounter Details Date Type Department Care Team ([facility] st Contact Info) Description 07/27/2017 Orders Only [facility] [address] [place] [id number] Jasson Zhang MD [address] [address] Social History Tobacco Use Types Packs/Day Years [...] chronicity documented in this encounter Care Teams Corporate Staff Accountant Relationship Specialty Start Date End Date Chandana Esquivel [facility] [address] [place] [address] PCP - General Family Medicine 06/16/17 Anuja Yeh [address] [address] Rheumatology 06/23/18 Sarah Giles [facility] DEPT OF ONCOLOGY [address] [place] [address] Oncology 06/23/18 Ambrose Pérez MD [facility] [address] [place] [address] Anesthesiology 06/23/18 documented as of this encounter
--- OUTSIDE RECORDS SUMMARY | 2024-06-18 14:47 | XMS_ITS | Encounter Summary ---
Author Organization [facility] Address [address] [place] [address] Care Team Providers Care Field Service Consultant Name Role Phone Chandana Esquivel Primary Care Provider [phone] Anuja Yeh Unavailable Sarah Giles Unavailable [phone] Ambrose Pérez MD Unavailable [phone] Encounter Details Date Type Department Care Team (Late st Contact Info) Description 08/25/2020 Orders Only [facility] [address] [place] [phone] Jasson Zhang MD [address] [id number] Social History Tobacco Use Types Packs/Day Years [...] of this encounter Results * Due to [place] state law, this organization might not be sharing negative HIV tests. * XRAY SHOULDER COMPLETE MIN 2 VWS- RIGHT (DX: SHOULDER PAIN *NO INJURY* M25.511/ 719.41) FC (07/27/2021 2:07 PM EDT) Anatomical Region Laterality Modality UPPER EXTREMITY Radiographic Joy ging 07/28/2021 11:3 6 AM EDT Narrative 07/28/2021 11:36 AM EDT CONTRAST: EXAM: X-ray right shoulder Comparison: CR [place] ??- XRAY SHOULDER COMPLETE MIN 2 VWS [...] CONTRAST: EXAM: X-ray right shoulder Comparison: CR [place] - XRAY SHOULDER COMPLETE MIN 2 VWS [...] on filedocumented in this encounter Care Teams Field Service Consultant Relationship Specialty Start Date End Date Chandana Esquivel [facility] [address] [place] [address] [address] [place] [address] PCP - General Family Medicine 06/16/17 Anuja Yeh [address] [address] Rheumatology 06/23/18 Sarah Giles [facility] DEPT OF ONCOLOGY [address] [place] [address] Oncology 06/23/18 Ambrose Pérez MD [facility] [address] [place] [address] Anesthesiology 06/23/18 documented as of this encounter
--- OUTSIDE RECORDS SUMMARY | 2024-06-18 14:47 | XMS_ITS | Encounter Summary ---
Author Organization [facility] Address [address] [place] [address] Care Team Providers Care Nurse Special Name Role Phone Chandana Esquivel Primary Care Provider [phone] Anuja Yeh Unavailable Sarah Giles Unavailable [phone] Ambrose Pérez MD Unavailable [phone] Encounter Details Date Type Department Care Team (Late st Contact Info) Description 07/15/[address] [facility] [address] [facility] [address] [place] [address] Jasson Zhang MD [address] [id number] Social History Tobacco Use Types Packs/Day Years [...] of this encounter Results * Due to [place] state law, this organization might not be [...] chronicity documented in this encounter Care Teams Nurse Special Relationship Specialty Start Date End Date Chandana Esquivel [facility] [address] [place] [address] PCP - General Family Medicine 06/16/17 Anuja Yeh [address] [address] Rheumatology 06/23/18 Sarah Giles [facility] DEPT OF ONCOLOGY [address] [place] [address] Oncology 06/23/18 Ambrose Pérez MD [facility] [address] [place] [address] Anesthesiology 06/23/18 documented as of this encounter
--- OUTSIDE RECORDS SUMMARY | 2024-06-18 14:47 | XMS_ITS | Clinical Summary ---
Author Organization [facility] Address [address] [place] [address] Care Team Providers Care International First Officer Name Role Phone Chandana Esquivel Lalito Primary Care Provider [phone] Anuja Yeh Unavailable Sarah Giles Unavailable [phone] Ambrose Pérez MD Unavailable [phone] Allergies Active Allergy Reactions Criticality Noted [...] Zoster (Zostavax) Discontinued Procedures * Due to [place] [employer] law, this organization might not be sharing [...] unspecified vessel or lesion type, unspecified whether [place] or transplanted heart from Last 3 Months or Most Recently Relevant to Health Maintenance Results * Due to [place] [employer] law, this organization might not be sharing [...] 08/09/2017 7:02 PM EDT us Angela Sykes DREDGE PIPEMAN CARDIOVASCULAR-WITH INBSKT R TG Final Result MUSE EKG SYSTEM from Last 3 Months or Most Recently Relevant to Health Maintenance Insurance MEDICARE PART B MEDICAID Care Teams International First Officer Relationship Specialty Start Date End Date Chandana Esquivel [facility] [address] [place] [address] PCP - General Family Medicine 06/16/17 Anuja Yeh [address] [address] Rheumatology 06/23/18 Sarah Giles [facility] DEPT OF ONCOLOGY [address] [place] [address] Oncology 06/23/18 Ambrose Pérez MD [facility] [address] [place] [address] Anesthesiology 06/23/18
--- OUTSIDE RECORDS SUMMARY | 2024-06-18 14:47 | XMS_ITS | Referral Summary ---
Author Organization [facility] Address [address] [place] [address] Care Team Providers Care Dance Instructor Name Role Phone Chandana Esquivel Primary Care Provider [phone] Allergies Active Allergy Reactions Criticality Noted Date [...] bilateral 02/16/2017 Coronary artery disease invo lving [place] coronary artery of [place] heart with angina pectoris 02/16/2017 Breast cancer [...] Not on file Procedures * Due to [place] state law, this organization might not be sharing negative HIV tests. Procedure Name Priority Date/Time Associated Diagnosis Comments HEPATITIS C ANTIBODY W/REFLEX TO HCV RNA, QUANTITATIVE PCR Routine 02/16/2017 4:48 PM EST Primary osteoarthritis of both hands from Last 3 Months or Most Recently Relevant to Health Maintenance Results * Due to [place] state law, this organization might not be sharing negative HIV tests. * Hepatitis C Antibody w/Reflex to HCV RNA, Quantitative PCR (02/16/2017 4:48 PM EST) Hepatitis C Antibody NON-REACT NANCY NON-REACT NANCY 02/17/2017 4:55 AM EST [facility] Signal To Cut-Off 0.04 <1.00 02/17/2017 4:55 AM EST [facility] Blood specimen (specimen) Structure of peripheral vein / Unknown Venipuncture / Unknown 02/16/2017 4:48 PM EST 02/16/2017 5:13 PM EST Narrative [facility] - 02/17/2017 4:55 AM EST [facility] Received Date: us Anuja Yeh MD LAB BLOOD ORDERABLES Final Resul t [facility] [address] [facility] 3rd Floor, [place] [address], [facility] [address] [facility] 3rd Floor, [place] [address], from Last 3 Months or Most Recently Relevant to Health Maintenance Insurance MEDICARE [facility] Care Teams Dance Instructor Relationship Specialty Start Date End Date Chandana Esquivel [address] [place] [address] PCP - General 08/26/16
--- OUTSIDE RECORDS SUMMARY | 2024-06-18 14:47 | XMS_ITS | Encounter Summary ---
Author Organization [facility] Address [address] [place] [address] Care Team Providers Care Casing Cleaner Name Role Phone Chandana Esquivel Primary Care Provider [phone] Anuja Yeh Unavailable Sarah Giles Unavailable [phone] Ambrose Pérez MD Unavailable [phone] Reason for Visit * Reason Comments Follow Up Encounter Details Date Type Department Care Team ([facility] st Contact Info) Description 06/21/[address] [facility] Neurology [address] [address] Wilder Kim MD [address] [id number] Follow Up Social History Tobacco Use Types [...] Hoffman RN - 06/22/2018 9:[address] [facility] in [place] is the preferred pharmacy. I do see that 2 historical meds were entered yesterday during her consult. Forwarding to Dr. Kim in case they discussed her needing to refill them. * Telephone Encounter - Ирина Adams - 06/21/2018 4:29 PM EDT Florencia called to let the nurse know that she will [facility] using [facility]. This pharmacy is notin the system. Please put that in as the pharmacy she will be using. documented in this encounter Plan of Treatment Not on file documented as of this encounter Visit Diagnoses Not on filedocumented in this encounter Care Teams Casing Cleaner Relationship Specialty Start Date End Date Chnadana Esquivel [facility] [address] [address] PCP - General Family Medicine 06/16/17 Anuja Yeh [facility] [address] [place] [address] Rheumatology 06/23/18 Sarah Giles [facility] DEPT OF ONCOLOGY [address] [place] [address] Oncology 06/23/18 Ambrose Pérez MD [facility] [address] [place] [address] Anesthesiology 06/23/18 documented as of this encounter
--- OUTSIDE RECORDS SUMMARY | 2024-06-18 14:47 | XMS_ITS | Encounter Summary ---
Author Organization [facility] Address [address] [place] [address] Care Team Providers Care Grocery Carrier Name Role Phone Chandana Esquivel Primary Care Provider [phone] Anuja Yeh Unavailable Sarah Giles Unavailable [phone] Ambrose Pérez MD Unavailable [phone] Encounter Details Date Type Department Care Team (Late st Contact Info) Description 08/09/2017 Orders Only [facility] Pre-Admission Testing [address] [place] [address] Angela Sykes NP Social History Tobacco Use [...] of this encounter Procedures * Due to [place] state law, this organization might not be sharing negative HIV tests. Procedure Name Priority Date/Time Associated Diagnosis Comments EKG-TO BE READ & BILLED BY ADULT OR PEDIATRIC CARDIOLOGY Routine 08/09/2017 2:42 PM EDT Tear of right rotator cuff, unspecified tear extent Pre-operative examination Atherosclerosis of coronary artery, angina presence unspecified, unspecified vessel or lesion type, unspecified whether [place] or transplanted heart LATEX (K82) IGE Routine 08/09/2017 2:27 PM EDT Latex sensitivity BASIC METABOLIC PANEL WITH (GFR) Routine 08/09/2017 2:27 PM EDT Tear of right rotator cuff, unspecified tear extent Pre-operative examination Atherosclerosis of coronary artery, angina presence unspecified, unspecified vessel or lesion type, unspecified whether [place] or transplanted heart documented in this encounter Results * Due to [place] state law, this organization might not be [...] previous ECGs available Confirmed by Lissy Rich ([id number]) on 08/09/2017 7:02:09 PM MUSE EKG SYSTEM 08/09/2017 2:42 PM EDT 08/09/2017 7:02 PM EDT Angela Sykes NP CARDIOVASCULAR-WITH INBSKT R TG Final Result Performing Organization Address [facility] de Phone Number MUSE EKG SYSTEM * LATEX (K82) IGE (08/09/2017 2:27 PM EDT) Pathologist [facility] Latex (K82) IgE <0.10 kU/L [facility] Latex (K82) Class 0 [facility] Comment: Negative findings for latex specific IgE antibodies does not preclude latex allergy. Positive findings for latex specific IgE antibodies is highly suggestive of latex allergy and should be considered in context of clinical findings. 08/09/2017 2:27 PM EDT 08/09/2017 10:53 PM EDT Narrative Resulting Agency Comment [id number] us Angela Sykes NP LABORATORY Final Result [facility] [address] [place] [address] * (ABNORMAL) BASIC METABOLIC PANEL WITH (GFR) [...] approximately 13% higher for people identified as -Mosotho. GFR 82 > OR = 60 mL/min/1 [...] needs for GFR calculation. Resulting Agency Comment [id number] Angela Sykes NP LABORATORY Final Result [facility] [address] [place] [address] documented in this encounter Visit Diagnoses Diagnosis Tear of right rotator cuff, unspecified tear extent Pre-operative examination Preoperative examination, unspecified Atherosclerosis of coronary artery, angina presence unspecified, unspecified vessel or lesion type, unspecified whether [place] or transplanted heart Latex sensitivity Allergy to latex documented in this encounter Care Teams Grocery Carrier Relationship Specialty Start Date End Date Chandana Esquivel [facility] [address] [address] PCP - General Family Medicine 06/16/17 Anuja Yeh [address] [address] Rheumatology 06/23/18 Sarah Giles [facility] DEPT OF ONCOLOGY [address] [place] [address] Oncology 06/23/18 Ambrose Pérez MD [facility] [address] [place] [address] Anesthesiology 06/23/18 documented as of this encounter
--- OUTSIDE RECORDS SUMMARY | 2024-06-18 14:47 | XMS_ITS | Clinical Summary ---
Author Organization [facility] Address [address] [address] Phone Care Team Providers Care Steel Rule Inspector Name Role Phone Chandana Esquivel MD Primary Care Provider Allergies Active Allergy Reactions Criticality Noted Date Comments Penicillins Hives Medium 12/26/2013 Medications aspirin 81 MG EC tablet Take 1 tablet by mouth daily. 4 Active LORazepam (ATIVAN) 0.5 MG tablet Take 0.5 tablets by mouth daily. 4 Active calcium carbonate-vitamin D3 1,250 mg (500 mg elemental)-200 units per tablet Take 1 tablet by mouth daily. 600mg once a day. 4 Active ibuprofen (ADVIL,MOTRIN) 200 MG tablet Take 1 tablet by mouth every 8 (eight) hours. 4 Active letrozole (FEMARA) 2.5 mg tablet Take 1 tablet by mouth daily. 4 Active lisinopril (PRINIVIL,ZESTRIL) 20 MG tablet Dose: Variable: See CMLV for Details; Form: Take 1 TABLET; Route: PO; Frequency: Not available; Directions: Not available; Details: Dispense: Tablet(s); Date: 12/26/2013 4 Active metoprolol succinate (TOPROL-XL) 25 MG 24 hr tablet Take 1 tablet by mouth 2 (two) times a day. 4 Active simvastatin (ZOCOR) 40 MG tablet Dose: Not available; Form: Not available; Route: PO; Frequency: Not available; Directions: As directed; Details: Dispense: Tablet(s); Date: 12/26/2013 4 Active acetaminophen (TYLENOL) 325 mg tablet Take 1 tablet by mouth as needed. 4 Active b complex vitamins capsule Dose: 1 TAB; Form: Not available; Route: PO; Frequency: QD; Directions: 500mg once a day ; Details: Not available; Date: 12/26/2013 4 Active gabapentin (NEURONTIN) 300 MG capsuleIndications: Degeneration of lumbar or lumbosacral intervertebral disc,Acquired spondylolisthesis,S precious stenosis, lumbar region, with neurogenic claudication Take 1 capsule (300 mg total) by mouth 3 (three) times a day. Start with 1/day x4 days, then 2/day x4 days, then 3/day 90 capsule 2 7 Active Active Problems Problem Noted Date Diagnosed [...] with a working camera? Not on file Comments Unknown Sex and Gender Information Value Date Recorded Sex Assigned at Not on file Legal Sex Female 6:30 PM EST Gender Identity Not on file Sexual Orientation [...] - 1-dose 75+ series) 2020 COVID-19 VACCINE (3 - 2023-2 5 season) 2023 04/16/2020, 03/26/2020 [...] 146(Abnor therese H) 135 - 145 mmol/L [facility] Plasma Potassium 4.3 3.4 - 5.0 mmol/L [facility] Plasma Chloride 104 100 - 108 mmol/L [facility] Plasma Carbon Dioxide 24 23 - 32 mmol/L [facility] Plasma Urea Nitrogen 16 8 - 25 mg/dL [facility] Plasma Creatinine 0.90 0.60 - 1.50 mg/dL [facility] Plasma Glucose 79 70 - 110 mg/dL [facility] Calcium 9.7 8.5 - 10.5 mg/dL [facility] eGFR >60 mL/min/1. 73m2 [facility] Comment: Abnormal if <60 mL/min/1.73m2. If patient is -Slovenian, multiply the result by 1.21. Plasma Anion GAP 18(Abnorm ally H) 3 - 17 mmol/L [facility] 04/10/2014 1:45 PM EST 04/10/2014 6:10 PM EST Comment:BLOOD us Wildre Kim MD LAB BLOOD ORDERABLES Edited Resu lt - Final [address] [address] from Last 3 Months or Most Recently Relevant to Health Maintenance Insurance [address] [place] [address] MEDICARE PART A & [place] & [place] [id number] MEDICARE PART A & [place] PART A & B Care Teams Steel Rule Inspector Relationship Specialty Start Date End Date Chandana Esquivel MD [address] [place] [address] [address] [place] [address] PCP - General Family Medicine 09/05/13 Additional Source Comments The information contained in this document represents components of the legal health record. It is not the complete legal health record.[facility]
--- OUTSIDE RECORDS SUMMARY | 2024-06-18 14:47 | XMS_ITS | Clinical Summary ---
Author Organization [facility] Address [address] [place] [address] Phone Care Team Providers Care Technical Sales Manager Name Role Phone Monica HERRERA Karin Nesbitt [phone] Conditions or Problems Problem Name Problem Code Onset Date Status Entry Date Provider Comment Standard Description Annotate CONTACT DERMATITIS [id number] (SNOMED CT) Active Karin HERRERA Contact dermatitis Medications Medication Instructions Start Date Stop Date Generic Name NDC Provider TRIAMCINOLONE ACETONIDE 0.1 % OINT Apply BID to affected area on forearms daily TRIAMCINOLONE ACETONIDE [id number] Karin HERRERA ATIVAN TABS LORAZEPAM TABS 79187583867 Karin HERRERA ADULT ASPIRIN EC LOW STRENGTH 81 MG ORAL TABLET DELAYED RELEASE ASPIRIN [id number] Karin HERRERA CALCIUM-MAGNESIU M TABS CALCIUM-MAGNESIU M TABS 11663220529 Karin HERRERA LETROZOLE TABS LETROZOLE TABS 25835082103 Karin HERRERA GABAPENTIN TABS GABAPENTIN TABS 99617416655 Karin HERRERA METOPROLOL TARTRATE SOLN METOPROLOL TARTRATE SOLN 03507481534 Karin HERRERA LISINOPRIL TABLET LISINOPRIL TABS 67913931256 Karin HERRERA Medications Administered No information available. [...] Procedures Code Procedure Name Date Entry Date [id number] Patient encounter procedure Vital Signs No information available. Immunizations No information available. Advance Directives No information available.
--- OUTSIDE RECORDS SUMMARY | 2024-06-18 14:47 | XMS_ITS | Encounter Summary ---
Author Organization [facility] Address [address] [place] [id number] Phone Care Team Providers Care Numerologist Name Role Phone Chandana Esquivel MD Primary Care Provider Encounter Details Date Type Department Care Team (Late st Contact Info) Description 07/30/2016 Procedure [facility] [address] [place] [address] Social History Tobacco Use Types Packs/Day Years Used Date Smoking Tobacco: Former Comments:Smoking History Pac ks/day: <=0.5 Comments Unknown Sex and Gender Information Value Date Recorded Sex Assigned at Not on file Legal Sex Female 6:30 PM EST Gender Identity Not on file Sexual Orientation Not on file documented as of this encounter Plan of Treatment Not on file documented as of this encounter Visit Diagnoses Not on filedocumented in this encounter Care Teams Numerologist Relationship Specialty Start Date End Date Chandana Esquivel MD [address] [place] [address] [address] [place] [address] PCP - General Family Medicine 09/05/13 documented as of this encounter Additional Source Comments The information contained in this document represents components of the legal health record. It is not the complete legal health record.[facility]
--- OUTSIDE RECORDS SUMMARY | 2024-06-18 14:47 | XMS_ITS | Data Portability ---
Author Organization [place] - [facility] Address [address] [place] [address] Care Team Providers Care Sales And Marketing Manager Name Role Phone LEONOR ESQUIVEL Primary Care Provider [phone] LEONOR ESQUIVEL Referring Provider [phone] MATT PLUMMER Orthopedic Surgeon LEONOR ESQUIVEL Primary Care Provider SYLVESTER FUNEZ Idea Worker DORITA RAHMAN Idea Worker MARQUITA PÉREZ Pain Management Assessment Encounter Date [...] venous insufficiency and recommended that she use ojgu-koz-yudfyia compression socks to help. -Continue current medications -Lipids -Follow-up in 1 year [email or web address] Not available 07/29/2022 12:21:08 Plan of Treatment Reminders Order Date Submit Date Provider Last Modified By Organization Details Last Modified Time Details Appointments None recorded. Lab rf (rheumatoid factor), serum 2023 024 [facility], [address] [place], [address], 4 17:08:37 ccp (cyclic citrullinat ed peptide) iga+igg, serum 2023 024 [facility], [address] [place], [address], 4 22:06:56 erythrocyte sedimentati on rate, QN, blood 2023 024 [facility], [address] [place], [address], 4 16:28:25 C-reactive protein, quantitativ e, serum or plasma 2023 024 [facility], [address] [place], [address], 4 17:09:39 uric acid, serum or plasma 2023 024 [facility], [address] , [place], [address], 4 17:09:38 lipid panel, serum 2022 023 [facility], [address] [place], [address], 3 14:16:31 rapid flu (A+B) 2021 022 DAVIS In-Office Order, Internal Use Only DO Not Attach Compendium DO Not Attach Compendium, Do Not Delete/merge, [id number] 2 12:17:03 Referral physical therapist referral - Ms. Ahmadi reports being unstable on her feet due to lower extremity weakness. Please evaluate 2023 024 [facility](Phys ical Therapy Dept), [address] [facility] [place], [address], 4 12:22:49 Procedures None recorded. Surgeries None recorded. Imaging electrocard iogram 2022 023 [facility], [address], [facility], [place], [address], 3 11:56:45 Medication Orders None recorded. Patient TargetsNo targets recorded. Patient Instructions Encounter Date Encounter Id Patient Instructions Last Modified By Organization Details Last Modified Time 07/29/2022 [id number] In addition to listed labs, xrays and documents, EKG personally reviewed [email or web address] Not available 07/29/2022 12:21:24 11/03/2023 [id number] 1. PHYSICAL THERAPY: pt encouraged to stay [...] DO Not Attach Compendium, Do Not Delete/merge, [id number] 01/07/2022 11:18:03 01/08/20 22 01/07/2022 rapid flu (A+B) Flu Type B negati ve Not Available In-Office Order Internal Use Only DO Not Attach Compendium DO Not Attach Compendium, Do Not Delete/merge, [id number] 01/07/2022 11:18:03 01/08/20 22 01/07/2022 rapid flu (A+B) Internal Control Valid Not Available In-Off ice Order Internal Use Only DO Not Attach Compendium DO Not Attach Compendium, Do Not Delete/merge, [id number] 01/07/2022 11:18:03 01/08/20 22 01/07/2022 rapid flu (A+B) Lot #: [id number] Not Available In-Office Order Internal Use Only DO Not Attach Compendium DO Not Attach Compendium, Do Not Delete/merge, [id number] 01/07/2022 11:18:03 01/08/20 22 01/07/2022 rapid flu (A+B) Exp Date: Not Available In-Office Order Internal Use Only DO Not Attach Compendium DO Not Attach Compendium, Do Not Delete/merge, [id number] 01/07/2022 11:18:03 07/30/19 23 07/29/2022 LIPID PANEL WITH REFLE X triglyceride s w/ reflex LDL 81 mg/dL 30-150 normal Refer ence Range s: <150 mg/dl Janice l 150-1 99 mg/dl Borde rline High 200-4 99 mg/dl High >500 mg/dl Very High Not Available [facility] Department [address] [place] [address], [address] 07/29/2022 14:16:31 07/30/19 23 07/29/2022 LIPID PANEL WITH REFLE X cholesterol 164 mg/dL 100-20 0 normal Not Available [facility] Department [address] [place] [address], [address] 07/29/2022 14:16:31 07/30/19 23 07/29/2022 LIPID PANEL [...] mg/dL Very high >190 mg/dL Not Available [facility] Department [address] [place], [address] 07/29/2022 14:16:31 07/30/19 23 07/29/2022 LIPID PANEL WITH REFLE X HDL cholesterol 59.0 mg/dL 40-60 normal Major risk facto r for CHD: <40 mg/dL Negat nancy risk facto r for CHD: >=60 mg/dL Not Available [facility] Department [address] [place], [address] 07/29/2022 14:16:31 07/30/19 23 07/29/2022 LIPID PANEL WITH REFLE X chol HDL ratio 2.78 Risk CHOL/ HDL CHOL/ HDL Ratio Male Femal e 1/2 AVERA GE 3.43 3.27 AVERA GE 4.97 4.44 2 X AVERA GE 9.55 7.05 3 X AVERA GE 23.39 11.04 Not Available [facility] Department [address] [place], [address] 07/29/2022 14:16:31 05/17/19 24 05/17/2023 ERYTH ROCYT E SEDIM ENTAT ION RATE erythrocyte sedimentatio n rate 45 mm/HR 0-29 high Not Available [facility] Department [address] [place], [address] 05/17/2023 16:28:25 05/17/19 24 05/17/2023 RHEUM ATOID FACTO R rheumatoid factor 11 IU/mL 0-14 normal Not Available [facility] Department [address] [place] [address], [address] 05/17/2023 17:08:37 05/17/19 24 05/17/2023 URIC ACID uric acid 4.5 mg/dL 2.4-5. 7 normal Not Available [facility] Department [address] [place], [address] 05/17/2023 17:09:38 05/17/19 24 05/17/2023 C REACT NANCY PROTE IN C reactive protein < 3.00 mg/L 0-5 normal Not Available [facility] Department [address] [place], [address] 05/17/2023 17:09:39 05/17/19 24 05/19/2023 CCP ANTIB ODIES IGG/I GA ccp antibodies IgG/IgA 11 units 0-19 Negat nancy <20 Weak posit nancy 20 - 39 Moder ate posit nancy 40 - 59 Stron g posit nancy >59 Perfo rmed at: 01 - [facility] [address] [place] [address] Lab Direc tor: Maria Luisa Georges MD, Phone : [phone] Not Available [facility] Department [address] [place], [address] 05/19/2023 22:06:56 07/31/19 23 07/29/2022 elect rocar [...] diogr am No observ ation record ed. [email or web address] [facility] [address], [address], 07/30/2022 11:56:45 05/19/19 24 01/11/2019 elect romyo gram + nerve condu ction study No observ ation record ed. [email or web address] [facility] [address], [place], [address], 08/19/2023 10:09:09 11/04/19 24 11/04/2023 ir fluor oscop y <1HR [facility] [address] [facility] [place] [address] Interv ention al Radiol ogy Rpt Signed Patien t: Fani Anu mcneil MR#: [id number] : 1945 Acct:H [id number] Age/Se x: 78 / F ADM Date: Loc: HE.OR Attend ing Dr: Marquita Pérez MD Orderi ng Physic roseline: Marquita Pérez MD Date of Servic e: Proced ure(s) : IR fluoro scopy <1hr Access ion Number (s): [id number] H cc: Marquis Esquivel MD EXAM: IR [...] DD/DT: 1111 TD/TT: 1111 Transc riptio nist: [email or web address] [address] [place] [address], [address], 11/07/2023 08:10:28 Result Notes None recorded. Problems Name Problem SNOMED Code Status Onset Date Resolution Date Notes Provider Name and Address Organization Details Recorded Time Benign essential hypertension 6674293 Active Not Available [facility] 3 03:05:38 Neuralgia 54386766 Active Not Available [facility] 3 03:05:38 Anxiety state 302706498 Active Not Available [facility] 3 03:05:38 Screening for osteoporosis Active Not Available [facility] 3 03:05:38 Vitamin D deficiency 49961471 Active Not Available [facility] 3 03:05:38 Depressive disorder 75156291 Active Not Available [facility] 3 03:05:38 Pure hypercholeste rolemia 822149659 Active Not Available [facility] 3 03:05:38 Meralgia paresthetica 56148562 Active Marquita Pérez MD [address] [place] [address], [address] , [facility] 4 12:05:23 Myofascial pain 287842251 Active Marquita Pérez MD [address] [place] [address] [place], [address] , [facility] 4 12:05:23 Arthropathy of lumbar facet joint 456442571 Active Marquita Pérez MD [address] [place], [place] [address], [address] , [facility] 4 12:05:23 Peripheral neuropathic pain 994619675 Active Marquita Pérez MD [address] [place], [place] [address], [address] , [facility] 5 11:35:07 Coronary arteriosclero sis 18584324 Active [address] [facility] 2 20:18:23 Notes:palpations PA Problem Notes None recorded. Procedures Surgical History Date Name Laterality Status Provider Name and Address Organization Details Recorded Time 01/26/20 24 Corticosteroid Injection - KNEE completed YUNI STAFFORD [address] [place] [address] [place], [address], [facility] 01/30/2024 10:37:48 11/04/19 24 lumbar epidural steroid injection completed Naz Brantley CNA [facility] 11/04/2023 13:30:17 11/05/19 20 Corticosteroid Injection - SHOULDER completed Liam Rucker [facility] 11/05/2019 10:23:20 Imaging Results Imaging Date Name Status LastModified by Organization Details LastModified Time 07/29/2022 electrocardiogram completed Informa tion not available 08/24/2022 11:09:20 07/29/2022 electrocardiogram completed Informa tion not available 08/24/2022 11:09:21 07/29/2020 electrocardiogram completed Informa tion not available 08/02/2022 06:44:40 07/29/2022 electrocardiogram completed [facility] [address] [place] [address] [place], [address], 07/30/2022 11:56:45 01/11/2019 electromyogram + nerve conduction study completed [address], [place], [address], 08/19/2023 10:09:09 11/04/2023 ir fluoroscopy <1HR completed [facility] [address], [place], [address], 11/07/2023 08:10:28 Procedure Notes None recorded. Medical Equipment None Reported. Allergies Allergen ID Allergen Name Allergen Category Reaction Reaction Severity Criticality Documentation Date Start Date Code Code System Note Provider Name and Address Organization Details Recorded Time 539174 nickel environme nt Not available Not available Not available 12/07/2019 37243 29 RxNorm Piagejose lamas [facility] 0 11:25:28 14952 Product containin g penicilli n (product) medicatio n hives Not available Not available 03/29/2012 59456 8001 SNOMED Radha Soumya lamas [facility] 3 10:57:18 Medications Name Sig Start [...] Available Not Available Not Available Fluzone Quad 2015-0639 (PF) 60 mcg (15 mcg x 4)/0.5 [...] Updated DateTime 3 160.02 cm 36 kg/m2 03828.2 5 g 65 /min 130 mm[Hg] 78 mm[Hg] Danya Box [facility] 3 10:16:20 Date Recorded Body height Heart rate Body mass index (BMI) Body weight Systolic blood pressure Diastolic blood pressure Provider Name and Address Organization Details Last Updated DateTime 4 160.02 cm 61 /min 34 kg/m2 16685.7 4 g 142 mm[Hg] 83 mm[Hg] Gerardo Emerson [facility] 4 14:42:04 Date Recorded Body height Heart rate Systolic blood pressure Diastolic blood pressure Provider Name and Address Organization Details Last Updated DateTime 11/03/2023 160.02 cm 80 /min 151 mm[Hg] 79 mm[Hg] Naz Brantley CNA [facility] 11/03/2023 12:20:00 Date Recorded Body height Heart rate Oxygen saturation Oxygen saturation in Arterial blood by Pulse oximetry Body temperature Systolic blood pressure Diastolic blood pressure Provider Name and Address Organization Details Last Updated DateTime 2 160.02 cm 74 /min 97 % 97 % 97.2 [degF] 115 mm[Hg] 70 mm[Hg] Edith Isabel MA [facility] 2 11:07:21 Social History Question Answer Notes LastModified by Organizat ion Details LastModified Time Tobacco Smoking Status Former Smoker Radha lamas [facility] 03/29/2012 10:57:18 What Is Your Level Of Caffeine Consumption? [...] Long? 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 No Information not available 09/26/2013 Alcohol Use No Information n ot available 09/26/2013 Do You Currently Or Have You Ever Used Recreational Drugs? If Yes, Specify No Information not available 09/26/2013 Any Addiction Or Substance/drug/a lcohol Abuse Issues? If Yes, Specify No Information not available 09/26/2013 [employer] Information no t available 03/29/2012 Pap Smear [...] D etails LastModified Time What is your level of alcohol consumption? None Information not available 03/29/2012 What is your exercise level? None Information [...] 10:27:43 Mother Problem 59 passed from either PA or kidney diseas e Not available 09/26/2013 10:27:43 Paternal Grandmother Malignant tumor of breast previo usly record ed as cancer -breas t Not available 09/26/2013 10:27:43 Medical History Condition Response cancer Y HIV or AIDS N arthritis Y asthma N taking blood thinners N ulcers N high blood pressure Y other GI illness N kidney disease N GERD / reflux N psychiatric illness N liver disease N arrhythmia N diabetes N emphysema / COPD N heart attack Y seizures N skin condition N other N thyroid disease or other endocrine probl ems N headaches or migraines N stroke N bleeding disorders N Gynecological History Statement/Question Response 2 Age at Menarche 12 Para 2 Obstetrics History GPAL:G 0 P 0 0 0 0 Immunizations Vaccine Type Date Status Note Provider Nam e and Address Organization Details Recorded Time Tdap 10/04/2008 completed Radha lamas [place] - [facility] 07/05/2012 13:10:49 Past Encounters Encounter ID Performer Location Encounter Start Date Encounter Closed Date Diagnosis/Indication Diagnosis SNOMED-CT Code Diagnosis ICD10 Code Diagnosis Note [id number] Marquita Pérez MD [facility] [address] [place] [address] [place] [address] 09/26/2013 10:17:35 09/26/2013 12:03:03 Meralgia paresthetica 91717761 Myofascial pain 226612394 Arthropath y of lumbar facet joint 711371719 Peripheral neuropathic pain 318727961 [id number] Lesly Sears MD [facility] [address] [place], [place] [address] [address] 09/04/2015 10:49:22 09/04/2015 11:51:15 Abdominal pain 24695023 R10.9 [id number] Sylvester Funez MD [facility] [place] [facility] [address] [place] [address] 05/03/2016 09:23:37 05/03/2016 10:09:35 Coronary arteriosclerosis in [place] artery 7917704566 107 I25.10 [id number] Evangelist Zamarripa MD Orthoped[facility] cs [address] [place] [address], [address] [address] 04/22/2017 09:30:54 04/22/2017 10:03:57 Full thickness rotator cuff tear 774073081 M75.201 [id number] Caleb Jose MD [facility] [address] [place] [address], [address] [place] [address] 05/16/2017 09:35:18 05/16/2017 10:28:13 Partial thickness rotator cuff tear 987475907 M75.102 Patient has either full or partial-th [...] in 4-8 weeks or as symptoms dictate. [id number] Dorita Smith NP [facility] [address] [place] [address] 08/25/2017 10:42:53 08/25/2017 12:07:25 Benign essential hypertension 4986409 I10 Her blood pressure is reasonably controlled . We will help to monitor her trends. Coronary arteriosclerosis in [place] artery 4666405853 107 I25.10 Given her symptoms of heartburn, [...] to follow her on an annual basis. [id number] MD [facility] [address] [place] [address] [place] [address] 06/07/2018 13:29:16 06/07/2018 14:43:25 Spinal stenosis of lumbar region 50197304 M48.061 Lumbar radiculopathy 128 166627 M54.16 Lumbar spondylosis 48866 0009 M47.816 Anxiety disorder 7736479 06 F41.9 [id number] MD [facility] [address] [place] [address] 08/09/2018 12:51:54 08/09/2018 13:31:01 Lumbar radiculopathy 136960515 M54.16 left Lumbar spondylosis 58468 0009 M47.845 [id number] MD [facility] [address] [place] [address] 09/13/2018 13:46:03 09/13/2018 14:51:58 Lumbar spondylosis 583750904 M47.816 Pain in left foot 783326 5829 05593 M79.672 Neuralgia 58296557 M79.2 left posterior tibial [id number] MD [facility] [address], [place] [address] 10/11/2018 09:40:27 10/11/2018 10:59:08 Pain in left foot 1937288121 76888 M79.672 Neuralgia 86282365 M79.2 left posterior tibial Lumbar spondylosis 33082 0009 M47.489 [id number] [facility] [address] [place] [address] 10/30/2018 14:59:22 10/30/2018 16:05:39 Coronary arteriosclerosis in [place] artery 2642611333 107 I25.10 She has no anginal symptoms [...] sooner as needed. Benign ess ential hypertension 2766730 I10 Her blood pressure is reasonably controlled . We will continue to monitor her trends. [id number] Marquita Pérez MD [facility] [address] [place] [address] [place] [address] 01/16/2019 13:48:03 01/16/2019 14:28:58 Pain in left foot 2375590993 30499 M79.672 Neuralgia 38549333 M79.2 left posterior tibial [id number] Cee Graf MD [facility] [address] [place] [address] [address] [place] [address] 08/26/2019 13:51:23 08/26/2019 13:52:16 Viral screening 137723243 Z11.59 [id number] YUNI SKINNER [facility] [address] [facility], [address] [place] [address] 09/13/2019 13:14:55 09/13/2019 14:02:31 Closed fracture scapula, glenoid 878092664 S42.141A 74yo pleasant retired female, previously evaluated [...] potential treatment options. Pt agreed with plan. [id number] Caleb Jose MD Orthopedi [address], [address] [place] [address] 11/05/2019 09:05:10 11/05/2019 10:31:48 Full thickness rotator cuff tear 986067792 M75.121 despite the MRI findings, her range [...] successful . Closed fra cture scapula, glenoid 712075954 S42.141A 74yo pleasant retired female, previously evaluated [...] Pt agreed with plan. Contusion of chest 39588 004 S20.211D patient aalso reports discomfort over [...] symptoms of concern were reviewed in detail. [id number] Marquita Pérez MD [facility] [address] [place] [address] [place] [address] 12/07/2019 11:13:22 12/07/2019 12:01:02 Pain in left foot 7871793797 [address] M79.672 Neuralgia 53590885 M79.2 left posterior tibial [id number] Cee Graf MD [facility] [address] [address] 03/01/2020 16:09:26 03/01/2020 16:09:52 Viral screening 363667243 Z11.59 [id number] Juaquin Talavera NP, [facility] [address] [address] 01/19/2021 09:31:09 01/19/2021 10:15:20 Exposure to SARS-CoV-2 482721036 Z20.822 Patient requests Covid testing only, declines evaluation at this time by provider. [id number] YUNI SYLVESTER [facility] [address] [place] [address] 06/24/2021 10:48:19 06/24/2021 11:36:14 Fatigue 15063902 R53.83 Pt presents with fatigue, dry cough, [...] of when to RTC discussed. Pruritic rash 70706789 L 28.2 -unclear etiology of rashcontac t dermatitis vs allergic reaction vs eczema vs nickel reactionad vised cool compresses , avoidance of itchng, benadryl cream or anthistami ne, will put in triamcinol one for itch relief. Advised to follow up with pcp should sx persist [id number] Reagan Montgomery MD [facility] [place] [place] [facility] [place] [facility] [address] [place] [address] 09/30/2021 15:12:20 09/30/2021 16:27:38 Paresthesia 64519380 R20.2 - Ms. Ahmadi reports a long-stand ing history of bilateral upper and lower extremity numbness and tingling- She reports that her lower extremity numbness and tingling is becoming more severe and more extensive- I will obtain EMG studies at this time for further assessment regarding a bilateral upper and lower extremity neuropathi c process Muscle wea kness of limb 307359263 M62.81 - Ms. Ahmadi reports being unstable on her feet due to lower extremity weakness- I will place a referral to physical therapy for further evaluation and treatment of lower extremity weakness Pain of mu ltiple joints 51856057 M25.50 - There is no obvious joint [...] during today's visit Pes anseri nus bursitis 19287709 M70.51 M70.52 - Findings consistent with bilateral anserine bursitis noted on today's musculoske letal physical examinatio n- I have recommende d stretching , range of motion exercises, lower extremity strengthen ing and weight loss Bilateral trochanteric bursitis 4422411166 4735638 M70.61 M70.62 - Findings consistent with bilateral trochanter ic bursitis noted on today's musculoske letal physical examinatio n- I have recommende d stretching , range of motion exercises, lower extremity strengthen ing and weight loss Osteoarthritis 461255508 M19.90 - Findings consistent with osteoarthr itis noted on musculoske letal physical examinatio n as well as imaging studies- I have recommende d the use of Tylenol, heat and topical therapies for treatment of pain associated with osteoarthr itis [id number] [facility] [address] [place] [address] 01/07/2022 09:46:12 01/07/2022 11:25:32 Fever 417415981 R50.9 Pt presents with two days of [...] RTC discussed. pt in agreement with plan [id number] MD [facility] [place] [facility] [address] [place] [address] 07/29/2022 09:51:51 07/29/2022 10:54:48 Coronary arteriosclerosis 14830123 I25.10 Benign ess ential hypertension 1943345 I10 Hyperlipidemia 93306361 E78.5 [id number] MD [facility] [address] [place] [address] 05/17/2023 14:32:32 05/17/2023 15:37:23 Paresthesia 28356595 R20.2 - Ms. Ahmadi continues to experience [...] also continue to follow-[facility] [place] and his [facility] for further evaluation and management of neuropathy Muscle bibiana radhajhonatan of limb 304825191 M62.81 - Ms. Ahmadi reports being unstable on her feet due to lower extremity weakness- I will place a referral to physical therapy for further evaluation and treatment of lower extremity weakness Pain of mu ltiple joints 94800339 M25.50 - There is possible joint synovitis [...] taper for treatment of joint flares Osteoarthritis 005234031 M19.90 - There are findings consistent with osteoarthr itis noted on musculoske letal physical examinatio n as well as imaging studies- I have recommende d the use of Tylenol, heat and topical therapies for treatment of pain associated with osteoarthr itis Pes anseri nus bursitis 20383469 M70.51 M70.52 - There are findings consistent with bilateral anserine bursitis noted on today's musculoske letal physical examinatio n- I have recommende d stretching , range of motion exercises, lower extremity strengthen ing and weight loss Bilateral trochanteric bursitis 5328634191 6304083 M70.61 M70.62 - There are findings consistent with bilateral trochanter ic bursitis noted on today's musculoske letal physical examinatio n- I have recommende d stretching , range of motion exercises, lower extremity strengthen ing and weight loss [id number] Marquita Pérez MD [facility] [address] [address] 11/03/2023 12:00:52 11/03/2023 13:01:17 Lumbar spondylosis 647956548 M47.816 Lumbar radiculopathy 128 337733 M54.16 left 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 0984246250 72762 M99.63 mod to severe b/l L5S1 [id number] YUNI STAFFORD [facility] [place] [facility] [address] [place] [address] 01/26/2024 14:33:49 01/26/2024 15:12:14 Osteoarthritis of right knee joint 5494199864 29471 M17.11 This a very pleasant 78-year-ol d [...] Recorded Advance Directives Directive None Recorded Payers Insurance Date Sequence Insurance Name Policy Number Policy Read Covered Member ID Read Member ID Guarantor Name 11/21/2009 1 *SELF PAY* Wendy Schaefer 09/26/2013 1 [facility] [facility] [place]) [id number] Alban Ahmadi [id number] Florencia Ahmadi 04/20/2017 1 [facility] CARE PLAN (HMO) [id number] Alban Ahmadi [id number] Florencia Ahmadi 03/22/2024 1 [place]ERN[place] Florencia Katzusky [id number] Florencia Hooks [place] 08/03/2017 1 [facility] [id number] Alban Mohry [id number] Florencia Mohry 01/26/2024 1 [place]MEDICARE [place]PLACEMENT PPO) [id number] Florencia Hooks Faniy [id number] Florencia Hooks [place] 01/26/2024 2 [place] Florencia Hooks [place] [id number] Florencia Hooks [place] 08/05/2017 1 *SELF PAY* Nguyen nicole Hooks [place] 04/05/2024 2 [place] [facility] Florencia Hooks Faniy [id number] Florencia Hooks Faniy 01/26/2024 2 [place] [facility] Florencia Hooks Faniy [id number] Florencia Hooks [place] Notes Date Note Type Note Provider Name and Address Organization Details Recorded Time 2 text/html 76 year old female presents at [facility] for a fever that was going [...] days,-using tylenol and advil Melly Kyle MD [address] [place] [address], [place], [address], [facility] 01/08/2022 12:45:22 3 text/html Florencia has [...] energy level is good. Sylvester Funez MD [address] [place] [address], [phone], [facility] 07/29/2022 12:21:40 4 text/html Ms. Ahmadi was [...] shortness of breath. Reagan Montgomery MD [address] [place] [place], [address], [facility] 05/17/2023 17:18:07 4 text/html Pain Management: New [...] enjoyment of life: 10 Prior tests?x-rays ([facility] - within the past 2 months) Conditions associated with your pain?muscle weakness; difficulty walking; numbness / tingling / pins/ needles Prior treatments?physical therapy (home - current) Prior medications you've tried?Tramadol/Flexeril - at times Advil/Tylenol - minimal relief Marquita Pérez MD [address] [place] [address], [phone], [facility] 11/03/2023 12:57:25 4 text/html OrthopedicsReported bypatient.Location:Right ; Knee Quality:Intermittent;Ach ing;Throbbing Severity:Mild-Moderate Onset/Timing:Gradual Duration:months Context:No change ImagingX-ray (10/14/23) R knee pain YUNI STAFFORD [address] [facility] [place], [address], [facility] 01/30/2024 10:38:21 OBGyn Episode No OBEpisode recorded.
--- NOTE | 2024-06-18 14:51 | A.OFFVIS_ITS ---
Vital Signs 06/18/24 14:52 Height 5 ft 3 in Weight 139 lb BMI 24.6 BP 138/64 Blood Pressure Location Lt brachial Position Sitting Respiration 16 Pulse 80 Pulse Source Pulse Oximeter Pulse Oximetry (%) 95 Oxygen Delivery Method Room Air Intake Visit Reasons: 1 month FU Stencil Sprayer Required: No Allergies Penicillins Adverse Reaction (Severe, Verified 06/18/24 14:53) Hives Medication List - Last Reconciled 06/18/24 by Melisa Kyle, SERG alendronate 70 mg PO QWEEK atorvastatin 80 mg PO BEDTIME celecoxib 100 mg PO BID cyclobenzaprine 5 mg PO TID PRN fluvoxamine 100 mg PO BEDTIME gabapentin 1,200 mg PO .PM gabapentin 600 mg PO DAILY lisinopril 20 mg PO DAILY lorazepam 0.5 mg PO DAILY PRN metoprolol succinate ER 25 mg PO DAILY oxybutynin chloride 5 mg PO BID HPI Comments Details: Florencia is back in my office after she received intra-articular knee steroid injection. She reports less than 50% pain improvement for the 1st 2 weeks after the procedure. She reports minimally improved mobility. We discussed possibility of treatment of her pain with total knee replacement. I offered her refer her to Orthopedic surgery. Alternatively I can perform genicular nerve block and if this will give a good pain relief we can try radiofrequency ablation of genicular nerves this would result in improvement in her mobility and decrease of the pain for possibly 9-12 months. Possibility of treatment of her pain with neuromodulation including peripheral nerve stimulation and spinal cord stimulation was discussed with the patient. I also would like to see a fresh x-ray of the right knee. I will send the patient for x-ray today. Negative results for diagnostic medial branch block L2-L3 -L4 -dorsal ramus L5 on the right. Prior She is complaining on pain in right lower back right leg and right knee pain. She reports sometimes feeling that right leg is going to give up under her. She reports that this pain started in August of 2023. She had the fall that summer and developed some small spinal fracture however on recent x-ray it is not documented. She reports that standing hurts her pain the most sitting and laying make pain better walking increases the pain. Flexing forward aggravates pain little bit and flexing backwards makes her pain more severe. Her most severe pain is in the morning and after walking. Pain is less severe at rest. She had extensive course of physical therapy and tries to continue home exercise program however this takes her toll when she performs exercises while standing. She was given occupational therapy to help with the cane and walker. She reports that she received cortisone injection in her knee in the past which did not help her pain. [facility] Medical History (Updated 06/18/24 @ 15:31 by Aneudy Vernon MD) Neuropathy Macular degeneration of right eye Hernia Breast cancer, right Heart attack Anxiety High cholesterol HTN (hypertension) Surgical History (Updated 05/04/24 @ 11:11 by Sahyy Garvey RN) Hx of cholecystectomy Social History Patient Tobacco Use Status: Never used Tobacco Review of Systems Const All systems reviewed & are unremarkable except as noted in HPI and below ENT Reports Normal hearing present Neuro Reports Normal hearing present, Denies Abnormal speech present, Denies confusion and Denies Sensory deficit (Neuro) Psych Denies confusion Physical Exam Vital Signs: Last Vital Signs Pulse 80 06/18/24 14:52 Resp 16 06/18/24 14:52 BP 138/64 06/18/24 14:52 Pulse Ox 95 06/18/24 14:52 Oxygen Delivery Method Room Air 06/18/24 14:52 BMI result Body Mass Index 24.6 Const General: no acute distress; No confusion Nutritional Appearance: obese morbidly obese Orientation/consciousness: patient oriented x3 and No confusion Eyes General: appearance normal, both eyes and all related structures Pupils: Equal, round and reactive pupils present EOM: EOMs intact bilaterally Neck Neck: Yes full ROM Chest Chest palpation & inspection: normal inspection of the chest Resp Effort & Inspection: normal respiratory effort, able to speak in complete sentences, normal respiratory pattern, no audible wheezes and no cough Cardio Jugular venous distension: no JVD GI Inspection: Yes normal to inspection Back/Spine/Pelvis Other: She is able to stand on bilateral tiptoes however she loses her balance attempting to stand on bilateral heels, therefore dorsiflexion of the foot function S1 nerve root is difficult to assess on physical exam. Flexing forward aggravates her pain as well as flexing backwards. Loading test is positive on the right. Negative on the left. SLR is negative bilaterally. Reagan test is negative bilaterally. There is tenderness on palpation in paraspinal spinal region most lower portion of the lumbar spine. Tenderness on palpation in projection of the trochanter. Tenderness on palpation in projection of the right knee. Neuro General: patient oriented x3, gait normal and No confusion Cranial nerves: Yes CN's II-XII intact bilaterally, Yes Equal, round and reactive pupils present, Yes Normal hearing present and Yes Ability to bilaterally elevate shoulders present Speech: No Abnormal speech present Gait exam (Neuro): Normal gait present Motor exam (neuro): 5/5 motor strength present throughout Sensory Exam: No Sensory deficit (Neuro) Extrem Other: tenderness on palpation in projection of the right knee on lateral as well as on medial surfaces. Crepitus in the right knee with range of motion exercises. Lateral and medial rotation of the thigh results in pain aggravation in the patient's groin lateral rotation aggravates pain More strongly than medial rotation. General: No pedal edema Psych Speech and movement: Normal speech and movement present Affect: normal affect Attitude: cooperative Thought process: Normal thought process present Thought content: Normal thought content present Insight: Good insight present (Psych) Judgement: Good judgement present (Psych) Results Reviewed Results Reviewed: X-ray lumbar spine 11/25/2023. Degenerative disc and endplate changes, most pronounced with the lower lumbar spine. Degenerative facet joint changes in multiple levels. No substantial lumbar vertebral body compression deformity seen. There is m ultiple likely Schmorl's nodes. The bones appear mildly under mineralized , minimal grade 1 anterolisthesis at L3-L4 Appears similar to prior CT, likely minimal grade 1 anterolisthesis at L2-L3 new compared to prior CT. Prominent atherosclerotic calcifications of the abdominal aorta. Surgical clips in the right upper quadrant. Impression degenerative changes within the lumbar spine. X-ray of the right knee 10/14/2023. Findings: Mild tricompartmental arthritis with small joint effusion. No acute fracture identified. No acute dislocation subluxation identified. Assessment & Plan Assessment & Plan (1) Osteoarthritis of right knee: Code(s): M17.11 - Unilateral primary osteoarthritis, right knee Category: Medical (2) Chronic pain syndrome: Code(s): G89.4 - Chronic pain syndrome Category: Medical (3) Iliotibial band syndrome affecting right lower leg: Code(s): M76.31 - Iliotibial band syndrome, right leg Category: Medical (4) Arthritis of right hip: Code(s): M16.11 - Unilateral primary osteoarthritis, right hip Category: Medical (5) Right hip pain: Code(s): M25.551 - Pain in right hip Category: Medical (6) Right knee pain: Code(s): M25.561 - Pain in right knee Category: Medical Plan The patient did not complain today on her lower back pain. Most of the pain she refers to her knee. The discussion of this as above. I will schedule her for diagnostic genicular nerve block. With good results I will be planning radiofrequency ablation. Also I will send her for fresh knee x-ray to rule out red flags in the right knee. I will see this patient as a follow-up after diagnostic genicular nerve block of the right knee. Orders: Orders XR knee RT 2V Today M17.11 - Unilateral primary osteoarthritis, right knee Patient Instructions: I here by testify that I spent 32 minutes in conversation with this patient as well as planning her care and organizing this note. Coding Level of Care Code Est Pt Level 4 (50480) Diagnoses Osteoarthritis of right knee M17.11 Chronic pain syndrome G89.4 Iliotibial band syndrome affecting right lower leg M76.31 Arthritis of right hip M16.11 Right hip pain M25.551 Right knee pain M25.561
[2024-06-18 14:52] VITALS: BP 138/64; PULSE 80; RESP 16; O2SAT 95; BMI 24.6
== END 2024-06-18 15:19 | disposition home or self-care (01) ==
LOC: HO.PMC 14:45
PROVIDERS: Visit Provider Anesthesiology
DX: M17.11 Unilateral primary osteoarthritis, right knee (principal); G89.4 Chronic pain syndrome; M76.31 Iliotibial band syndrome, right leg; M16.11 Unilateral primary osteoarthritis, right hip; M25.551 Pain in right hip; M25.561 Pain in right knee
CPT/HCPCS: 99214

== ENCOUNTER → 2024-06-18 14:44 | Outpatient (BNVA) | payer MEDICARE, SELFPAY | PROVIDERS: Visit Provider Anesthesiology | DX: M17.11 Unilateral primary osteoarthritis, right knee (principal); G89.4 Chronic pain syndrome; M76.31 Iliotibial band syndrome, right leg; M16.11 Unilateral primary osteoarthritis, right hip; M25.551 Pain in right hip; M25.561 Pain in right knee | CPT/HCPCS: 99212 ==

== ENCOUNTER 2024-06-19 10:41 | Outpatient (REF) | payer MEDICARE, SELFPAY ==
--- NOTE | ~2024-06-19 | XR_ITS ---
EXAMINATION: XR KNEE, RIGHT CLINICAL INFORMATION: M17.11 - Unilateral primary osteoarthritis, right knee COMPARISON: None available. TECHNIQUE: Two views of the right knee. FINDINGS: Joint space narrowing medial compartment with associated sclerosis of the articular surfaces medial tibial plateau and medial femoral condyle and marginal osteophyte formation. There is a 4 mm depression of the medial tibial plateau. Marginal osteophyte formation in the posterior superior and posterior inferior patella. No suprapatellar bursa joint effusion. No lytic or blastic lesions. Vascular calcifications XR/XR knee RT 2V IMPRESSION: Tricompartmental osteoarthrosis involving mostly the medial compartment resulting in 4 mm depressed medial tibial plateau. Electronically signed by: Pillo Figueroa MD 06/19/2024 11:11 AM EDT
--- OUTSIDE RECORDS SUMMARY | 2024-06-19 11:55 | XMS_ITS | Encounter Summary ---
Author Organization [facility] Address [address] [place] [address] Care Team Providers Care Flux Plant Operator Name Role Phone Chandana Esquivel Primary Care Provider [phone] Anuja Yeh Unavailable Sarah Giles Unavailable [phone] Ambrose Pérez MD Unavailable [phone] Reason for Visit * Reason Comments Follow Up Encounter Details Date Type Department Care Team ([facility] st Contact Info) Description 06/21/2018 Telephone [facility] Neurology [address] [address] Wilder Kim MD [address] [id number] Follow Up Social History Tobacco Use Types [...] 9:[address] [facility] in [place] is the preferred pharmacy. I do see that 2 historical meds were entered yesterday during her consult. Forwarding to Dr. Kim in case they discussed her needing to refill them. * Telephone Encounter - Ирина Adams - 06/21/2018 4:29 PM EDT Florencia called to let the nurse know that she will [facility] using [facility]. This pharmacy is notin the system. Please put that in as the pharmacy she will be using. documented in this encounter Plan of Treatment Not on file documented as of this encounter Visit Diagnoses Not on filedocumented in this encounter Care Teams Flux Plant Operator Relationship Specialty Start Date End Date Chandana Esquivel [facility] [address] [address] PCP - General Family Medicine 06/16/17 Anuja Yeh [facility] [address] [place] [address] Rheumatology 06/23/18 Sarah Giles [facility] DEPT OF ONCOLOGY [address] [place] [address] Oncology 06/23/18 Ambrose Pérez MD [facility] [address] [place] [address] Anesthesiology 06/23/18 documented as of this encounter
--- OUTSIDE RECORDS SUMMARY | 2024-06-19 11:55 | XMS_ITS | Encounter Summary ---
Author Organization [facility] Address [address] [place] [address] Phone Care Team Providers Care Management Retail Intern Name Role Phone Chandana Esquivel MD Primary Care Provider Encounter Details Date Type Department Care Team (Late st Contact Info) Description 07/30/2016 Procedure [facility] [address] [place] [address] Social History Tobacco Use Types Packs/Day Years [...] on filedocumented in this encounter Care Teams Management Retail Intern Relationship Specialty Start Date End Date Chandana Esquivel MD [address] [place] [address] [address] [place] [address] PCP - General Family Medicine 09/05/13 documented as of this encounter Additional Source Comments The information contained in this document represents components of the legal health record. It is not the complete legal health record.[facility]
--- OUTSIDE RECORDS SUMMARY | 2024-06-19 11:55 | XMS_ITS | Clinical Summary ---
Author Organization [facility] Address [address] [place] [address] Care Team Providers Care Case Supervisor Name Role Phone Chandana Esquivel Lalito Primary Care Provider [phone] Anuja Yeh Unavailable Sarah Giles Unavailable [phone] Ambrose Pérez MD Unavailable [phone] Allergies Active Allergy Reactions Criticality Noted [...] Zoster (Zostavax) Discontinued Procedures * Due to [place] [employer] law, this organization might not be sharing [...] unspecified vessel or lesion type, unspecified whether false pass or transplanted heart from Last 3 Months or Most Recently Relevant to Health Maintenance Results * Due to [place] [employer] law, this organization might not be sharing [...] 08/09/2017 7:02 PM EDT us Angela Sykes [facility] CARDIOVASCULAR-WITH INBSKT R TG Final Result MUSE EKG SYSTEM from Last 3 Months or Most Recently Relevant to Health Maintenance Insurance MEDICARE PART B MEDICAID Care Teams Case Supervisor Relationship Specialty Start Date End Date Chandana Esquivel [facility] [address] [place] [address] PCP - General Family Medicine 06/16/17 Anuja Yeh [address] [address] Rheumatology 06/23/18 Sarah Giles [facility] DEPT OF ONCOLOGY [address] [place] [address] Oncology 06/23/18 Ambrose Pérez MD [facility] [address] [place] [address] Anesthesiology 06/23/18
--- OUTSIDE RECORDS SUMMARY | 2024-06-19 11:55 | XMS_ITS | Encounter Summary ---
Author Organization [facility] Address [address] [place] [address] Care Team Providers Care Production Assembly Operator Name Role Phone Chandana Esquivel Primary Care Provider [phone] Anuja Yeh Unavailable Sarah Giles Unavailable [phone] Ambrose Pérez MD Unavailable [phone] Encounter Details Date Type Department Care Team (Late st Contact Info) Description 07/15/2017 Orders Only [facility] [address] [place] [address] Jasson Zhang MD [address] [id number] Social History Tobacco Use Types Packs/Day Years [...] chronicity documented in this encounter Care Teams Production Assembly Operator Relationship Specialty Start Date End Date Chandana Esquivel [facility] [address] [place] [address] PCP - General Family Medicine 06/16/17 Anuja Yeh [address] [address] Rheumatology 06/23/18 Sarah Giles [facility] DEPT OF ONCOLOGY [address] [place] [address] Oncology 06/23/18 Ambrose Pérez MD [facility] [address] [place] [address] Anesthesiology 06/23/18 documented as of this encounter
--- OUTSIDE RECORDS SUMMARY | 2024-06-19 11:55 | XMS_ITS | Clinical Summary ---
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 Procedure Name Priority Date/Time Associated Diagnosis Comments HEPATITIS C ANTIBODY W/REFLEX TO HCV RNA, QUANTITATIVE PCR Routine 02/16/2017 4:48 PM EST Primary osteoarthritis of both hands from Last 3 Months or Most Recently Relevant to Health Maintenance Results * Due to [place] [employer] law, this organization might not be sharing negative HIV tests. * Hepatitis C Antibody w/Reflex to HCV RNA, Quantitative PCR (02/16/2017 4:48 PM EST) Hepatitis C Antibody NON-REACT NANCY NON-REACT NANCY 02/17/2017 4:55 AM EST [facility] Signal To Cut-Off 0.04 <1.00 02/17/2017 4:55 AM EST General Blood Blood specimen (specimen) Structure of peripheral vein / Unknown Venipuncture / Unknown 02/16/2017 4:48 PM EST 02/16/2017 5:13 PM EST Narrative DUSTY QUINTEROS - 02/17/2017 4:55 AM EST [facility] Received Date: us Anuja Yeh MD LAB BLOOD ORDERABLES Final Resul t DUSTY QUINTEROS [address] [facility] 3rd Floor, [place] [address], [place] [phone] [facility] [address], [place] [address], [place] [phone] from Last 3 Months or Most Recently Relevant to Health Maintenance Insurance MEDICARE [facility] Care Teams Dust Brush Assembler Relationship Specialty Start Date End Date Chandana Esquivel [address] [place] [address] [place] [address] PCP - General 08/26/16
--- OUTSIDE RECORDS SUMMARY | 2024-06-19 11:55 | XMS_ITS | Encounter Summary ---
Author Organization [facility] Address [address] [place] [address] Care Team Providers Care Master Automotive Glass Technician Name Role Phone Chandana Esquivel Primary Care Provider [phone] Anuja Yeh Unavailable Sarah Giles Unavailable [phone] Ambrose Pérez MD Unavailable [phone] Encounter Details Date Type Department Care Team (Late st Contact Info) Description 08/09/2017 Orders Only [facility] Pre-Admission Testing [address] [place] [address] Angela Sykes NP Social History Tobacco Use [...] of this encounter Procedures * Due to [place] state law, this organization might not be sharing negative HIV tests. Procedure Name Priority Date/Time Associated Diagnosis Comments EKG-TO BE READ & BILLED BY ADULT OR PEDIATRIC CARDIOLOGY Routine 08/09/2017 2:42 PM EDT Tear of right rotator cuff, unspecified tear extent Pre-operative examination Atherosclerosis of coronary artery, angina presence unspecified, unspecified vessel or lesion type, unspecified whether [place] or transplanted heart LATEX (K82) IGE Routine 08/09/2017 2:27 PM EDT Latex sensitivity BASIC METABOLIC PANEL WITH (GFR) Routine 08/09/2017 2:27 PM EDT Tear of right rotator cuff, unspecified tear extent Pre-operative examination Atherosclerosis of coronary artery, angina presence unspecified, unspecified vessel or lesion type, unspecified whether [place] or transplanted heart documented in this encounter Results * Due to [place] [...] previous ECGs available Confirmed by Lissy Rich ([id number]) on 08/09/2017 7:02:09 PM MUSE EKG SYSTEM 08/09/2017 2:42 PM EDT 08/09/2017 7:02 PM EDT Angela Sykes NP CARDIOVASCULAR-WITH INBSKT R TG Final Result Performing Organization Address [facility] de Phone Number MUSE EKG SYSTEM * LATEX (K82) IGE (08/09/2017 2:27 PM EDT) Pathologist [facility] Latex (K82) IgE <0.10 kU/L [facility] Latex (K82) Class 0 [facility] Comment: Negative findings for latex specific IgE antibodies does not preclude latex allergy. Positive findings for latex specific IgE antibodies is highly suggestive of latex allergy and should be considered in context of clinical findings. 08/09/2017 2:27 PM EDT 08/09/2017 10:53 PM EDT Narrative Resulting Agency Comment [id number] us Angela Sykes NP LABORATORY Final Result [facility] [address] [place] [address] * (ABNORMAL) BASIC METABOLIC PANEL WITH (GFR) [...] approximately 13% higher for people identified as -Citizen Of [place]. GFR 82 > OR = 60 mL/min/1 [...] needs for GFR calculation. Resulting Agency Comment [id number] Angela Sykes NP LABORATORY Final Result [facility] [address] [place] [address] documented in this encounter Visit Diagnoses Diagnosis Tear of right rotator cuff, unspecified tear extent Pre-operative examination Preoperative examination, unspecified Atherosclerosis of coronary artery, angina presence unspecified, unspecified vessel or lesion type, unspecified whether [place] or transplanted heart Latex sensitivity Allergy to latex documented in this encounter Care Teams Master Automotive Glass Technician Relationship Specialty Start Date End Date Chandana Esquivel [facility] [address] [address] PCP - General Family Medicine 06/16/17 Anuja Yeh [address] [address] Rheumatology 06/23/18 Sarah Giles [facility] DEPT OF ONCOLOGY [address] [place] [address] Oncology 06/23/18 Ambrose Pérez MD [facility] [address] [place] [address] Anesthesiology 06/23/18 documented as of this encounter
--- OUTSIDE RECORDS SUMMARY | 2024-06-19 11:55 | XMS_ITS | Encounter Summary ---
Author Organization [facility] Address [address] [place] [address] Care Team Providers Care Career Education Teacher Name Role Phone Chandana Esquivel Lalito Primary Care Provider [phone] Anuja Yeh Unavailable Sarah Giles Unavailable [phone] Ambrose Pérez MD Unavailable [phone] Reason for Referral * CONSULT AND TREATMENT (Routine) - Incomplete Specialty Diagnoses / Procedures Referred By Bartolo pulido Referred To Contact Physical Therapy Diagnoses Right shoulder pain, unspecified chronicity Jasson Zhang MD Phone: tel: fax: Referral ID Status Reason Start Date Expiration Date Visits Requested Visits Authorized [id number] Incomplete Specialty Services Required 07/27/2017 1 1 Question Answer What is the reason for this outside referral? EVALUATE AND TREAT Please provide pertinent patient history. right rotator cuff tear surg sched for 08/18/17 Patient is being referred outside of [facility] for the following reason, however final determination for [id number] requests are made by the Referral Management Department Patient Preference Track Order? No When do you want this visit to occur? PT CONVENIENCE - s/p 15 days 08/18/17 sched surgery Which provider/facility/agency would you like to refer to? Orthopedic Physical Therapy [facility] Encounter Details Date Type Department Care Team ([facility] st Contact Info) Description 07/27/2017 Orders Only [facility] [address] [place] [phone] Jasson Zhang MD [address] [address] Social History Tobacco Use Types Packs/Day Years [...] chronicity documented in this encounter Care Teams Career Education Teacher Relationship Specialty Start Date End Date Chandana Esquivel [facility] [address] [place] [address] PCP - General Family Medicine 06/16/17 Anuja Yeh [address] [address] Rheumatology 06/23/18 Sarah Giles [facility] DEPT OF ONCOLOGY [address] [place] [address] Oncology 06/23/18 Ambrose P[facility]rez MD [facility] [address] [place] [address] Anesthesiology 06/23/18 documented as of this encounter
--- OUTSIDE RECORDS SUMMARY | 2024-06-19 11:55 | XMS_ITS | Referral Summary ---
Author Organization [facility] Address [address] [place] [address] Care Team Providers Care Physical Therapy Aid Name Role Phone Chandana Esquivel Primary Care Provider [phone] Allergies Active Allergy Reactions Criticality Noted Date [...] bilateral 02/16/2017 Coronary artery disease invo lving [place] coronary artery of [place] heart with angina pectoris 02/16/2017 Breast cancer [...] Not on file Procedures * Due to [place] state law, this organization might not be sharing negative HIV tests. Procedure Name Priority Date/Time Associated Diagnosis Comments HEPATITIS C ANTIBODY W/REFLEX TO HCV RNA, QUANTITATIVE PCR Routine 02/16/2017 4:48 PM EST Primary osteoarthritis of both hands from Last 3 Months or Most Recently Relevant to Health Maintenance Results * Due to [place] state law, this organization might not be sharing negative HIV tests. * Hepatitis C Antibody w/Reflex to HCV RNA, Quantitative PCR (02/16/2017 4:48 PM EST) Hepatitis C Antibody NON-REACT NANCY NON-REACT NANCY 02/17/2017 4:55 AM EST [employer] [facility] Signal To Cut-Off 0.04 <1.00 02/17/2017 4:55 AM EST [employer] Blood specimen (specimen) Structure of peripheral vein / Unknown Venipuncture / Unknown 02/16/2017 4:48 PM EST 02/16/2017 5:13 PM EST Narrative [facility] - 02/17/2017 4:55 AM EST [facility] Received Date: us Anuja Yeh MD LAB BLOOD ORDERABLES Final Resul t [facility] [address] [facility] 3rd Floor, [place] [address], [employer] [facility] [address] [facility] 3rd Floor, [place] [address], from Last 3 Months or Most Recently Relevant to Health Maintenance Insurance MEDICARE [facility] Care Teams Physical Therapy Aid Relationship Specialty Start Date End Date hCandana Esquivel [address] [place] [address] PCP - General 08/26/16
--- OUTSIDE RECORDS SUMMARY | 2024-06-19 11:55 | XMS_ITS | Clinical Summary ---
Author Organization [facility] Address [address] [address] Phone Care Team Providers Care Vascular Technologist Name Role Phone Chandana Esquivel MD Primary [...] 146(Abnor therese H) 135 - 145 mmol/L [facility] Plasma Potassium 4.3 3.4 - 5.0 mmol/L [facility] Plasma Chloride 104 100 - 108 mmol/L [facility] Plasma Carbon Dioxide 24 23 - 32 mmol/L [facility] Plasma Urea Nitrogen 16 8 - 25 mg/dL [facility] Plasma Creatinine 0.90 0.60 - 1.50 mg/dL [facility] Plasma Glucose 79 70 - 110 mg/dL [facility] Calcium 9.7 8.5 - 10.5 mg/dL [facility] eGFR >60 mL/min/1. 73m2 [facility] Comment: Abnormal if <60 mL/min/1.73m2. If patient is -Citizen Of [place], multiply the result by 1.21. Plasma Anion GAP 18(Abnorm ally H) 3 - 17 mmol/L [facility] 04/10/2014 1:45 PM EST 04/10/2014 6:10 PM EST Comment:BLOOD us Wilder Kim MD LAB BLOOD ORDERABLES Edited Resu lt - Final [address] [address] from Last 3 Months or Most Recently Relevant to Health Maintenance Insurance [address] [place], [place] [address] MEDICARE PART A & B [place] & [place] [phone] MEDICARE PART A & [place] PART A & B Care Teams Vascular Technologist Relationship Specialty Start Date End Date Chandana Esquivel MD [address] [place] [address] [address] [address] PCP - General Family Medicine 09/05/13 Additional Source Comments The information contained in this document represents components of the legal health record. It is not the complete legal health record.[facility]
--- OUTSIDE RECORDS SUMMARY | 2024-06-19 11:55 | XMS_ITS | Encounter Summary ---
Author Organization [facility] Address [address] [place] [address] Care Team Providers Care Wireless Development Manager Name Role Phone Chandana Esquivel Primary Care Provider [phone] Anuja Yeh Unavailable Sarah Giles Unavailable [phone] Ambrose Pérez MD Unavailable [phone] Encounter Details Date Type Department Care Team (Late st Contact Info) Description 08/25/2020 Orders Only [facility] [address] [place] [phone] Jasson Zhang MD [address] [id number] Social History Tobacco Use Types Packs/Day Years [...] of this encounter Results * Due to [place] state law, this organization might not be sharing negative HIV tests. * XRAY SHOULDER COMPLETE MIN 2 VWS- RIGHT (DX: SHOULDER PAIN *NO INJURY* M25.511/ 719.41) FC (07/27/2021 2:07 PM EDT) Anatomical Region Laterality Modality UPPER EXTREMITY Radiographic Joy ging 07/28/2021 11:3 6 AM EDT Narrative 07/28/2021 11:36 AM EDT CONTRAST: EXAM: X-ray right shoulder Comparison: CR [place] ??- XRAY SHOULDER COMPLETE MIN 2 VWS [...] CONTRAST: EXAM: X-ray right shoulder Comparison: CR [place] - XRAY SHOULDER COMPLETE MIN 2 VWS [...] on filedocumented in this encounter Care Teams Wireless Development Manager Relationship Specialty Start Date End Date Chandana Esquivel [facility] [address] [place] [address] [address] [place] [address] PCP - General Family Medicine 06/16/17 Anuja Yeh [address] [address] Rheumatology 06/23/18 Sarah Giles [facility] DEPT OF ONCOLOGY [address] [place] [address] Oncology 06/23/18 Ambrose Pérez MD [facility] [address] [place] [address] Anesthesiology 06/23/18 documented as of this encounter
== END 2024-06-19 10:42 | disposition home or self-care (01) ==
LOC: HO.XRAY 10:41
PROVIDERS: Visit Provider Anesthesiology
DX: M17.11 Unilateral primary osteoarthritis, right knee (principal)
CPT/HCPCS: 73560

== ENCOUNTER → 2024-06-19 10:48 | Outpatient (BNV) | payer MEDICARE, SELFPAY | PROVIDERS: Visit Provider Radiology Diagnostic Radiology | DX: M17.11 Unilateral primary osteoarthritis, right knee (principal) | CPT/HCPCS: 73560 ==

== ENCOUNTER 2024-06-21 15:41 | Outpatient (AMB) | payer MEDICARE, SELFPAY ==
[2024-06-21 15:41] VITALS: BMI 24.8
--- NOTE | 2024-06-21 15:41 | A.OFFVIS_ITS ---
Vital Signs 06/21/24 15:41 Height 5 ft 3 in Weight 140 lb BMI 24.8 Intake Visit Reasons: KNEE X-RAY RESULTS Allergies Penicillins Adverse Reaction (Severe, Verified 06/21/24 15:41) Grady WOOD Comments Details: Florencia is on the phone today to discuss the results of the x-ray of the right knee which was performed for her recently. The results are dictated as below. She has very advanced tricompartmental right knee arthritis. I will refer her to Dr. Albrecht for his consideration to perform total knee replacement for this patient. If she is not a good candidate for total knee replacement I will schedule her again as I planned in the past for genicular nerve block with intention to perform radiofrequency ablation of the genicular nerves. Results of the intra-articular right knee steroid injections are very poor very short-lived pain relief in less than 50%. As her lower back pain after Negative results for diagnostic medial branch block L2-L3 -L4 -dorsal ramus L5 on the right. I would like to see CT scan of the lumbar spine she had elsewhere. I requested the patient to bring me the reports of the CT scan. Possibility exists that I will schedule her for the MRI of the lumbar spine to more carefully evaluate the conditions in her lumbar spine. Prior: She is complaining on pain in right lower back right leg and right knee pain. She reports sometimes feeling that right leg is going to give up under her. She reports that this pain started in August of 2023. She had the fall that summer and developed some small spinal fracture however on recent x-ray it is not documented. She reports that standing hurts her pain the most sitting and laying make pain better walking increases the pain. Flexing forward aggravates pain little bit and flexing backwards makes her pain more severe. Her most severe pain is in the morning and after walking. Pain is less severe at rest. She had extensive course of physical therapy and tries to continue home exercise program however this takes her toll when she performs exercises while standing. She was given occupational therapy to help with the cane and walker. She reports that she received cortisone injection in her knee in the past which did not help her pain. [facility] Medical History (Updated 06/21/24 @ 15:59 by Aneudy Vernon MD) Neuropathy Macular degeneration of right eye Hernia Breast cancer, right Heart attack Anxiety High cholesterol HTN (hypertension) Surgical History (Updated 05/04/24 @ 11:11 by Shayy Garvey RN) Hx of cholecystectomy Social History Patient Tobacco Use Status: Never used Tobacco Review of Systems Const All systems reviewed & are unremarkable except as noted in HPI and below Physical Exam Vital Signs: BMI result Body Mass Index 24.8 Telehealth Telehealth Telehealth Platform: Telephone Location of provider rendering services: practice address Location of patient: address on file Patient Identification confirmed using: Name, : Yes Telehealth method: voice only Patient verbally consented to treatment: Yes Patient verbally consented to billing insurance company: Yes Patient informed of any privacy concerns related to visit: Yes Results Reviewed Results Reviewed: Right knee x-ray. Two views of the right knee. FINDINGS: Joint space narrowing medial compartment with associated sclerosis of the articular surfaces medial tibial plateau and medial femoral condyle and marginal osteophyte formation. There is a 4 mm depression of the medial tibial plateau. Marginal osteophyte formation in the posterior superior and posterior inferior patella. No suprapatellar bursa joint effusion. No lytic or blastic lesions. Vascular calcifications IMPRESSION: Tricompartmental osteoarthrosis involving mostly the medial compartment resulting in 4 mm depressed medial tibial plateau. Assessment & Plan Assessment & Plan (1) Osteoarthritis of right knee: Code(s): M17.11 - Unilateral primary osteoarthritis, right knee Category: Medical (2) Tricompartment osteoarthritis of knee: Code(s): M17.10 - Unilateral primary osteoarthritis, unspecified knee Category: Medical (3) Chronic pain syndrome: Code(s): G89.4 - Chronic pain syndrome Category: Medical (4) Iliotibial band syndrome affecting right lower leg: Code(s): M76.31 - Iliotibial band syndrome, right leg Category: Medical (5) Arthritis of right hip: Code(s): M16.11 - Unilateral primary osteoarthritis, right hip Category: Medical (6) Right hip pain: Code(s): M25.551 - Pain in right hip Category: Medical (7) Right knee pain: Code(s): M25.561 - Pain in right knee Category: Medical Plan Initially I was planning after failure to alleviate pain in the right knee with steroid injections to perform genicular nerve block with intention to do in the future radiofrequency ablation of the right genicular nerves. I sent her for the right knee x-ray which demonstrated very advanced osteoarthritis of the knee with tricompartmental changes and tibial plateau depression. This patient might be candidate for total knee replacement. I will send this patient to Dr. Albrecht for his evaluation. If she is not a good candidate for total knee replacement I will take over and perform as I planned genicular nerve block. As of her lower back pain I requested her to bring me CT scan she had elsewhere after she had VCF. The MBB on the right was not effective to treat her pain. Orders: Referrals Orthopedics Referral M17.10 - Unilateral primary osteoarthritis, unspecified knee, M17.11 - Unilateral primary osteoarthritis, right knee Patient Instructions: I here by testify that I spent 30 minutes in conversation with this patient as well as planning her care, evaluating her diagnostic images and diagnostic records, organizing this note. Coding Level of Care Code Tele Est Pt Level 4 (74636) Diagnoses Osteoarthritis of right knee M17.11 Tricompartment osteoarthritis of knee M17.10 Chronic pain syndrome G89.4 Iliotibial band syndrome affecting right lower leg M76.31 Arthritis of right hip M16.11 Right hip pain M25.551 Right knee pain M25.561
--- OUTSIDE RECORDS SUMMARY | 2024-06-21 16:02 | XMS_ITS | Encounter Summary ---
Author Organization [facility] Address [address] [place] [address] Care Team Providers Care Tax Accounting Assistant Name Role Phone Chandana Esquivel Primary Care Provider [phone] Anuja Yeh Unavailable Sarah Giles Unavailable [phone] Ambrose Pérez MD Unavailable [phone] Encounter Details Date Type Department Care Team (Late st Contact Info) Description 07/15/2017 Orders Only [facility] [address] [place] [address] Jasson Zhang MD [address] [id number] Social History Tobacco Use Types Packs/Day Years [...] chronicity documented in this encounter Care Teams Tax Accounting Assistant Relationship Specialty Start Date End Date Chandana Esquivel [facility] [address] [place] [address] PCP - General Family Medicine 06/16/17 Anuja Yeh [address] [address] Rheumatology 06/23/18 Sarah Giles [facility] DEPT OF ONCOLOGY [address] [place] [address] Oncology 06/23/18 Ambrose P[facility]rez MD [facility] [address] [place] [address] Anesthesiology 06/23/18 documented as of this encounter
--- OUTSIDE RECORDS SUMMARY | 2024-06-21 16:02 | XMS_ITS | Clinical Summary ---
Author Organization [facility] Address [address] [address] Phone Care Team Providers Care Industrial Electrical Engineer Name Role Phone Chandana Esquivel MD Primary [...] 146(Abnor therese H) 135 - 145 mmol/L [facility] Plasma Potassium 4.3 3.4 - 5.0 mmol/L [facility] Plasma Chloride 104 100 - 108 mmol/L [facility] Plasma Carbon Dioxide 24 23 - 32 mmol/L [facility] Plasma Urea Nitrogen 16 8 - 25 mg/dL [facility] Plasma Creatinine 0.90 0.60 - 1.50 mg/dL [facility] Plasma Glucose 79 70 - 110 mg/dL [facility] Calcium 9.7 8.5 - 10.5 mg/dL [facility] eGFR >60 mL/min/1. 73m2 [facility] Comment: Abnormal if <60 mL/min/1.73m2. If patient is -[place], multiply the result by 1.21. Plasma Anion GAP 18(Abnorm ally H) 3 - 17 mmol/L [facility] 04/10/2014 1:45 PM EST 04/10/2014 6:10 PM EST Comment:BLOOD us Wilder Kim MD LAB BLOOD ORDERABLES Edited Resu lt - Final [address] [address] from Last 3 Months or Most Recently Relevant to Health Maintenance Insurance [address] [place], [place] [address] MEDICARE PART A & [place] [address] MEDICARE PART A & [place] PART A & B Care Teams Industrial Electrical Engineer Relationship Specialty Start Date End Date Chandana Esquivel MD [address] [place] [address] [address] [address] PCP - General Family Medicine 09/05/13 Additional Source Comments The information contained in this document represents components of the legal health record. It is not the complete legal health record.[facility]
--- OUTSIDE RECORDS SUMMARY | 2024-06-21 16:02 | XMS_ITS | Clinical Summary ---
Author Organization [facility] Address [address] [place] [address] Care Team Providers Care Coater Smoking Pipe Name Role Phone Chandana Esquivel Lalito Primary Care Provider [phone] Anuja Yeh Unavailable Sarah Giles Unavailable [phone] Ambrose Pérez MD Unavailable [phone] Allergies Active Allergy Reactions Criticality Noted [...] Zoster (Zostavax) Discontinued Procedures * Due to [place] SDI-Solution law, this organization might not be sharing [...] unspecified vessel or lesion type, unspecified whether [place] or transplanted heart from Last 3 Months or Most Recently Relevant to Health Maintenance Results * Due to [place] SDI-Solution law, this organization might not be sharing [...] 08/09/2017 7:02 PM EDT us Angela Sykes ROCKET ENGINE COMPONENT MECHANIC CARDIOVASCULAR-WITH INBSKT R TG Final Result MUSE EKG SYSTEM from Last 3 Months or Most Recently Relevant to Health Maintenance Insurance MEDICARE PART B MEDICAID Care Teams Coater Smoking Pipe Relationship Specialty Start Date End Date Chandana Esquivel [facility] [address] [place] [address] PCP - General Family Medicine 06/16/17 Anuja Yeh [address] [address] Rheumatology 06/23/18 Sarah Giles [facility] DEPT OF ONCOLOGY [address] [place] [address] Oncology 06/23/18 Ambrose P[facility]rez MD [facility] [address] [place] [address] Anesthesiology 06/23/18
--- OUTSIDE RECORDS SUMMARY | 2024-06-21 16:02 | XMS_ITS | Encounter Summary ---
Author Organization [facility] Address [address] [place] [address] Care Team Providers Care Slag Skimmer Name Role Phone Chandana Esquivel Lalito Primary Care Provider [phone] Anuja Yeh Unavailable Sarah Giles Unavailable [phone] Ambrose Pérez MD Unavailable [phone] Reason for Referral * CONSULT AND TREATMENT (Routine) - Incomplete Specialty Diagnoses / Procedures Referred By Bartolo pulido Referred To Contact Physical Therapy Diagnoses Right shoulder pain, unspecified chronicity Jasson Zhang MD Phone: tel: fax: Referral ID Status Reason Start Date Expiration Date Visits Requested Visits Authorized [id number] Incomplete Specialty Services Required 07/27/2017 1 1 Question Answer What is the reason for this outside referral? EVALUATE AND TREAT Please provide pertinent patient history. right rotator cuff tear surg sched for 08/18/17 Patient is being referred outside of [facility] for the following reason, however final determination for [id number] requests are made by the Referral Management Department Patient Preference Track Order? No When do you want this visit to occur? PT CONVENIENCE - s/p 15 days 08/18/17 sched surgery Which provider/facility/agency would you like to refer to? Orthopedic Physical Therapy [facility] Encounter Details Date Type Department Care Team ([facility] st Contact Info) Description 07/27/2017 Orders Only [facility] [address] [place] [phone] Jasson Zhang MD [address] [address] Social History Tobacco Use Types Packs/Day Years [...] chronicity documented in this encounter Care Teams Slag Skimmer Relationship Specialty Start Date End Date Chandana Esquivel [facility] [address] [place] [address] PCP - General Family Medicine 06/16/17 Anuja Yeh [address] [address] Rheumatology 06/23/18 Sarah Giles [facility] DEPT OF ONCOLOGY [address] [place] [address] Oncology 06/23/18 Ambrose Pérez MD [facility] [address] [place] [address] Anesthesiology 06/23/18 documented as of this encounter
--- OUTSIDE RECORDS SUMMARY | 2024-06-21 16:02 | XMS_ITS | Encounter Summary ---
Author Organization [facility] Address [address] [place] [address] Care Team Providers Care Ticket Collector Name Role Phone Chandana Esquivel Primary Care Provider [phone] Anuja Yeh Unavailable Sarah Giles Unavailable [phone] Ambrose Pérez MD Unavailable [phone] Encounter Details Date Type Department Care Team (Late st Contact Info) Description 08/25/2020 Orders Only [facility] [address] [place] [address] Jasson Zhang MD [address] [id number] Social History Tobacco Use Types Packs/Day Years [...] of this encounter Results * Due to [place] state law, this organization might not be sharing negative HIV tests. * XRAY SHOULDER COMPLETE MIN 2 VWS- RIGHT (DX: SHOULDER PAIN *NO INJURY* M25.511/ 719.41) FC (07/27/2021 2:07 PM EDT) Anatomical Region Laterality Modality UPPER EXTREMITY Radiographic Joy ging 07/28/2021 11:3 6 AM EDT Narrative 07/28/2021 11:36 AM EDT CONTRAST: EXAM: X-ray right shoulder Comparison: CR [place] ??- XRAY SHOULDER COMPLETE MIN 2 VWS [...] CONTRAST: EXAM: X-ray right shoulder Comparison: CR [place] - XRAY SHOULDER COMPLETE MIN 2 VWS [...] on filedocumented in this encounter Care Teams Ticket Collector Relationship Specialty Start Date End Date Chandana Esquivel [facility] [address] [place] [address] [address] [place] [address] PCP - General Family Medicine 06/16/17 Anuja Yeh [address] [address] Rheumatology 06/23/18 Sarah Giles [facility] DEPT OF ONCOLOGY [address] [place] [address] Oncology 06/23/18 Ambrose Pérez MD [facility] [address] [place] [address] Anesthesiology 06/23/18 documented as of this encounter
--- OUTSIDE RECORDS SUMMARY | 2024-06-21 16:02 | XMS_ITS | Encounter Summary ---
Author Organization [facility] Address [address] [place] [id number] Phone Care Team Providers Care Enterprise Application Analyst Name Role Phone Chandana Esuqivel MD Primary Care Provider Encounter Details Date Type Department Care Team (Late st Contact Info) Description 07/30/2016 Procedure [facility] [address] [place] [address] Social History Tobacco Use Types Packs/Day Years [...] on filedocumented in this encounter Care Teams Enterprise Application Analyst Relationship Specialty Start Date End Date Chandana Esquivel MD [address] [place] [address] [address] [place] [address] PCP - General Family Medicine 09/05/13 documented as of this encounter Additional Source Comments The information contained in this document represents components of the legal health record. It is not the complete legal health record.[facility]
--- OUTSIDE RECORDS SUMMARY | 2024-06-21 16:02 | XMS_ITS | Clinical Summary ---
Author Organization [facility] Address [address] [place] [address] Phone Care Team Providers Care Forest Pathologist Name Role Phone Monica HERRERA Karin Nesbitt [phone] Conditions or Problems Problem Name Problem Code Onset Date Status Entry Date Provider Comment Standard Description Annotate CONTACT DERMATITIS 16241556 (SNOMED CT) Active Karin HERRERA Contact dermatitis Medications Medication Instructions Start Date Stop Date Generic Name NDC Provider TRIAMCINOLONE ACETONIDE 0.1 % OINT Apply BID to affected area on forearms daily TRIAMCINOLONE ACETONIDE [id number] Karin HERRERA ATIVAN TABS LORAZEPAM TABS [id number] Karin HERRERA ADULT ASPIRIN EC LOW STRENGTH 81 MG ORAL TABLET DELAYED RELEASE ASPIRIN [id number] Karin HERREAR CALCIUM-MAGNESIU M TABS CALCIUM-MAGNESIU M TABS [id number] Karin HERRERA LETROZOLE TABS LETROZOLE TABS [id number] Karin HERRERA GABAPENTIN TABS GABAPENTIN TABS 31478490312 Karin HERRERA METOPROLOL TARTRATE SOLN METOPROLOL TARTRATE SOLN [id number] Karin HERRERA LISINOPRIL TABLET LISINOPRIL TABS 85072091677 Karin HERRERA Medications Administered No information available. [...] Procedures Code Procedure Name Date Entry Date [id number] Patient encounter procedure Vital Signs No information available. Immunizations No information available. Advance Directives No information available.
--- OUTSIDE RECORDS SUMMARY | 2024-06-21 16:03 | XMS_ITS | Data Portability ---
Author Organization [place] - [facility] [place] Address [address] [place] [address] Care Team Providers Care Director Of Research Name Role Phone LEONOR ESQUIVEL Primary Care Provider [phone] LEONOR ESQUIVEL Referring Provider MATT PLUMMER Orthopedic Surgeon LEONOR ESQUIVEL Primary Care Provider SYLVESTER FUNEZ Foreign Law Consultant DORITA RAHMAN Foreign Law Consultant [phone] MARQUITA PÉREZ Pain Management Assessment Encounter Date [...] venous insufficiency and recommended that she use xcjv-uxf-skktdhe compression socks to help. -Continue current medications -Lipids -Follow-up in 1 year [email or web address] Not available 07/29/2022 12:21:08 Plan of Treatment Reminders Order Date Submit Date Provider Last Modified By Organization Details Last Modified Time Details Appointments None recorded. Lab rf (rheumatoid factor), serum 2023 024 [facility] Patient Reg, [address] [place], [address], 4 17:08:37 ccp (cyclic citrullinat ed peptide) iga+igg, serum 2023 024 [facility] Patient Reg, [address] [place], [address], 4 22:06:56 erythrocyte sedimentati on rate, QN, blood 2023 024 [facility] Patient Reg, [address] [place], [address], 4 16:28:25 C-reactive protein, quantitativ e, serum or plasma 2023 024 [facility] Patient [facility], [address] [place], [address], 4 17:09:39 uric acid, serum or plasma 2023 024 [facility], [address] , [place], [address], 4 17:09:38 lipid panel, serum 2022 023 [facility], [address] [place], [address], 3 14:16:31 rapid flu (A+B) 2021 022 [facility] In-Office Order, Internal Use Only DO Not Attach Compendium DO Not Attach Compendium, Do Not Delete/merge, [id number] 2 12:17:03 Referral physical therapist referral - Ms. Ahmadi reports being unstable on her feet due to lower extremity weakness. Please evaluate 2023 024 [facility](Phys ical Therapy Dept), [address] [facility] [place], [address], 4 12:22:49 Procedures None recorded. Surgeries None recorded. Imaging electrocard iogram 2022 023 [facility] [place], [address], [facility], [place], [address], 3 11:56:45 Medication Orders None recorded. Patient TargetsNo targets recorded. Patient Instructions Encounter Date Encounter Id Patient Instructions Last Modified By Organization Details Last Modified Time 07/29/2022 [id number] In addition to listed labs, xrays and documents, EKG personally reviewed [email or web address] Not available 07/29/2022 12:21:24 11/03/2023 [id number] 1. PHYSICAL THERAPY: pt encouraged to stay [...] DO Not Attach Compendium, Do Not Delete/merge, [id number] 01/07/2022 11:18:03 01/08/20 22 01/07/2022 rapid flu (A+B) Flu Type B negati ve Not Available In-Office Order Internal Use Only DO Not Attach Compendium DO Not Attach Compendium, Do Not Delete/merge, [id number] 01/07/2022 11:18:03 01/08/20 22 01/07/2022 rapid flu (A+B) Internal Control Valid Not Available In-Off ice Order Internal Use Only DO Not Attach Compendium DO Not Attach Compendium, Do Not Delete/merge, [id number] 01/07/2022 11:18:03 01/08/20 22 01/07/2022 rapid flu (A+B) Lot #: [id number] Not Available In-Office Order Internal Use Only DO Not Attach Compendium DO Not Attach Compendium, Do Not Delete/merge, [id number] 01/07/2022 11:18:03 01/08/20 22 01/07/2022 rapid flu (A+B) Exp Date: Not Available In-Office Order Internal Use Only DO Not Attach Compendium DO Not Attach Compendium, Do Not Delete/merge, [id number] 01/07/2022 11:18:03 07/30/19 23 07/29/2022 LIPID PANEL WITH REFLE X triglyceride s w/ reflex LDL 81 mg/dL 30-150 normal Refer ence Range s: <150 mg/dl Janice l 150-1 99 mg/dl Borde rline High 200-4 99 mg/dl High >500 mg/dl Very High Not Available [facility] Laboratory Department [address] [place] [address], [address] 07/29/2022 14:16:31 07/30/19 23 07/29/2022 LIPID PANEL WITH REFLE X cholesterol 164 mg/dL 100-20 0 normal Not Available [facility] Department [address] [place] [address], [address] 07/29/2022 14:16:31 07/30/19 23 07/29/2022 LIPID PANEL [...] mg/dL Very high >190 mg/dL Not Available [facility] Department [address] [place], [address] 07/29/2022 14:16:31 07/30/19 23 07/29/2022 LIPID PANEL WITH REFLE X HDL cholesterol 59.0 mg/dL 40-60 normal Major risk facto r for CHD: <40 mg/dL Negat nancy risk facto r for CHD: >=60 mg/dL Not Available [facility] Laboratory Department [address] [place], [address] 07/29/2022 14:16:31 07/30/19 23 07/29/2022 LIPID PANEL WITH REFLE X chol HDL ratio 2.78 Risk CHOL/ HDL CHOL/ HDL Ratio Male Femal e 1/2 AVERA GE 3.43 3.27 AVERA GE 4.97 4.44 2 X AVERA GE 9.55 7.05 3 X AVERA GE 23.39 11.04 Not Available [facility] Laboratory Department [address] [place], [address] 07/29/2022 14:16:31 05/17/19 24 05/17/2023 ERYTH ROCYT E SEDIM ENTAT ION RATE erythrocyte sedimentatio n rate 45 mm/HR 0-29 high Not Available [facility] Laboratory Department [address] [place], [address] 05/17/2023 16:28:25 05/17/19 24 05/17/2023 RHEUM ATOID FACTO R rheumatoid factor 11 IU/mL 0-14 normal Not Available [facility] Laboratory Department [address] [place] [address], [address] 05/17/2023 17:08:37 05/17/19 24 05/17/2023 URIC ACID uric acid 4.5 mg/dL 2.4-5. 7 normal Not Available [facility] Department [address] [place], [address] 05/17/2023 17:09:38 05/17/19 24 05/17/2023 C REACT NANCY PROTE IN C reactive protein < 3.00 mg/L 0-5 normal Not Available [facility] Laboratory Department [address] [place], [address] 05/17/2023 17:09:39 05/17/19 24 05/19/2023 CCP ANTIB ODIES IGG/I GA ccp antibodies IgG/IgA 11 units 0-19 Negat nancy <20 Weak posit nancy 20 - 39 Moder ate posit nancy 40 - 59 Stron g posit nancy >59 Perfo rmed at: 01 - [facility] [address] [place] [address] Lab Direc tor: Maria Luisa Georges MD, Phone : [phone] Not Available [facility] Laboratory Department [address] [place], [address] 05/19/2023 22:06:56 07/31/19 23 07/29/2022 elect rocar [...] diogr am No observ ation record ed. [email or web address] [facility] [address], [address], 07/30/2022 11:56:45 05/19/19 24 01/11/2019 elect romyo gram + nerve condu ction study No observ ation record ed. [email or web address] [facility] [address], [place], [address], 08/19/2023 10:09:09 11/04/19 24 11/04/2023 ir fluor oscop y <1HR [facility] [address] [facility] [place] [address] Interv ention al Radiol ogy Rpt Signed Patien t: Fani Anu mcneil MR#: [id number] : 1945 Acct:H [id number] Age/Se x: 78 / F ADM Date: Loc: HE.OR Attend ing Dr: Marquita Pérez MD Orderi ng Physic roseline: Marquita éPrez MD Date of Servic e: Proced ure(s) : IR fluoro scopy <1hr Access ion Number (s): [id number] H cc: Marquis Esquivel MD EXAM: IR [...] DD/DT: 1111 TD/TT: 1111 Transc riptio nist: [email or web address] [address] [place] [address], [address], 11/07/2023 08:10:28 Result Notes None recorded. Problems Name Problem SNOMED Code Status Onset Date Resolution Date Notes Provider Name and Address Organization Details Recorded Time Benign essential hypertension 7217940 Active Not Available [facility] 3 03:05:38 Neuralgia 61182653 Active Not Available [facility] 3 03:05:38 Anxiety state 744779776 Active Not Available [facility] 3 03:05:38 Screening for osteoporosis Active Not Available [facility] 3 03:05:38 Vitamin D deficiency 10589298 Active Not Available [facility] 3 03:05:38 Depressive disorder 96700168 Active Not Available [facility] 3 03:05:38 Pure hypercholeste rolemia 665103601 Active Not Available [facility] 3 03:05:38 Meralgia paresthetica 22491736 Active Marquita Pérez MD [address] [place] [address], [address] , [facility] 4 12:05:23 Myofascial pain 350544348 Active Marquita Pérez MD [address] [place] [address] [place], [address] , [facility] 4 12:05:23 Arthropathy of lumbar facet joint 940025641 Active Marquita Pérez MD [address] [place], [place] [address], [address] , [facility] 4 12:05:23 Peripheral neuropathic pain 576454938 Active Marquita Pérez MD [address] [place], [place] [address] [place], [address] , [facility] 5 11:35:07 Coronary arteriosclero sis 71857941 Active 2021 Radha Dooley [facility] 2 20:18:23 Notes:palpations [place] Problem Notes None recorded. Procedures Surgical History Date Name Laterality Status Provider Name and Address Organization Details Recorded Time 01/26/20 24 Corticosteroid Injection - KNEE completed YUNI STAFFORD [address] [place] [address] [place], [address], [facility] 01/30/2024 10:37:48 11/04/19 24 lumbar epidural steroid injection completed Naz Brantley CNA [facility] 11/04/2023 13:30:17 11/05/19 20 Corticosteroid Injection - SHOULDER completed Liam Rucker [facility] 11/05/2019 10:23:20 Imaging Results Imaging Date Name Status LastModified by Organization Details LastModified Time 07/29/2022 electrocardiogram completed Informa tion not available 08/24/2022 11:09:20 07/29/2022 electrocardiogram completed Informa tion not available 08/24/2022 11:09:21 07/29/2020 electrocardiogram completed Informa tion not available 08/02/2022 06:44:40 07/29/2022 electrocardiogram completed [email or web address] [facility] [address] [place] [address] [place], [address], 07/30/2022 11:56:45 01/11/2019 electromyogram + nerve conduction study completed [address], [place], [address], 08/19/2023 10:09:09 11/04/2023 ir fluoroscopy <1HR completed [facility] [address], [place], [address], 11/07/2023 08:10:28 Procedure Notes None recorded. Medical Equipment None Reported. Allergies Allergen ID Allergen Name Allergen Category Reaction Reaction Severity Criticality Documentation Date Start Date Code Code System Note Provider Name and Address Organization Details Recorded Time 203628 nickel environme nt Not available Not available Not available 12/07/2019 03696 29 RxNorm Paigejose lamas [facility] 0 11:25:28 38695 Product containin g penicilli n (product) medicatio n hives Not available Not available 03/29/2012 04787 8001 SNOMED Radha Soumya lamas [facility] 3 10:57:18 Medications Name Sig Start [...] Available Not Available Not Available Fluzone Quad 5944-1152 (PF) 60 mcg (15 mcg x 4)/0.5 [...] Updated DateTime 3 160.02 cm 36 kg/m2 07649.2 5 g 65 /min 130 mm[Hg] 78 mm[Hg] Danya Box [facility] 3 10:16:20 Date Recorded Body height Heart rate Body mass index (BMI) Body weight Systolic blood pressure Diastolic blood pressure Provider Name and Address Organization Details Last Updated DateTime 4 160.02 cm 61 /min 34 kg/m2 92791.7 4 g 142 mm[Hg] 83 mm[Hg] Gerardo Emerson [facility] 4 14:42:04 Date Recorded Body height Heart rate Systolic blood pressure Diastolic blood pressure Provider Name and Address Organization Details Last Updated DateTime 11/03/2023 160.02 cm 80 /min 151 mm[Hg] 79 mm[Hg] Naz Brantley CNA [facility] 11/03/2023 12:20:00 Date Recorded Body height Heart rate Oxygen saturation Oxygen saturation in Arterial blood by Pulse oximetry Body temperature Systolic blood pressure Diastolic blood pressure Provider Name and Address Organization Details Last Updated DateTime 2 160.02 cm 74 /min 97 % 97 % 97.2 [degF] 115 mm[Hg] 70 mm[Hg] Edith Isabel MA [facility] 2 11:07:21 Social History Question Answer Notes LastModified by Organizat ion Details LastModified Time Tobacco Smoking Status Former Smoker Radha lamas [facility] 03/29/2012 10:57:18 What Is Your Level [...] Long? No Information not available 09/26/2013 An Compressor Battery Pellets Involved? 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 No Information not available 09/26/2013 Alcohol Use No Information n ot available 09/26/2013 Do You Currently Or Have You Ever Used Recreational Drugs? If Yes, Specify No Information not available 09/26/2013 Any Addiction Or Substance/drug/a lcohol Abuse Issues? If Yes, Specify No Information not available 09/26/2013 [employer] Information no t available 03/29/2012 Pap Smear [...] 10:27:43 Mother Problem 59 passed from either [place] or kidney diseas e Not available 09/26/2013 [...] Tdap 10/04/2008 completed Radha lamas [place] - [facility] 07/05/2012 13:10:49 Past Encounters Encounter ID Performer Location Encounter Start Date Encounter Closed Date Diagnosis/Indication Diagnosis SNOMED-CT Code Diagnosis ICD10 Code Diagnosis Note [id number] Marquita Pérez MD [facility] [address] [place] [address] [place] [address] 09/26/2013 10:17:35 09/26/2013 12:03:03 Meralgia paresthetica 74987406 Myofascial pain 918234363 Arthropath y of lumbar facet joint 993241461 Peripheral neuropathic pain 041216396 [id number] Lesly Sears MD [facility] [address] [place], [place] [address] [address] 09/04/2015 10:49:22 09/04/2015 11:51:15 Abdominal pain 89366509 R10.9 [id number] Sylvester Funez MD [facility] [place] [facility] [address] [place] [address] 05/03/2016 09:23:37 05/03/2016 10:09:35 Coronary arteriosclerosis in [place] artery 9463964279 107 I25.10 [id number] Evangelist Zamarripa MD Orthopedi cs [address] [place] [address], [address] [address] 04/22/2017 09:30:54 04/22/2017 10:03:57 Full thickness rotator cuff tear 853023796 M75.970 [id number] Caleb Jose MD Orthopedi cs [address] [place] [address], [address] [place] [address] 05/16/2017 09:35:18 05/16/2017 10:28:13 Partial thickness rotator cuff tear 794003837 M75.102 Patient has either full or partial-th [...] in 4-8 weeks or as symptoms dictate. [id number] Dorita Smith NP [facility] [address] [place] [address] 08/25/2017 10:42:53 08/25/2017 12:07:25 Benign essential hypertension 9835020 I10 Her blood pressure is reasonably controlled . We will help to monitor her trends. Coronary arteriosclerosis in [place] artery 0171140860 107 I25.10 Given her symptoms of heartburn, [...] to follow her on an annual basis. [id number] MD [facility] [address] [place] [address] [place] [address] 06/07/2018 13:29:16 06/07/2018 14:43:25 Spinal stenosis of lumbar region 78890325 M48.061 Lumbar radiculopathy 128 455325 M54.16 Lumbar spondylosis 64409 0009 M47.816 Anxiety disorder 6210134 06 F41.9 [id number] MD [facility] [address] [place] [address] 08/09/2018 12:51:54 08/09/2018 13:31:01 Lumbar radiculopathy 811201817 M54.16 left Lumbar spondylosis 98703 0009 M47.333 [id number] MD [facility] [address] [place] [address] 09/13/2018 13:46:03 09/13/2018 14:51:58 Lumbar spondylosis 378509719 M47.816 Pain in left foot 113138 2682 33767 M79.672 Neuralgia 62017229 M79.2 left posterior tibial [id number] MD [facility] [address] [place], [place] [address] 10/11/2018 09:40:27 10/11/2018 10:59:08 Pain in left foot 3325033270 53410 M79.672 Neuralgia 70364048 M79.2 left posterior tibial Lumbar spondylosis 16129 0009 M47.563 [id number] [facility] [address] [place] [address] 10/30/2018 14:59:22 10/30/2018 16:05:39 Coronary arteriosclerosis in [place] artery 1672297577 107 I25.10 She has no anginal symptoms [...] sooner as needed. Benign ess ential hypertension 6735500 I10 Her blood pressure is reasonably controlled . We will continue to monitor her trends. [id number] Marquita Pérez MD [facility] [address] [place] [address] [place] [address] 01/16/2019 13:48:03 01/16/2019 14:28:58 Pain in left foot 6447771581 64810 M79.672 Neuralgia 13092902 M79.2 left posterior tibial [id number] Cee Graf MD [facility] [address] [place] [address] [address] [place] [address] 08/26/2019 13:51:23 08/26/2019 13:52:16 Viral screening 757400071 Z11.59 [id number] YUNI SKINNER [facility] [address] [facility], [address] [place] [address] 09/13/2019 13:14:55 09/13/2019 14:02:31 Closed fracture scapula, glenoid 814525702 S42.141A 74yo pleasant retired female, previously evaluated [...] potential treatment options. Pt agreed with plan. [id number] Caleb Jose MD Orthopedi [address], [address] [place] [address] 11/05/2019 09:05:10 11/05/2019 10:31:48 Full thickness rotator cuff tear 590552977 M75.121 despite the MRI findings, her range [...] successful . Closed fra cture scapula, glenoid 297016901 S42.141A 74yo pleasant retired female, previously evaluated [...] Pt agreed with plan. Contusion of chest 43842 004 S20.211D patient aalso reports discomfort over [...] symptoms of concern were reviewed in detail. [id number] Marquita Pérez MD [facility] [address] [place] [address] [place] [address] 12/07/2019 11:13:22 12/07/2019 12:01:02 Pain in left foot 4650626287 90145 M79.672 Neuralgia 36853305 M79.2 left posterior tibial [id number] Cee Graf MD [facility] [address] [address] 03/01/2020 16:09:26 03/01/2020 16:09:52 Viral screening 333892850 Z11.59 [id number] Juaquin Talavera NP, S [facility] [address] [address] 01/19/2021 09:31:09 01/19/2021 10:15:20 Exposure to SARS-CoV-2 182759019 Z20.822 Patient requests Covid testing only, declines evaluation at this time by provider. [id number] YUNI SYLVESTER [facility] [address] [place] [address] 06/24/2021 10:48:19 06/24/2021 11:36:14 Fatigue 33592739 R53.83 Pt presents with fatigue, dry cough, [...] of when to RTC discussed. Pruritic rash 35482055 L 28.2 -unclear etiology of rashcontac t dermatitis vs allergic reaction vs eczema vs nickel reactionad vised cool compresses , avoidance of itchng, benadryl cream or anthistami ne, will put in triamcinol one for itch relief. Advised to follow up with pcp should sx persist [id number] Reagan Montgomery MD [facility] [place] [facility] [address] [place] [address] 09/30/2021 15:12:20 09/30/2021 16:27:38 Paresthesia 56532278 R20.2 - Ms. Ahmadi reports a long-stand ing history of bilateral upper and lower extremity numbness and tingling- She reports that her lower extremity numbness and tingling is becoming more severe and more extensive- I will obtain EMG studies at this time for further assessment regarding a bilateral upper and lower extremity neuropathi c process Muscle wea kness of limb 176636317 M62.81 - Ms. Ahmadi reports being unstable on her feet due to lower extremity weakness- I will place a referral to physical therapy for further evaluation and treatment of lower extremity weakness Pain of mu ltiple joints 02381877 M25.50 - There is no obvious joint [...] during today's visit Pes anseri nus bursitis 82594290 M70.51 M70.52 - Findings consistent with bilateral anserine bursitis noted on today's musculoske letal physical examinatio n- I have recommende d stretching , range of motion exercises, lower extremity strengthen ing and weight loss Bilateral trochanteric bursitis 3918876017 4186303 M70.61 M70.62 - Findings consistent with bilateral trochanter ic bursitis noted on today's musculoske letal physical examinatio n- I have recommende d stretching , range of motion exercises, lower extremity strengthen ing and weight loss Osteoarthritis 924736362 M19.90 - Findings consistent with osteoarthr itis noted on musculoske letal physical examinatio n as well as imaging studies- I have recommende d the use of Tylenol, heat and topical therapies for treatment of pain associated with osteoarthr itis [id number] [facility] [address] [place] [address] 01/07/2022 09:46:12 01/07/2022 11:25:32 Fever 444312628 R50.9 Pt presents with two days of [...] RTC discussed. pt in agreement with plan [id number] MD [facility] [place] [facility] [address] [place] [address] 07/29/2022 09:51:51 07/29/2022 10:54:48 Coronary arteriosclerosis 13900558 I25.10 Benign ess ential hypertension 6525923 I10 Hyperlipidemia 63039055 E78.5 [id number] MD [facility] [address] [place] [address] 05/17/2023 14:32:32 05/17/2023 15:37:23 Paresthesia 42163487 R20.2 - Ms. Ahmadi continues to experience [...] also continue to follow-up with Dr. Kim ([facility] [place] and his associates for further evaluation and management of neuropathy Muscle bibiana radhajhonatan of limb 299356121 M62.81 - Ms. Ahmadi reports being unstable on her feet due to lower extremity weakness- I will place a referral to physical therapy for further evaluation and treatment of lower extremity weakness Pain of mu ltiple joints 27472019 M25.50 - There is possible joint synovitis [...] taper for treatment of joint flares Osteoarthritis 830509068 M19.90 - There are findings consistent with osteoarthr itis noted on musculoske letal physical examinatio n as well as imaging studies- I have recommende d the use of Tylenol, heat and topical therapies for treatment of pain associated with osteoarthr itis Pes anseri nus bursitis 46979678 M70.51 M70.52 - There are findings consistent with bilateral anserine bursitis noted on today's musculoske letal physical examinatio n- I have recommende d stretching , range of motion exercises, lower extremity strengthen ing and weight loss Bilateral trochanteric bursitis 3361872159 1408115 M70.61 M70.62 - There are findings consistent with bilateral trochanter ic bursitis noted on today's musculoske letal physical examinatio n- I have recommende d stretching , range of motion exercises, lower extremity strengthen ing and weight loss [id number] Marquita Pérez MD [facility] [address] [address] 11/03/2023 12:00:52 11/03/2023 13:01:17 Lumbar spondylosis 125696160 M47.816 Lumbar radiculopathy 128 174965 M54.16 left 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 2227189561 32288 M99.63 mod to severe b/l L5S1 [id number] YUNI STAFFORD [facility] [place] [facility] [address] [place] [address] 01/26/2024 14:33:49 01/26/2024 15:12:14 Osteoarthritis of right knee joint 3557731986 04448 M17.11 This a very pleasant 78-year-ol d [...] 1 *SELF PAY* Wendy Schaefer 09/26/2013 1 [facility] [id number] Alban Ahmadi [id number] Florencia Ahmadi 04/20/2017 1 [facility] (HMO) [id number] Alban Ahmadi [id number] 2 Florencia Ahmadi 03/22/2024 1 [place] Florencia [place] [id number] Florencia Hooks [place] 08/03/2017 1 [facility] [id number] Alban Mohry [id number] Florencia Mohry 01/26/2024 1 [place]MED[place] PPO) [id number] Florencia Hooks Faniy [id number] Florencia Hooks [place] 01/26/2024 2 [place] Florencia Hooks [place] [id number] Florencia Hooks [place] 08/05/2017 1 *SELF PAY* Nguyen nicole Hooks [place] 04/05/2024 2 [place] [facility] Florencia Hooks Faniy [id number] Florencia Hooks Faniy 01/26/2024 2 [place] [facility] Florencia Hooks Faniy [id number] Florencia Hooks Sterlingmaristarun Notes Date Note Type Note Provider Name and Address Organization Details Recorded Time 2 text/html 76 year old female presents at [facility] for a fever [...] days,-using tylenol and advil Melly Kyle MD [address] [place] [address], [place], [address], [facility] 01/08/2022 12:45:22 3 text/html Florencia [...] energy level is good. Sylvester Funez MD [address] [place] [address], [phone], [facility] 07/29/2022 12:21:40 4 text/html Ms. Ahmadi was [...] shortness of breath. Reagan Montgomery MD [address] [place], [address], [facility] 05/17/2023 17:18:07 4 text/html Pain Management: New [...] enjoyment of life: 10 Prior tests?x-rays ([facility] - within the past 2 months) Conditions associated with your pain?muscle weakness; difficulty walking; numbness / tingling / pins/ needles Prior treatments?physical therapy (home - current) Prior medications you've tried?Tramadol/Flexeril - at times Advil/Tylenol - minimal relief Marquita Pérez MD [address] [place] [address], [phone], [facility] 11/03/2023 12:57:25 4 text/html OrthopedicsReported bypatient.Location:Right ; Knee Quality:Intermittent;Ach ing;Throbbing Severity:Mild-Moderate Onset/Timing:Gradual Duration:months Context:No change ImagingX-ray (10/14/23) R knee pain YUNI STAFFORD [address] [facility] [place], [address], [facility] 01/30/2024 10:38:21 OBGyn Episode No OBEpisode recorded.
--- OUTSIDE RECORDS SUMMARY | 2024-06-21 16:03 | XMS_ITS | Clinical Summary ---
Author Organization [facility] Address [address] [place] [address] Care Team Providers Care Imaging Tech Name Role Phone Chandana Esquivel Primary Care Provider [phone] Allergies Active Allergy Reactions Criticality Noted Date [...] bilateral 02/16/2017 Coronary artery disease invo lving [place] coronary artery of [place] heart with angina pectoris 02/16/2017 Breast cancer [...] topic Sigmoidoscopy Discontinued Procedures * Due to [place] [employer] law, this organization might not be sharing negative HIV tests. Procedure Name Priority Date/Time Associated Diagnosis Comments HEPATITIS C ANTIBODY W/REFLEX TO HCV RNA, QUANTITATIVE PCR Routine 02/16/2017 4:48 PM EST Primary osteoarthritis of both hands from Last 3 Months or Most Recently Relevant to Health Maintenance Results * Due to [place] [employer] law, this organization might not be sharing negative HIV tests. * Hepatitis C Antibody w/Reflex to HCV RNA, Quantitative PCR (02/16/2017 4:48 PM EST) Hepatitis C Antibody NON-REACT NANCY NON-REACT NANCY 02/17/2017 4:55 AM EST [employer] [facility] Signal To Cut-Off 0.04 <1.00 02/17/2017 4:55 AM EST [employer] Blood specimen (specimen) Structure of peripheral vein / Unknown Venipuncture / Unknown 02/16/2017 4:48 PM EST 02/16/2017 5:13 PM EST Narrative DUSTY QUINTEROS - 02/17/2017 4:55 AM EST [facility] Received Date: us Anuja Yeh MD LAB BLOOD ORDERABLES Final Resul t DUSTY QUINTEROS [address] [facility] 3rd Floor, [place] [address], [place] [phone] [facility] [address], [place] [address], [place] [phone] from Last 3 Months or Most Recently Relevant to Health Maintenance Insurance MEDICARE [facility] Care Teams Imaging Tech Relationship Specialty Start Date End Date Chandana Esquivel [address] [place] [address] [place] [address] PCP - General 08/26/16
--- OUTSIDE RECORDS SUMMARY | 2024-06-21 16:03 | XMS_ITS | Referral Summary ---
Author Organization [facility] Address [address] [place] [address] Care Team Providers Care Pitch Gatherer Name Role Phone Chandana Esquivel Primary Care Provider Allergies Active Allergy Reactions [...] bilateral 02/16/2017 Coronary artery disease invo lving [place] coronary artery of [place] heart with angina pectoris 02/16/2017 Breast cancer [...] Not on file Procedures * Due to [place] state law, this organization might not be sharing negative HIV tests. Procedure Name Priority Date/Time Associated Diagnosis Comments HEPATITIS C ANTIBODY W/REFLEX TO HCV RNA, QUANTITATIVE PCR Routine 02/16/2017 4:48 PM EST Primary osteoarthritis of both hands from Last 3 Months or Most Recently Relevant to Health Maintenance Results * Due to [place] state law, this organization might not be sharing negative HIV tests. * Hepatitis C Antibody w/Reflex to HCV RNA, Quantitative PCR (02/16/2017 4:48 PM EST) Hepatitis C Antibody NON-REACT NANCY NON-REACT NANCY 02/17/2017 4:55 AM EST [id number] [facility] Signal To Cut-Off 0.04 <1.00 02/17/2017 4:55 AM EST [employer] Blood specimen (specimen) Structure of peripheral vein / Unknown Venipuncture / Unknown 02/16/2017 4:48 PM EST 02/16/2017 5:13 PM EST Narrative [facility] - 02/17/2017 4:55 AM EST [facility] Received Date: us Anuja Yeh MD LAB BLOOD ORDERABLES Final Resul t [facility] [address] [facility] 3rd Floor, [place] [address], [facility] [facility] [address] [facility] [address]rd Floor, [place] [address], from Last 3 Months or Most Recently Relevant to Health Maintenance Insurance MEDICARE [facility] Care Teams Pitch Gatherer Relationship Specialty Start Date End Date Chandana Esquivel [address] [place] [address] PCP - General 08/26/16
--- OUTSIDE RECORDS SUMMARY | 2024-06-21 16:03 | XMS_ITS | Encounter Summary ---
Author Organization [facility] Address [address] [place] [address] Care Team Providers Care Sports Marketer Name Role Phone Chandana Esquivel Primary Care Provider [phone] Anuja Yeh Unavailable Sarah Giles Unavailable [phone] Ambrose Pérez MD Unavailable [phone] Encounter Details Date Type Department Care Team (Late st Contact Info) Description 08/09/2017 Orders Only [facility] Pre-Admission Testing [address] [place] [address] Angela Sykes NP Social History Tobacco Use [...] of this encounter Procedures * Due to [place] state law, this organization might not be sharing negative HIV tests. Procedure Name Priority Date/Time Associated Diagnosis Comments EKG-TO BE READ & BILLED BY ADULT OR PEDIATRIC CARDIOLOGY Routine 08/09/2017 2:42 PM EDT Tear of right rotator cuff, unspecified tear extent Pre-operative examination Atherosclerosis of coronary artery, angina presence unspecified, unspecified vessel or lesion type, unspecified whether [place] or transplanted heart LATEX (K82) IGE Routine 08/09/2017 2:27 PM EDT Latex sensitivity BASIC METABOLIC PANEL WITH (GFR) Routine 08/09/2017 2:27 PM EDT Tear of right rotator cuff, unspecified tear extent Pre-operative examination Atherosclerosis of coronary artery, angina presence unspecified, unspecified vessel or lesion type, unspecified whether [place] or transplanted heart documented in this encounter Results * Due to [place] state law, this organization might not be [...] previous ECGs available Confirmed by Lissy Rich ([id number]) on 08/09/2017 7:02:09 PM [facility]USE EKG SYSTEM 08/09/2017 2:42 PM EDT 08/09/2017 7:02 PM EDT Angela Sykes NP CARDIOVASCULAR-WITH INBSKT R TG Final Result Performing Organization Address [facility] de Phone Number MUSE EKG SYSTEM * LATEX (K82) IGE (08/09/2017 2:27 PM EDT) Pathologist [facility] Latex (K82) IgE <0.10 kU/L [facility] Latex (K82) Class 0 [facility] Comment: Negative findings for latex specific IgE antibodies does not preclude latex allergy. Positive findings for latex specific IgE antibodies is highly suggestive of latex allergy and should be considered in context of clinical findings. 08/09/2017 2:27 PM EDT 08/09/2017 10:53 PM EDT Narrative Resulting Agency Comment [id number] us Angela Sykes NP LABORATORY Final Result [facility] [address] [place] [address] * (ABNORMAL) BASIC METABOLIC PANEL WITH (GFR) [...] approximately 13% higher for people identified as -[place]. GFR 82 > OR = 60 mL/min/1 [...] needs for GFR calculation. Resulting Agency Comment [id number] Angela Sykes NP LABORATORY Final Result [facility] [address] [place] [address] documented in this encounter Visit Diagnoses Diagnosis Tear of right rotator cuff, unspecified tear extent Pre-operative examination Preoperative examination, unspecified Atherosclerosis of coronary artery, angina presence unspecified, unspecified vessel or lesion type, unspecified whether [place] or transplanted heart Latex sensitivity Allergy to latex documented in this encounter Care Teams Sports Marketer Relationship Specialty Start Date End Date Chandana Esquivel [facility] [address] [address] PCP - General Family Medicine 06/16/17 Anuja Yeh [address] [address] Rheumatology 06/23/18 Sarah Giles [facility] DEPT OF ONCOLOGY [address] [place] [address] Oncology 06/23/18 Ambrose Pérez MD [facility] [address] [place] [address] Anesthesiology 06/23/18 documented as of this encounter
--- OUTSIDE RECORDS SUMMARY | 2024-06-21 16:03 | XMS_ITS | Encounter Summary ---
Author Organization [facility] Address [address] [place] [address] Care Team Providers Care Nursing Surgical Services Director Name Role Phone Chandana Esquivel Primary Care Provider [phone] Anuja Yeh Unavailable Sarah Giles Unavailable [phone] Ambrose Pérez MD Unavailable [phone] Reason for Visit * Reason Comments Follow Up Encounter Details Date Type Department Care Team ([facility] st Contact Info) Description 06/21/2018 Telephone [facility] Neurology [address] [address] Wilder Kim MD [address] [id number] Follow Up Social History Tobacco Use Types [...] Hoffman RN - 06/22/2018 9:35 AM EDT [facility] in [place] is the preferred pharmacy. I do see that 2 historical meds were entered yesterday during her consult. Forwarding to Dr. Kim in case they discussed her needing to refill them. * Telephone Encounter - Ирина Adams - 06/21/2018 4:29 PM EDT Florencia called to let the nurse know that she [facility] using [facility]. This pharmacy is notin the system. Please put that in as the pharmacy she will be using. documented in this encounter Plan of Treatment Not on file documented as of this encounter Visit Diagnoses Not on filedocumented in this encounter Care Teams Nursing Surgical Services Director Relationship Specialty Start Date End Date Chandana Esquivel [facility] [address] [address] PCP - General Family Medicine 06/16/17 Anuja Yeh [facility] [address] [place] [address] Rheumatology 06/23/18 Sarah Giles [facility] DEPT OF ONCOLOGY [address] [place] [address] Oncology 06/23/18 Ambrose Pérez MD [facility] [address] [place] [address] Anesthesiology 06/23/18 documented as of this encounter
== END 2024-06-21 15:52 | disposition home or self-care (01) ==
LOC: HO.PMC 15:41
PROVIDERS: Visit Provider Anesthesiology
DX: M17.11 Unilateral primary osteoarthritis, right knee (principal); M17.10 Unilateral primary osteoarthritis, unspecified knee; G89.4 Chronic pain syndrome; M76.31 Iliotibial band syndrome, right leg; M16.11 Unilateral primary osteoarthritis, right hip; M25.551 Pain in right hip; M25.561 Pain in right knee
CPT/HCPCS: 99214

== ENCOUNTER → 2024-06-21 15:41 | Outpatient (BNVA) | payer MEDICARE, SELFPAY | PROVIDERS: Visit Provider Anesthesiology ==

== ENCOUNTER 2024-07-31 10:35 | Outpatient (AMB) | payer MEDICARE, SELFPAY ==
--- NOTE | 2024-07-31 10:54 | A.OFFVIS_ITS ---
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 She describes her pain as sharp and severe in nature, 11/16. Her pain has gotten worse over the last few years in spite of continued non operative treatments. She denies any locking or giving way. She has had multiple injections in the past. The most recent injection gave her no relief. She has also done physical therapy exercises which aggravated her pain. She has tried Tylenol and Celebrex which gave her minimal relief. The patient has difficulty walking even short distances because of her pain. At this point her right knee pain is interfering with her activities of daily living and her ability to sleep well through the night. Allergies Penicillins Adverse Reaction (Severe, Verified 07/31/24 10:55) Hives Medication List - Last Reconciled 07/31/24 by Som Rodriguez MD alendronate 70 mg PO QWEEK atorvastatin 80 mg PO BEDTIME celecoxib 100 mg PO BID cyclobenzaprine 5 mg PO TID PRN fluvoxamine 100 mg PO BEDTIME gabapentin 1,200 mg PO .PM gabapentin 600 mg PO DAILY lisinopril 20 mg PO DAILY lorazepam 0.5 mg PO DAILY PRN metoprolol succinate ER 25 mg PO DAILY oxybutynin chloride 5 mg PO BID [facility] Medical History Neuropathy Macular degeneration of right eye Hernia Breast cancer, right Heart attack Anxiety High cholesterol HTN (hypertension) Surgical History Hx of cholecystectomy Social History Patient Tobacco Use Status: Never used Tobacco Physical Exam Vital Signs: BMI result Body Mass Index 24.8 Const Other: Well-nourished well-developed very friendly female awake alert and oriented x3 in no acute distress Extrem Other: Bilateral lower extremity examination shows good capillary refill, no skin lesions noted, normal sensation light touch Right knee examination shows a minimal effusion, palpable crepitus with range of motion, pain with range of motion, range of motion from -5 degrees to 115 degrees, no instability Results Reviewed Results Reviewed: X-rays of the patient's right knee show end-stage degenerative joint disease with grade 4 [id number] arthritis, subchondral sclerosis, osteophyte formation, no acute bony abnormalities Assessment & Plan Assessment & Plan (1) Osteoarthritis of right knee: Code(s): M17.11 - Unilateral primary osteoarthritis, right knee Category: Medical Plan Ms. Ahmadi presents with progressively worsening right knee pain due to end- stage degenerative joint disease. I had a lengthy discussion with the patient regarding the treatment options. At this point the patient has failed continued non operative treatments. The risks and benefits of right total knee replacement surgery were discussed at length with the patient. The patient wishes to proceed with surgery. She will be scheduled for next available date. I will see her back 1 week prior to her surgery to answer any final questions that she might have. She will follow-up as instructed. I spent 20 minutes in reviewing the patient's records and imaging studies, seeing the patient and documenting in the medical record. Coding Level of Care Code New Pt Level 3 (09874) Complex EM visit Add On G2211 Diagnoses Osteoarthritis of right knee M17.11
[2024-07-31 10:55] VITALS: BMI 24.8
--- OUTSIDE RECORDS SUMMARY | 2024-07-31 11:51 | XMS_ITS | Clinical Summary ---
Author Organization [facility] Address [address] [place] [address] Care Team Providers Care Filament Shaper Name Role Phone Chandana Esquivel Lalito Primary Care Provider [phone] Anuja Yeh Unavailable Sarah Giles Unavailable [phone] Ambrose Pérez MD Unavailable [phone] Allergies Active Allergy Reactions Criticality Noted [...] 59 08/20/2021 2:01 PM EDT Temperature 36.5 C (97.7 F) 08/09/2017 1:49 PM EDT Respiratory Rate 14 08/09/2017 1:49 PM EDT [...] 2020 COVID-19 Vaccine ( season) 2023 Influenza (Season Ended) 2024 11/08/2011 LDL Cholesterol Discontinued 11/16/2017, 03/22/2010 EKG [...] Zoster (Zostavax) Discontinued Procedures * Due to [place] [employer] law, this organization might not be sharing [...] unspecified vessel or lesion type, unspecified whether [place] or transplanted heart from Last 3 Months or Most Recently Relevant to Health Maintenance Results * Due to [place] [employer] law, this organization might not be sharing [...] 08/09/2017 7:02 PM EDT us Angela Sykes REWRITE EDITOR CARDIOVASCULAR-WITH INBSKT R TG Final Result [facility] from Last 3 Months or Most Recently Relevant to Health Maintenance Insurance MEDICARE PART B MEDICAID Care Teams Filament Shaper Relationship Specialty Start Date End Date Chandana Esquivel [facility] [address] [facility] [address] [place], [place] [phone] PCP - General Family Medicine 06/16/17 Anuja Yeh [address] [address] Rheumatology 06/23/18 Sarah Giles [facility] DEPT OF ONCOLOGY [address] [place] [address] Oncology 06/23/18 Ambrose Pérez MD [facility] [address] [place] [address] Anesthesiology 06/23/18
== END 2024-07-31 11:28 | disposition home or self-care (01) ==
LOC: HO.HOS 10:36
PROVIDERS: Visit Provider Orthopaedic Surgery
DX: M17.11 Unilateral primary osteoarthritis, right knee (principal)
CPT/HCPCS: 99204; G2211

== ENCOUNTER → 2024-07-31 10:35 | Outpatient (BNVA) | payer MEDICARE, SELFPAY | PROVIDERS: Visit Provider Orthopaedic Surgery | DX: M17.11 Unilateral primary osteoarthritis, right knee (principal) | CPT/HCPCS: 99202 ==

== ENCOUNTER 2024-08-23 14:03 | Outpatient (AMB) | payer MEDICARE, MEDICAID, SELFPAY ==
--- NOTE | 2024-08-23 14:14 | A.OFFVIS_ITS ---
Vital Signs 08/23/24 14:15 Height 5 ft 3 in Weight 140 lb BMI 24.8 BP 120/66 Blood Pressure Location Lt brachial Position Sitting Pulse 67 Pulse Source Monitor Intake Visit Reasons: Preop/ Dr Simental/ knee surgery - prev [place] Allergies Penicillins Adverse Reaction (Severe, Verified 07/31/24 10:55) Hives Medication List - Last Reconciled 08/23/24 by Damaso Govea MD alendronate 70 mg PO QWEEK atorvastatin 80 mg PO BEDTIME celecoxib 100 mg PO BID cyclobenzaprine 5 mg PO TID PRN fluvoxamine 100 mg PO BEDTIME gabapentin 1,200 mg PO .PM gabapentin 600 mg PO DAILY lisinopril 20 mg PO DAILY lorazepam 0.5 mg PO DAILY PRN metoprolol succinate ER 25 mg PO DAILY oxybutynin chloride 5 mg PO BID walker Folding front wheeled walker HPI Comments Details: The patient is a 79-year-old female presenting with a preoperative cardiovascu lar evaluation for knee replacement surgery. She has a history of myocardial infarction in 2009, initially presenting with chest pain, leading to an emergency room visit at [facility]. A stent was placed following the event, and she has been under the care of a counter waitress/waiter, although she has not had a follow-up in the past three years. The patient also has a history of breast cancer, though no further details were discussed during the visit. She experiences significant knee pain due to osteoarthritis, which limits her mobility and necessitates the planned knee replacement surgery. She can walk short distances and manage stairs, but the knee pain is a limiting factor. [facility] Medical History (Updated 08/23/24 @ 14:53 by Damaso Govea MD) Atherosclerotic cardiovascular disease Neuropathy Macular degeneration of right eye Hernia Breast cancer, right Heart attack Anxiety High cholesterol HTN (hypertension) Surgical History Hx of cholecystectomy Family History (Updated 08/23/24 @ 14:29 by Amirah Olmos) Father No problems noted. Mother No problems noted. Social History (Updated 08/23/24 @ 14:29 by Amirah Olmos) Alcohol intake: never Patient Tobacco Use Status: Never used Tobacco Review of Systems Const Denies weakness ENT Denies dizziness Card Denies chest pain, Denies chest pain with activity, Denies syncope, Denies rapid heart rate, Denies pedal edema, Denies edema, Denies leg edema, Denies lightheadedness, Denies palpitations, Denies dyspnea, Denies dyspnea on exertion and Denies orthopnea Resp Denies cough, Denies dyspnea and Denies dyspnea on exertion GI Denies hematochezia and Denies change in stool character Musc Denies abnormal gait, Denies muscle cramps, Denies muscle weakness, Denies numbness, Denies radiating pain into limb and Denies tingling Neuro Denies abnormal gait, Denies dizziness, Denies syncope, Denies numbness, Denies tingling and Denies weakness Endo Denies palpitations Physical Exam Vital Signs: Last Vital Signs Pulse 67 08/23/24 14:15 BP 120/66 08/23/24 14:15 BMI result Body Mass Index 24.8 Const General: comfortable and no acute distress Orientation/consciousness: patient oriented x3 HEENT Other: Unremarkable Head: Yes normal to inspection Neck Neck: Yes normal visual inspection Chest Chest palpation & inspection: normal inspection of the chest Resp Auscultation: clear to auscultation bilaterally Cardio Palpation: normal PMI Heart sounds: S1 normal heart sound present, S2 normal heart sound present, no gallops, no murmurs and no rubs GI Palpation (GI): Soft to palpation Back/Spine/Pelvis Other: unremarkable Skin General skin exam: no rashes or lesions noted Neuro General: patient oriented x3 Extrem General: Yes normal to inspection Psych Mental Status: mental status grossly normal Office Procedures EKG Details: EKG with underlying sinus rhythm at 67/Min; occasional PVCs; cannot exclude old anterior infarct; [place]. [id number], Complete Assessment & Plan Assessment & Plan (1) Preoperative cardiovascular examination: Code(s): Z01.810 - Encounter for preprocedural cardiovascular examination Category: Medical (2) Atherosclerotic cardiovascular disease: Code(s): I25.10 - Atherosclerotic heart disease of [place] coronary artery without angina pectoris Category: Medical (3) Myocardial infarct, old: Code(s): I25.2 - Old myocardial infarction Category: Medical Plan The patient requires a preoperative cardiovascular evaluation to assess her fitness for the upcoming knee replacement surgery. Given her history of myocardial infarction and coronary artery disease, a stress test is necessary to evaluate her cardiac function. Due to her inability to perform a treadmill test, a chemical stress test will be conducted. An echocardiogram is also planned to further assess cardiac function. Efforts will be made to obtain her previous cardiac records to provide a comprehensive view of her cardiac history. Discussion Notes I discussed with the patient the necessity of a preoperative cardiovascular evaluation due to her history of myocardial infarction and coronary artery disease. We agreed on conducting a chemical stress test and an echocardiogram to assess her cardiac function. I also explained the importance of obtaining her previous cardiac records to ensure a comprehensive evaluation. Patient was informed and verbally consented to the use of an ambient scribe for clinic note documentation during this visit. Orders: Orders CA echo transthoracic complete Today I25.10 - Atherosclerotic heart disease of [place] coronary artery without angina pectoris, I25.2 - Old myocardial infarction NM cardiolite stress test Today Z01.810 - Encounter for preprocedural cardiovascular examination CA lexiscan stress w stacie Today I20.9 - Angina pectoris, unspecified, Z01.810 - Encounter for preprocedural cardiovascular examination Patient Instructions: - Schedule and complete the chemical stress test and echocardiogram as soon as possible. - Ensure all previous cardiac records are sent to the current provider for review. Coding Level of Care Code New Pt Level 4 (08211) Complex EM visit Add On G2211 Diagnoses Preoperative cardiovascular examination Z01.810 Atherosclerotic cardiovascular disease I25.10 Myocardial infarct, old I25.2 CPT Codes EKG - CPT: 03470-[id number], Complete ([id number])
[2024-08-23 14:15] VITALS: BP 120/66; PULSE 67; BMI 24.8
== END 2024-08-23 14:43 | disposition home or self-care (01) ==
PROVIDERS: Visit Provider Internal Medicine
DX: Z01.810 Encounter for preprocedural cardiovascular examination (principal); I25.10 Atherosclerotic heart disease of native coronary artery without angina pectoris; I25.2 Old myocardial infarction
CPT/HCPCS: 93010; 99204; G2211

== ENCOUNTER → 2024-08-23 14:03 | Outpatient (BNVA) | payer MEDICARE, SELFPAY | PROVIDERS: Visit Provider Internal Medicine | DX: Z01.810 Encounter for preprocedural cardiovascular examination (principal); I25.10 Atherosclerotic heart disease of native coronary artery without angina pectoris; R94.31 Abnormal electrocardiogram [ECG] [EKG]; I25.2 Old myocardial infarction | CPT/HCPCS: 93005; 99202 ==

== ENCOUNTER 2024-09-21 | Outpatient (REF) | payer MEDICARE, SELFPAY ==
--- OUTSIDE RECORDS SUMMARY | 2024-08-13 12:29 | XMS_ITS | Clinical Summary ---
Author Organization [facility] Address [address] [place] [address] Care Team Providers Care Calibration Specialist Name Role Phone Chandana Esquivel Primary Care Provider [phone] Allergies Active Allergy Reactions Criticality Noted Date [...] bilateral 02/16/2017 Coronary artery disease invo lving [place] coronary artery of [place] heart with angina pectoris 02/16/2017 Breast cancer [...] 77 09/21/2022 11:04 AM EDT Temperature 36.7 C (98 F) 09/21/2022 11:04 AM EDT Respiratory Rate - [...] of Health Annual Screening 02/08/2024 Influenza Vaccine (#1) 2024 0, 11/21/2018, 11/08/2011 DTaP,Tdap,and Td Vaccines (3 - [...] topic Sigmoidoscopy Discontinued Procedures * Due to [place] [employer] law, this organization might not be sharing negative HIV tests. Procedure Name Priority Date/Time Associated Diagnosis Comments HEPATITIS C ANTIBODY W/REFLEX TO HCV RNA, QUANTITATIVE PCR Routine 02/16/2017 4:48 PM EST Primary osteoarthritis of both hands from Last 3 Months or Most Recently Relevant to Health Maintenance Results * Due to [place] [employer] law, this organization might not be sharing negative HIV tests. * Hepatitis C Antibody w/Reflex to HCV RNA, Quantitative PCR (02/16/2017 4:48 PM EST) Hepatitis C Antibody NON-REACT NANCY NON-REACT NANCY 02/17/2017 4:55 AM EST [employer] Signal To Cut-Off 0.04 <1.00 02/17/2017 4:55 AM EST [employer] Blood specimen (specimen) Structure of peripheral vein / Unknown Venipuncture / Unknown 02/16/2017 4:48 PM EST 02/16/2017 5:13 PM EST Narrative DUSTY QUINTEROS - 02/17/2017 4:55 AM EST [facility] Received Date: us Anuja Yeh MD LAB BLOOD ORDERABLES Final Resul t DUSTY QUINTEROS [address] [facility] 3rd Floor, [place] [address], [place] [phone] [facility] [address] [facility] 3rd Floor, [place] [address], [place] [phone] from Last 3 Months or Most Recently Relevant to Health Maintenance Insurance MEDICARE [facility] Care Teams Calibration Specialist Relationship Specialty Start Date End Date Chandana Esquivel [address] [place] [address] [place] [address] PCP - General 08/26/16
--- OUTSIDE RECORDS SUMMARY | 2024-08-13 12:29 | XMS_ITS | Data Portability ---
Author Organization [place] - [facility] Address [address] [place] [address] Care Team Providers Care Director Orange Name Role Phone LEONOR ESQUIVEL Primary Care Provider LEONOR ESQUIVEL Referring Provider [phone] MATT PLUMMER Orthopedic Surgeon LEONOR ESQUIVEL Primary Care Provider SYLVESTER FUNEZ Electronic Device Monitor DORITA RAHMAN Electronic Device Monitor MARQUITA PÉREZ Pain Management Assessment Encounter Date [...] venous insufficiency and recommended that she use ancs-sez-pndxwng compression socks to help. -Continue current medications -Lipids -Follow-up in 1 year [email or web address] Not available 07/29/2022 12:21:08 Plan of Treatment Reminders Order Date Submit Date Provider Last Modified By Organization Details Last Modified Time Details Appointments None recorded. Lab rf (rheumatoid factor), serum 2023 024 [facility], [address] [place], [address], 4 17:08:37 ccp (cyclic citrullinat ed peptide) iga+igg, serum 2023 024 [facility], [address] [place], [address], 4 22:06:56 erythrocyte sedimentati on rate, QN, blood 2023 024 [facility], [address] [place], [address], 4 16:28:25 C-reactive protein, quantitativ e, serum or plasma 2023 024 [facility], [address] [facility] [place], [address], 4 17:09:39 uric acid, serum or plasma 2023 024 [facility] [address] [place], [address], 4 17:09:38 lipid panel, serum 2022 023 [facility], [address] [place], [address], 3 14:16:31 rapid flu (A+B) 2021 022 [facility] In-Office Order, Internal Use Only DO Not Attach Compendium DO Not Attach Compendium, Do Not Delete/merge, [id number] 2 12:17:03 Referral physical therapist referral - Ms. Ahmadi reports being unstable on her feet due to lower extremity weakness. Please evaluate 2023 024 [facility](Phys ical Therapy Dept), [address] [place], [address], 4 12:22:49 Procedures None recorded. Surgeries None recorded. Imaging electrocard iogram 2022 023 [facility], [address], [place], [address], 3 11:56:45 Medication Orders None recorded. Patient TargetsNo targets recorded. Patient Instructions Encounter Date Encounter Id Patient Instructions Last Modified By Organization Details Last Modified Time 07/29/2022 [id number] In addition to listed labs, xrays and documents, EKG personally reviewed [email or web address] Not available 07/29/2022 12:21:24 11/03/2023 [id number] 1. PHYSICAL THERAPY: pt encouraged to stay [...] DO Not Attach Compendium, Do Not Delete/merge, [id number] 01/07/2022 11:18:03 01/08/20 22 01/07/2022 rapid flu (A+B) Flu Type B negati ve Not Available In-Office Order Internal Use Only DO Not Attach Compendium DO Not Attach Compendium, Do Not Delete/merge, [id number] 01/07/2022 11:18:03 01/08/20 22 01/07/2022 rapid flu (A+B) Internal Control Valid Not Available In-Off ice Order Internal Use Only DO Not Attach Compendium DO Not Attach Compendium, Do Not Delete/merge, [id number] 01/07/2022 11:18:03 01/08/20 22 01/07/2022 rapid flu (A+B) Lot #: [id number] Not Available In-Office Order Internal Use Only DO Not Attach Compendium DO Not Attach Compendium, Do Not Delete/merge, [id number] 01/07/2022 11:18:03 01/08/20 22 01/07/2022 rapid flu (A+B) Exp Date: Not Available In-Office Order Internal Use Only DO Not Attach Compendium DO Not Attach Compendium, Do Not Delete/merge, [id number] 01/07/2022 11:18:03 07/30/19 23 07/29/2022 LIPID PANEL WITH REFLE X triglyceride s w/ reflex LDL 81 mg/dL 30-150 normal Refer ence Range s: <150 mg/dl Janice l 150-1 99 mg/dl Borde rline High 200-4 99 mg/dl High >500 mg/dl Very High Not Available [facility] Department [address] [place] [address], [address] 07/29/2022 14:16:31 07/30/19 23 07/29/2022 LIPID PANEL WITH REFLE X cholesterol 164 mg/dL 100-20 0 normal Not Available [facility] Department [address] [place] [address], [address] 07/29/2022 14:16:31 07/30/19 23 07/29/2022 LIPID PANEL [...] mg/dL Very high >190 mg/dL Not Available [facility] Department [address] [place], [address] 07/29/2022 14:16:31 07/30/19 23 07/29/2022 LIPID PANEL WITH REFLE X HDL cholesterol 59.0 mg/dL 40-60 normal Major risk facto r for CHD: <40 mg/dL Negat nancy risk facto r for CHD: >=60 mg/dL Not Available [facility] Department [address] [place], [address] 07/29/2022 14:16:31 07/30/19 23 07/29/2022 LIPID PANEL WITH REFLE X chol HDL ratio 2.78 Risk CHOL/ HDL CHOL/ HDL Ratio Male Femal e 1/2 AVERA GE 3.43 3.27 AVERA GE 4.97 4.44 2 X AVERA GE 9.55 7.05 3 X AVERA GE 23.39 11.04 Not Available [facility] Department [address] [place] [address], [address] 07/29/2022 14:16:31 05/17/19 24 05/17/2023 ERYTH ROCYT E SEDIM ENTAT ION RATE erythrocyte sedimentatio n rate 45 mm/HR 0-29 high Not Available [facility] Department [address] [place], [address] 05/17/2023 16:28:25 05/17/19 24 05/17/2023 RHEUM ATOID FACTO R rheumatoid factor 11 IU/mL 0-14 normal Not Available [facility] Department [address] [place] [address], [address] 05/17/2023 17:08:37 05/17/19 24 05/17/2023 URIC ACID uric acid 4.5 mg/dL 2.4-5. 7 normal Not Available [facility] Department [address] [place] [address], [address] 05/17/2023 17:09:38 05/17/19 24 05/17/2023 C REACT NANCY PROTE IN C reactive protein < 3.00 mg/L 0-5 normal Not Available [facility] Department [address] [place] [address], [address] 05/17/2023 17:09:39 05/17/19 24 05/19/2023 CCP ANTIB ODIES IGG/I GA ccp antibodies IgG/IgA 11 units 0-19 Negat nancy <20 Weak posit nancy 20 - 39 Moder ate posit nancy 40 - 59 Stron g posit nancy >59 Perfo rmed at: 01 - [facility] [place] [address], [place] [address] Lab Direc tor: Maria Luisa Georges MD, Phone : [phone] Not Available [facility] Laboratory Department [address] [place], [address] 05/19/2023 22:06:56 07/31/19 23 07/29/2022 elect rocar [...] diogr am No observ ation record ed. [email or web address] [facility] [address], [address], 07/30/2022 11:56:45 05/19/19 24 01/11/2019 elect romyo gram + nerve condu ction study No observ ation record ed. [email or web address] [facility] [address] [facility] [address], [place], [address], 08/19/2023 10:09:09 11/04/19 24 11/04/2023 ir fluor oscop y <1HR [facility] [address] [facility] [place] [address] Interv ention al Radiol ogy Rpt Signed Patien t: Anu Aponte MR#: [id number] : 1945 Acct:H [id number] Age/Se x: 78 / F ADM Date: Loc: HE.OR Attend ing Dr: Marquita Pérez MD Orderi ng Physic roseline: Marquita Pérez MD Date of Servic e: Proced ure(s) : IR fluoro scopy <1hr Access ion Number (s): [id number] H cc: Marquis Esquivel MD EXAM: IR [...] DD/DT: 1111 TD/TT: 1111 Transc riptio nist: [email or web address] [address] [place] [address], [address], 11/07/2023 08:10:28 Result Notes None recorded. Problems Name Problem SNOMED Code Status Onset Date Resolution Date Notes Provider Name and Address Organization Details Recorded Time Benign essential hypertension 3645874 Active Not Available [facility] 3 03:05:38 Neuralgia 66290876 Active Not Available [facility] 3 03:05:38 Anxiety state 177103812 Active Not Available [facility] 3 03:05:38 Screening for osteoporosis Active Not Available [facility] 3 03:05:38 Vitamin D deficiency 51941495 Active Not Available [facility] 3 03:05:38 Depressive disorder 84078766 Active Not Available [facility] 3 03:05:38 Pure hypercholeste rolemia 180931779 Active Not Available [facility] 3 03:05:38 Meralgia paresthetica 07015518 Active Marquita Pérez MD [address] [place] [address], [address] , [facility] 4 12:05:23 Myofascial pain 801461501 Active Marquita Pérez MD [address] [place] [address], [address] , [facility] 4 12:05:23 Arthropathy of lumbar facet joint 390335139 Active Marquita Pérez MD [address] [place] [address], [address] , [facility] 4 12:05:23 Peripheral neuropathic pain 987193253 Active Marquita Pérez MD [address] [place] [address], [address] , [facility] 5 11:35:07 Coronary arteriosclero sis 27096328 Active [address] [facility] 20:18:23 Notes:palpations IA Problem Notes None recorded. Procedures Surgical History Date Name Laterality Status Provider Name and Address Organization Details Recorded Time 01/26/20 24 Corticosteroid Injection - KNEE completed YUNI STAFFORD [address] [place] [address], [address], [facility] 01/30/2024 10:37:48 11/04/19 24 lumbar epidural steroid injection completed Naz Brantley CNA [facility] 11/04/2023 13:30:17 11/05/19 20 Corticosteroid Injection - SHOULDER completed Liam Rucker [facility] 11/05/2019 10:23:20 Imaging Results None recorded. Procedure Notes None recorded. Medical Equipment None Reported. Allergies Allergen ID Allergen Name Allergen Category Reaction Reaction Severity Criticality Documentation Date Start Date Code Code System Note Provider Name and Address Organization Details Recorded Time 977902 nickel environme nt Not available Not available Not available 12/07/2019 72384 29 RxNorm Paigejose lamas [facility] 0 11:25:28 94827 Product containin g penicilli n (product) medicatio n hives Not available Not available 03/29/2012 83807 8001 SNOMED Radha Dooley cydney [facility] 3 10:57:18 Medications Name Sig Start [...] Available Not Available Not Available Fluzone Quad [id number] (PF) 60 mcg (15 mcg x 4)/0.5 mL IM syringe 09/03 completed Not Available Not Available Not Available naloxone 4 mg/actuati on nasal spray ADMINIST ER A SINGLE SPRAY IN ONE NOSTRIL UPON SIGNS OF OPIOID OVERDOSE . CALL 911. REPEAT AFTER 3 MINUTES IF NO RESPONSE . 07/29 completed Not Available Not Available Not Available Vitals Date Recorded Body height Heart rate Body mass index (BMI) Body weight Systolic And Diastolic Provider Name and Address Organization Details Last Updated DateTime 05/17/2023 160.02 cm 61 /min 34 kg/m2 26004.74 g 142/83 mm[Hg] Gerardo Emerson [facility] 05/17/2023 14:42:04 Date Recorded Body height Body mass index (BMI) Body weight Heart rate Systolic And Diastolic Provider Name and Address Organization Details Last Updated DateTime 07/29/2022 160.02 cm 36 kg/m2 26696.25 g 65 /min 130/78 mm[Hg] Danya Box [facility] 07/29/2022 10:16:20 Date Recorded Body height Heart rate Systolic And Diastolic Provider Name and Address Organization Details Last Updated DateTime 11/03/2023 160.02 cm 80 /min 151/79 mm[Hg] Naz Brantley CNA [facility] 11/03/2023 12:20:00 Date Recorded Body height Heart rate Oxygen saturation Oxygen saturation in Arterial blood by Pulse oximetry Body temperature Systolic And Diastolic Provider Name and Address Organization Details Last Updated DateTime 2 160.02 cm 74 /min 97 % 97 % 97.2 [degF] 115/70 mm[Hg] Edith Isabel MA [facility] 2 11:07:21 Social History Question Answer Notes LastModified by Organizat ion Details LastModified Time Tobacco Smoking Status Former Smoker Radha lamas [facility] 03/29/2012 10:57:18 What Is Your Level [...] Long? 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 No Information not available 09/26/2013 Alcohol Use No Information n ot available 09/26/2013 Do You Currently Or Have You Ever Used Recreational Drugs? If Yes, Specify No Information not available 09/26/2013 Any Addiction Or Substance/drug/a lcohol Abuse Issues? If Yes, Specify No Information not available 09/26/2013 [employer] Information no t available 03/29/2012 Pap Smear [...] 10:27:43 Mother Problem 59 passed from either IA or kidney diseas e Not available 09/26/2013 10:27:43 Paternal Grandmother Malignant tumor of breast previo usly record ed as cancer -breas t Not available 09/26/2013 10:27:43 Medical History Condition Response HIV or AIDS N asthma N ulcers N other GI illness N GERD / reflux N diabetes N seizures N other N thyroid disease or other endocrine probl ems N cancer Y arthritis Y taking blood thinners N high blood pressure Y kidney disease N psychiatric illness N liver disease N arrhythmia N emphysema / COPD N heart attack Y skin condition N headaches or migraines N bleeding disorders N stroke N Gynecological History Statement/Question Response 2 Age at Menarche 12 Para 2 Obstetrics History GPAL:G 0 P 0 0 0 0 Immunizations Vaccine Type Date Status Note Provider Nam e and Address Organization Details Recorded Time Tdap 10/04/2008 completed Radha lamas [place] - [facility] 07/05/2012 13:10:49 Past Encounters Encounter ID Performer Location Encounter Start Date Encounter Closed Date Diagnosis/Indication Diagnosis SNOMED-CT Code Diagnosis ICD10 Code Diagnosis Note [id number] MD [facility] [address] [place] [address] [place] [address] 09/26/2013 10:17:35 09/26/2013 12:03:03 Meralgia paresthetica 90228612 Myofascial pain 586054896 Arthropath y of lumbar facet joint 112732056 Peripheral neuropathic pain 437820531 [id number] MD [facility] [address] [place] [address] [address] [facility] [place] [address] 09/04/2015 10:49:22 09/04/2015 11:51:15 Abdominal pain 75696021 R10.9 [id number] MD [facility] [address] [place] [address] 05/03/2016 09:23:37 05/03/2016 10:09:35 Coronary arteriosclerosis in [place] artery 0535629737 107 I25.10 [id number] Evangelist Zamarripa MD Orthopedi [facility] [address] [facility], [address] [place] [address] 04/22/2017 09:30:54 04/22/2017 10:03:57 Full thickness rotator cuff tear 705803829 M75.199 [id number] Caleb Jose MD Orthopedi cs [address] [facility], [address] [place] [address] 05/16/2017 09:35:18 05/16/2017 10:28:13 Partial thickness rotator cuff tear 059165356 M75.102 Patient has either full or partial-th [...] in 4-8 weeks or as symptoms dictate. [id number] [facility] [address] [place] [address] 08/25/2017 10:42:53 08/25/2017 12:07:25 Benign essential hypertension 1674262 I10 Her blood pressure is reasonably controlled . We will help to monitor her trends. Coronary arteriosclerosis in [place] artery 6695459133 107 I25.10 Given her symptoms of heartburn, [...] to follow her on an annual basis. [id number] MD [facility] [address] [place] [address] [place] [address] 06/07/2018 13:29:16 06/07/2018 14:43:25 Spinal stenosis of lumbar region 65414282 M48.061 Lumbar radiculopathy 128 224642 M54.16 Lumbar spondylosis 21389 0009 M47.816 Anxiety disorder 5216945 06 F41.9 [id number] MD [facility] [address] [place] [address] [place] [address] 08/09/2018 12:51:54 08/09/2018 13:31:01 Lumbar radiculopathy 675808956 M54.16 left Lumbar spondylosis 17993 0009 M47.800 [id number] MD [facility] [address] [place] [address] 09/13/2018 13:46:03 09/13/2018 14:51:58 Lumbar spondylosis 769491456 M47.816 Pain in left foot 971486 0259 96114 M79.672 Neuralgia 20570578 M79.2 left posterior tibial [id number] MD [facility] [address] [place] [address] [place] [address] 10/11/2018 09:40:27 10/11/2018 10:59:08 Pain in left foot 3096766490 64964 M79.672 Neuralgia 41450317 M79.2 left posterior tibial Lumbar spondylosis 53654 0009 M47.877 [id number] [facility] [address] [place] [address] 10/30/2018 14:59:22 10/30/2018 16:05:39 Coronary arteriosclerosis in [place] artery 5020392339 107 I25.10 She has no anginal symptoms [...] sooner as needed. Benign ess ential hypertension 4431459 I10 Her blood pressure is reasonably controlled . We will continue to monitor her trends. [id number] Marquita Pérez MD [facility] [address] [place] [address] 01/16/2019 13:48:03 01/16/2019 14:28:58 Pain in left foot 0858723453 40113 M79.672 Neuralgia 68802738 M79.2 left posterior tibial [id number] Cee Graf MD [facility] [address] [facility] [address] [place] [address] 08/26/2019 13:51:23 08/26/2019 13:52:16 Viral screening 237346656 Z11.59 [id number] YUNI SKINNER [facility] [address] [place] [address], [address] [place] [address] 09/13/2019 13:14:55 09/13/2019 14:02:31 Closed fracture scapula, glenoid 418053829 S42.141A 74yo pleasant retired female, previously evaluated [...] potential treatment options. Pt agreed with plan. [id number] Caleb Jose MD Orthopedi [facility] [address] [facility], [address] [place] [address] 11/05/2019 09:05:10 11/05/2019 10:31:48 Full thickness rotator cuff tear 214578425 M75.121 despite the MRI findings, her range [...] successful . Closed fra cture scapula, glenoid 736597969 S42.141A 74yo pleasant retired female, previously evaluated [...] Pt agreed with plan. Contusion of chest 92958 004 S20.211D patient aalso reports discomfort over [...] symptoms of concern were reviewed in detail. [id number] Marquita Pérez MD [facility] [address] [place] [address] in Entrance [place] [address] 12/07/2019 11:13:22 12/07/2019 12:01:02 Pain in left foot 4531316031 83193 M79.672 Neuralgia 66347936 M79.2 left posterior tibial [id number] Cee Graf MD [facility] [address] [address] 03/01/2020 16:09:26 03/01/2020 16:09:52 Viral screening 322485826 Z11.59 [id number] Juaquin Talavera NP, S [facility] [address] [address] 01/19/2021 09:31:09 01/19/2021 10:15:20 Exposure to SARS-CoV-2 024876559 Z20.822 Patient requests Covid testing only, declines evaluation at this time by provider. [id number] [facility] [address] [place] [address] 06/24/2021 10:48:19 06/24/2021 11:36:14 Fatigue 06176338 R53.83 Pt presents with fatigue, dry cough, [...] of when to RTC discussed. Pruritic rash 14765420 L 28.2 -unclear etiology of rashcontac t dermatitis vs allergic reaction vs eczema vs nickel reactionad vised cool compresses , avoidance of itchng, benadryl cream or anthistami ne, will put in triamcinol one for itch relief. Advised to follow up with pcp should sx persist [id number] MD [facility] [address] [place] [address] 09/30/2021 15:12:20 09/30/2021 16:27:38 Paresthesia 93153190 R20.2 - Ms. Ahmadi reports a long-stand ing history of bilateral upper and lower extremity numbness and tingling- She reports that her lower extremity numbness and tingling is becoming more severe and more extensive- I will obtain EMG studies at this time for further assessment regarding a bilateral upper and lower extremity neuropathi c process Muscle bibiana veronica of limb 916764019 M62.81 - Ms. Ahmadi reports being unstable on her feet due to lower extremity weakness- I will place a referral to physical therapy for further evaluation and treatment of lower extremity weakness Pain of mu ltiple joints 87684891 M25.50 - There is no obvious joint [...] during today's visit Pes anseri nus bursitis 10458994 M70.51 M70.52 - Findings consistent with bilateral anserine bursitis noted on today's musculoske letal physical examinatio n- I have recommende d stretching , range of motion exercises, lower extremity strengthen ing and weight loss Bilateral trochanteric bursitis 6455938438 4647990 M70.61 M70.62 - Findings consistent with bilateral trochanter ic bursitis noted on today's musculoske letal physical examinatio n- I have recommende d stretching , range of motion exercises, lower extremity strengthen ing and weight loss Osteoarthritis 111779595 M19.90 - Findings consistent with osteoarthr itis noted on musculoske letal physical examinatio n as well as imaging studies- I have recommende d the use of Tylenol, heat and topical therapies for treatment of pain associated with osteoarthr itis [id number] YUNI SYLVESTER [facility] [address] [place] [address] 01/07/2022 09:46:12 01/07/2022 11:25:32 Fever 647207000 R50.9 Pt presents with two days of [...] RTC discussed. pt in agreement with plan [id number] MD [facility] [address] [place] [address] 07/29/2022 09:51:51 07/29/2022 10:54:48 Coronary arteriosclerosis 72370019 I25.10 Benign ess ential hypertension 0981240 I10 Hyperlipidemia 65738892 E78.5 [id number] MD [facility] [address] [facility] [address] [place] [address] 05/17/2023 14:32:32 05/17/2023 15:37:23 Paresthesia 39410360 R20.2 - Ms. Ahmadi continues to experience [...] also continue to follow-up with [facility]. [facility] [place] and his associates for further evaluation and management of neuropathy Muscle wea glenys of limb 192856497 M62.81 - Ms. Ahmadi reports being unstable on her feet due to lower extremity weakness- I will place a referral to physical therapy for further evaluation and treatment of lower extremity weakness Pain of mu ltiple joints 16808641 M25.50 - There is possible joint synovitis [...] taper for treatment of joint flares Osteoarthritis 472906598 M19.90 - There are findings consistent with osteoarthr itis noted on musculoske letal physical examinatio n as well as imaging studies- I have recommende d the use of Tylenol, heat and topical therapies for treatment of pain associated with osteoarthr itis Pes anseri nus bursitis 68660640 M70.51 M70.52 - There are findings consistent with bilateral anserine bursitis noted on today's musculoske letal physical examinatio n- I have recommende d stretching , range of motion exercises, lower extremity strengthen ing and weight loss Bilateral trochanteric bursitis 2107013645 5426192 M70.61 M70.62 - There are findings consistent with bilateral trochanter ic bursitis noted on today's musculoske letal physical examinatio n- I have recommende d stretching , range of motion exercises, lower extremity strengthen ing and weight loss [id number] Marquita Pérez MD [facility] [address] [place] [address] [place] [address] 11/03/2023 12:00:52 11/03/2023 13:01:17 Lumbar spondylosis 222596710 M47.816 Lumbar radiculopathy 128 430851 M54.16 left 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 [place] [id number] Alban Ahmadi [id number] Florencia Ahmadi 04/20/2017 1 [employer] ([employer]) [id number] Alban Ahmadi [id number] Florencia Ahmadi 07/12/2024 1 [place] Florencia Ahmadi [id number] Florencia Ahmadi 08/03/2017 1 [facility] [id number] Alban Ahmadi [id number] Florencia Ahmadi 07/12/2024 [address] [facility]UE (MEDICARE REPLACEMENT PPO) [id number] Florencia Ahmadi [id number] Florencia Ahmadi 07/12/2024 2 [place] Florencia Ahmadi [id number] Florencia Ahmadi 08/05/2017 1 *SELF PAY* Wendy Schaefer 07/12/2024 2 [place] [facility] Florencia Mohry [id number] Florencia Ahmadi 07/12/2024 2 [place] [facility] Florencia A Daiana [id number] Florencia Ahmadi Notes Date Note Type Note Provider Name and Address Organization Details Recorded Time 2 text/html 76 year old female presents at [facility] for a fever that was going on [...] daysshe had an infusion for osteoporosis on woke up not feeling well, temp was 101.6-they told her she could have flu like sx-pcp advised she be evaluated in clinic for covid/flu-home covid was negativebody aches and sore not unusual for her at baseline-fatigue, no cough, mild congestion-sneezing in the last few days,-using tylenol and advil Melly Kyle MD [address] [place] [address], [phone], [facility] 01/08/2022 12:45:22 3 text/html Florencia has a [...] energy level is good. Sylvester Funez MD [address] [place], [address], [facility] 07/29/2022 12:21:40 4 text/html Ms. Ahmadi [...] or shortness of breath. Reagan Montgomery MD [address] [place] [address], [phone], [facility] 05/17/2023 17:18:07 4 text/html Pain Management: New [...] enjoyment of life: 10 Prior tests?x-rays ([facility] - within the past 2 months) Conditions associated with your pain?muscle weakness; difficulty walking; numbness / tingling / pins/ needles Prior treatments?physical therapy (home - current) Prior medications you've tried?Tramadol/Flexeril - at times Advil/Tylenol - minimal relief Marquita Pérez MD [address] [facility] [place], [phone], [facility] 11/03/2023 12:57:25 4 text/html OrthopedicsReported bypatient.Location:Right ; Knee Quality:Intermittent;Ach ing;Throbbing Severity:Mild-Moderate Onset/Timing:Gradual Duration:months Context:No change ImagingX-ray (10/14/23) R knee pain YUNI STAFFORD [address] [place], [phone], [facility] 01/30/2024 10:38:21 OBGyn Episode No OBEpisode recorded.
--- OUTSIDE RECORDS SUMMARY | 2024-08-13 12:29 | XMS_ITS | Clinical Summary ---
Author Organization [facility] Address [address] [place] [address] Care Team Providers Care Supervisor Fertilizer Name Role Phone Chandana Esquivel Lalito Primary Care Provider Anuja Yeh Unavailable Sarah Giles Unavailable [phone] Ambrose Pérez MD Unavailable [phone] Allergies Active Allergy Reactions Criticality Noted [...] COVID-19 Vaccine ( season) 2023 Influenza (#1) 2024 11/08/2011 LDL Cholesterol Discontinued 11/16/2017, 03/22/2010 [...] Zoster (Zostavax) Discontinued Procedures * Due to [place] [employer] law, this organization might not be [...] unspecified vessel or lesion type, unspecified whether [place] or transplanted heart from Last 3 Months or Most Recently Relevant to Health Maintenance Results * Due to [place] [employer] law, this organization might not be [...] 08/09/2017 7:02 PM EDT us Angela Sykes SOIL CONSERVATION TEACHER CARDIOVASCULAR-WITH INBSKT R TG Final Result MUSE EKG SYSTEM from Last 3 Months or Most Recently Relevant to Health Maintenance Insurance MEDICARE PART B MEDICAID Care Teams Supervisor Fertilizer Relationship Specialty Start Date End Date Chandana Esquivel [facility] [address] [facility] [address] [place], [place] [id number] PCP - General Family Medicine 06/16/17 Anuja Yeh [address] [address] Rheumatology 06/23/18 Sarah Giles [facility] DEPT OF ONCOLOGY [address] [place] [address] Oncology 06/23/18 Ambrose Pérez MD [facility] [address] [place] [address] Anesthesiology 06/23/18
[2024-09-21 11:59] VITALS: BP 130/60; PULSE 66; RESP 16; O2SAT 97; BMI 25.0
--- NOTE | 2024-09-21 12:39 | HO.ANESPROP2 ---
HPI - Anesthesia Eval Consult details Narrative: 79yo F for Right Knee Replacement Total, 10/22/24 Pending cardiac preop risk w/u with [facility] [place]/stent 2010 No recent illness No CP/SOB with walking (cane). Limited by pain. R breat ca with chemo and rad ~ 2009 [facility] Active Problems Active Problems: All Active Problems Preoperative cardiovascular examination (Acute) Preoperative clearance (Acute) Myocardial infarct, old (Acute) Tricompartment osteoarthritis of knee (Acute) Right knee pain (Acute) Right hip pain (Acute) Arthritis of right hip (Acute) Chronic pain syndrome (Acute) Osteoarthritis of right knee (Acute) Iliotibial band syndrome affecting right lower leg (Acute) Spondylosis of lumbar region without myelopathy or radiculopathy (Acute) Atherosclerotic cardiovascular disease (Acute) Past Medical History Medical History (Updated 09/21/24 @ 12:45 by Richa Goetz NP) PONV (postoperative nausea and vomiting) Claustrophobia Arthritis Numbness Hx of myocardial infarction (~2010) Atherosclerotic cardiovascular disease Neuropathy Macular degeneration of right eye Hernia Breast cancer, right Heart attack Anxiety High cholesterol HTN (hypertension) Family History Family History (Updated 08/23/24 @ 14:29 by Amirah Olmos) Father No problems noted. Mother No problems noted. Family history of problems with anesthesia: No Surgical History Surgical History (Updated 09/21/24 @ 12:29 by Mela Kim, DIDIER) Hx of partial thyroidectomy (~1977) Hx of bilateral oophorectomy Hx of tonsillectomy Hx of appendectomy Hx of heart artery stent (~2010) History of lumpectomy of right breast (~2009) Hx of cholecystectomy History of Problems with Anesthesia: No Social History Social History (Updated 09/21/24 @ 12:29 by Mela Kim RN) Household Members: None Housing: Apartment Are you a primary care assistant to a significant other at home: No Do you presently have visiting nurse or other home services: No Alcohol intake: never Patient Tobacco Use Status: Former Tobacco user Tobacco use type: Cigarette Use of substances other than those prescribed or required for medical reasons: No Advance Directives: Yes Advance Directives Information Provided: No Advance Directives on File: Yes Advance Directives Date on File: 09/19/23 Healthcare Proxy: Yes Meds Allergies Allergy/AdvReac Type Severity Reaction Status Date / Time shellfish derived (shellfish) Allergy Severe Hives Verified 09/21/24 11:59 nickel Allergy Intermediate Rash Verified 09/21/24 11:59 Penicillins AdvReac Severe Hives Verified 09/21/24 11:58 Home Medications ?Medication ?Instructions ?Recorded ?Confirmed ?Last Taken ?Type atorvastatin 80 mg tablet 80 mg PO BEDTIME 02/23/24 09/21/24 Unknown History cyclobenzaprine 5 mg tablet 5 mg PO TID PRN Muscle Spasm 02/23/24 09/21/24 Unknown History gabapentin 300 mg capsule 1,200 mg PO .PM 02/23/24 09/21/24 Unknown History gabapentin 300 mg capsule 600 mg PO DAILY 02/23/24 09/21/24 Unknown History lisinopril 20 mg tablet 20 mg PO DAILY 02/23/24 09/21/24 Unknown History lorazepam 0.5 mg tablet 0.5 mg PO DAILY PRN Anxiety 02/23/24 09/21/24 Unknown History alendronate 70 mg tablet 70 mg PO QWEEK 05/07/24 09/21/24 Unknown History celecoxib 100 mg capsule 100 mg PO BID 05/07/24 09/21/24 Unknown History oxybutynin chloride 5 mg tablet 5 mg PO BID 05/07/24 09/21/24 Unknown History metoprolol succinate 25 mg 25 mg PO DAILY 05/24/24 09/21/24 Unknown History tablet,extended release 24 hr acetaminophen 325 mg tablet 650 mg PO Q6H PRN Pain 09/21/24 09/21/24 Unknown History escitalopram oxalate 20 mg tablet 20 mg PO DAILY 09/21/24 09/21/24 Unknown History (Lexapro) melatonin 10 mg tablet 10 mg PO BEDTIME PRN Insomnia 09/21/24 09/21/24 Unknown History tramadol 50 mg tablet 50 mg PO Q8H PRN Pain 09/21/24 09/21/24 Unknown History vit C 250 mg-vit E 90 mg-zinc 40 1 tab PO BID 09/21/24 09/21/24 Unknown History mg-copper 1 nd-swhqkd-cdftfk capsule (PreserVision AREDS-2) Exam Height,Weight and Vital Signs: Height 5 ft 2 in Weight 61.9 kg Last Vital Signs Pulse 66 09/21/24 11:59 Resp 16 09/21/24 11:59 BP 130/60 08/15/25 11:59 Pulse Ox 97 09/21/24 11:59 O2 Del Method Room Air 09/21/24 11:59 Narrative Narrative: EKG 08/2024 EKG Details: EKG with underlying sinus rhythm at 67/Min; occasional PVCs; cannot exclude old anterior infarct; normal [place] and corrected QT. Airway Mallampati Class: II TM Dist: >3cm Neck ROM: Full Partial: Upper and Lower Loose/Missing/Broken Teeth: Yes (broken upper side molar) Heart: RRR Lungs: CTAB Assessment and Plan Assessment Anesthesia Assessment: Anesthesia Plan Discussed and PAT Visit Final Anesthetic Review Family History of Problems with Anesthesia: No History of Problems with Anesthesia: No
[2024-09-21 13:43] LABS: Hematocrit 38.9 % (37.0-47.0); Hemoglobin 12.1 g/dl (12.0-16.0); Mean Corpuscular HGB Conc 31.1 g/dl (31.0-35.0); Mean Corpuscular Hemoglobin 27.8 pg (27.0-33.0); Mean Corpuscular Volume 89.2 fL (80.0-98.0); NRBC Abs Auto 0.000 X10*3/uL (0.0-0.012); NRBC Pct Auto 0.0 /100WBC (0.0-0.2); Platelet Count 234 X10*3/uL (160-400); Red Blood Count 4.36 X10*6/uL (4.20-5.50); White Blood Count 6.9 X10*3/uL (4.8-10.8)
[2024-09-21 14:24] LABS: Anion Gap 13 (12-20); Blood Urea Nitrogen 17 mg/dL (9-16); Calcium 9.0 mg/dL (8.4-10.2); Carbon Dioxide 27 mmol/L (22-29); Chloride 106 mmol/L (96-108); Creatinine Clr Calc Pharmacy 50.6; Estimated Glomerular Filt Rate > 60; Potassium 4.5 mmol/L (3.3-5.1); Sodium 141 mmol/L (135-145)
[2024-09-21 15:52] LABS: MRSA Nasal PCR NEGATIVE (Negative); SA Nasal PCR POSITIVE (Negative)
--- OUTSIDE RECORDS SUMMARY | 2024-11-19 09:05 | XMS_ITS | Clinical Summary ---
Author Organization [facility] Address [address] [place] [address] Phone Care Team Providers Care Batch Weigher Name Role Phone Chandana Esquivel MD Primary [...] 146(Abnor therese H) 135 - 145 mmol/L [facility] Plasma Potassium 4.3 3.4 - 5.0 mmol/L [facility] Plasma Chloride 104 100 - 108 mmol/L [facility] Plasma Carbon Dioxide 24 23 - 32 mmol/L [facility] Plasma Urea Nitrogen 16 8 - 25 mg/dL [facility] Plasma Creatinine 0.90 0.60 - 1.50 mg/dL [facility] Plasma Glucose 79 70 - 110 mg/dL [facility] Calcium 9.7 8.5 - 10.5 mg/dL [facility] eGFR >60 mL/min/1. 73m2 [facility] Comment: Abnormal if <60 mL/min/1.73m2. If patient is -Finnish, multiply the result by 1.21. Plasma Anion GAP 18(Abnorm ally H) 3 - 17 mmol/L [facility] 04/10/2014 1:45 PM EST 04/10/2014 6:10 PM EST Comment:BLOOD us Wilder Kim MD LAB BLOOD ORDERABLES Edited Resu lt - Final [address] [address] from Last 3 Months or Most Recently Relevant to Health Maintenance Insurance [facility] MEDICARE PART A & [place] [id number] MEDICARE PART A & B MEDICARE PART A & B [facility] MEDICARE PART A & B Care Teams Batch Weigher Relationship Specialty Start Date End Date Chandana Esquivel MD [address] [place] [address] PCP - General Family Medicine 09/05/13 Additional Source Comments The information contained in this document represents components of the legal health record. It is not the complete legal health record.[facility]
--- OUTSIDE RECORDS SUMMARY | 2024-11-19 09:05 | XMS_ITS | Encounter Summary ---
Author Organization [facility] Address [address] [place] [address] Care Team Providers Care Power Equipment Mechanics Instructor Name Role Phone Chandana Esquivel Primary Care Provider [phone] Anuja Yeh Unavailable Sarah Giles Unavailable [phone] Ambrose Pérez MD Unavailable [phone] Encounter Details Date Type Department Care Team (Late st Contact Info) Description 08/25/2020 Orders Only [facility] [address] [place] [id number] Jasson Zhang MD [address] [id number] Social History Tobacco Use Types Packs/Day Years [...] of this encounter Results * Due to [place] [...] on filedocumented in this encounter Care Teams Power Equipment Mechanics Instructor Relationship Specialty Start Date End Date Chandana Esquivel [facility] [address] [place] [address] [address] [place] [address] PCP - General Family Medicine 06/16/17 Anuja Yeh [address] [address] Rheumatology 06/23/18 Sarah Giles [facility] DEPT OF ONCOLOGY [address] [place] [address] Oncology 06/23/18 Ambrose Pérez MD [facility] [address] [place] [address] Anesthesiology 06/23/18 documented as of this encounter
--- OUTSIDE RECORDS SUMMARY | 2024-11-19 09:05 | XMS_ITS | Encounter Summary ---
Author Organization [facility] Address [address] [place] [address] Phone Care Team Providers Care Prepared Foods Team Leader Name Role Phone Chandana Esquivel MD Primary Care Provider Encounter Details Date Type Department Care Team (Late st Contact Info) Description 07/30/2016 Procedure [facility] [address] [place] [address] Social History Tobacco Use Types Packs/Day Years [...] on filedocumented in this encounter Care Teams Prepared Foods Team Leader Relationship Specialty Start Date End Date Chandana Esquivel MD [address] [place] [address] [address] [place] [address] PCP - General Family Medicine 09/05/13 documented as of this encounter Additional Source Comments The information contained in this document represents components of the legal health record. It is not the complete legal health record.[facility]
--- OUTSIDE RECORDS SUMMARY | 2024-11-19 09:05 | XMS_ITS | Clinical Summary ---
Author Organization [facility] Address [address] [place] [address] Care Team Providers Care Truck Bracer Name Role Phone Chandana Esquivel Lalito Primary Care Provider [phone] Anuja Yhe Unavailable Sarah Giles Unavailable [phone] Ambrose Pérez MD Unavailable [phone] Allergies Active Allergy Reactions Criticality Noted [...] (Zostavax) Discontinued Procedures * Due to [place] [employer] law, this organization might not be sharing [...] unspecified vessel or lesion type, unspecified whether [place] or transplanted heart from Last 3 Months or Most Recently Relevant to Health Maintenance Results * Due to [place] [employer] law, this organization might not be sharing [...] 08/09/2017 7:02 PM EDT us Angela Sykes TALENT DEVELOPMENT MANAGER CARDIOVASCULAR-WITH INBSKT R TG Final Result MUSE EKG SYSTEM from Last 3 Months or Most Recently Relevant to Health Maintenance Insurance MEDICARE PART B MEDICAID Care Teams Truck Bracer Relationship Specialty Start Date End Date Chandana Esquivel [facility] [address] [facility] [address] [place] [address] PCP - General Family Medicine 06/16/17 Anuja Yeh [address] [address] Rheumatology 06/23/18 Sarah Giles [facility] DEPT OF ONCOLOGY [address] [place] [address] Oncology 06/23/18 Ambrose Pérez MD [facility] [address] [place] [address] Anesthesiology 06/23/18
--- OUTSIDE RECORDS SUMMARY | 2024-11-19 09:05 | XMS_ITS | Clinical Summary ---
Author Organization [facility] Address [address] [place] [address] Phone Care Team Providers Care Baseball Glove Stuffer Name Role Phone Unavailable Primary Care Provider Unavailabl e Encounters Date Type Department Care Team Description 10/23/2024 3:22 PM EDT - 10/23/2024 11:59 PM EDT Hospital Encounter [facility] PET Scan [address] [place] [address] Breast cancer metastasized to bone, [...] EDT Breast cancer metastasized to bone, right ([facility]/HCC V24, CMS/HCC V28) from Last 3 [...] Signed Date: 10/24/2024 16:41 ET Workstation ID: [id number] Transcribed By: Self Edit Transcribed Date: 10/24/2024 [...] changes along the left side of the V2gbrdrrwpt body suspicious for metastatic disease. Small focus [...] Signed Date: 10/24/2024 16:41 ET Workstation ID: [id number] Transcribed By: Self Edit Transcribed Date: 10/24/2024 15:57 ET Tolu Perry MD [facility] [place] PROCEDURES Final Result from Last 3 Months Insurance MEDICARE
--- OUTSIDE RECORDS SUMMARY | 2024-11-19 09:05 | XMS_ITS | Clinical Summary ---
Author Organization [facility] Address [address] [place] [address] Care Team Providers Care Field Project Manager Name Role Phone Chandana Esquivel Primary Care Provider [phone] Allergies Active Allergy Reactions Criticality Noted Date [...] of Treatment Not on file Care Teams Field Project Manager Relationship Specialty Start Date End Date Chandana Esquivel [address] [place] [address] PCP - General 12/17/13
--- OUTSIDE RECORDS SUMMARY | 2024-11-19 09:06 | XMS_ITS | Encounter Summary ---
Author Organization [facility] Address [address] [place] [address] Care Team Providers Care Table Attendant Name Role Phone Chandana Esquivel Primary Care Provider [phone] Encounter Details Date Type Department Care Team (Late st Contact Info) Description 08/25/2012 Clinical Conversion Encounter [facility] RAD[facility]ATION ONCOLOG[facility] Radiation Oncology [address] [place] [address] Sonny Tierney MD [address] [place] [address] Social History Tobacco Use Types Packs/Day Years Used Date Smoking Tobacco: Never Assessed Comments Unknown Sex and Gender Information Value Date Recorded Sex Assigned at Not on file Legal Sex Female 4:15 PM EST Gender Identity Not on file Sexual Orientation Not on file documented as of this encounter Progress Notes * Sonny Tierney MD - 03/26/2014 6:34 AM EST [id number],[place]USAN [place], [place]. Diagnosis Right breast cancer Staging Stage [...] filedocumented in this encounter Care Teams Table Attendant Relationship Specialty Start Date End Date Chandana Esquivel [address] [place] [address] PCP - General 12/17/13 documented as of this encounter
--- OUTSIDE RECORDS SUMMARY | 2024-11-19 09:06 | XMS_ITS | Encounter Summary ---
Author Organization [facility] Address [address] [place] [address] Care Team Providers Care Assistant Editor Name Role Phone Chandana Esquivel Primary Care Provider [phone] Anuja Yeh Unavailable Sarah Giles Unavailable [phone] Ambrose Pérez MD Unavailable [phone] Encounter Details Date Type Department Care Team (Late st Contact Info) Description 08/09/2017 Orders Only [facility] Pre-Admission Testing [address] [place] [address] Angela Sykes NP Social History Tobacco Use [...] unspecified vessel or lesion type, unspecified whether duck[place] or transplanted heart LATEX (K82) IGE Routine 08/09/2017 2:27 PM EDT Latex sensitivity BASIC METABOLIC PANEL WITH (GFR) Routine 08/09/2017 2:27 PM EDT Tear of right rotator cuff, unspecified tear extent Pre-operative examination Atherosclerosis of coronary artery, angina presence unspecified, unspecified vessel or lesion type, unspecified whether duckwater or transplanted heart documented in this encounter [...] previous ECGs available Confirmed by Lissy Rich ([id number]) on 08/09/2017 7:02:09 PM MUSE EKG SYSTEM 08/09/2017 2:42 PM EDT 08/09/2017 7:02 PM EDT Angela Sykes NP CARDIOVASCULAR-WITH INBSKT R TG Final Result Performing Organization Address [facility] de Phone Number MUSE EKG SYSTEM * LATEX (K82) IGE (08/09/2017 2:27 PM EDT) Pathologist [facility] Latex (K82) IgE <0.10 kU/L [facility] Latex (K82) Class 0 [facility] Comment: Negative findings for latex specific IgE antibodies does not preclude latex allergy. Positive findings for latex specific IgE antibodies is highly suggestive of latex allergy and should be considered in context of clinical findings. 08/09/2017 2:27 PM EDT 08/09/2017 10:53 PM EDT Narrative Resulting Agency Comment [id number] Angela Sykes NP LABORATORY Final Result [facility] [address] [place] [address] * (ABNORMAL) BASIC METABOLIC PANEL WITH (GFR) [...] approximately 13% higher for people identified as -Peruvian. GFR 82 > OR = 60 mL/min/1 [...] needs for GFR calculation. Resulting Agency Comment [id number] Angela Sykes NP LABORATORY Final Result [facility] [address] [place] [address] documented in this encounter Visit Diagnoses Diagnosis Tear of right rotator cuff, unspecified tear extent Pre-operative examination Preoperative examination, unspecified Atherosclerosis of coronary artery, angina presence unspecified, unspecified vessel or lesion type, unspecified whether duck[place] or transplanted heart Latex sensitivity Allergy to latex documented in this encounter Care Teams Assistant Editor Relationship Specialty Start Date End Date Chandana Esquivel [facility] [address] [address] PCP - General Family Medicine 06/16/17 Anuja Yeh [address] [address] Rheumatology 06/23/18 Sarah Giles [facility] DEPT OF ONCOLOGY [address] [place] [address] Oncology 06/23/18 Ambrose Pérez MD [facility] [address] [place] [address] Anesthesiology 06/23/18 documented as of this encounter
--- OUTSIDE RECORDS SUMMARY | 2024-11-19 09:06 | XMS_ITS | Encounter Summary ---
Author Organization [facility] Address [address] [place] [address] Care Team Providers Care Marriage Therapist Name Role Phone Chandana Esquivel Primary Care Provider [phone] Anuja Yeh Unavailable Sarah Giles Unavailable [phone] Ambrose Pérez MD Unavailable [phone] Encounter Details Date Type Department Care Team (Late st Contact Info) Description 07/15/2017 Orders Only [facility] [address] [place] [address] Jasson Zhang MD [address] [id number] Social History Tobacco Use Types Packs/Day Years [...] of this encounter Results * Due to [place] state law, this organization might not be [...] chronicity documented in this encounter Care Teams Marriage Therapist Relationship Specialty Start Date End Date Chandana Esquivel [facility] [address] [place] [address] PCP - General Family Medicine 06/16/17 Anuja Yeh [address] [address] Rheumatology 06/23/18 Sarah Giles [facility] DEPT OF ONCOLOGY [address] [place] [address] Oncology 06/23/18 Ambrose Pérez MD [facility] [address] [place] [address] Anesthesiology 06/23/18 documented as of this encounter
--- OUTSIDE RECORDS SUMMARY | 2024-11-19 09:06 | XMS_ITS | Encounter Summary ---
Author Organization [facility] Address [address] [place] [address] Care Team Providers Care Network Architect Name Role Phone Chandana Esquivel Lalito Primary Care Provider Anuja Yeh Unavailable Sarah Giles Unavailable [phone] Ambrose Pérez MD Unavailable [phone] Reason for Referral * CONSULT AND TREATMENT (Routine) - Incomplete Specialty Diagnoses / Procedures Referred By Bartolo pulido Referred To Contact Physical Therapy Diagnoses Right shoulder pain, unspecified chronicity Jasson Zhang MD Phone: tel: fax: Referral ID Status Reason Start Date Expiration Date Visits Requested Visits Authorized [id number] Incomplete Specialty Services Required 07/27/2017 1 1 Question Answer What is the reason for this outside referral? EVALUATE AND TREAT Please provide pertinent patient history. right rotator cuff tear surg sched for 08/18/17 Patient is being referred outside of [facility] for the following reason, however final determination for [id number] requests are made by the Referral Management Department Patient Preference Track Order? No When do you want this visit to occur? PT CONVENIENCE - s/p 15 days 08/18/17 sched surgery Which provider/facility/agency would you like to refer to? Orthopedic Physical Therapy [facility] Encounter Details Date Type Department Care Team ([facility] st Contact Info) Description 07/27/2017 Orders Only [facility] [address] [place] [phone] Jasson Zhang MD [address] [address] Social History Tobacco Use Types Packs/Day Years [...] chronicity documented in this encounter Care Teams Network Architect Relationship Specialty Start Date End Date Chandana Esquivel [facility] [address] [place] [address] PCP - General Family Medicine 06/16/17 Anuja Yeh [address] [address] Rheumatology 06/23/18 Sarah Giles [facility] DEPT OF ONCOLOGY [address] [place] [address] Oncology 06/23/18 Ambrose Pérez MD [facility] [address] [place] [address] Anesthesiology 06/23/18 documented as of this encounter
--- OUTSIDE RECORDS SUMMARY | 2024-11-19 09:06 | XMS_ITS | Clinical Summary ---
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 Procedure Name Priority Date/Time Associated Diagnosis Comments HEPATITIS C ANTIBODY W/REFLEX TO HCV RNA, QUANTITATIVE PCR Routine 02/16/2017 4:48 PM EST Primary osteoarthritis of both hands from Last 3 Months or Most Recently Relevant to Health Maintenance Results * Due to [place] [employer] law, this organization might not be sharing negative HIV tests. * Hepatitis C Antibody w/Reflex to HCV RNA, Quantitative PCR (02/16/2017 4:48 PM EST) Hepatitis C Antibody NON-REACT NANCY NON-REACT NANCY 02/17/2017 4:55 AM EST [employer] Signal To Cut-Off 0.04 <1.00 02/17/2017 4:55 AM EST [employer] Blood specimen (specimen) Structure of peripheral vein / Unknown Venipuncture / Unknown 02/16/2017 4:48 PM EST 02/16/2017 5:13 PM EST Narrative DUSTY QUINTEROS - 02/17/2017 4:55 AM EST [facility] Received Date: us Anuja Yeh MD LAB BLOOD ORDERABLES Final Resul t DUSTY QUINTEROS [address] [facility] 3rd Floor, [place] [address], [place] [phone] [facility] [address] [facility] 3rd Floor, [place] [address], [place] [phone] from Last 3 Months or Most Recently Relevant to Health Maintenance Insurance MEDICARE [facility] Care Teams Florist Supplies Salesperson Relationship Specialty Start Date End Date Chandana Esquivel [address] [place] [address] [place] [address] PCP - General 08/26/16
--- OUTSIDE RECORDS SUMMARY | 2024-11-19 09:06 | XMS_ITS | Encounter Summary ---
Author Organization Kimberly Ortiz [facility] Address [address] [place] [address] Care Team Providers Care Ornamental Rail Installer Name Role Phone Chandana Esquivel Primary Care Provider [phone] Encounter Details Date Type Department Care Team (Late st Contact Info) Description 08/09/2012 Clinical Conversion Encounter [facility] RADIATION [facility]COL[facility] Radiation Oncology [address] [place] [address] Sonny Tierney MD [address] [place] [address] Social History Tobacco Use Types Packs/Day Years Used Date Smoking Tobacco: Never Assessed Comments Unknown Sex and Gender Information Value Date Recorded Sex Assigned at Not on file Legal Sex Female 4:15 PM EST Gender Identity Not on file Sexual Orientation Not on file documented as of this encounter Progress Notes * Sonny Tierney MD - 03/26/2014 6:34 AM EST [id number],[place], [place]. Referring Physician Dr. Scott Mazariegos Chief [...] 2 grown children. 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 Denies routine exercise pattern. Previous history of tobacco use one pack per day for 30 years but quit 2 years ago with her MD. OB History 2 para 2, onset of menses at age 12, menopause at age 48. First age 20. Allergies 1. Penicillins 2. Lobster 3. Nickel Penicillin and nickel Current Meds Aspirin 81 MG Oral Tablet; TAKE 1 TABLET DAILY; Therapy: (Recorded:[id number]) to Ativan 0.5 MG Oral Tablet; TAKE 1 TABLET EVERY 6 TO 8 HOURS NEEDED; Therapy: (Recorded:[id number]) to Benadryl 25 MG Oral Tablet; TAKE 1 TABLET AT BEDTIME for rash; Therapy: [id number] to Benadryl Itch Stopping 1-0.1 % External Cream; APPLY SPARINGLY TO AFFECTED AREA(S) 3 TIMES A DAY; Therapy: [id number] to Ibuprofen 600 MG Oral Tablet; Take 1 tablet every 6 hours as needed for pain; Therapy: (Recorded:[id number]) to Lisinopril 20 MG Oral Tablet; TAKE 1 TABLET DAILY; Therapy: (Recorded:[id number]) to Metoprolol Tartrate 25 MG Oral Tablet; TAKE 1 TABLET TWICE DAILY; Therapy: (Recorded:[id number]) to Multiple Vitamin TABS; TAKE 1 TABLET DAILY; Therapy: (Recorded:[id number]) to Nystatin [address]87815 UNIT/GM External Powder; APPLY 2-times DAILY TO AFFECTED AREA(S); Therapy: [id number] to Percocet 5-325 MG Oral Tablet; TAKE 1 TABLET EVERY 4 HOURS NEEDED FOR PAIN; Therapy: (Recorded:[id number]) to Vitamin D3 2000 UNIT Oral Tablet; Take 1 tablet daily; Therapy: (Recorded:[id number]) to Review of Systems She has had [...] She has no known autoimmune disorders. Vitals [facility] Vitals Data Includes: Current Encounter 09Aug2012 09:52AM [...] we discussed options including full breast radiotherapy, Knott fractionation full breast radiotherapy, or partial breast [...] on filedocumented in this encounter Care Teams Ornamental Rail Installer Relationship Specialty Start Date End Date Chandana Esquivel [address] [place] [address] PCP - General 12/17/13 documented as of this encounter
--- OUTSIDE RECORDS SUMMARY | 2024-11-19 09:06 | XMS_ITS | Encounter Summary ---
Author Organization [facility] Address [address] [place] [address] Care Team Providers Care Software Project Lead Name Role Phone Chandana Esquivel Primary Care Provider [phone] Anuja Yeh Unavailable Sarah Giles Unavailable [phone] Ambrose Pérez MD Unavailable [phone] Reason for Visit * Reason Comments Follow Up Encounter Details Date Type Department Care Team ([facility] st Contact Info) Description 06/21/2018 Telephone [facility] Neurology [address] [address] Wilder Kim MD [address] [address] Follow Up Social History Tobacco [...] Hoffman RN - 06/22/2018 9:35 AM EDT [facility] in [place] is the preferred pharmacy. I do see that 2 historical meds were entered yesterday during her consult. Forwarding to Dr. Kim in case they discussed her needing to refill them. * Telephone Encounter - Ирина Adams - 06/21/2018 4:29 PM EDT Florencia called to let the nurse know that she will [facility] using [facility]. This pharmacy is notin the system. Please put that in as the pharmacy she will be using. documented in this encounter Plan of Treatment Not on file documented as of this encounter Visit Diagnoses Not on filedocumented in this encounter Care Teams Software Project Lead Relationship Specialty Start Date End Date Chandana Esquivel [facility] [address] [address] PCP - General Family Medicine 06/16/17 Anuja Yeh [facility] [address] [place] [address] Rheumatology 06/23/18 Sarah Giles [facility] DEPT OF ONCOLOGY [address] [place] [address] Oncology 06/23/18 Ambrose Pérez MD [facility] [address] [place] [address] Anesthesiology 06/23/18 documented as of this encounter
== END 2024-09-21 00:01 | disposition home or self-care (01) ==
LOC: HO.PAT
PROVIDERS: Nurse Practitioner; Physician Assistant; Visit Provider Orthopaedic Surgery
DX: M17.11 Unilateral primary osteoarthritis, right knee (principal)
CPT/HCPCS: 36415; 80048; 85027; 87640; 87641

== ENCOUNTER → 2024-09-27 10:02 | Outpatient (REF) | payer MEDICARE, SELFPAY ==
--- NOTE | 2024-09-27 10:05 | CA_ITS ---
Transthoracic Echocardiogram Patient (Last, First, Middle): Florencia Ahmadi, Gender: Female Date of : 1945 Age: 79 Procedure Date: 09/27/2024 Procedure Type: Transthoracic Echocardiogram Location: OP Height: 160.02 cm Weight: 63.5 kg BSA: 1.66 m2 Heart Rate: bpm BP: 130 / 60 mmHg Hide Washer: TAIWO Referring MD: Damaso Govea MD [employer] Member: Hank Loredo MD Symptoms: I25.10 - Atherosclerotic heart disease of [place] coronary artery without angina pectoris Study Quality: Adequate ECG Rhythm: Sinus Conclusions: - 1. Normal LV ejection fraction of 60 65% with impaired relaxation filling pattern 2. Early mild aortic stenosis noted 3. No gross pericardial effusion Findings Left Ventricle Normal left ventricular size, thickness, and systolic function. The visually estimated ejection fraction is between 60-65%. Spectral Doppler is indicative of an impaired relaxation filling pattern. E/E prime ratio is between 8 and 15 consistent with indeterminate filling pressures. Right Ventricle Normal right ventricular cavity size and systolic function. Atria Both atria are normal in size. Interatrial shunt cannot be excluded. Aortic Valve The aortic valve was not well visualized. There is mild calcification of the aortic valve. There is mild aortic valve stenosis. There is no aortic valve regurgitation. Mitral Valve There is mild anterior and posterior mitral leaflet thickening. There is trace mitral valve regurgitation. There is no mitral valve stenosis. Pulmonic Valve The pulmonic valve was not well visualized. Tricuspid Valve Likely normal tricuspid valve structure and function. Tricuspid regurgitation envelope is inadequate for calculation of right ventricular systolic pressure. Normal right atrial pressure. Great Vessels The aorta was not well visualized. The pulmonary artery was not well visualized. Venous The inferior vena cava is normal in size and collapses greater than 50% with inspiration. Pericardium/Pleural There is no evidence of pericardial effusion. Prior Study Comparison No prior study available for comparison. Measurements 2D Linear Measurements IVSd: 1.04 0.6-0.9/0.6-1.0 cm LVIDd: 4.23 3.9-5.3/4.2-5.9 cm LVIDd Index: 2.55 2.4-3.2/2.2-3.1 cm/m2 LVIDs: 2.86 2.0-3.6 cm LVPWd: 0.98 0.7-1.1 cm LA Diam: 2.90 2.7-3.8/3.0-4.0 cm LAIDs Index: 1.75 1.5-2.3 cm/m2 LV Mass: 175.07 67-162/88-224 g LV Mass Index: 105.46 43-95/49-115 g/m2 LVOT Diam: 2.10 3.0+(-)1.3 cm 2D Systolic Function EF 4C: 61.20 >55% EF 2C: 62.50 >55% EF BiP: 61.10 >55% Mitral Valve MV Pk E: 0.68 MV PK A: 1.14 MV Decel Time: 215.00 E/A: 0.60 E'Lateral: 8.59 E'Medial: 5.11 E/E' Med: 13.40 E/E' Lat: 8.00 PHT: 63.00 MVA PHT: 3.49 Decel [place]: 3.18 Aortic Valve AoV Pk [place]: 1.98 AoV Mn [place]: 1.42 AoV VTI: 0.46 AoV Pk Grad: 16.00 Aov Mn Grad: 9.00 TEJAL Cont.VTI: 1.94 LVOT LVOT Pk [place]: 1.12 LVOT Mn [place]: 0.78 LVOT VTI: 0.26 LVOT Pk Grad: 5.00 LVOT Mn Grad: 3.00 LVOT Diam: 2.10 LVOT Area: 3.46 Diastolic Function MV Pk E: 0.68 MV Pk A: 1.14 E/A: 0.60 E'Medial: 5.11 E/E' Med: 13.40 E' Laterial: 8.59 E/E' Lat: 8.00 Right Ventricle TAPSE (mm): 23.00 TVS' Navneet: 11.90 Tricuspid Valve RA Press: 3.00 Great Vessels Aorta Sinus of Valsalva: 2.94 2.0-3.5 cm Updated in Other Vendor System with Status of Final Hank Loredo MD electronically signed on 09/28/2024 5:14:35 PM with status of Final
--- OUTSIDE RECORDS SUMMARY | 2024-09-27 11:25 | XMS_ITS | Encounter Summary ---
Author Organization [facility] Address [address] [place] [address] Phone Care Team Providers Care Ring Stamper Name Role Phone Chandana Esquivel MD Primary Care Provider Encounter Details Date Type Department Care Team (Late st Contact Info) Description 07/30/2016 Procedure [facility] [address] [place] [address] Social History Tobacco Use Types Packs/Day Years [...] on filedocumented in this encounter Care Teams Ring Stamper Relationship Specialty Start Date End Date Chandana Esquivel MD [address] [place] [address] [address] [place] [address] PCP - General Family Medicine 09/05/13 documented as of this encounter Additional Source Comments The information contained in this document represents components of the legal health record. It is not the complete legal health record.[facility]
--- OUTSIDE RECORDS SUMMARY | 2024-09-27 11:26 | XMS_ITS | Clinical Summary ---
Author Organization [facility] Address [address] [place] [address] Care Team Providers Care Varnish Maker Helper Name Role Phone Chandana Esquivel Laliot Primary Care Provider [phone] Anuja Yeh Unavailable Sarah Giles Unavailable [phone] Ambrose Pérez MD Unavailable [phone] Allergies Active Allergy Reactions Criticality Noted [...] 08/07, 08/09/2017, Additional history exists HPV Vaccine (No Doses Required) Completed Hep A Aged Out No longer eligi [...] (Zostavax) Discontinued Procedures * Due to [place] [employer] law, this organization might not be sharing [...] unspecified vessel or lesion type, unspecified whether [place] or transplanted heart from Last 3 Months or Most Recently Relevant to Health Maintenance Results * Due to [place] [employer] law, this organization might not be sharing [...] 08/09/2017 7:02 PM EDT us Angela Sykes CYBER SECURITY SPECIALIST CARDIOVASCULAR-WITH INBSKT R TG Final Result MUSE EKG SYSTEM from Last 3 Months or Most Recently Relevant to Health Maintenance Insurance MEDICARE PART B MEDICAID Care Teams Varnish Maker Helper Relationship Specialty Start Date End Date Chandana Esquivel [facility] [address] [facility] [address] [place] [address] PCP - General Family Medicine 06/16/17 Anuja Yeh [address] [address] Rheumatology 06/23/18 Sarah Giles [facility] DEPT OF ONCOLOGY [address] [place] [address] Oncology 06/23/18 Ambrose Pérez MD [facility] [address] [place] [address] Anesthesiology 06/23/18
--- OUTSIDE RECORDS SUMMARY | 2024-09-27 11:26 | XMS_ITS | Clinical Summary ---
Author Organization [facility] Address [address] [place] [address] Care Team Providers Care Boilermaker'S Assistant Name Role Phone Chandana Esquivel Primary Care Provider [phone] Allergies Active Allergy Reactions Criticality Noted Date [...] bilateral 02/16/2017 Coronary artery disease invo lving [facility] coronary artery of [facility] heart with angina pectoris 02/16/2017 Breast cancer [...] topic Sigmoidoscopy Discontinued Procedures * Due to [place] [employer] law, this organization might not be sharing negative HIV tests. Procedure Name Priority Date/Time Associated Diagnosis Comments HEPATITIS C ANTIBODY W/REFLEX TO HCV RNA, QUANTITATIVE PCR Routine 02/16/2017 4:48 PM EST Primary osteoarthritis of both hands from Last 3 Months or Most Recently Relevant to Health Maintenance Results * Due to [place] [employer] law, this organization might not be sharing negative HIV tests. * Hepatitis C Antibody w/Reflex to HCV RNA, Quantitative PCR (02/16/2017 4:48 PM EST) Hepatitis C Antibody NON-REACT NANCY NON-REACT NANCY 02/17/2017 4:55 AM EST [facility] Signal To Cut-Off 0.04 <1.00 02/17/2017 4:55 AM EST [employer] Blood specimen (specimen) Structure of peripheral vein / Unknown Venipuncture / Unknown 02/16/2017 4:48 PM EST 02/16/2017 5:13 PM EST Narrative DUSTY QUINTEROS - 02/17/2017 4:55 AM EST [facility] Received Date: us Anuja Yeh MD LAB BLOOD ORDERABLES Final Resul t DUSTY QUINTEROS [address] [facility] 3rd Floor, [place] [address], [place] [phone] [facility] [address] [facility] 3rd Floor, [place] [address], [place] [phone] from Last 3 Months or Most Recently Relevant to Health Maintenance Insurance MEDICARE [facility] Care Teams Boilermaker'S Assistant Relationship Specialty Start Date End Date Chandana Esquivel [address] [place] [address] [place] [address] PCP - General 08/26/16
--- OUTSIDE RECORDS SUMMARY | 2024-09-27 11:26 | XMS_ITS | Clinical Summary ---
Author Organization Kimberly Ortiz [facility] Address [address] [place] [id number] Care Team Providers Care Customer Complaint Clerk Name Role Phone Chandana Esquivel Primary Care Provider [phone] Allergies Active Allergy Reactions Criticality Noted Date Comments Other Rash 08/09/2012 Nickel. Other Swelling 08/09/2012 Lobster. Penicillins Hives 08/09/2012 Medications Text: Ibuprofen 600 MG Oral Tablet Take 1 tablet every 6 hours as needed for pain 3 Active lisinopril (ZESTRIL) 20 MG tablet TAKE 1 TABLET DAILY. 3 Active metoprolol tartrate (LOPRESSOR) 25 MG tablet TAKE 1 TABLET TWICE DAILY. 3 Active aspirin 81 MG EC tablet TAKE 1 TABLET DAILY. 3 Active cholecalciferol , vitamin D3, 2,000 unit Tab Take 1 tablet daily 3 Active MULTIPLE VITAMIN tablet TAKE 1 TABLET DAILY. 3 Active PERCOCET 5-325 mg per tablet TAKE 1 TABLET EVERY 4 HOURS NEEDED FOR PAIN. 3 Active ATIVAN 0.5 mg tablet TAKE 1 TABLET EVERY 6 TO 8 HOURS NEEDED. 3 Active nystatin (MYCOSTATIN) powder APPLY 2-times DAILY TO AFFECTED AREA(S). 3 Active BENADRYL ALLERGY 25 mg tablet TAKE 1 TABLET AT BEDTIME for rash 3 Active BENADRYL ITCH STOPPING cream APPLY SPARINGLY TO AFFECTED AREA(S) 3 TIMES A DAY 3 Active cephalexin (KEFLEX) 250 mg capsule TAKE 1 CAPSULE BY MOUTH 4 TIMES A DAY FOR 7 DAYS 3 Active LOTRIMIN AF 1 % cream APPLY SPARINGLY TO AFFECTED AREA(Umbillicu s) TWICE DAILY 3 Active hydrocortisone 1 % cream APPLY SPARINGLY TO AFFECTED AREA( Left forearm rash) TWICE DAILY 3 Active Active Problems Problem Noted Date Diagnosed Date Malignant neoplasm of lower-outer quadrant of fe male breast 08/23/2012 Overview (05/03/2014): Malignant Female Breast Neoplasm Of The Lower Outer Quadrant Immunizations Immunization Administration Dates Next Due Influenza Vaccine - STANDARD - PF (FLUZONE/FLUARIX/FLULAVAL/AFLURIA) 11/08/2011 Social History Tobacco Use Types Packs/Day Years Used Date Smoking Tobacco: Never Assessed Comments Unknown Sex and Gender Information Value Date Recorded Sex Assigned at Not on file Legal Sex Female 4:15 PM EST Gender Identity Not on file Sexual Orientation Not on file Last Filed Vital Signs Vital Sign Reading Time Taken Comments Blood Pressure 131/65 08/09/2012 9:52 AM EDT Pulse 76 08/09/2012 9:52 AM EDT Temperature 37.1 C (98.7 F) 08/09/2012 9:52 AM EDT Respiratory Rate 16 08/09/2012 9:52 AM EDT Oxygen Saturation 97% 08/09/2012 9:52 AM EDT Inhaled Oxygen Concentration - - Weight 92.5 kg (204 lb) 08/09/2012 9:52 AM EDT Height 157.5 cm (5' 2 ) 08/09/2012 9:52 AM EDT Body Mass Index 37.31 08/09/2012 9:52 AM EDT Plan of Treatment Health Maintenance Due Date Last Done Comments Blood Pressure 1945 Depression Screening 1949 Hepatitis C Screening 05/30/1963 DTaP,Tdap,and Td Vaccines (1 - Tdap) 1964 Pneumococcal Vaccine (1 of 1 - PCV) 05/30/1995 Zoster Vaccine (1 of 2) 05/30/1995 Osteoporosis Screening 2010 COVID-19 Vaccine ( - 2023-2 5 season) 2023 Influenza Vaccine (#1) 2024 11/08/2011 Meningococcal B Vaccines Aged Out No longer eligible based on patient's age to complete this topic Meningococcal Vaccines Aged Out No lo nger eligible based on patient's age to complete this topic Care Teams Customer Complaint Clerk Relationship Specialty Start Date End Date Chandana Esquivel [address] [place] [address] [address] [place] [address] PCP - General 12/17/13
== END ==
LOC: HO.CARD 10:02
PROVIDERS: Visit Provider Internal Medicine
DX: I25.10 Atherosclerotic heart disease of native coronary artery without angina pectoris (principal); I25.2 Old myocardial infarction
CPT/HCPCS: 93306

== ENCOUNTER → 2024-09-27 10:05 | Outpatient (BNV) | payer MEDICARE, SELFPAY | PROVIDERS: Visit Provider Internal Medicine Cardiovascular Disease | DX: I35.0 Nonrheumatic aortic (valve) stenosis (principal); I25.10 Atherosclerotic heart disease of native coronary artery without angina pectoris | CPT/HCPCS: 93306 ==

== ENCOUNTER → 2024-09-28 08:52 | Outpatient (BNVA) | payer MEDICARE, SELFPAY | DX: Z01.818 Encounter for other preprocedural examination (principal) ==

== ENCOUNTER → 2024-10-12 13:40 | Outpatient (BNV) | payer MEDICARE, MEDICAID, SELFPAY | PROVIDERS: Visit Provider Internal Medicine Medical Oncology | DX: C78.7 Secondary malignant neoplasm of liver and intrahepatic bile duct (principal) | CPT/HCPCS: 99204 ==

== ENCOUNTER 2024-10-19 07:14 | Outpatient (REF) | payer MEDICARE, SELFPAY ==
--- NOTE | ~2024-10-19 | US_ITS ---
EXAMINATION: US ABDOMEN LIMITED HISTORY: Liver lesions TECHNIQUE: Real-time grayscale ultrasound imaging of the right upper quadrant was performed and images were reviewed. COMPARISON: There are no prior studies available for comparison. FINDINGS: Liver: The right lobe of the liver measures 11.7 cm in size. The left lobe of the liver measures 9.0 cm in size. The liver demonstrates normal homogeneous echotexture. There is a 3 x 4 x 5 mm echogenic focus in the right lobe which may represent a hemangioma. Multiple cysts are noted in the right lobe measuring 11 x 11 x 10 mm, 9 x 7 x 9 mm, an 17 x 10 x 15 mm. There is a 4 mm calcification in the right lobe. There is mild prominence of intrahepatic biliary radicles. There is normal hepatopedal flow in the portal vein. Gallbladder and biliary tree: The gallbladder is surgically absent. The common bile duct measures 7 mm in diameter. Right Kidney: The right kidney measures 8.5 cm in length. There is mild increased renal echotexture. There is a 4.4 x 3.3 x 4.5 cm upper pole cyst. Pancreas: The pancreatic head, neck, and body are unremarkable. The pancreatic tail is obscured by bowel gas. Abdominal aorta and inferior vena cava: The visualized portions of the abdominal aorta and inferior vena cava are normal in caliber. There is no free fluid in the right upper quadrant. US/US abdomen limited IMPRESSION: Multiple hepatic cysts as described. Tiny 3 x 4 x 5 mm echogenic focus in the right lobe which may represent a hemangioma. Electronically signed by: Ian Cox MD 10/19/2024 08:03 AM EDT
--- OUTSIDE RECORDS SUMMARY | 2024-10-19 07:17 | XMS_ITS | Encounter Summary ---
Author Organization Kimberly Ortiz [facility] Address [address] [place] [address] Care Team Providers Care Bag Sewer Name Role Phone Chandana Esquivel Primary Care Provider [phone] Encounter Details Date Type Department Care Team (Late st Contact Info) Description 08/09/2012 Clinical Conversion Encounter [facility] RADIATION ONCOLOGY [facility] Radiation Oncology [address] [place] [address] Sonny Tierney MD [address] [place] [address] Social History Tobacco Use Types Packs/Day Years Used Date Smoking Tobacco: Never Assessed Comments Unknown Sex and Gender Information Value Date Recorded Sex Assigned at Not on file Legal Sex Female 4:15 PM EST Gender Identity Not on file Sexual Orientation Not on file documented as of this encounter Progress Notes * Sonny Tierney MD - 03/26/2014 6:34 AM EST [id number],[place], [place]. Referring Physician Dr. 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 Subsequently a core biopsy of the 5:00 spiculated lesion in the right breast returned positive for infiltrating ductal carcinoma moderately differentiated. Bilateral breast MRI on 2012 revealed an irregular marginated faintly enhancing 1.2 x 1.4 x 2.3 cm diameter mass with no other areas concerning for multifocal or multicentric disease. There was no abnormality in the left breast. A localized area of enhancement along the anterior superior aspect of the liver was noted but not well characterized. A followup CT of the liver revealed findings that are thought to be consistent with hemangioma. The CT suggested findings in the kidney and right adnexa for which followup ultrasound was recommended. Ultrasound of the right ovary revealed a septated cystic structure worrisome for ovarian pathology and bilateral renal cysts seen in the kidneys. A laparoscopic assisted right oophorectomy revealed benign pathology. Ultimately she returned for a lumpectomy and sentinel node evaluation on July 25, 2012. Pathology demonstrated a 2 x 1.6 x 1.5 cm infiltrating carcinoma with with ductal and lobular features. Invasive carcinoma was initially present within 0.2 cm of the posterior margin however additional margins were found free by more than 0.3 cm. One sentinel lymph node was negative for malignancy. A foci suspicious for LVI was noted. The tumor is 90% estrogen receptor positive progesterone receptor negative, and HER-2/williams negative. She had an unremarkable postoperative course other than a rash near the right axilla and in the inframammary region near and around the lumpectomy site. Her range of motion in the right upper extremity is at baseline. She has met with medical oncology with Dr. Giles and relays a relatively high Oncotype DX recurrence score, we have requested that information. It has been recommended that she undergo 4 cycles of Taxotere and Cytoxan chemotherapy to reduce the systemic risk for recurrence. The patient is currently considering this option but has not arrived at a decision regarding systemic chemotherapy. 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 She quit smoking at that time. History of hypertension, no history of ulcers or diabetes Surgical History Recent right oophorectomy, right partial mastectomy and sentinel node evaluation Family History Possible history of breast cancer in a paternal grandmother, no history of gynecologic malignancies Social History She is for 45 years and is present today with her , daughter, and future son-in-law. She has 2 grown children. 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 Denies routine exercise pattern. Previous history of tobacco use one pack per day for 30 years but quit 2 years ago with her OH. OB History 2 para 2, onset of menses at age 12, menopause at age 48. First age 20. Allergies 1. Penicillins 2. Lobster 3. Nickel Penicillin and nickel Current Meds Aspirin 81 MG Oral Tablet; TAKE 1 TABLET DAILY; Therapy: (Recorded:[id number]) to Ativan 0.5 MG Oral Tablet; TAKE 1 TABLET EVERY 6 TO 8 HOURS NEEDED; Therapy: (Recorded:[id number]) to Benadryl 25 MG Oral Tablet; TAKE 1 TABLET AT BEDTIME for rash; Therapy: [id number] to Benadryl Itch Stopping 1-0.1 % External Cream; APPLY SPARINGLY TO AFFECTED AREA(S) 3 TIMES A DAY; Therapy: 36Zdt9656 to Ibuprofen 600 MG Oral Tablet; Take 1 tablet every 6 hours as needed for pain; Therapy: (Recorded:22Msq0553) to Lisinopril 20 MG Oral Tablet; TAKE 1 TABLET DAILY; Therapy: (Recorded:43Ywa2930) to Metoprolol Tartrate 25 MG Oral Tablet; TAKE 1 TABLET TWICE DAILY; Therapy: (Recorded:88Ums7047) to Multiple Vitamin TABS; TAKE 1 TABLET DAILY; Therapy: (Recorded:77Utd5513) to Nystatin 833640 UNIT/GM External Powder; APPLY 2-times DAILY TO AFFECTED AREA(S); Therapy: 62Adt1027 to Percocet 5-325 MG Oral Tablet; TAKE 1 TABLET EVERY 4 HOURS NEEDED FOR PAIN; Therapy: (Recorded:88Tjf3016) to Vitamin D3 2000 UNIT Oral Tablet; Take 1 tablet daily; Therapy: (Recorded:39Ppz3531) to Review of Systems She has had no recent weight loss, nausea, vomiting, diarrhea, focal back pain, bone pain, cough, fever, or shortness of breath, other than what is described in the history of present illness. 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 History of paresthesias and peripheral neuropathy for which she is on Neurontin. No pacemaker. She has no known autoimmune disorders. Vitals [facility] Vitals Data Includes: Current Encounter 09Aug2012 09:52AM Systolic: 131, LUE, Sitting Diastolic: 65, LUE, Sitting Heart Rate: 76 BMI Calculated: 37.54 BSA Calculated: 1.92 Height: 5 ft 2 in Weight: 204 lb Respiration: 16 Respiration Quality: Normal O2 Saturation: 97, RA Temperature: 98.7 F, Oral Pain Score: 0 Allergy Status Reviewed: Yes Safe at Home: Yes Performance Status KPS 90 Physical Exam On physical examination, she is seated comfortably in no acute distress. Pupils are equal, round, and reactive to light and accommodation. Extraocular muscles intact. There is no evidence of cervical, supraclavicular, or axillary lymphadenopathy appreciated. Heart: Regular rate and rhythm. Lungs are clear to auscultation bilaterally. There is no point spinal or CVA tenderness. Abdomen: Positive bowel sounds, nondistended, nontender, with no hepatosplenomegaly. Extremities: No cyanosis, clubbing, or edema. Examination of the breasts reveal a 38C plus bra size with a maculopapular rash located near the inframammary fold and in the axillary region as well as under the right arm consistent with where Betadine might have been applied during her surgical procedure and/or we are tape was up slide in the postoperative setting. There is no evidence for erythema or streaking suggestive of bacterial infection or clear evidence for fungal infection. The area is not warm to touch. Results/Data Mammogram reviewed in clincial with clinical findings as outlined above Assessment The patient is a delightful 67-year-old postmenopausal female with a recent diagnosis of a pathologic stage TIC N0 ductal carcinoma with lobular features status partial mastectomy and sentinel node evaluation. The tumor is strongly estrogen receptor positive. There is a foci suspicious for lymphovascular invasion. The patient appears to be an ideal candidate for breast conservation. Furthermore we discussed options including full breast radiotherapy, Midland fractionation full breast radiotherapy, or partial breast irradiation techniques. The patient and her family had several questions regarding the variety of different radiation techniques. She understands the standard of care to be full breast radiotherapy with mounting evidence in support of partial breast techniques through a risk adapted approach as would be applied in this situation. The patient at this time, after carfeul consideratio of her options is inclined to pursue partial breast irradiation utilizing a Mesha device. She will discuss further her surgical approach with Dr. Mazariegos and systemic options with Dr. Giles. They will inform me of the date for Mesha placement in the near future. Signatures Electronically signed by : SONNY TIERNEY MD; Aug 09 2012 5:00PM documented in this encounter Plan of Treatment Not on file documented as of this encounter Visit Diagnoses Not on filedocumented in this encounter Care Teams Bag Sewer Relationship Specialty Start Date End Date Chandana Esquivel [address] [place] [address] PCP - General 12/17/13 documented as of this encounter
--- OUTSIDE RECORDS SUMMARY | 2024-10-19 07:17 | XMS_ITS | Encounter Summary ---
Author Organization [facility] Address [address] [place] [address] Care Team Providers Care Senior Examiner Name Role Phone Chandana Esquivel Primary Care Provider [phone] Anuja Yeh Unavailable Sarah Giles Unavailable [phone] Ambrose Pérez MD Unavailable [phone] Encounter Details Date Type Department Care Team (Late st Contact Info) Description 08/09/2017 Orders Only [facility] Pre-Admission Testing [address] [place] [address] Angela Sykes NP Social History Tobacco Use [...] of this encounter Procedures * Due to [place] state law, this organization might not be sharing negative HIV tests. Procedure Name Priority Date/Time Associated Diagnosis Comments EKG-TO BE READ & BILLED BY ADULT OR PEDIATRIC CARDIOLOGY Routine 08/09/2017 2:42 PM EDT Tear of right rotator cuff, unspecified tear extent Pre-operative examination Atherosclerosis of coronary artery, angina presence unspecified, unspecified vessel or lesion type, unspecified whether enterprise or transplanted heart LATEX (K82) IGE Routine 08/09/2017 2:27 PM EDT Latex sensitivity BASIC METABOLIC PANEL WITH (GFR) Routine 08/09/2017 2:27 PM EDT Tear of right rotator cuff, unspecified tear extent Pre-operative examination Atherosclerosis of coronary artery, angina presence unspecified, unspecified vessel or lesion type, unspecified whether enterprise or transplanted heart documented in this encounter Results * Due to [place] state law, this organization might not be [...] previous ECGs available Confirmed by Lissy Rich ([id number]) on 08/09/2017 7:02:09 PM MUSE EKG SYSTEM 08/09/2017 2:42 PM EDT 08/09/2017 7:02 PM EDT Angela Sykes NP CARDIOVASCULAR-WITH INBSKT R TG Final Result Performing Organization Address [facility] de Phone Number MUSE EKG SYSTEM * LATEX (K82) IGE (08/09/2017 2:27 PM EDT) Pathologist [facility] Latex (K82) IgE <0.10 kU/L [facility] Latex (K82) Class 0 [facility] Comment: Negative findings for latex specific IgE antibodies does not preclude latex allergy. Positive findings for latex specific IgE antibodies is highly suggestive of latex allergy and should be considered in context of clinical findings. 08/09/2017 2:27 PM EDT 08/09/2017 10:53 PM EDT Narrative Resulting Agency Comment [id number] Angela Sykes NP LABORATORY Final Result [facility] [address] [place] [address] * (ABNORMAL) BASIC METABOLIC PANEL WITH (GFR) (08/09/2017 2:27 PM EDT) Glucose 124(H) 65 - 99 mg/dL [facility] Comment: Fasting reference interval For someone without known [...] approximately 13% higher for people identified as -Serbian. GFR 82 > OR = 60 mL/min/1 [...] needs for GFR calculation. Resulting Agency Comment [id number] Angela Sykes NP LABORATORY Final Result [facility] [address] [place] [address] documented in this encounter Visit Diagnoses Diagnosis Tear of right rotator cuff, unspecified tear extent Pre-operative examination Preoperative examination, unspecified Atherosclerosis of coronary artery, angina presence unspecified, unspecified vessel or lesion type, unspecified whether enterprise or transplanted heart Latex sensitivity Allergy to latex documented in this encounter Care Teams Senior Examiner Relationship Specialty Start Date End Date Chandana Esquivel [facility] [address] [address] PCP - General Family Medicine 06/16/17 Anuja Yeh [address] [address] Rheumatology 06/23/18 Sarah Giles [facility] DEPT OF ONCOLOGY [address] [place] [address] Oncology 06/23/18 Ambrose Pérez MD [facility] [address] [place] [address] Anesthesiology 06/23/18 documented as of this encounter
--- OUTSIDE RECORDS SUMMARY | 2024-10-19 07:17 | XMS_ITS | Clinical Summary ---
Author Organization [facility] Address [address] [place] [address] Phone Care Team Providers Care Wireless Network Engineer Name Role Phone Chandana Esquivel MD [...] 73 04/10/2014 11:46 AM EST Temperature 36.4 C (97.6 F) 11/23/2016 3:41 PM EDT Respiratory Rate - - Oxygen Saturation [...] age to complete this topic MENINGOCOCCAL VACCINES (B) Aged Out N o longer eligible based on patient's age to complete this topic Medical Devices Not on file Procedures Procedure Name Priority Date/Time Associated Diagnosis Comments BASIC METABOLIC PANEL Routine 04/10/2014 1:45 PM EST from Last 3 Months or Most Recently Relevant to Health Maintenance Results * (ABNORMAL) Basic metabolic panel (04/10/2014 1:45 PM EST) Plasma Sodium 146(Abnor therese H) 135 - 145 mmol/L [facility] Plasma Potassium 4.3 3.4 - 5.0 mmol/L [facility] Plasma Chloride 104 100 - 108 mmol/L [facility] Plasma Carbon Dioxide 24 23 - 32 mmol/L [facility] Plasma Urea Nitrogen 16 8 - 25 mg/dL [facility] Plasma Creatinine 0.90 0.60 - 1.50 mg/dL [facility] Plasma Glucose 79 70 - 110 mg/dL [facility] Calcium 9.7 8.5 - 10.5 mg/dL [facility] eGFR >60 mL/min/1. 73m2 [facility] Comment: Abnormal if <60 mL/min/1.73m2. If patient is -Bolivian, multiply the result by 1.21. Plasma Anion GAP 18(Abnorm ally H) 3 - 17 mmol/L [facility] 04/10/2014 1:45 PM EST 04/10/2014 6:10 PM EST Comment:BLOOD us Wilder Kim MD LAB BLOOD ORDERABLES Edited Resu lt - Final [address] [address] from Last 3 Months or Most Recently Relevant to Health Maintenance [place] [address] [address] [place] [address] MEDICARE PART A & [place] & B HEALTH MEDICARE PART A & [place]IC[place] PART A & [place] [address] [place] [address] MEDICARE PART A & B [facility] MEDICARE PART A & B Care Teams Wireless Network Engineer Relationship Specialty Start Date End Date Chandana Esquivel MD [address] [place] [address] [place] [address] PCP - General Family Medicine 09/05/13 Additional Source Comments The information contained in this document represents components of the legal health record. It is not the complete legal health record.[facility]
--- OUTSIDE RECORDS SUMMARY | 2024-10-19 07:17 | XMS_ITS | Clinical Summary ---
Author Organization [facility] Address [address] [place] [address] Care Team Providers Care Retention Specialist Name Role Phone Chandana Esquivel Primary Care Provider [phone] Allergies Active Allergy Reactions Criticality Noted Date [...] bilateral 02/16/2017 Coronary artery disease invo lving [place] coronary artery of [place] heart with angina pectoris 02/16/2017 Breast cancer [...] patients) (1 - 1-dose 75+ series) 2020 Alcohol/Substance Use Screening 02/08/2024 Depression Screening and Follow-Up 02/08/2024 Fall Risk Screening 02/08/2024 Health Care Proxy Review 02/08/2024 Social Drivers of Health Annual Screening 02/08/2024 COVID-19 Vaccine (4 - 2024-2 6 season) 2024 03/05/2021, 04/16/2020, 03/26/2020 Influenza Vaccine (#1) 2024 0, 11/21/2018, 11/08/2011 [...] topic Sigmoidoscopy Discontinued Procedures * Due to [place] law, this organization might not be sharing negative HIV tests. Procedure Name Priority Date/Time Associated Diagnosis Comments HEPATITIS C ANTIBODY W/REFLEX TO HCV RNA, QUANTITATIVE PCR Routine 02/16/2017 4:48 PM EST Primary osteoarthritis of both hands from Last 3 Months or Most Recently Relevant to Health Maintenance Results * Due to [place] law, this organization might not be sharing negative HIV tests. * Hepatitis C Antibody w/Reflex to HCV RNA, Quantitative PCR (02/16/2017 4:48 PM EST) Hepatitis C Antibody NON-REACT NANCY NON-REACT NANCY 02/17/2017 4:55 AM EST [facility] Signal To Cut-Off 0.04 <1.00 02/17/2017 4:55 AM EST [facility] Blood specimen (specimen) Structure of peripheral vein / Unknown Venipuncture / Unknown 02/16/2017 4:48 PM EST 02/16/2017 5:13 PM EST Narrative [facility]INTER[facility] - 02/17/2017 4:55 AM EST [facility] Received Date: us Anuja Yeh MD LAB BLOOD ORDERABLES Final Resul t [facility]USTY QU[facility] [address] [facility] [address], [place] [address], [place] [phone] [facility] [address] [facility] [address], [place] [address], [place] [phone] from Last 3 Months or Most Recently Relevant to Health Maintenance Insurance MEDICARE [id number] Care Teams Retention Specialist Relationship Specialty Start Date End Date Chandana Esquivel [address] [place] [address] [place] [address] PCP - General 08/26/16
--- OUTSIDE RECORDS SUMMARY | 2024-10-19 07:17 | XMS_ITS | Encounter Summary ---
Author Organization [facility] Address [address] [place] [address] Phone Care Team Providers Care Patient Intake Coordinator Name Role Phone Chandana Esquivel MD Primary Care Provider Encounter Details Date Type Department Care Team (Late st Contact Info) Description 07/30/2016 Procedure [facility] [address] [place] [address] Social History Tobacco Use Types Packs/Day Years [...] on filedocumented in this encounter Care Teams Patient Intake Coordinator Relationship Specialty Start Date End Date Chandana Esquivel MD [address] [place] [address] [address] [place] [address] PCP - General Family Medicine 09/05/13 documented as of this encounter Additional Source Comments The information contained in this document represents components of the legal health record. It is not the complete legal health record.[facility]
--- OUTSIDE RECORDS SUMMARY | 2024-10-19 07:17 | XMS_ITS | Encounter Summary ---
Author Organization [facility] Address [address] [place] [address] Care Team Providers Care Regulatory Technician Name Role Phone Chandana Esquivel Primary Care Provider [phone] Anuja Yeh Unavailable Sarah Giles Unavailable [phone] Ambrose Pérez MD Unavailable [phone] Encounter Details Date Type Department Care Team (Late st Contact Info) Description 08/25/2020 Orders Only [facility] [address] [place] [phone] Jasson Zhang MD [address] [id number] Social History Tobacco Use Types Packs/Day Years [...] CONTRAST: EXAM: X-ray right shoulder Comparison: CR [place] - XRAY SHOULDER COMPLETE MIN 2 VWS - RIGHT FC - 08/25/2020 12:59 PM EDT FINDINGS: 3 views of the right shoulder demonstrate mild to moderate medial joint space narrowing with subchondral sclerosis and cystic changes within the greater tuberosity. There are hypertrophic changes of the acromioclavicular joint. Visualized right lung is clear. There is no fracture or dislocation. IMPRESSION: Degenerative changes of the glenohumeral and acromioclavicular joints without acute traumatic injury. Procedure Note Susan Marie MD - 07/28/2021 CONTRAST: EXAM: X-ray right shoulder Comparison: CR [place] - XRAY SHOULDER COMPLETE MIN 2 VWS [...] on filedocumented in this encounter Care Teams Regulatory Technician Relationship Specialty Start Date End Date Chandana Esquivel [facility] [address] [place] [address] [address] [place] [address] PCP - General Family Medicine 06/16/17 Anuja Yeh [address] [address] Rheumatology 06/23/18 Sarah Giles [facility] [address] [place] [address] Oncology 06/23/18 Ambrose Pérez MD [facility] [address] [place] [address] Anesthesiology 06/23/18 documented as of this encounter
--- OUTSIDE RECORDS SUMMARY | 2024-10-19 07:17 | XMS_ITS | Clinical Summary ---
Author Organization [facility]ly Ortiz [facility] Address [address] [place] [address] Care Team Providers Care Final Inspector Movement Assembly Name Role Phone Chandana Esquivel Primary Care Provider [phone] Allergies Active Allergy Reactions Criticality Noted Date [...] 2) 05/30/1995 Osteoporosis Screening 2010 COVID-19 Vaccine (1 - 2023-2 5 season) 2024 Influenza Vaccine (#1) 2024 11/08/2011 Meningococcal B Vaccines Aged Out No longer eligible based on patient's age to complete this topic Meningococcal Vaccines Aged Out No lo nger eligible based on patient's age to complete this topic Care Teams Final Inspector Movement Assembly Relationship Specialty Start Date End Date Chandana Esquivel [address] [place] [address] [address] [place] [address] PCP - General 12/17/13
--- OUTSIDE RECORDS SUMMARY | 2024-10-19 07:17 | XMS_ITS | Encounter Summary ---
Author Organization [facility] Address [address] [place] [address] Care Team Providers Care Miter Grinder Operator Name Role Phone Chandana Esquivel Primary Care Provider [phone] Anuja Yeh Unavailable Sarah Giles Unavailable [phone] Ambrose Pérez MD Unavailable [phone] Encounter Details Date Type Department Care Team (Late st Contact Info) Description 07/15/2017 Orders Only [facility] [address] [place] [address] Jasson Zhang MD [address] [id number] Social History Tobacco Use Types Packs/Day Years [...] chronicity documented in this encounter Care Teams Miter Grinder Operator Relationship Specialty Start Date End Date Chandana Esquivel [facility] [address] [place] [address] PCP - General Family Medicine 06/16/17 Anuja Yeh [address] [address] Rheumatology 06/23/18 Sarah Giles [facility] ONCOL[facility]Y [address] [place] [address] Oncology 06/23/18 Ambrose Pérez MD [facility] [address] [place] [address] Anesthesiology 06/23/18 documented as of this encounter
--- OUTSIDE RECORDS SUMMARY | 2024-10-19 07:17 | XMS_ITS | Encounter Summary ---
Author Organization [facility] Address [address] [place] [address] Care Team Providers Care Filer Helper Name Role Phone Chandana Esquivel Lalito Primary Care Provider Anuja Yeh Unavailable Sarah Giles Unavailable [phone] Ambrose Pérez MD Unavailable [phone] Reason for Referral * CONSULT AND TREATMENT (Routine) - Incomplete Specialty Diagnoses / Procedures Referred By Bartolo pulido Referred To Contact Physical Therapy Diagnoses Right shoulder pain, unspecified chronicity Jasson Zhang MD Phone: tel: fax: Referral ID Status Reason Start Date Expiration Date Visits Requested Visits Authorized [id number] Incomplete Specialty Services Required 07/27/2017 1 1 Question Answer What is the reason for this outside referral? EVALUATE AND TREAT Please provide pertinent patient history. right rotator cuff tear surg sched for 08/18/17 Patient is being referred outside of [facility] for the following reason, however final determination for [id number] requests are made by the Referral Management Department Patient Preference Track Order? No When do you want this visit to occur? PT CONVENIENCE - s/p 15 days 08/18/17 sched surgery Which provider/facility/agency would you like to refer to? Orthopedic Physical Therapy [facility] Encounter Details Date Type Department Care Team ([facility] st Contact Info) Description 07/27/2017 Orders Only [facility] [address] [place] [phone] Jasson Zhang MD [address] [address] Social History Tobacco Use Types Packs/Day Years [...] chronicity documented in this encounter Care Teams Filer Helper Relationship Specialty Start Date End Date Chandana Esquivel [facility] [address] [place] [address] PCP - General Family Medicine 06/16/17 Anuja Yeh [address] [address] Rheumatology 06/23/18 Sarah Giles [facility] ONCOL[facility]Y [address] [place] [address] Oncology 06/23/18 Ambrose Pérez MD [facility] [address] [place] [address] Anesthesiology 06/23/18 documented as of this encounter
--- OUTSIDE RECORDS SUMMARY | 2024-10-19 07:17 | XMS_ITS | Clinical Summary ---
Author Organization [facility] Address [address] [place] [address] Care Team Providers Care Aqua Ammonia Operator Name Role Phone Chandana Esquivel Lalito Primary Care Provider [phone] Anuja Yeh Unavailable Sarah Giles Unavailable [phone] Ambrose Pérez MD Unavailable [phone] Allergies Active Allergy Reactions Criticality Noted [...] 75+ series) 2020 COVID-19 Vaccine ( season) 2024 Influenza (#1) 2024 11/08/2011 LDL Cholesterol Discontinued [...] (Zostavax) Discontinued Procedures * Due to [place] [employer] law, this organization might not be sharing [...] unspecified vessel or lesion type, unspecified whether wiyot or transplanted heart from Last 3 Months or Most Recently Relevant to Health Maintenance Results * Due to [place] [employer] law, this organization might not be sharing [...] 08/09/2017 7:02 PM EDT us Angela Sykes VALET ATTENDANT CARDIOVASCULAR-WITH INBSKT R TG Final Result MUSE EKG SYSTEM from Last 3 Months or Most Recently Relevant to Health Maintenance Insurance MEDICARE PART B MEDICAID Care Teams Aqua Ammonia Operator Relationship Specialty Start Date End Date Chandana Esquivel [facility] [address] [facility] [address] [place] [address] PCP - General Family Medicine 06/16/17 Anuja Yeh [address] [address] Rheumatology 06/23/18 Sarah Giles [facility] ONCOL[facility]Y [address] [place] [address] Oncology 06/23/18 Ambrose Pérez MD [facility] [address] [place] [address] Anesthesiology 06/23/18
--- OUTSIDE RECORDS SUMMARY | 2024-10-19 07:17 | XMS_ITS | Encounter Summary ---
Author Organization Kimberly Ortiz [facility] Address [address] [place] [address] Care Team Providers Care Carbon Electrodes Supervisor Name Role Phone Chandana Esquivel Primary Care Provider [phone] Encounter Details Date Type Department Care Team (Late st Contact Info) Description 08/25/2012 Clinical Conversion Encounter [facility] Radiation Oncology [address] [place] [address] Sonny Tierney MD [address] [place] [address] Social History Tobacco Use Types Packs/Day Years Used Date Smoking Tobacco: Never Assessed Comments Unknown Sex and Gender Information Value Date Recorded Sex Assigned at Not on file Legal Sex Female 4:15 PM EST Gender Identity Not on file Sexual Orientation Not on file documented as of this encounter Progress Notes * Sonny Tierney MD - 03/26/2014 6:34 AM EST [id number],[place]. Diagnosis Right breast cancer Staging Stage T1CN0 right breast ductal carcinoma ER positive and HER-2 negative with negative surgical margins History of Present Illness The patient is a delightful 67-year-old female with a recent diagnosis of a right breast T1C N0 ductal carcinoma. She now compared to course of partial breast irradiation administered with a Mesha device. The device was placed by Dr. Manzo the day before simulation on 1212. The patient remained on her buttock therapy as a prophylaxis while the catheter remained in place. She underwent treatment planning which allow for delivery of 340 cGy twice a day through the 7 general applicator. It was delivered over 5 days for a total of 3400 cGy. Treatment Dates Treatment began on August 21 and was completed on August 25 at which time the catheter was removed without difficulty. Treatment Site and Dose Right breast biopsy cavity received a total of 3400 cGy over 10 fractions and 5 days Treatment Course The patient tolerated radiation remarkably well with no adverse acute reactions. Follow Up Recommendation She will followup with her surgeon and will return here on September 15. Signatures Electronically signed by : SONNY TIERNEY MD; Sep 06 2012 12:27PM documented in this encounter Plan of Treatment Not on file documented as of this encounter Visit Diagnoses Not on filedocumented in this encounter Care Teams Carbon Electrodes Supervisor Relationship Specialty Start Date End Date Chandana Esquivel [address] [place] [address] PCP - General 12/17/13 documented as of this encounter
--- OUTSIDE RECORDS SUMMARY | 2024-10-19 07:17 | XMS_ITS | Encounter Summary ---
Author Organization [facility] Address [address] [place] [address] Care Team Providers Care Sample Distributor Name Role Phone Chandana Esquivel Primary Care Provider [phone] Anuja Yeh Unavailable Sarah Giles Unavailable [phone] Ambrose Pérez MD Unavailable [phone] Reason for Visit * Reason Comments Follow Up Encounter Details Date Type Department Care Team ([facility] st Contact Info) Description 06/21/2018 Telephone [facility] [address] [address] Wilder Kim MD [address] [address] Follow Up Social History Tobacco [...] Hoffman RN - 06/22/2018 9:35 AM EDT [facility] in [place] is the preferred pharmacy. I do see that 2 historical meds were entered yesterday during her consult. Forwarding to Dr. Kim in case they discussed her needing to refill them. * Telephone Encounter - Ирина Adams - 06/21/2018 4:29 PM EDT Florencia called to let the nurse know that she will [facility] using [facility]. This pharmacy is notin the system. Please put that in as the pharmacy she will be using. documented in this encounter Plan of Treatment Not on file documented as of this encounter Visit Diagnoses Not on filedocumented in this encounter Care Teams Sample Distributor Relationship Specialty Start Date End Date Chandana Esquivel [facility] [address] [address] PCP - General Family Medicine 06/16/17 Anuja Yeh [facility] [address] [place] [address] Rheumatology 06/23/18 Sarah Giles [facility] ONCOLOGY [address] [place] [address] Oncology 06/23/18 Ambrose Pérez MD [facility] [address] [place] [address] Anesthesiology 06/23/18 documented as of this encounter
== END 2024-10-19 07:15 | disposition home or self-care (01) ==
LOC: HO.US 07:14
PROVIDERS: Visit Provider Internal Medicine Medical Oncology
DX: C78.7 Secondary malignant neoplasm of liver and intrahepatic bile duct (principal)
CPT/HCPCS: 76705

== ENCOUNTER → 2024-10-19 07:16 | Outpatient (BNV) | payer MEDICARE, SELFPAY | PROVIDERS: Visit Provider Radiology Diagnostic Radiology | DX: K76.89 Other specified diseases of liver (principal) | CPT/HCPCS: 76705 ==

== ENCOUNTER 2024-11-21 11:27 | Day surgery (SDC) | payer MEDICARE, SELFPAY ==
--- OUTSIDE RECORDS SUMMARY | 2024-11-05 11:18 | XMS_ITS | Clinical Summary ---
Author Organization Kimberly Ortiz [facility] Address [address] [place] [address] Care Team Providers Care Bellhop Name Role Phone Chandana Esquivel Primary Care Provider [phone] Allergies Active Allergy Reactions Criticality Noted Date [...] 08/09/2012 9:52 AM EDT Plan of Treatment Not on file Care Teams Bellhop Relationship Specialty Start Date End Date Chandana Esquivel [address] [place] [place] [address] PCP - General 12/17/13
--- OUTSIDE RECORDS SUMMARY | 2024-11-05 11:18 | XMS_ITS | Encounter Summary ---
Author Organization [facility] Address [address] [place] [address] Care Team Providers Care Setter Helper Name Role Phone Chandana Esquivel Lalito Primary Care Provider [phone] Anuja Yeh Unavailable Sarah Giles Unavailable Ambrose Pérez MD Unavailable [phone] Reason for Referral * CONSULT AND TREATMENT (Routine) - Incomplete Specialty Diagnoses / Procedures Referred By Bartolo pulido Referred To Contact Physical Therapy Diagnoses Right shoulder pain, unspecified chronicity Jasson Zhang MD Phone: tel: fax: Referral ID Status Reason Start Date Expiration Date Visits Requested Visits Authorized [id number] Incomplete Specialty Services Required 07/27/2017 1 1 Question Answer What is the reason for this outside referral? EVALUATE AND TREAT Please provide pertinent patient history. right rotator cuff tear surg sched for 08/18/17 Patient is being referred outside of [facility] for the following reason, however final determination for [id number] requests are made by the Referral Management Department Patient Preference Track Order? No When do you want this visit to occur? PT CONVENIENCE - s/p 15 days 08/18/17 sched surgery Which provider/facility/agency would you like to refer to? Orthopedic Physical Therapy [facility] Encounter Details Date Type Department Care Team ([facility] st Contact Info) Description 07/27/2017 Orders Only [facility] [address] [place] [phone] Jasson Zhang MD [address] [address] Social History Tobacco Use Types Packs/Day Years [...] chronicity documented in this encounter Care Teams Setter Helper Relationship Specialty Start Date End Date Chandana Esquivel [facility] [address] [place] [address] PCP - General Family Medicine 06/16/17 Anuja Yeh [address] [address] Rheumatology 06/23/18 Sarah Giles [facility] ONCOLOGY [address] [place] [address] Oncology 06/23/18 Ambrose Pérez MD [facility] [address] [place] [address] Anesthesiology 06/23/18 documented as of this encounter
--- OUTSIDE RECORDS SUMMARY | 2024-11-05 11:18 | XMS_ITS | Encounter Summary ---
Author Organization [facility] Address [address] [place] [address] Phone Care Team Providers Care Director Of Knowledge Management Name Role Phone Chandana Esquivel MD Primary Care Provider Encounter Details Date Type Department Care Team (Late st Contact Info) Description 07/30/2016 Procedure [facility] [address] [place] [address] Social History Tobacco Use Types Packs/Day Years [...] on filedocumented in this encounter Care Teams Director Of Knowledge Management Relationship Specialty Start Date End Date Chandana Esquivel MD [address] [place] [address] [address] [place] [address] PCP - General Family Medicine 09/05/13 documented as of this encounter Additional Source Comments The information contained in this document represents components of the legal health record. It is not the complete legal health record.[facility]
--- OUTSIDE RECORDS SUMMARY | 2024-11-05 11:18 | XMS_ITS | Encounter Summary ---
Author Organization [facility] Address [address] [place] [address] Care Team Providers Care Occupational Health Physician Name Role Phone Chandana Esquivel Primary Care Provider [phone] Anuja Yeh Unavailable Sarah Giles Unavailable [phone] Ambrose Pérez MD Unavailable [phone] Encounter Details Date Type Department Care Team (Late st Contact Info) Description 07/15/2017 Orders Only [facility] [address] [place] [address] Jasson Zhang MD [address] [id number] Social History Tobacco Use Types Packs/Day Years [...] of this encounter Results * Due to [place] state law, this organization might not be [...] chronicity documented in this encounter Care Teams Occupational Health Physician Relationship Specialty Start Date End Date Chandana Esquivel [facility] [address] [place] [address] PCP - General Family Medicine 06/16/17 Anuja Yeh [address] [address] Rheumatology 06/23/[address] [facility]PT OF ONCOLOGY [address] [place] [address] Oncology 06/23/18 Ambrose Pérez MD [facility] [address] [place] [address] Anesthesiology 06/23/18 documented as of this encounter
--- OUTSIDE RECORDS SUMMARY | 2024-11-05 11:18 | XMS_ITS | Clinical Summary ---
Author Organization [facility] Address [address] [place] [address] Phone Care Team Providers Care Agricultural Engineering Technician Name Role Phone Chandana Esquivel MD Primary [...] VACCINE (1 - 1-dose 75+ series) 2020 INFLUENZA VACCINE (#1) 2024 0, 11/21/2018 COVID-19 VACCINE (3 - 2024-2 6 season) 2024 04/16/2020, 03/26/2020 Adult Td,Tdap Booster 11/12/2029 11/13/2019 [...] 146(Abnor therese H) 135 - 145 mmol/L [facility] Plasma Potassium 4.3 3.4 - 5.0 mmol/L [facility] Plasma Chloride 104 100 - 108 mmol/L [facility] Plasma Carbon Dioxide 24 23 - 32 mmol/L [facility] Plasma Urea Nitrogen 16 8 - 25 mg/dL [facility] Plasma Creatinine 0.90 0.60 - 1.50 mg/dL [facility] Plasma Glucose 79 70 - 110 mg/dL [facility] Calcium 9.7 8.5 - 10.5 mg/dL [facility] eGFR >60 mL/min/1. 73m2 [facility] Comment: Abnormal if <60 mL/min/1.73m2. If patient is -Egyptian, multiply the result by 1.21. Plasma Anion GAP 18(Abnorm ally H) 3 - 17 mmol/L [facility] 04/10/2014 1:45 PM EST 04/10/2014 6:10 PM EST Comment:BLOOD us Wilder Kim MD LAB BLOOD ORDERABLES Edited Resu lt - Final [address] [address] from Last 3 Months or Most Recently Relevant to Health Maintenance Insurance [facility] MEDICARE PART A & [place] & [place] [id number] MEDICARE PART A & B MEDICARE PART A & B [facility] MEDICARE PART A & B Care Teams Agricultural Engineering Technician Relationship Specialty Start Date End Date Chandana Esquivel MD [address] [place] [address] PCP - General Family Medicine 09/05/13 Additional Source Comments The information contained in this document represents components of the legal health record. It is not the complete legal health record.[facility]
--- OUTSIDE RECORDS SUMMARY | 2024-11-05 11:18 | XMS_ITS | Clinical Summary ---
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, right (CMS/HCC V24, CMS/HCC V28) Discharge Disposition: Home or Self Care from Last 3 Months Social History Tobacco Use Types Packs/Day Years Used Date Smoking Tobacco: Never Assessed Comments Unknown Sex and Gender Information Value Date Recorded Sex Assigned at Not on file Legal Sex Female 3:43 PM EDT Gender Identity Not on file Sexual Orientation Not on file Plan of Treatment Health Maintenance Due Date Last Done Comments Zoster Vaccines (1 of 2) 1964 RSV Immunization Adult Patients (1 - 1-dose 75+ series) 2020 Cholesterol Screening (Lipid Panel) 12/03/2023 Falls Risk Assessment 12/03/2023 Medicare Annual Wellness Visit 12/03/2023 Osteoporosis Screening (Bone Density Screening) 12/03/2023 Social Influencers of Health Screening 12/03/2023 Depression Screening 02/08/2024 COVID-19 Vaccine (4 - 2024-2 6 season) 2024 03/05/2021, 04/16/2020, 03/26/2020 Influenza Vaccine (#1) 2024 , 11/21/2018, 11/08/2011 Hypertension/CHF/CAD Annual BMP Blood Test 10/23/2024 DTaP,Tdap,and Td Vaccines (3 - Td or Tdap) 11/12/2029 11/13/2019, 10/04/2008 Pneumococcal Vaccine: 50+ Years Completed 09/28/2016, 10/06/2012 Hepatitis C Screening Completed 02/16/2017 HIB Vaccines Aged Out No longer eligi ble based on patient's age to complete this topic HPV Vaccines Aged Out No longer eligi ble based on patient's age to complete this topic Hepatitis A Vaccines Aged Out No long er eligible based on patient's age to complete this topic Hepatitis B Vaccines Aged Out No long er eligible based on patient's age to complete this topic IPV Vaccines Aged Out No longer eligi ble based on patient's age to complete this topic MMR Vaccines Aged Out No longer eligi ble based on patient's age to complete this topic Meningococcal ACWY Vaccine Aged Out N o longer eligible based on patient's age to complete this topic Meningococcal B Vaccine Aged Out No l onger eligible based on patient's age to complete this topic RSV Immunization Patients Under 20 months Aged Out No longer eligible b ased on patient's age to complete this topic Varicella Vaccines Aged Out No longer eligible based on patient's age to complete this topic Procedures Procedure Name Priority Date/Time Associated Diagnosis Comments PET CT SKULL TO MID THIGH INITIAL Routine 10/23/2024 4:53 PM EDT Breast cancer metastasized to bone, right ([facility]/HCC V24, CMS/HCC V28) from Last 3 Months Results * PET CT Skull to Mid Thigh Initial (10/23/2024 4:53 PM EDT) Anatomical Region Laterality Modality Body Radiographic Joy ging 10/24/2024 3:57 PM EDT Impressions 10/24/2024 4:41 PM EDT Metabolically active lesions including multifocal osseous lesions, right supraclavicular and intrathoracic nodes as well as small left-sided pulmonary nodule is consistent with metastatic disease. -------- FINAL REPORT -------- Dictated By: Sherwin Collins Dictated Date: 10/24/2024 15:57 ET Assigned Physician: Sherwin Collins Reviewed and Electronically Signed By: Sherwin Collins Signed Date: 10/24/2024 16:41 ET Workstation ID: [id number] Transcribed By: Self Edit Transcribed Date: 10/24/2024 15:57 ET Narrative 10/24/2024 4:41 PM EDT INDICATION: Breast carcinoma, subsequent treatment strategy Prior relevant studies: None Radiopharmaceutical: 13.5 mCi of F-18 FDG IV. Blood glucose: 89 mg/dl. PROCEDURE: Routine body FDG PET-CT imaging was performed from the skull base to the mid thighs and reconstructed in axial, coronal, and sagittal planes at the computer workstation with fused data from both the PET imaging study and attenuation correction CT. The CT portion of the examination was done strictly for attenuation correction and is not a true diagnostic CT examination. CTDI: 5.69 mGy FINDINGS: HEAD AND NECK: Small FDG avid right-sided supraclavicular nodes located posterior to the internal jugular vein with FDG max of 3.2 and along the medial aspect of the right clavicle with FDG max of 4.1. THORAX: FDG avid nodes scattered within the mediastinum with FDG max up to 5.6 within subcarinal region. FDG avid bilateral hilar nodes. FDG avid small pulmonary nodule centrally in the left upper lobe with SUV max of 3.1. Mild activity noted within peripheral attenuation anteriorly within the lingula with FDG max of 1.7 with associated small peripheral nodule is nonspecific with metastatic disease not excluded however this may represent an inflammatory process. ABDOMEN/PELVIS: No abnormal FDG activity. MUSCULOSKELETAL: Multifocal osseous activity suspicious with metastatic disease. Avid lesions along noted along the manubrium and sternum with FDG max up to 9. Focal activity to the right of midline within the posterior arch of C1 with FDG max of 4.3 may represent a metastatic lesion. Focal activity associated with lytic changes along the left side of the T7 vertebral body suspicious for metastatic disease. Small focus of activity along the left L5 lamina with focal lytic changes with FDG max of 3.3 may represent a metastatic deposit. Mild focal activity along the right iliac wing with FDG max of 2.4 is nonspecific. Procedure Note Sherwin Collins MD - 10/24/2024 INDICATION: Breast carcinoma, subsequent treatment strategy Prior relevant studies: None Radiopharmaceutical: 13.5 mCi of F-18 FDG IV. Blood glucose: 89 mg/dl. PROCEDURE: Routine body FDG PET-CT imaging was performed from the skullbase to the mid thighs and reconstructed in axial, coronal, and sagittalplanes at the computer workstation with fused data from both the PETimaging study and attenuation correction CT. The CT portion of theexamination was done strictly for attenuation correction and is not a truediagnostic CT examination. CTDI: 5.69 mGy FINDINGS: HEAD AND NECK: Small FDG avid right-sided supraclavicular nodes locatedposterior to the internal jugular vein with FDG max of 3.2 and along themedial aspect of the right clavicle with FDG max of 4.1. THORAX: FDG avid nodes scattered within the mediastinum with FDG max up to5.6 within subcarinal region. FDG avid bilateral hilar nodes. FDG avid small pulmonary nodule centrally in the left upper lobe with SUVmax of 3.1. Mild activity noted within peripheral attenuation anteriorly within thelingula with FDG max of 1.7 with associated small peripheral nodule isnonspecific with metastatic disease not excluded however this mayrepresent an inflammatory process. ABDOMEN/PELVIS: No abnormal FDG activity. MUSCULOSKELETAL: Multifocal osseous activity suspicious with metastaticdisease. Avid lesions along noted along the manubrium and sternum with FDG max upto 9. Focal activity to the right of midline within the posterior arch of C1with FDG max of 4.3 may represent a metastatic lesion. Focal activity associated with lytic changes along the left side of the E2zdwajqbez body suspicious for metastatic disease. Small focus of activity along the left L5 lamina with focal lytic changeswith FDG max of 3.3 may represent a metastatic deposit. Mild focalactivity along the right iliac wing with FDG max of 2.4 is nonspecific. IMPRESSION: Metabolically active lesions including multifocal osseous lesions, rightsupraclavicular and intrathoracic nodes as well as small left- sidedpulmonary nodule is consistent with metastatic disease. -------- FINAL REPORT -------- Dictated By: Sherwin Collins Dictated Date: 10/24/2024 15:57 ET Assigned Physician: Sherwin Collins Reviewed and Electronically Signed By: Sherwin Collins Signed Date: 10/24/2024 16:41 ET Workstation ID: [id number] Transcribed By: Self Edit Transcribed Date: 10/24/2024 15:57 ET Tolu Perry MD [facility] [place] PROCEDURES Final Result from Last 3 Months Insurance MEDICARE
--- OUTSIDE RECORDS SUMMARY | 2024-11-05 11:18 | XMS_ITS | Clinical Summary ---
Author Organization [facility] Address [address] [place] [address] Care Team Providers Care Order Checker Name Role Phone Chandana Esquivel Lalito Primary Care Provider [phone] Anuja Yeh Unavailable Sarah Giles Unavailable Ambrose Pérez MD Unavailable [phone] Allergies Active Allergy Reactions Criticality Noted [...] Zoster (Zostavax) Discontinued Procedures * Due to [place] [employer] law, this organization might not be [...] unspecified vessel or lesion type, unspecified whether [place] or transplanted heart from Last 3 Months or Most Recently Relevant to Health Maintenance Results * Due to [place] [employer] law, this organization might not be [...] 08/09/2017 7:02 PM EDT us Angela Sykes HYDROELECTRIC STATION OPERATOR CHIEF CARDIOVASCULAR-WITH INBSKT R TG Final Result MUSE EKG SYSTEM from Last 3 Months or Most Recently Relevant to Health Maintenance Insurance MEDICARE PART B MEDICAID Care Teams Order Checker Relationship Specialty Start Date End Date Chandana Esquivel [facility] [address] [facility] [address] [place] [address] PCP - General Family Medicine 06/16/[address]eh [address] [address] Rheumatology 06/23/18 Sarah Giles [facility] DEPT OF ONCOLOGY [address] [place] [address] Oncology 06/23/18 Ambrose Pérez MD [facility] [address] [place] [address] Anesthesiology 06/23/18
--- OUTSIDE RECORDS SUMMARY | 2024-11-05 11:18 | XMS_ITS | Encounter Summary ---
Author Organization [facility] Address [address] [place] [address] Care Team Providers Care Cherry Picker Operator Name Role Phone Chandana Esquivel Primary Care Provider [phone] Anuja Yeh Unavailable Sarah Giles Unavailable [phone] Ambrose Pérez MD Unavailable [phone] Encounter Details Date Type Department Care Team (Late st Contact Info) Description 08/25/2020 Orders Only [facility] [address] [place] [address] Jasson Zhang MD [address] [id number] Social History Tobacco Use Types Packs/Day Years [...] of this encounter Results * Due to [place] state law, this organization might not [...] on filedocumented in this encounter Care Teams Cherry Picker Operator Relationship Specialty Start Date End Date Chandana Esquivel [facility] [address] [place] [address] [address] [place] [address] PCP - General Family Medicine 06/16/17 Anuja Yeh [address] [address] Rheumatology 06/23/18 Sarah Giles [facility] DEPT OF ONCOLOGY [address] [place] [address] Oncology 06/23/18 Ambrose Pérez MD [facility] [address] [place] [address] Anesthesiology 06/23/18 documented as of this encounter
--- OUTSIDE RECORDS SUMMARY | 2024-11-05 11:18 | XMS_ITS | Encounter Summary ---
Author Organization [facility] Address [address] [place] [address] Care Team Providers Care Balling Head Tender Name Role Phone Chandana Esquivel Primary Care Provider [phone] Anuja Yeh Unavailable Sarah Giles Unavailable [phone] Ambrose Pérez MD Unavailable [phone] Encounter Details Date Type Department Care Team (Late st Contact Info) Description 08/09/2017 Orders Only [facility] Pre-Admission Testing [address] [place] [address] Angela Sykes NP Social History Tobacco Use [...] of this encounter Procedures * Due to [place] state law, this organization might not be sharing negative HIV tests. Procedure Name Priority Date/Time Associated Diagnosis Comments EKG-TO BE READ & BILLED BY ADULT OR PEDIATRIC CARDIOLOGY Routine 08/09/2017 2:42 PM EDT Tear of right rotator cuff, unspecified tear extent Pre-operative examination Atherosclerosis of coronary artery, angina presence unspecified, unspecified vessel or lesion type, unspecified whether [place] or transplanted heart LATEX (K82) IGE Routine 08/09/2017 2:27 PM EDT Latex sensitivity BASIC METABOLIC PANEL WITH (GFR) Routine 08/09/2017 2:27 PM EDT Tear of right rotator cuff, unspecified tear extent Pre-operative examination Atherosclerosis of coronary artery, angina presence unspecified, unspecified vessel or lesion type, unspecified whether [place] or transplanted heart documented in this encounter Results * Due to [place] state law, this organization might not be [...] previous ECGs available Confirmed by Lissy Rich ([id number]) on 08/09/2017 7:02:09 PM MUSE EKG SYSTEM 08/09/2017 2:42 PM EDT 08/09/2017 7:02 PM EDT Angela Sykes NP CARDIOVASCULAR-WITH INBSKT R TG Final Result Performing Organization Address [facility] de Phone Number MUSE EKG SYSTEM * LATEX (K82) IGE (08/09/2017 2:27 PM EDT) Pathologist [facility] Latex (K82) IgE <0.10 kU/L [facility] Latex (K82) Class 0 [facility] Comment: Negative findings for latex specific IgE antibodies does not preclude latex allergy. Positive findings for latex specific IgE antibodies is highly suggestive of latex allergy and should be considered in context of clinical findings. 08/09/2017 2:27 PM EDT 08/09/2017 10:53 PM EDT Narrative Resulting Agency Comment [id number] Angela Sykes NP LABORATORY Final Result [facility] [address] [place] [address] * (ABNORMAL) BASIC METABOLIC PANEL WITH (GFR) [...] approximately 13% higher for people identified as -[place]. GFR 82 > OR = 60 mL/min/1 [...] needs for GFR calculation. Resulting Agency Comment [id number] Angela Sykes NP LABORATORY Final Result [facility] [address] [place] [address] documented in this encounter Visit Diagnoses Diagnosis Tear of right rotator cuff, unspecified tear extent Pre-operative examination Preoperative examination, unspecified Atherosclerosis of coronary artery, angina presence unspecified, unspecified vessel or lesion type, unspecified whether [place] or transplanted heart Latex sensitivity Allergy to latex documented in this encounter Care Teams Balling Head Tender Relationship Specialty Start Date End Date Chandana Esquivel [facility] [address] [address] PCP - General Family Medicine 06/16/17 Anuja Yeh [address] [address] Rheumatology 06/23/18 Sarah Giles [facility] DEPT OF ONCOLOGY [address] [place] [address] Oncology 06/23/18 Ambrose Pérez MD [facility] [address] [place] [address] Anesthesiology 06/23/18 documented as of this encounter
--- OUTSIDE RECORDS SUMMARY | 2024-11-05 11:19 | XMS_ITS | Encounter Summary ---
Author Organization [facility] Ort[facility] Address [address] [place] [address] Care Team Providers Care Laborer Fryer Farm Name Role Phone Chandana Esquivel Primary Care Provider [phone] Encounter Details Date Type Department Care Team (Late st Contact Info) Description 08/09/2012 Clinical Conversion Encounter [facility] RADIATION ONCOLOGY [facility] Radiation Oncology [address] [place] [id number] Sonny Tierney MD [address] [place] [address] Social History Tobacco Use Types Packs/Day Years Used Date Smoking Tobacco: Never Assessed Comments Unknown Sex and Gender Information Value Date Recorded Sex Assigned at Not on file Legal Sex Female 4:15 PM EST Gender Identity Not on file Sexual Orientation Not on file documented as of this encounter Progress Notes * Sonny Tierney MD - 03/26/2014 6:34 AM EST [id number],[place], [place]. Referring Physician Dr. Scott Mazariegos Chief [...] 2 grown children. 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 Denies routine exercise pattern. Previous history of tobacco use one pack per day for 30 years but quit 2 years ago with her SD. OB History 2 para 2, onset of menses at age 12, menopause at age 48. First age 20. Allergies 1. Penicillins 2. Lobster 3. Nickel Penicillin and nickel Current Meds Aspirin 81 MG Oral Tablet; TAKE 1 TABLET DAILY; Therapy: (Recorded:[id number]) to Ativan 0.5 MG Oral Tablet; TAKE 1 TABLET EVERY 6 TO 8 HOURS NEEDED; Therapy: (Recorded:[id number]) to Benadryl 25 MG Oral Tablet; TAKE 1 TABLET AT BEDTIME for rash; Therapy: [id number] to Benadryl Itch Stopping 1-0.1 % External Cream; APPLY SPARINGLY TO AFFECTED AREA(S) 3 TIMES A DAY; Therapy: [id number] to Ibuprofen 600 MG Oral Tablet; Take 1 tablet every 6 hours as needed for pain; Therapy: (Recorded:[id number]) to Lisinopril 20 MG Oral Tablet; TAKE 1 TABLET DAILY; Therapy: (Recorded:[id number]) to Metoprolol Tartrate 25 MG Oral Tablet; TAKE 1 TABLET TWICE DAILY; Therapy: (Recorded:[id number]) to Multiple Vitamin TABS; TAKE 1 TABLET DAILY; Therapy: (Recorded:[id number]) to Nystatin 368241 UNIT/GM External Powder; APPLY 2-times DAILY TO AFFECTED AREA(S); Therapy: [id number] to Percocet 5-325 MG Oral Tablet; TAKE 1 TABLET EVERY 4 HOURS NEEDED FOR PAIN; Therapy: (Recorded:[id number]) to Vitamin D3 2000 UNIT Oral Tablet; Take 1 tablet daily; Therapy: (Recorded:[id number]) to Review of Systems She has had [...] She has no known autoimmune disorders. Vitals [facility] Vitals Data Includes: Current Encounter 09Aug2012 09:52AM [...] we discussed options including full breast radiotherapy, [place] fractionation full breast radiotherapy, or partial breast [...] on filedocumented in this encounter Care Teams Laborer Fryer Farm Relationship Specialty Start Date End Date Chandana Esquivel [address] [place] [address] PCP - General 12/17/13 documented as of this encounter
--- OUTSIDE RECORDS SUMMARY | 2024-11-05 11:19 | XMS_ITS | Encounter Summary ---
Author Organization [facility] Address [address] [place] [address] Care Team Providers Care Air Traffic Supervisor Name Role Phone Chandana Esquivel Primary Care Provider [phone] Anuja Yeh Unavailable Sarah Giles Unavailable [phone] Ambrose Pérez MD Unavailable [phone] Reason for Visit * Reason Comments Follow Up Encounter Details Date Type Department Care Team ([facility] st Contact Info) Description 06/21/2018 Telephone [facility] Neurology [address] [address] Wilder Kim MD [address] [address] Follow Up Social History Tobacco [...] Hoffman RN - 06/22/2018 9:35 AM EDT [facility] in [place] is the preferred pharmacy. I do see that 2 historical meds were entered yesterday during her consult. Forwarding to Dr. Kim in case they discussed her needing to refill them. * Telephone Encounter - Ирина Adams - 06/21/2018 4:29 PM EDT Florencia called to let the nurse know that she will [facility] using [facility]. This pharmacy is notin the system. Please put that in as the pharmacy she will be using. documented in this encounter Plan of Treatment Not on file documented as of this encounter Visit Diagnoses Not on filedocumented in this encounter Care Teams Air Traffic Supervisor Relationship Specialty Start Date End Date Chandana Esquivel [facility] [address] [address] PCP - General Family Medicine 06/16/17 Anuja Yeh [facility] [address] [place] [address] Rheumatology 06/23/18 Sarah Giles [facility] DEPT OF ONCOLOGY [address] [place] [address] Oncology 06/23/18 Ambrose Pérez MD [facility] [address] [place] [address] Anesthesiology 06/23/18 documented as of this encounter
--- OUTSIDE RECORDS SUMMARY | 2024-11-05 11:19 | XMS_ITS | Clinical Summary ---
Author Organization [facility] Address [address] [place] [address] Care Team Providers Care Waiter Waitress Name Role Phone Chandana Esquivel Primary Care [...] bilateral 02/16/2017 Coronary artery disease invo lving [place] coronary artery of [place] heart with angina pectoris 02/16/2017 Breast cancer [...] topic Sigmoidoscopy Discontinued Procedures * Due to [place] [employer] law, this organization might not be sharing negative HIV tests. Procedure Name Priority Date/Time Associated Diagnosis Comments HEPATITIS C ANTIBODY W/REFLEX TO HCV RNA, QUANTITATIVE PCR Routine 02/16/2017 4:48 PM EST Primary osteoarthritis of both hands from Last 3 Months or Most Recently Relevant to Health Maintenance Results * Due to [place] [employer] law, this organization might not be sharing negative HIV tests. * Hepatitis C Antibody w/Reflex to HCV RNA, Quantitative PCR (02/16/2017 4:48 PM EST) Hepatitis C Antibody NON-REACT NANCY NON-REACT NANCY 02/17/2017 4:55 AM EST [facility] Signal To Cut-Off 0.04 <1.00 02/17/2017 4:55 AM EST [facility] Blood specimen (specimen) Structure of peripheral vein / Unknown Venipuncture / Unknown 02/16/2017 4:48 PM EST 02/16/2017 5:13 PM EST Narrative DUSTY QUINTEROS - 02/17/2017 4:55 AM EST [facility] Received Date: us Anuja Yeh MD LAB BLOOD ORDERABLES Final Resul t DUSTY QUINTEROS [address] [facility] [address]rd [address], [place] [address], [place] [phone] [facility] [address] [facility] [address]rd [address], [place] [address], [place] [phone] from Last 3 Months or Most Recently Relevant to Health Maintenance Insurance MEDICARE [facility] Care Teams Waiter Waitress Relationship Specialty Start Date End Date Chandana Esquivel [address] [place] [address] [place] [address] PCP - General 08/26/16
--- OUTSIDE RECORDS SUMMARY | 2024-11-05 11:19 | XMS_ITS | Encounter Summary ---
Author Organization Kimberly Ortiz [facility] Address [address] [place] [address] Care Team Providers Care Table Games Dealer Name Role Phone Chandana Esquivel Primary Care Provider [phone] Encounter Details Date Type Department Care Team (Late st Contact Info) Description 08/25/2012 Clinical Conversion Encounter [facility] RADIATION ONCOLOGY [facility] Radiation Oncology [address] [place] [address] Sonny Tierney MD [address] [place] [address] Social History Tobacco Use Types Packs/Day Years Used Date Smoking Tobacco: Never Assessed Comments Unknown Sex and Gender Information Value Date Recorded Sex Assigned at Not on file Legal Sex Female 4:15 PM EST Gender Identity Not on file Sexual Orientation Not on file documented as of this encounter Progress Notes * Sonny Tierney MD - 03/26/2014 6:34 AM EST [id number],[place], [place]. Diagnosis Right breast cancer Staging Stage [...] on filedocumented in this encounter Care Teams Table Games Dealer Relationship Specialty Start Date End Date Chandana Esquivel [address] [place] [address] PCP - General 12/17/13 documented as of this encounter
[2024-11-21] VITALS (14 sets, daily range): BP systolic 118–157; BP diastolic 42–71; PULSE 54–66; RESP 11–20; TEMP 36.3–37; O2SAT 96–99; BMI 25.1
--- NOTE | ~2024-11-21 | CT_ITS ---
PROCEDURE: CT GUIDED BIOPSY, BONE CLINICAL INFORMATION: History of breast cancer. FDG avid lesions in the sternum PROCEDURES: 1. Limited preprocedure CT of the chest. Permanent images saved in PACS. 2. Core biopsy of sternal mass This CT examination was performed using dose optimization techniques as appropriate, variously including the following: *Automated exposure control *Adjustment of mA and/or kV according to patient size (this includes techniques or standardized protocols for targeted exams where dose is matched to indication/reason for exam; i.e. extremities or head) *Use of iterative reconstruction technique MEDICATIONS: -Versed, fentanyl and lidocaine 1% -Antibiotics: None -For additional details, please see nursing flowsheet. COMPLICATIONS: None ESTIMATED BLOOD LOSS: < 5 ml CONTRAST: None SPECIMENS: 2 core specimens placed in formalin. MODERATE SEDATION TIME: 30 min PROCEDURE NOTE: The procedure, risks, benefits, and alternatives were carefully explained to the patient and written informed consent was obtained. The patient was placed supine on the CT table. A timeout was performed. A limited CT of the chest was performed to localize sternal lesions and choose appropriate needle entry and trajectory. The patient was prepped and draped in usual sterile fashion. The skin, subcutaneous tissues, and periosteum were anesthetized with lidocaine. Under CT guidance, a 14-gauge bone biopsy needle was advanced into the sternal lesion and 2 specimens were obtained and placed in formalin. The needle was removed. A dry dressing was applied and secured with Tegaderm. There were no immediate complications. The patient was stable after the procedure and was transferred to the post anesthesia care unit. The procedure was done under moderate sedation with a dedicated nurse for monitoring of vital signs. CT/CT biopsy bone deep Impression: CT-guided biopsy of sternal lesion Electronically signed by: Michael Solo MD 11/21/2024 02:54 PM EDT
[2024-11-21 12:23] LABS: INTERNATIONAL NORM RATIO 1.0 (0.9-1.1); Prothrombin Time 11.1 SEC (10.9-12.4)
== END 2024-11-21 15:50 | disposition home or self-care (01) ==
LOC: HO.SSS 11:28
PROVIDERS: Radiology Diagnostic Radiology; Student in an Organized Health Care Education/Training Program; Visit Provider Internal Medicine Medical Oncology
DX: C79.51 Secondary malignant neoplasm of bone (principal); C41.3 Malignant neoplasm of ribs, sternum and clavicle; C50.911 Malignant neoplasm of unspecified site of right female breast; Z92.21 Personal history of antineoplastic chemotherapy; Z92.3 Personal history of irradiation; Z90.722 Acquired absence of ovaries, bilateral; I10 Essential (primary) hypertension; E78.00 Pure hypercholesterolemia, unspecified; F41.9 Anxiety disorder, unspecified; I25.2 Old myocardial infarction; Z95.5 Presence of coronary angioplasty implant and graft; G62.9 Polyneuropathy, unspecified; Z79.899 Other long term (current) drug therapy; Z88.0 Allergy status to penicillin; Z90.49 Acquired absence of other specified parts of digestive tract; Z98.890 Other specified postprocedural states; Z87.891 Personal history of nicotine dependence
CPT/HCPCS: 20225; 36415; 77012; 85610; 88307; 88311; 88341; 88342; 88360; 99152; 99153; J2003; J2250; J3010

== ENCOUNTER → 2024-11-21 13:25 | Outpatient (BNV) | payer MEDICARE, SELFPAY | PROVIDERS: Visit Provider Student in an Organized Health Care Education/Training Program | DX: R22.2 Localized swelling, mass and lump, trunk (principal); Z85.3 Personal history of malignant neoplasm of breast | CPT/HCPCS: 20225; 77012; 99152 ==

== ENCOUNTER 2025-01-16 08:30 | Outpatient (REF) | payer MEDICARE, MEDICAID, SELFPAY ==
--- NOTE | ~2025-01-16 | MM_ITS ---
EXAMINATION: DXA BONE DENSITY AXIAL HISTORY: Baseline bone mineral density. TECHNIQUE: [employer] Dual energy absorptiometry (DEXA) of the lumbar spine, total left hip, and femoral neck was performed. COMPARISON: There are no prior studies for comparison. FINDINGS: The bone mineral density of the lumbar spine is 1.228 g/cm2, corresponding to a T-score of 0.5, and a Z-score of 2.5. This is indicative of normal bone mineral density. The bone mineral density of the left total hip is 0.885 g/cm2, corresponding to a T-score of -1.0, and a Z-score of 1.1. This is indicative of normal bone mineral density. The bone mineral density of the left femoral neck is 0.894 g/cm2, corresponding to a T-score of -1.0, and a Z-score of 1.2. This is indicative of normal bone mineral density. FRACTURE RISK: The FRAX index suggests a risk of major osteoporotic fracture of 11.4%, and of hip fracture 2.3%. MM/XR DEXA axial skeleton IMPRESSION: Based on bone mineral density, and according to World Health Organization (WHO) criteria, the diagnosis is consistent with normal bone mineral density. Statistically, 68% of repeat scans fall within 1 SD (+/- 0.010 g/cm2 for AP spine L1-L4) and 1 SD (+/- 0.012 g/cm2 for femur total) FRAX is a trademark of the [employer] [employer], a World Health Organization (WHO) Collaborating Center. Electronically signed by: Ian Cox MD 01/16/2025 09:16 AM [facility]
== END 2025-01-16 08:31 | disposition home or self-care (01) ==
LOC: HO.MAMMO 08:30
PROVIDERS: Visit Provider Internal Medicine Medical Oncology
DX: Z13.820 Encounter for screening for osteoporosis (principal); C50.919 Malignant neoplasm of unspecified site of unspecified female breast; C79.51 Secondary malignant neoplasm of bone
CPT/HCPCS: 77080

== ENCOUNTER → 2025-01-16 08:38 | Outpatient (BNV) | payer MEDICARE, MEDICAID, SELFPAY | PROVIDERS: Visit Provider Radiology Diagnostic Radiology | DX: E28.39 Other primary ovarian failure (principal) | CPT/HCPCS: 77080 ==